=== PATIENT | male | born 1965 | race Caucasian/White ===

== ENCOUNTER → 2016-04-16 | Outpatient (CLI) | payer MEDICARE, MEDICAID ==
[~2016-04-16] MED LIST: AMIT10TA6; AMT25T PO; ASP81CT PO; ASPI-9 PO; ATOR40TA PO; CARV12.53 PO; CATHETER FLUSH 10 ML SYR IV PRN; DIPH50CA PO; DIVA-20 PO; DIVA250T2 PO; DOCU100T7 PO; FLT05NA16 NSEACH; FLUT16SP22 NS; FURO80TA PO; HYOS0.3710; IBUP-15 PO; IOHEXOL 350 MG/ML 100 ML (OMNIPAQUE 350) VIAL IV ONE; KCL20TCR; LORA10TA2 PO; LOSA25TA15; METO25TA2 PO; MMT17NA NS; MNTL10T; NF-ESOM40C PO; NS 100 ML (IVPB) BAG IV ONE; OMG1KC PO; POTA20TA7 PO; PRAV80TA2 PO; PROP1TAB77; SUMA100T2 PO; [UNRECOGNIZED DRUG - OTHER]
[2016-04-16 11:21] LABS: BLOOD UREA NITROGEN 7 MG/DL (7-18); BUN/CREATININE RATIO 8; CREATININE SERUM 0.84 MG/DL (0.60-1.30); GFR ESTIMATED > 60
--- NOTE | 2016-04-16 12:05 | Diagnostic Imaging Report ---
CLINICAL INDICATION: Patient with headaches times several months. Pain right posterior aspect and base of the head. Patient has a nonactive shunt in brain. EXAM: Axial CT scan of brain performed without and with 80 cc of Omnipaque 350 IV contrast. COMPARISON: Head CT without and with IV contrast dated 06/13/2010. FINDINGS: There is no evidence of acute cerebral infarct, intracranial hemorrhage, or gross mass effect. There are several focal areas of low-attenuation white matter changes in both cerebral hemispheres, which may be related to chronic small vessel ischemic disease. There is normal [place]-white matter distinction. The brain parenchymal volume appears appropriate for patient's age. There is no significant midline shift or herniation. The visualized [place] vascular structures shows no gross abnormality. Stable ventricular shunt in the right posterior aspect of the head. There is no evidence of hydrocephalus. The basal cisterns are unremarkable. The skull, extracranial soft tissue, and orbits are unremarkable. There is mild mucosal thickening involving right maxillary sinus. IMPRESSION: Stable CT scan of brain with no evidence of acute intracranial process. There is no evidence of hydrocephalus. Dictated by: Dictated on workstation # [id number]
== END ==
LOC: RAD 10:44
PROVIDERS: ATTEND Physician Assistant
DX: I50.22 Chronic systolic (congestive) heart failure (principal); R51 Headache; I65.23 Occlusion and stenosis of bilateral carotid arteries; I10 Essential (primary) hypertension; E78.2 Mixed hyperlipidemia
CPT/HCPCS: 36415; 70470; 82565; 84520

== ENCOUNTER → 2016-05-01 | Outpatient (CLI) | payer MEDICARE, MEDICAID ==
[~2016-05-01] MED LIST changes: -CATHETER FLUSH 10 ML SYR IV PRN; -IOHEXOL 350 MG/ML 100 ML (OMNIPAQUE 350) VIAL IV ONE; -NS 100 ML (IVPB) BAG IV ONE
[2016-05-01 08:45] LABS: BASOPHILS % (AUTO) 0 % (0-10); EOSINOPHILS # (AUTO) 0.1 10^3/uL (0.0-0.3); EOSINOPHILS % (AUTO) 2 % (0-10); LYMPHOCYTES # (AUTO) 2.3 X 10^3 (1.0-4.0); LYMPHOCYTES % (AUTO) 27 % (12-44); MEAN CORPUSCULAR HEMOGLOBIN 30 PG (25-34); MEAN CORPUSCULAR HGB CONC 36 G/DL (32-36); MEAN CORPUSCULAR VOLUME 83 FL (80-99); MEAN PLATELET VOLUME 9.6 FL (7.4-10.4); MONOCYTES # (AUTO) 0.7 X 10^3 (0.0-1.0); MONOCYTES % (AUTO) 9 % (0-12); NEUTROPHILS # (AUTO) 5.2 X 10^3 (1.8-7.8); NEUTROPHILS % (AUTO) 62 % (42-75); PLATELET COUNT 195 10^3/uL (130-400); RED BLOOD COUNT 5.86 10^6/uL (4.35-5.85); RED CELL DISTRIBUTION WIDTH 13.6 % (10.0-14.5); WHITE BLOOD COUNT 8.4 10^3/uL (4.3-11.0)
[2016-05-01 09:13] LABS: ALANINE AMINOTRANSFERASE 29 U/L (0-55); ALBUMIN 4.1 G/DL (3.2-4.5); ANION GAP 9 MMOL/L (5-14); ASPARTATE AMINO TRANSFERASE 22 U/L (5-34); BILIRUBIN,TOTAL 0.7 MG/DL (0.1-1.0); BLOOD UREA NITROGEN 9 MG/DL (7-18); BUN/CREATININE RATIO 11; CALCIUM 9.1 MG/DL (8.5-10.1); CARBON DIOXIDE 26 MMOL/L (21-32); CHLORIDE 97 MMOL/L (98-107); CHOLESTEROL 127 MG/DL (< 200); CREATININE SERUM 0.84 MG/DL (0.60-1.30); DIRECT LDL 73 MG/DL (1-129); GFR ESTIMATED > 60; GLUCOSE 88 MG/DL (70-105); POTASSIUM 4.2 MMOL/L (3.6-5.0); SODIUM 132 MMOL/L (135-145); TRIGLYCERIDES 145 MG/DL (<150); VLDL CHOLESTEROL 29 MG/DL (5-40)
[2016-05-01 09:34] LABS: THYROID STIMULATING HORMONE 0.94 UIU/ML (0.35-4.94); VALPROIC ACID 50.1 UG/ML (50.0-100.0)
[2016-05-02 07:57] LABS: ERYTHROCYTE SEDIMENTATION RATE 2 MM/HR
== END ==
LOC: LAB 08:11
PROVIDERS: ATTEND Family Medicine
DX: I10 Essential (primary) hypertension (principal); E78.2 Mixed hyperlipidemia; G80.9 Cerebral palsy, unspecified; R53.83 Other fatigue; R73.9 Hyperglycemia, unspecified
CPT/HCPCS: 36415; 80053; 80061; 80164; 83036; 84439; 84443; 84550; 85025; 85652

== ENCOUNTER 2016-06-11 10:53 | Outpatient (RCR) | payer MEDICARE, MEDICAID | END 2016-06-11 13:58 | disposition home or self-care (01) | PROVIDERS: ATTEND Family Medicine | DX: M54.2 Cervicalgia (principal); R51 Headache ==

== ENCOUNTER → 2016-08-06 | Outpatient (CLI) | payer MEDICARE, MEDICAID ==
--- NOTE | 2016-08-09 20:43 | ECHOCARDIOGRAPHY REPORT ---
DATE OF SERVICE: 08/06/2016 PROCEDURE: Two-dimensional echocardiogram. REFERRING PHYSICIAN: Demi Agustin DO MEASUREMENTS: LVID end diastolic 4.7, IVS thickness 1.4, LVPW thickness 1.2, left atrial diameter 3.1, ejection fraction 60%. FINDINGS: 1. Technical quality is good. 2. The left ventricle is normal in size with normal contractility, mild left ventricular hypertrophy noted diffusely. Systolic function appeared to be normal. Estimated ejection fraction 60%. No diastolic dysfunction was noted on this study. 3. The left atrium is normal in size. No clots or thrombus were seen within the left atrium. 4. The right atrium and right ventricle are normal in size. No clots or thrombus were seen within the right side. 5. Mitral valve is normal in morphology with mild mitral regurgitation noted by color Doppler flow. No mitral valve prolapse. No mitral valve stenosis. 6. Aortic valve is trileaflet with normal opening and closing pattern. No significant aortic stenosis or regurgitation was seen. 7. Tricuspid valve is normal in morphology with mild tricuspid regurgitation noted by color Doppler flow. Doppler across the tricuspid valve estimated pulmonary artery pressure of 14+, right atrial pressure 14+ right atrial pressure. 8. Pulmonic valve is functioning normally. 9. No pericardial effusion. IN CONCLUSION: 1. Mild left ventricular hypertrophy noted diffusely. Systolic function is normal. Estimated ejection fraction is 60%. 2. Mild mitral and tricuspid regurgitation. 3. Estimated pulmonary artery pressure of 20 mmHg. Job ID: [id number] DocumentID: [id number] Dictated Date: 08/08/2016 07:42:54 Pediatric Assistant Date: 08/08/2016 12:59:46 Dictated By: TON SALDANA MD
== END ==
LOC: RAD 07:23
PROVIDERS: ATTEND Physician Assistant
DX: I50.22 Chronic systolic (congestive) heart failure (principal); I65.23 Occlusion and stenosis of bilateral carotid arteries; I11.0 Hypertensive heart disease with heart failure; E78.2 Mixed hyperlipidemia
CPT/HCPCS: 93306

== ENCOUNTER 2016-08-22 10:06 | Emergency (ER) | payer MEDICARE, MEDICAID ==
[~2016-08-22] VITALS: Ht 182.9 cm; Wt 113.4 kg
[2016-08-22 10:21] LABS: BASOPHILS % (AUTO) 1 % (0-10); EOSINOPHILS # (AUTO) 0.2 10^3/uL (0.0-0.3); EOSINOPHILS % (AUTO) 2 % (0-10); LYMPHOCYTES # (AUTO) 2.7 X 10^3 (1.0-4.0); LYMPHOCYTES % (AUTO) 35 % (12-44); MEAN CORPUSCULAR HEMOGLOBIN 29 PG (25-34); MEAN CORPUSCULAR HGB CONC 35 G/DL (32-36); MEAN CORPUSCULAR VOLUME 85 FL (80-99); MEAN PLATELET VOLUME 9.6 FL (7.4-10.4); MONOCYTES # (AUTO) 0.7 X 10^3 (0.0-1.0); MONOCYTES % (AUTO) 8 % (0-12); NEUTROPHILS # (AUTO) 4.3 X 10^3 (1.8-7.8); NEUTROPHILS % (AUTO) 54 % (42-75); PLATELET COUNT 201 10^3/uL (130-400); RED BLOOD COUNT 5.84 10^6/uL (4.35-5.85); WHITE BLOOD COUNT 7.8 10^3/uL (4.3-11.0)
[2016-08-22 10:38] LABS: ALANINE AMINOTRANSFERASE 28 U/L (0-55); ALBUMIN 4.2 G/DL (3.2-4.5); ANION GAP 10 MMOL/L (5-14); ASPARTATE AMINO TRANSFERASE 25 U/L (5-34); BILIRUBIN,TOTAL 0.5 MG/DL (0.1-1.0); BLOOD UREA NITROGEN 6 MG/DL (7-18); BUN/CREATININE RATIO 6; CALCIUM 9.7 MG/DL (8.5-10.1); CARBON DIOXIDE 30 MMOL/L (21-32); CHLORIDE 97 MMOL/L (98-107); CREATININE SERUM 0.97 MG/DL (0.60-1.30); GFR ESTIMATED > 60; GLUCOSE 103 MG/DL (70-105); POTASSIUM 3.8 MMOL/L (3.6-5.0); SODIUM 137 MMOL/L (135-145); TOTAL PROTEIN 7.1 G/DL (6.4-8.2)
--- NOTE | 2016-08-22 10:38 | ED Cardiac General ---
History of Present Illness General Chief Complaint: Chest Pain Stated Complaint: CP, PACEMAKER Nursing Triage Note: PT C O OF CHEST PAIN, STATES STARTED THIS AM, HAS PAIN UPON LT PALPATION AT PACEMAKER AREA Source: patient, caregiver Exam Limitations: no limitations History of Present Illness Time seen by provider: 10:34 Initial Comments The patient is a 51-year-old white male who was brought to the emergency room by his caregiver. He reports that he started having pain in the area of his pacemaker yesterday and continues to do so. This does not radiate to the back or down the arms. He denies shortness of breath. He has an atrial sensing ventricular pacemaker on the basis of complete heart block. The initial was placed and 1994 and a replacement in June 2009. He is seen by Dr. Lau of cardiology. He recently was reported to have an echocardiogram with normal function. His last pacemaker interrogation was also said to be normal Timing/Duration: 24 hours Allergies and Home Medications Allergies Coded Allergies: vancomycin (Verified Allergy, Unknown, 11/11/05) Home Medications Aspirin/Calcium Carbonate/Mag 325 Mg Tablet, 325 MG PO DAILY, (Reported) Divalproex Sodium 500 Mg Tablet.dr, 500 MG PO DAILY @1200, (Reported) DAILY AT 1200 Divalproex Sodium 500 Mg Tablet.dr, 750 MG PO BID, (Reported) Docusate Sodium 100 Mg Tablet, 100 MG PO DAILY, (Reported) Esomeprazole Mag Trihydrate 40 Mg Capsule.dr, 40 MG PO DAILY, (Reported) Fluticasone Propionate 16 Gm Naspr, 50 MCG NS HS, (Reported) Furosemide 80 Mg Tablet, 80 MG PO BID, (Reported) Metoprolol Tartrate 25 Mg Tablet, 25 MG PO DAILY, (Reported) Siler 3 Polyunsat Fatty Acids 1,000 Mg Cap, 1,000 MG PO DAILY, (Reported) Potassium Chloride 20 Meq Tab.prt.sr, 40 MEQ PO BID, (Reported) Pravastatin Sodium 80 Mg Tablet, 80 MG PO DAILY, (Reported) Review of Systems Constitutional: see HPI EENTM: No Symptoms Reported Respiratory: No Symptoms Reported Cardiovascular: See HPI Gastrointestinal: No Symptoms Reported Genitourinary: No Symptoms Reported Musculoskeletal: no symptoms reported Skin: no symptoms reported Psychiatric/Neurological: No Symptoms Reported Endocrine: No Symptoms Reported Hematologic/Lymphatic: No Symptoms Reported Past Rruhxcz-Obsiqe-Rpttub Hx Patient Social History Alcohol Use: Denies Use Recreational Drug Use: No Smoking Status: Never a Smoker Recent Foreign Travel: No Contact w/Someone Who Travel: No Recent Infectious Disease Expo: No Recent Hopitalizations: No Immunizations Up To Date Date of Pneumonia Vaccine: Nov 28, 2011 Respiratory Hx Respiratory Disorders: No Cardiovascular Hx Cardiac Disorders: Yes Neurological Hx Neurological Disorders: Yes (hx meningitis 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) Reproductive System Hx Reproductive Disorders: No Genitourinary Hx Genitourinary Disorders: No Gastrointestinal Hx Gastrointestinal Disorders: Yes Musculoskeletal Hx Musculoskeletal Disorders: 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) Endocrine Hx Endocrine Disorders: No HEENT HX ENT Disorders: No Cancer Hx Cancer: No Psychosocial Hx Psychiatric Problems: No Blood Transfusions Hx Blood Disorders: No Physical Exam Vital Signs Vital Sign - Last 12Hours 08/22/16 10:15 Temp 98.1 Pulse 99 Resp 18 B/P (MAP) 108/88 Pulse Ox 97 O2 Delivery Room Air Capillary Refill : Less Than 3 Seconds General Appearance: No Apparent Distress, WD/WN HEENT: Normal ENT Inspection Neck: Normal Inspection Respiratory: Chest Non Tender, Lungs Clear, Normal Breath Sounds, No Accessory Muscle Use, No Respiratory Distress Cardiovascular: Regular Rate, Rhythm, No Edema, No Gallop, No JVD, No Murmur, Normal Peripheral Pulses, Other (tender to palpation at the pacemaker pack.) Gastrointestinal: Normal Bowel Sounds, No Organomegaly, No Pulsatile Mass, Non Tender Extremity: Normal Capillary Refill, Normal Inspection, Normal Range of Motion, Non Tender, No Calf Tenderness, No Pedal Edema Neurologic/Psychiatric: Alert, Oriented x3, No Motor/Sensory Deficits, Normal Mood/Affect Skin: Normal Color, Warm/Dry Lymphatic: No Adenopathy Progress/Results/Core Measures Results/Orders Lab Results Laboratory Tests Test 08/22/16 10:16 Range/Units White Blood Count 7.8 4.3-11.0 10^3/uL Red Blood Count 5.84 4.35-5.85 10^6/uL Hemoglobin 17.1 13.3-17.7 G/DL Hematocrit 49 40-54 % Mean Corpuscular Volume 85 80-99 FL Mean Corpuscular Hemoglobin 29 25-34 PG Mean Corpuscular Hemoglobin Concent 35 32-36 G/DL Red Cell Distribution Width 14.0 10.0-14.5 % Platelet Count 201 130-400 10^3/uL Mean Platelet Volume 9.6 7.4-10.4 FL Neutrophils (%) (Auto) 54 42-75 % Lymphocytes (%) (Auto) 35 12-44 % Monocytes (%) (Auto) 8 0-12 % Eosinophils (%) (Auto) 2 0-10 % Basophils (%) (Auto) 1 0-10 % Neutrophils # (Auto) 4.3 1.8-7.8 X 10^3 Lymphocytes # (Auto) 2.7 1.0-4.0 X 10^3 Monocytes # (Auto) 0.7 0.0-1.0 X 10^3 Eosinophils # (Auto) 0.2 0.0-0.3 10^3/uL Basophils # (Auto) 0.0 0.0-0.1 10^3/uL Sodium Level 137 135-145 MMOL/L Potassium Level 3.8 3.6-5.0 MMOL/L Chloride Level 97 L 98-107 MMOL/L Carbon Dioxide Level 30 21-32 MMOL/L Anion Gap 10 5-14 MMOL/L Blood Urea Nitrogen 6 L 7-18 MG/DL Creatinine 0.97 0.60-1.30 MG/DL Estimat Glomerular Filtration Rate > 60 BUN/Creatinine Ratio 6 Glucose Level 103 70-105 MG/DL Calcium Level 9.7 8.5-10.1 MG/DL Total Bilirubin 0.5 0.1-1.0 MG/DL Aspartate Amino Transf (AST/SGOT) 25 5-34 U/L Alanine Aminotransferase (ALT/SGPT) 28 0-55 U/L Alkaline Phosphatase 69 40-136 U/L Troponin I < 0.30 <0.30 NG/ML Total Protein 7.1 6.4-8.2 G/DL Albumin 4.2 3.2-4.5 G/DL My Orders Orders - ARI ENRIQUE MD Ekg Tracing (08/22/16 10:16) Cbc With Automated Diff (08/22/16 10:16) Comprehensive Metabolic Panel (08/22/16 10:16) Troponin I (08/22/16 10:16) Chest 1 View, Ap/Pa Only (08/22/16 10:16) Vital Signs/I&O Vital Sign - Last 12Hours 08/22/16 08/22/16 10:15 10:15 Temp 98.1 Pulse 99 Resp 18 B/P (MAP) 108/88 Pulse Ox 97 O2 Delivery Room Air Blood Pressure Mean: 95 Departure Impression Impression: Primary Impression: chest wall pain Disposition: 01 HOME, SELF-CARE Condition: Stable/Unchanged Departure-Patient Inst. Referrals: BEAU SHARPE DO (PCP/Family) Primary Care Physician Add. Discharge Instructions: All discharge instructions reviewed with patient and/or family. Voiced understanding. Try an ice pack to the area of the pacemaker 3 or 4 times today. Use ibuprofen 400-600 mg 3 times daily or naproxen 440 mg twice daily for pain relief ARI ENRIQUE MD August 22, 2016 10:38
[2016-08-22 10:44] LABS: TROPONIN I < 0.30 NG/ML (<0.30)
--- NOTE | 2016-08-22 10:55 | Diagnostic Imaging Report ---
INDICATION: Chest pain. TECHNIQUE: Single-view chest at 10:22 a.m. CORRELATION STUDY: 08/10/2012. FINDINGS: Left-sided pacemaker is stable. Heart size is enlarged. Vasculature within normal limits. Slight asymmetric elevation of the right hemidiaphragm. No infiltrate. IMPRESSION: 1. Stable cardiac enlargement without failure or otherwise acute findings. Dictated by: Dictated on workstation # [id number]
[2016-08-22 11:35] VITALS: BP 112/67
== END 2016-08-22 11:35 | disposition home or self-care (01) ==
LOC: EDUNIT# 10:06 → ER 10:07
DX: R07.89 Other chest pain (principal); G09 Sequelae of inflammatory diseases of central nervous system; I51.7 Cardiomegaly; Z79.82 Long term (current) use of aspirin; Z79.899 Other long term (current) drug therapy; Z95.0 Presence of cardiac pacemaker
CPT/HCPCS: 36415; 71010; 80053; 84484; 85025; 93005

== ENCOUNTER → 2016-12-21 | Outpatient (CLI) | payer MEDICARE, MEDICAID ==
[2016-12-21 08:56] LABS: BASOPHILS % (AUTO) 0 % (0-10); EOSINOPHILS # (AUTO) 0.1 10^3/uL (0.0-0.3); EOSINOPHILS % (AUTO) 1 % (0-10); LYMPHOCYTES # (AUTO) 2.1 X 10^3 (1.0-4.0); LYMPHOCYTES % (AUTO) 28 % (12-44); MEAN CORPUSCULAR HEMOGLOBIN 29 PG (25-34); MEAN CORPUSCULAR HGB CONC 35 G/DL (32-36); MEAN CORPUSCULAR VOLUME 83 FL (80-99); MEAN PLATELET VOLUME 9.1 FL (7.4-10.4); MONOCYTES # (AUTO) 0.6 X 10^3 (0.0-1.0); MONOCYTES % (AUTO) 8 % (0-12); NEUTROPHILS # (AUTO) 4.6 X 10^3 (1.8-7.8); NEUTROPHILS % (AUTO) 62 % (42-75); PLATELET COUNT 196 10^3/uL (130-400); RED BLOOD COUNT 6.05 10^6/uL (4.35-5.85); RED CELL DISTRIBUTION WIDTH 13.5 % (10.0-14.5); WHITE BLOOD COUNT 7.5 10^3/uL (4.3-11.0)
[2016-12-21 09:19] LABS: ALANINE AMINOTRANSFERASE 24 U/L (0-55); ALBUMIN 4.2 GM/DL (3.2-4.5); ANION GAP 9 MMOL/L (5-14); ASPARTATE AMINO TRANSFERASE 22 U/L (5-34); BILIRUBIN,TOTAL 0.6 MG/DL (0.1-1.0); BLOOD UREA NITROGEN 9 MG/DL (7-18); BUN/CREATININE RATIO 10; CALCIUM 9.5 MG/DL (8.5-10.1); CARBON DIOXIDE 29 MMOL/L (21-32); CHLORIDE 95 MMOL/L (98-107); CHOLESTEROL 135 MG/DL (< 200); CREATININE SERUM 0.87 MG/DL (0.60-1.30); DIRECT LDL 80 MG/DL (1-129); GFR ESTIMATED > 60; GLUCOSE 90 MG/DL (70-105); POTASSIUM 3.9 MMOL/L (3.6-5.0); SODIUM 133 MMOL/L (135-145); TOTAL PROTEIN 7.3 GM/DL (6.4-8.2); TRIGLYCERIDES 132 MG/DL (<150); VLDL CHOLESTEROL 26 MG/DL (5-40)
[2016-12-21 09:38] LABS: THYROID STIMULATING HORMONE 1.06 UIU/ML (0.35-4.94)
== END ==
LOC: LAB 08:33
PROVIDERS: ATTEND Family Medicine
DX: E78.2 Mixed hyperlipidemia (principal); R73.9 Hyperglycemia, unspecified; I10 Essential (primary) hypertension; G80.9 Cerebral palsy, unspecified; R53.83 Other fatigue
CPT/HCPCS: 36415; 80053; 80061; 83036; 84443; 85025

== ENCOUNTER → 2017-03-17 | Outpatient (CLI) | payer MEDICARE, MEDICAID ==
--- NOTE | 2017-03-17 15:49 | Diagnostic Imaging Report ---
INDICATION: Foot pain. COMPARISON: None. FINDINGS: Three views of the left foot demonstrate no acute fracture or dislocation. There are no focal osseous lesions. There is no soft tissue swelling. Joint spaces are well maintained. No radiopaque foreign bodies are seen. IMPRESSION: No acute fractures or dislocations of the left foot. Dictated by: Dictated on workstation # [id number]
== END ==
LOC: RAD 14:16
PROVIDERS: ATTEND Family Medicine
DX: M25.572 Pain in left ankle and joints of left foot (principal)
CPT/HCPCS: 73630

== ENCOUNTER 2018-01-14 12:27 | Emergency (ER) | payer MEDICARE, MEDICAID ==
[~2018-01-14] VITALS: Ht 182.9 cm; Wt 111.1 kg
[2018-01-14] MEDS ORDERED: ASPIRIN 81 MG CHEW (CHILDREN'S ASA) PO ONE (12:30)
[2018-01-14 13:14] LABS: BASOPHILS % (AUTO) 0 % (0-10); EOSINOPHILS # (AUTO) 0.1 10^3/uL (0.0-0.3); EOSINOPHILS % (AUTO) 1 % (0-10); HEMATOCRIT 48 % (40-54); HEMOGLOBIN 17.3 G/DL (13.3-17.7); LYMPHOCYTES # (AUTO) 2.9 X 10^3 (1.0-4.0); LYMPHOCYTES % (AUTO) 37 % (12-44); MEAN CORPUSCULAR HEMOGLOBIN 30 PG (25-34); MEAN CORPUSCULAR HGB CONC 36 G/DL (32-36); MEAN CORPUSCULAR VOLUME 83 FL (80-99); MEAN PLATELET VOLUME 9.4 FL (7.4-10.4); MONOCYTES # (AUTO) 0.9 X 10^3 (0.0-1.0); MONOCYTES % (AUTO) 11 % (0-12); NEUTROPHILS % (AUTO) 51 % (42-75); PLATELET COUNT 211 10^3/uL (130-400); RED BLOOD COUNT 5.82 10^6/uL (4.35-5.85); RED CELL DISTRIBUTION WIDTH 13.6 % (10.0-14.5); WHITE BLOOD COUNT 7.9 10^3/uL (4.3-11.0)
[2018-01-14 13:25] LABS: INR 1.1 (0.8-1.4)
[2018-01-14 13:31] LABS: ALANINE AMINOTRANSFERASE 15 U/L (0-55); ALBUMIN 4.4 GM/DL (3.2-4.5); ALKALINE PHOSPHATASE 51 U/L (40-136); BILIRUBIN,TOTAL 0.4 MG/DL (0.1-1.0); BUN/CREATININE RATIO 4; CALCIUM 9.6 MG/DL (8.5-10.1); CARBON DIOXIDE 26 MMOL/L (21-32); CHLORIDE 95 MMOL/L (98-107); CREATININE SERUM 0.93 MG/DL (0.60-1.30); GFR ESTIMATED > 60; GLUCOSE 105 MG/DL (70-105); MAGNESIUM 1.8 MG/DL (1.8-2.4); POTASSIUM 3.4 MMOL/L (3.6-5.0); SODIUM 134 MMOL/L (135-145)
--- NOTE | 2018-01-14 13:32 | Diagnostic Imaging Report ---
INDICATION: Chest pain, pressure x 1 week. TECHNIQUE: Single view chest at 1:09 PM. CORRELATION STUDY: 08/22/2016. FINDINGS: A left-sided dual-chamber pacemaker is present. The heart size is enlarged but generally stable. The vasculature overall is within normal limits. The lungs are clear with no consolidating infiltrate. There is no significant effusion or pneumothorax. There is unchanged slight asymmetric elevation of the right diaphragm. IMPRESSION: Stable severity cardiac enlargement without failure. Negative for acute abnormality of the chest. Dictated by: Dictated on workstation # [id number]
[2018-01-14 13:37] LABS: MYOGLOBIN SERUM 50.2 NG/ML (10.0-92.0)
--- NOTE | 2018-01-14 13:57 | ED Chest Pain ---
General Chief Complaint: Chest Pain Stated Complaint: CHEST PAIN Nursing Triage Note: PATIENT HERE FOR CHEST PAIN X1 WEEK. IT IS CONSTANT PRESSURE BUT WORSE WITH LAYING DOWN. PATIENT HAS DEFIBRILLATOR AND IS SEEN BY DR. LAU FOR HEART FAILURE. Nursing Sepsis Screen: No Definite Risk Source: patient Exam Limitations: no limitations History of Present Illness Date Seen by Provider: Jan 14, 2018 Time Seen by Provider: 13:55 Initial Comments To ER with reports of chest pain for one week that has been constant. This is somewhat alleviated by belching. He describes it as a constant pain to the left side of the sternal border gets worse when he lays down. He follows with Dr. Lau for CHF and has a pacemaker placed. He's also had some. No abdominal pain , states that as soon as he eats he has to go to the bathroom to have a bowel movement. He denies any associated syncope or near syncope, no shortness of breath, no diaphoresis no nausea or vomiting. Timing/Duration: 2-3 days Severity/Quality: moderate Location: central Activities at Onset: none ASA po TECHNICAL SALES MANAGER: No NTG SL TECHNICAL SALES MANAGER: No Associated Symptoms: abdominal pain; No nausea/vomiting Allergies and Home Medications Allergies Coded Allergies: vancomycin (Verified Allergy, Unknown, 11/11/05) Home Medications Aspirin/Calcium Carbonate/Mag 325 Mg Tablet, 325 MG PO DAILY, (Reported) Divalproex Sodium 500 Mg Tablet.dr, 500 MG PO DAILY @1200, (Reported) DAILY AT 1200 Divalproex Sodium 500 Mg Tablet.dr, 750 MG PO BID, (Reported) Docusate Sodium 100 Mg Tablet, 100 MG PO DAILY, (Reported) Esomeprazole Mag Trihydrate 40 Mg Capsule.dr, 40 MG PO DAILY, (Reported) Fluticasone Propionate 16 Gm Naspr, 50 MCG NS HS, (Reported) Furosemide 80 Mg Tablet, 80 MG PO BID, (Reported) Metoprolol Tartrate 25 Mg Tablet, 25 MG PO DAILY, (Reported) [place] 3 Polyunsat Fatty Acids 1,000 Mg Cap, 1,000 MG PO DAILY, (Reported) Potassium Chloride 20 Meq Tab.prt.sr, 40 MEQ PO BID, (Reported) Pravastatin Sodium 80 Mg Tablet, 80 MG PO DAILY, (Reported) Patient Home Medication List Home Medication List Reviewed: Yes Review of Systems Review of Systems Constitutional: see HPI; No diaphoresis EENTM: No Symptoms Reported Respiratory: No Symptoms Reported Cardiovascular: See HPI, Chest Pain; Denies Edema, Denies Irregular Heart Rate , Denies Lightheadedness, Denies Palpitations, Denies Syncope Gastrointestinal: No Symptoms Reported Genitourinary: No Symptoms Reported Musculoskeletal: no symptoms reported Skin: no symptoms reported Psychiatric/Neurological: No Symptoms Reported Endocrine: No Symptoms Reported Hematologic/Lymphatic: No Symptoms Reported Past Rtyitru-Fvdqgt-Semiqt Hx Patient Social History Alcohol Use: Denies Use Recreational Drug Use: No Smoking Status: Never a Smoker 2nd Hand Smoke Exposure: No Recent Foreign Travel: No Contact w/Someone Who Travel: No Recent Infectious Disease Expo: No Recent Hopitalizations: No Immunizations Up To Date Date of Pneumonia Vaccine: Nov 28, 2011 Past Medical History Surgeries: Yes (pacer/AICD placement, left hand tendon repair) Respiratory: No Cardiac: Yes (HEART FAILURE) Cardiomyopathy Neurological: Yes (hx meningitis 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) Reproductive Disorders: No Gastrointestinal: Yes Musculoskeletal: 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 0oz. [id number]; BMI Method:Stated General Appearance: No Apparent Distress, WD/WN HEENT: PERRL/EOMI, TMs Normal Neck: Full Range of Motion, Normal Inspection Respiratory: Normal Breath Sounds, No Accessory Muscle Use, No Respiratory Distress Cardiovascular: Regular Rate, Rhythm, Normal Peripheral Pulses Gastrointestinal: Normal Bowel Sounds, Non Tender, Soft Extremity: Normal Capillary Refill, Normal Inspection Neurologic/Psychiatric: Alert, Oriented x3 Skin: Normal Color, Warm/Dry Progress/Results/Core Measures Results/Orders Lab Results Laboratory Tests Test 01/14/18 13:03 Range/Units White Blood Count 7.9 4.3-11.0 10^3/uL Red Blood Count 5.82 4.35-5.85 10^6/uL Hemoglobin 17.3 13.3-17.7 G/DL Hematocrit 48 40-54 % Mean Corpuscular Volume 83 80-99 FL Mean Corpuscular Hemoglobin 30 25-34 PG Mean Corpuscular Hemoglobin Concent 36 32-36 G/DL Red Cell Distribution Width 13.6 10.0-14.5 % Platelet Count 211 130-400 10^3/uL Mean Platelet Volume 9.4 7.4-10.4 FL Neutrophils (%) (Auto) 51 42-75 % Lymphocytes (%) (Auto) 37 12-44 % Monocytes (%) (Auto) 11 0-12 % Eosinophils (%) (Auto) 1 0-10 % Basophils (%) (Auto) 0 0-10 % Neutrophils # (Auto) 4.0 1.8-7.8 X 10^3 Lymphocytes # (Auto) 2.9 1.0-4.0 X 10^3 Monocytes # (Auto) 0.9 0.0-1.0 X 10^3 Eosinophils # (Auto) 0.1 0.0-0.3 10^3/uL Basophils # (Auto) 0.0 0.0-0.1 10^3/uL Prothrombin Time 14.0 12.2-14.7 SEC INR Comment 1.1 0.8-1.4 Activated Partial Thromboplast Time 31 24-35 SEC D-Dimer < 0.27 0.00-0.49 UG/ML Sodium Level 134 L 135-145 MMOL/L Potassium Level 3.4 L 3.6-5.0 MMOL/L Chloride Level 95 L 98-107 MMOL/L Carbon Dioxide Level 26 21-32 MMOL/L Anion Gap 13 5-14 MMOL/L Blood Urea Nitrogen 4 L 7-18 MG/DL Creatinine 0.93 0.60-1.30 MG/DL Estimat Glomerular Filtration Rate > 60 BUN/Creatinine Ratio 4 Glucose Level 105 70-105 MG/DL Calcium Level 9.6 8.5-10.1 MG/DL Corrected Calcium 9.3 8.5-10.1 MG/DL Magnesium Level 1.8 1.8-2.4 MG/DL Total Bilirubin 0.4 0.1-1.0 MG/DL Aspartate Amino Transf (AST/SGOT) 18 5-34 U/L Alanine Aminotransferase (ALT/SGPT) 15 0-55 U/L Alkaline Phosphatase 51 40-136 U/L Myoglobin 50.2 10.0-92.0 NG/ML Troponin I < 0.30 <0.30 NG/ML B-Type Natriuretic Peptide < 10.0 <100.0 PG/ML Total Protein 8.0 6.4-8.2 GM/DL Albumin 4.4 3.2-4.5 GM/DL Lipase 31 8-78 U/L My Orders Orders - LORENA GRIGSBY APRN Cbc With Automated Diff (01/14/18 12:) Magnesium (01/14/18 12) Chest 1 View, Ap/Pa Only (01/14/18) Ekg Tracing (01/14/18) Cardiac Profile 1 (01/14/18) Comprehensive Metabolic Panel (01/14/18) Myoglobin Serum (01/14/18) Protime With Inr (01/14/18) Partial Thromboplastin Time (01/14/18) O2 (01/14/18:) Monitor-Rhythm Ecg Trace Only (01/14/18) Lipid Panel (01/15/18 06:00) Aspirin Chewable Tablet (Baby Aspirin Ch (01/14/18 12:30) Saline Lock/Iv-Start (01/14/18 12:) BNP (01/14/18:) Fibrin Degradation Products (01/14/18:) Lipase (01/14/18 13:52) Nitroglycerin 0.4 Mg Btl 25's (Nitrostat (01/14/18 14:00) Ct Abdomen/Pelvis W (01/14/18 13:54) Iohexol Injection (Omnipaque 350 Mg/Ml 1 (01/14/18 14:00) Ns (Ivpb) (Sodium Chloride 0.9%) (01/14/18 14:00) Antacid Suspension (Mylanta Suspension (01/14/18 15:30) Lidocaine 2% Viscous 15 Ml (Xylocaine Vi (01/14/18 15:30) Antacid Suspension (Mylanta Suspension (01/14/18 15:27) Lidocaine 2% Viscous 15 Ml (Xylocaine Vi (01/14/18 15:27) Medications Given in ED Current Medications Medications Dose Ordered Sig/Kinsey Route Start Time Stop Time Status Last Admin Dose Admin Aspirin 324 mg ONCE ONCE PO 01/14/18 12:30 01/14/18 12:31 DC 01/14/18 13:28 324 MG Iohexol 100 ml ONCE ONCE IV 01/14/18 14:00 01/14/18 14:01 DC 01/14/18 14:38 100 ML Sodium Chloride 250 ml ONCE ONCE IV 01/14/18 14:00 01/14/18 14:01 DC 01/14/18 14:38 80 ML Vital Signs/I&O 01/14/18 01/14/18 12:50 12:50 Temp 98.1 Pulse 92 Resp 22 B/P (MAP) 108/68 (81) Pulse Ox 96 99 O2 Delivery Room Air Blood Pressure Mean: 81 Departure Communication (Admissions) [phone]- discussed the case with Dr. Chappell director of acquisition marketing for family practice. Given that his pain has been constant for one week and he still has a negative troponin this is unlikely to be cardiac in nature. He had a clean cardiac catheterization back in 2012. We will discharge home with PPI and follow-up on Wednesday. Impression Primary Impression: Chest pain Qualified Codes: R07.9 - Chest pain, unspecified Disposition: HOME, SELF-CARE Condition: Stable Departure-Patient Inst. Decision time for Depature: 15:27 Referrals: BEAU SHARPE DO (PCP/Family) Primary Care Physician Patient Instructions: Chest Pain (DC) Add. Discharge Instructions: 1. Return to ER for any concerns 2. Follow up with your doctor next week. Call Dr. Lau on Wednesday morning for follow-up appointment. All discharge instructions reviewed with patient and/or family. Voiced understanding. Copy Copies To 1: TON LAU MD, PETER J APRN Jan 14, 2018 13:57
[2018-01-14] MEDS ORDERED: NITROGLYCERIN 0.4 MG SL TABS BTL 25'S SL PRN (14:00)
[2018-01-14] MEDS ORDERED: IOHEXOL 350 MG/ML 100 ML (OMNIPAQUE 350) VIAL IV ONE (14:00)
[2018-01-14] MEDS ORDERED: NS 250 ML (IVPB) BAG IV ONE (14:00)
--- NOTE | 2018-01-14 15:05 | Diagnostic Imaging Report ---
PROCEDURE: CT abdomen and pelvis with contrast. TECHNIQUE: Multiple contiguous axial images were obtained through the abdomen and pelvis after administration of intravenous contrast. INDICATION: Epigastric pain and diarrhea. Comparison is made to study of 11/26/2011. Internal defibrillator device is noted in the lower chest. There is low-density throughout the liver indicating steatosis. There is no evidence of focal hepatic or splenic abnormality. Gallbladder is surgically absent. No pancreatic, adrenal gland or renal lesion is identified. There is no evidence of free fluid. Mildly prominent mesenteric lymph nodes are stable. The appendix has a normal appearance. Partially opacified urinary bladder is unremarkable. Curvilinear density anterior and to the right of the urinary bladder may represent scarring. Note is made of grade 1 anterolisthesis of L5 on S1 with bilateral L5 spondylolyses. IMPRESSION: Hepatic steatosis similar to previous study. There is no evidence of acute intra-abdominal or pelvic abnormality. The appendix has a normal appearance. Note is made of bilateral L5 spondylolyses and spondylolisthesis. Dictated by: Dictated on workstation # [id number]
[2018-01-14] MEDS ORDERED: LIDOCAINE 2% VISCOUS 15 ML UDC ONE (15:27)
[2018-01-14] MEDS ORDERED: ANTACID SUSP 30 ML UDC (MYLANTA) ONE (15:27)
[2018-01-14] MEDS ORDERED: LIDOCAINE 2% VISCOUS 15 ML UDC PO ONE (15:30)
[2018-01-14] MEDS ORDERED: ANTACID SUSP 30 ML UDC (MYLANTA) PO ONE (15:30)
[2018-01-14 16:00] VITALS: BP 106/74
--- OUTSIDE RECORDS SUMMARY | 2018-01-15 05:43 | XMS REPORT | Continuity of Care Document ---
Author Author [facility] Organization [facility] Address Unknown Phone Unavailable Allergies Active Description Code Type Severity Reaction Onset Reported/Identified Relationship to Patient Clinical Status Yes vancomycin [id number] Drug Allergy Unknown N/A 11/11/2005 Medications There is no data. 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 PACEMAKER IN SITU 12/03/2011 Ot 575.11 CHRONIC CHOLECYSTITIS 08/11/2012 TON SALDANA MD Ot 272.4 HYPERLIPIDEMIA NEC/NOS 08/11/2012 TON SALDANA MD Ot 401.9 HYPERTENSION NOS 08/11/2012 TON SALDANA MD Ot 427.81 SINOATRIAL NODE DYSFUNCT 08/11/2012 TON SALDANA MD Ot 428.0 CONGESTIVE HEART FAILURE NOS 08/11/2012 TON SALDANA MD Ot 428.22 CHRONIC SYSTOLIC HRT FAILURE 08/11/2012 TON SALDANA MD Ot 433.10 CAROTID ARTERY OCCLUSION W O CEREBRAL IN 08/11/2012 TON SALDANA MD Ot 433.30 MULT BILTRAL ARTERY OCCLUSION WO CEREBRA 08/11/2012 TON SALDANA MD Ot 716.90 ARTHROPATHY NOS-UNSPEC 08/11/2012 TON SALDANA MD Ot 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 08/11/2012 TON SALDANA MD Ot 786.50 CHEST PAIN NOS 08/11/2012 TON SALDANA MD Ot V45.01 CARDIAC PACEMAKER IN SITU 08/11/2012 TON SALDANA MD Ot V58.66 LONG-TERM (CURRENT) USE OF ASPIRIN 08/11/2012 TON SALDANA MD Ot V58.69 OTH MED,LT,CURRENT USE 02/16/2014 BEAU SHARPE DO Ot 719.43 07/27/2014 Ot 272.4 07/27/2014 Ot 401.9 07/27/2014 Ot 427.81 07/27/2014 Ot 428.0 07/27/2014 Ot 433.10 07/27/2014 Ot 780.4 07/27/2014 Ot 791.9 07/27/2014 Ot V53.31 07/27/2014 Ot V72.63 07/27/2014 Ot V72.81 07/27/2014 Ot V74.8 07/27/2014 Ot 784.0 07/27/2014 Ot 428.0 07/27/2014 Ot 784.0 07/27/2014 Ot V45.2 07/27/2014 Ot 575.8 07/27/2014 Ot V72.81 07/27/2014 Ot V74.8 07/27/2014 TON SALDANA MD Ot 397.0 07/27/2014 TON SALDANA MD Ot 424.0 07/27/2014 TON SALDANA MD Ot 428.0 07/27/2014 TON SALDANA MD Ot 786.50 07/27/2014 TON SALDANA MD Ot 428.0 07/27/2014 TON SALDANA MD Ot 786.50 07/27/2014 CONNER PRYOR Ot 397.0 07/27/2014 CONNER PRYOR Ot 424.0 07/27/2014 CONNER PRYOR Ot 427.31 07/27/2014 CONNER PRYOR Ot 427.81 07/27/2014 CONNER PRYOR Ot 428.0 07/27/2014 CONNER PRYOR Ot 786.50 07/27/2014 BEAU SHARPE DO Ot 719.43 09/01/2014 TON SALDANA MD Ot 272.4 09/01/2014 LES WILDER, TON Palacio Ot 401.9 09/01/2014 TON SALDANA MD Ot 427.31 09/01/2014 LES WILDER, TON Palacio Ot 428.0 09/01/2014 TON SALDANA MD Ot 433.10 09/24/2014 TON SALDANA MD Ot 272.4 09/24/2014 LES WILDER, TON Palacio Ot 401.9 09/24/2014 LES WILDER, TON Palacio Ot 427.31 09/24/2014 TON SALDANA MD Ot 428.0 09/24/2014 TON SALDANA MD Ot 433.10 10/10/2014 TON SALDANA MD Ot 272.4 10/10/2014 LES WILDER, TON Palacio Ot 401.9 10/10/2014 LES WILDER, TON Palacio Ot 427.31 10/10/2014 TON SALDANA MD Ot 428.0 10/10/2014 TON SALDANA MD Ot 433.10 10/15/2014 TON SALDANA MD Ot 272.4 10/15/2014 LES WILDER, TON Palacio Ot 401.9 10/15/2014 TON SALDANA MD Ot 427.31 10/15/2014 TON SALDANA MD Ot 428.0 10/15/2014 TON SALDANA MD Ot 433.10 12/24/2015 ROYER SINGLETON MD Ot Z01.818 ENCOUNTER FOR OTHER PREPROCEDURAL EXAMIN 12/24/2015 ROYER SINGLETON MD Ot Z12.11 ENCOUNTER FOR SCREENING FOR MALIGNANT NE 04/16/2016 Ot 575.8 DIS OF GALLBLADDER NEC 04/16/2016 Ot V72.81 EXAM-PRE- OPERATIVE CARDIOVASCULAR 04/16/2016 Ot V74.8 SCREEN- BACTERIAL DIS NEC 04/16/2016 TON SALDANA MD Ot 397.0 TRICUSPID VALVE DISEASE 04/16/2016 TON SALDANA MD Ot 424.0 MITRAL VALVE DISORDER 04/16/2016 TON SALDANA MD Ot 428.0 CONGESTIVE HEART FAILURE NOS 04/16/2016 TON SALDANA MD Ot 786.50 CHEST PAIN NOS 04/16/2016 TON SALDANA MD Ot 428.0 CONGESTIVE HEART FAILURE NOS 04/16/2016 TON SALDANA MD Ot 786.50 CHEST PAIN NOS 04/16/2016 CONNER PRYOR Ot 397.0 TRICUSPID VALVE DISEASE 04/16/2016 CONNER PRYOR Ot 424.0 MITRAL VALVE DISORDER 04/16/2016 CONNER PRYOR Ot 427.31 ATRIAL FIBRILLATION 04/16/2016 CONNER PRYOR Ot 427.81 SINOATRIAL NODE DYSFUNCT 04/16/2016 CONNER PRYOR Ot 428.0 CONGESTIVE HEART FAILURE NOS 04/16/2016 CONNER PRYOR Ot 786.50 CHEST PAIN NOS 04/16/2016 BEAU SHARPE DO Ot 719.43 JOINT PAIN-FOREARM 04/16/2016 TON SALDANA MD Ot 272.4 HYPERLIPIDEMIA NEC/NOS 04/16/2016 TON SALDANA MD Ot 401.9 HYPERTENSION NOS 04/16/2016 TON SALDANA MD Ot 427.31 ATRIAL FIBRILLATION 04/16/2016 TON SALDANA MD Ot 428.0 CONGESTIVE HEART FAILURE NOS 04/16/2016 TON SALDANA MD Ot 433.10 CAROTID ARTERY OCCLUSION W O CEREBRAL IN 04/16/2016 TON SALDANA MD Ot 272.4 HYPERLIPIDEMIA NEC/NOS 04/16/2016 TON SALDANA MD Ot 401.9 HYPERTENSION NOS 04/16/2016 TON SALDANA MD Ot 427.31 ATRIAL FIBRILLATION 04/16/2016 TON SALDANA MD Ot 428.0 CONGESTIVE HEART FAILURE NOS 04/16/2016 TON SALDANA MD Ot 433.10 CAROTID ARTERY OCCLUSION W O CEREBRAL IN 04/16/2016 ROYER SINGLETON MD Ot Z01.818 ENCOUNTER FOR OTHER PREPROCEDURAL EXAMIN 04/16/2016 ROYER SINGLETON MD Ot Z12.11 ENCOUNTER FOR SCREENING FOR MALIGNANT NE 04/17/2016 CONNER PRYOR Ot E78.2 MIXED HYPERLIPIDEMIA 04/17/2016 CONNER PRYOR Ot I10 ESSENTIAL (PRIMARY) HYPERTENSION 04/17/2016 CONNER PRYOR Ot I50.22 CHRONIC SYSTOLIC (CONGESTIVE) HEART FAIL 04/17/2016 JULIO SULLIVAN CONNER K Ot 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 04/17/2016 CONNER PRYOR Ot R51 HEADACHE 04/20/2016 JULIO SULLIVAN CONNER K Ot E78.2 MIXED HYPERLIPIDEMIA 04/20/2016 CONNER PRYOR Ot I10 ESSENTIAL (PRIMARY) HYPERTENSION 04/20/2016 JULIO SULLIVAN CONNER K Ot I50.22 CHRONIC SYSTOLIC (CONGESTIVE) HEART FAIL 04/20/2016 JULIO SULLIVAN CONNER K Ot 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 04/20/2016 JULIO SULLIVAN CONNER K Ot R51 HEADACHE 05/01/2016 Ot 575.8 DIS OF GALLBLADDER NEC 05/01/2016 Ot V72.81 EXAM-PRE- OPERATIVE CARDIOVASCULAR 05/01/2016 Ot V74.8 SCREEN- BACTERIAL DIS NEC 05/01/2016 TON SALDANA MD Ot 397.0 TRICUSPID VALVE DISEASE 05/01/2016 TON SALDANA MD Ot 424.0 MITRAL VALVE DISORDER 05/01/2016 TON SALDANA MD Ot 428.0 CONGESTIVE HEART FAILURE NOS 05/01/2016 TON SALDANA MD Ot 786.50 CHEST PAIN NOS 05/01/2016 TON SALDANA MD Ot 428.0 CONGESTIVE HEART FAILURE NOS 05/01/2016 TON SALDANA MD Ot 786.50 CHEST PAIN NOS 05/01/2016 CONNER PRYOR Ot 397.0 TRICUSPID VALVE DISEASE 05/01/2016 CONNER PRYOR Ot 424.0 MITRAL VALVE DISORDER 05/01/2016 CONNER PRYOR Ot 427.31 ATRIAL FIBRILLATION 05/01/2016 CONNER PRYOR Ot 427.81 SINOATRIAL NODE DYSFUNCT 05/01/2016 CONNER PRYOR Ot 428.0 CONGESTIVE HEART FAILURE NOS 05/01/2016 CONNER PRYOR Ot 786.50 CHEST PAIN NOS 05/01/2016 BEAU SHARPE DO Ot 719.43 JOINT PAIN-FOREARM 05/01/2016 TON SALDANA MD Ot 272.4 HYPERLIPIDEMIA NEC/NOS 05/01/2016 TON SALDANA MD Ot 401.9 HYPERTENSION NOS 05/01/2016 TON SALDANA MD Ot 427.31 ATRIAL FIBRILLATION 05/01/2016 TON SALDANA MD Ot 428.0 CONGESTIVE HEART FAILURE NOS 05/01/2016 TON SALDANA MD Ot 433.10 CAROTID ARTERY OCCLUSION W O CEREBRAL IN 05/01/2016 TON SALDANA MD Ot 272.4 HYPERLIPIDEMIA NEC/NOS 05/01/2016 TON SALDANA MD Ot 401.9 HYPERTENSION NOS 05/01/2016 TON SALDANA MD Ot 427.31 ATRIAL FIBRILLATION 05/01/2016 TON SALDANA MD Ot 428.0 CONGESTIVE HEART FAILURE NOS 05/01/2016 TON SALDANA MD Ot 433.10 CAROTID ARTERY OCCLUSION W O CEREBRAL IN 05/01/2016 ROYER SINGLETON MD Ot Z01.818 ENCOUNTER FOR OTHER PREPROCEDURAL EXAMIN 05/01/2016 ROYER SINGLETON MD Ot Z12.11 ENCOUNTER FOR SCREENING FOR MALIGNANT NE 05/01/2016 CONNER PRYOR Ot E78.2 MIXED HYPERLIPIDEMIA 05/01/2016 CONNER PRYOR Ot I10 ESSENTIAL (PRIMARY) HYPERTENSION 05/01/2016 CONNER PRYOR Ot I50.22 CHRONIC SYSTOLIC (CONGESTIVE) HEART FAIL 05/01/2016 CONNER PRYOR Ot 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 05/01/2016 CONNER PRYOR Ot R51 HEADACHE 05/04/2016 RICKI SHARPE DOLINE S Ot E78.2 MIXED HYPERLIPIDEMIA 05/04/2016 JAIMEE SHARPE DOQUELINE S Ot G80.9 CEREBRAL PALSY, UNSPECIFIED 05/04/2016 BEAU SHARPE DO S Ot I10 ESSENTIAL (PRIMARY) HYPERTENSION 05/04/2016 JAIMEE SHARPE DOQUELINE S Ot R53.83 OTHER FATIGUE 05/04/2016 IVANNANDJAIMEE SIMON DOQUELINE S Ot E78.2 MIXED HYPERLIPIDEMIA 05/04/2016 JAIMEE SHARPE DOQUELINE S Ot G80.9 CEREBRAL PALSY, UNSPECIFIED 05/04/2016 ORENDER DO, BEAU S Ot I10 ESSENTIAL (PRIMARY) HYPERTENSION 05/04/2016 ORENDER DO, BEAU S Ot R53.83 OTHER FATIGUE 05/04/2016 ORENDER DO, BEAU S Ot R73.9 HYPERGLYCEMIA, UNSPECIFIED 05/14/2016 CONNER PRYOR Ot E78.2 MIXED HYPERLIPIDEMIA 05/14/2016 CONNER PRYOR Ot I10 ESSENTIAL (PRIMARY) HYPERTENSION 05/14/2016 CONNER PRYOR Ot I50.22 CHRONIC SYSTOLIC (CONGESTIVE) HEART FAIL 05/14/2016 CONNER PRYOR Ot 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 05/14/2016 CONNER PRYOR Ot R51 HEADACHE 05/15/2016 IVANNANDER DO, BEAU S Ot M54.2 CERVICALGIA 05/15/2016 IVANNANDER DO, BEAU S Ot R51 HEADACHE 05/21/2016 CONNER PRYOR Ot E78.2 MIXED HYPERLIPIDEMIA 05/21/2016 CONNER PRYOR Ot I10 ESSENTIAL (PRIMARY) HYPERTENSION 05/21/2016 CONNER PRYOR Ot I50.22 CHRONIC SYSTOLIC (CONGESTIVE) HEART FAIL 05/21/2016 CONNER PRYOR Ot 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 05/21/2016 CONNER PRYOR Ot R51 HEADACHE 05/26/2016 ORENDER DO, BEAU S Ot E78.2 MIXED HYPERLIPIDEMIA 05/26/2016 ORENDER DO, BEAU S Ot G80.9 CEREBRAL PALSY, UNSPECIFIED 05/26/2016 ORENDER DO, BEAU S Ot I10 ESSENTIAL (PRIMARY) HYPERTENSION 05/26/2016 ORENDER DO, BEAU S Ot R53.83 OTHER FATIGUE 05/26/2016 ORENDER DO, BEAU S Ot R73.9 HYPERGLYCEMIA, UNSPECIFIED 05/26/2016 ORENDER DO, BEAU S Ot M54.2 CERVICALGIA 05/26/2016 ORENDER DO, BEAU S Ot R51 HEADACHE 05/28/2016 ORENDER DO, BEAU S Ot E78.2 MIXED HYPERLIPIDEMIA 05/28/2016 IVANNANDER RICKI ONEILLINE Gianna Ot G80.9 CEREBRAL PALSY, UNSPECIFIED 05/28/2016 IVANNANDER RICKI ONEILLINE S Ot I10 ESSENTIAL (PRIMARY) HYPERTENSION 05/28/2016 IVANNANDER , BEAU S Ot R53.83 OTHER FATIGUE 05/28/2016 IVANNANDER RICKI ONEILLINE S Ot R73.9 HYPERGLYCEMIA, UNSPECIFIED 06/11/2016 IVANNANDER RICKI ONEILLINE S Ot M54.2 CERVICALGIA 06/11/2016 IVANNANDRICKI SIMON DOLINE S Ot R51 HEADACHE 08/22/2016 ARI ENRIQUE MD Ot 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[place] 08/22/2016 ARI ENRIQUE MD Ot I51.7 CARDIOMEGALY 08/22/2016 ARI ENRIQUE MD Ot R07.89 OTHER CHEST PAIN 08/22/2016 ARI ENRIQUE MD Ot Z79.82 DIRECTOR [facility]ITY [facility] NURSING (CURRENT) USE OF ASPIRIN 08/22/2016 ARI ENRIQUE MD Ot Z79.899 OTHER DIRECTOR COMMUNITY [facility] NURSING (CURRENT) DRUG THERAPY 08/22/2016 ARI ENRIQUE MD Ot Z95.0 PRESENCE OF CARDIAC PACEMAKER 08/25/2016 ARI ENRIQUE MD Ot 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[place] 08/25/2016 ARI ENRIQUE MD Ot I51.7 CARDIOMEGALY 08/25/2016 ARI ENRIQUE MD Ot R07.89 OTHER CHEST PAIN 08/25/2016 ARI ENRIQUE MD Ot Z79.82 SENIOR CARE (CURRENT) USE OF ASPIRIN 08/25/2016 ARI ENRIQUE MD Ot Z79.899 OTHER SENIOR CARE (CURRENT) DRUG THERAPY 08/25/2016 ARI ENRIQUE MD Ot Z95.0 PRESENCE OF CARDIAC PACEMAKER 08/28/2016 CONNER PRYOR Ot E78.2 MIXED HYPERLIPIDEMIA 08/28/2016 CONNER PRYOR Ot I11.0 HYPERTENSIVE HEART DISEASE WITH HEART FA 08/28/2016 CONNER PRYOR Ot I50.22 CHRONIC SYSTOLIC (CONGESTIVE) HEART FAIL 08/28/2016 CONNER PRYOR Ot 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 09/03/2016 CONNER PRYOR Ot E78.2 MIXED HYPERLIPIDEMIA 09/03/2016 CONNER PRYOR Ot I11.0 HYPERTENSIVE HEART DISEASE WITH HEART FA 09/03/2016 CONNER PRYOR Ot I50.22 CHRONIC SYSTOLIC (CONGESTIVE) HEART FAIL 09/03/2016 CONNER PRYOR Ot 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 12/21/2016 ORENDER DO, BEAU S Ot E78.2 MIXED HYPERLIPIDEMIA 12/21/2016 ORENDER DO, BEAU S Ot R73.9 HYPERGLYCEMIA, UNSPECIFIED 12/22/2016 ORENDER DO, BEAU S Ot E78.2 MIXED HYPERLIPIDEMIA 12/22/2016 ORENDER DO, BEAU S Ot G80.9 CEREBRAL PALSY, UNSPECIFIED 12/22/2016 ORENDER DO, BEAU S Ot I10 ESSENTIAL (PRIMARY) HYPERTENSION 12/22/2016 ORENDER DO, BEAU S Ot R53.83 OTHER FATIGUE 12/22/2016 ORENDER DO, BEAU S Ot R73.9 HYPERGLYCEMIA, UNSPECIFIED 12/27/2016 ORENDER DO, BEAU S Ot E78.2 MIXED HYPERLIPIDEMIA 12/27/2016 ORENDER DO, BEAU S Ot G80.9 CEREBRAL PALSY, UNSPECIFIED 12/27/2016 ORENDER DO, BEAU S Ot I10 ESSENTIAL (PRIMARY) HYPERTENSION 12/27/2016 ORENDER DO, BEAU S Ot R53.83 OTHER FATIGUE 12/27/2016 ORENDER DO, BEAU S Ot R73.9 HYPERGLYCEMIA, UNSPECIFIED 01/15/2017 ORENDER DO, BEAU S Ot E78.2 MIXED HYPERLIPIDEMIA 01/15/2017 ORENDER DO, BEAU S Ot G80.9 CEREBRAL PALSY, UNSPECIFIED 01/15/2017 ORENDER DO, BEAU S Ot I10 ESSENTIAL (PRIMARY) HYPERTENSION 01/15/2017 ORENDER DO, BEAU S Ot R53.83 OTHER FATIGUE 01/15/2017 ORENDER DO, BEAU S Ot R73.9 HYPERGLYCEMIA, UNSPECIFIED 01/20/2017 ORENDER DO, BEAU S Ot E78.2 MIXED HYPERLIPIDEMIA 01/20/2017 BEAU SHARPE DO Ot G80.9 CEREBRAL PALSY, UNSPECIFIED 01/20/2017 BEAU SHARPE DO Ot I10 ESSENTIAL (PRIMARY) HYPERTENSION 01/20/2017 BEAU SHARPE DO Ot R53.83 OTHER FATIGUE 01/20/2017 BEAU SHARPE DO Ot R73.9 HYPERGLYCEMIA, UNSPECIFIED 04/07/2017 BEAU SHARPE DO Ot M25.572 PAIN IN LEFT ANKLE AND JOINTS OF LEFT FO 04/16/2017 BEAU SHARPE DO Ot M25.572 PAIN IN LEFT ANKLE AND JOINTS OF LEFT FO Procedures There is no data. Results Test Result Range Complete blood count (CBC) with automated white blood cell (WBC) differential - 05/01/16 08:39 Blood leukocytes automated count (number/volume) 8.4 10*3/uL 4.3-11.0 Blood erythrocytes automated count (number/volume) 5.86 10*6/uL 4.35-5.85 Venous blood hemoglobin measurement (mass/volume) 17.3 g/dL 13.3-17.7 Blood hematocrit (volume fraction) 49 % 40-54 Automated erythrocyte mean corpuscular volume 83 [foz_us] 80-99 Automated erythrocyte mean corpuscular hemoglobin (mass per erythrocyte) 30 pg 25-34 Automated erythrocyte mean corpuscular hemoglobin concentration measurement ( mass/volume) 36 g/dL 32-36 Automated erythrocyte distribution width ratio 13.6 % 10.0-14.5 Automated blood platelet count (count/volume) 195 10*3/uL 130-400 Automated blood platelet mean volume measurement 9.6 [foz_us] 7.4-10.4 Automated blood neutrophils/100 leukocytes 62 % 42-75 Automated blood lymphocytes/100 leukocytes 27 % 12-44 Blood monocytes/100 leukocytes 9 % 0-12 Automated blood eosinophils/100 leukocytes 2 % 0-10 Automated blood basophils/100 leukocytes 0 % 0-10 Blood neutrophils automated count (number/volume) 5.2 10*3 1.8-7.8 Blood lymphocytes automated count (number/volume) 2.3 10*3 1.0-4.0 Blood monocytes automated count (number/volume) 0.7 10*3 0.0-1.0 Automated eosinophil count 0.1 10*3/uL 0.0-0.3 Automated blood basophil count (count/volume) 0.0 10*3/uL 0.0-0.1 Comprehensive metabolic panel - 05/01/16 08:39 Serum or plasma sodium measurement (moles/volume) 132 mmol/L 135-145 Serum or plasma potassium measurement (moles/volume) 4.2 mmol/L 3.6-5.0 Serum or plasma chloride measurement (moles/volume) 97 mmol/L 98-107 Carbon dioxide 26 mmol/L 21-32 Serum or plasma anion gap determination (moles/volume) 9 mmol/L 5-14 Serum or plasma urea nitrogen measurement (mass/volume) 9 mg/dL 7-18 Serum or plasma creatinine measurement (mass/volume) 0.84 mg/dL 0.60-1.30 Serum or plasma urea nitrogen/creatinine mass ratio 11 NRG Serum or plasma creatinine measurement with calculation of estimated glomerular filtration rate > NRG Serum or plasma glucose measurement (mass/volume) 88 mg/dL 70-105 Serum or plasma calcium measurement (mass/volume) 9.1 mg/dL 8.5-10.1 Serum or plasma total bilirubin measurement (mass/volume) 0.7 mg/dL 0.1-1.0 Serum or plasma alkaline phosphatase measurement (enzymatic activity/volume) 60 U/L 40-136 Serum or plasma aspartate aminotransferase measurement (enzymatic activity/ volume) 22 U/L 5-34 Serum or plasma alanine aminotransferase measurement (enzymatic activity/volume ) 29 U/L 0-55 Serum or plasma protein measurement (mass/volume) 7.0 g/dL 6.4-8.2 Serum or plasma albumin measurement (mass/volume) 4.1 g/dL 3.2-4.5 Serum or plasma uric acid measurement (mass/volume) - 05/01/16 08:39 Serum or plasma uric acid measurement (mass/volume) 7.0 mg/dL 2.6-7.2 Lipid 1996 panel - 05/01/16 08:39 Serum or plasma triglyceride measurement (mass/volume) 145 mg/dL <150 Serum or plasma cholesterol measurement (mass/volume) 127 mg/dL < 200 Serum or plasma cholesterol in HDL measurement (mass/volume) 34 mg/ dL 40-60 Cholesterol in LDL [mass/volume] in serum or plasma by direct assay 73 mg/dL 1-129 Serum or plasma cholesterol in VLDL measurement (mass/volume) 29 mg/ dL 5-40 Hemoglobin A1c - 05/01/16 08:39 Hemoglobin A1c 6.4 % 4.5-6.2 THYROID STIMULATING HORMONE - 05/01/16 08:39 THYROID STIMULATING HORMONE 0.94 u[iU]/mL 0.35-4.94 Serum or plasma thyroxine (T4) free measurement (mass/volume) - 05/01/16 08:39 Serum or plasma thyroxine (T4) free measurement (mass/volume) 0.77 ng/dL 0.70-1.48 Valproic acid - 05/01/16 08:39 Valproic acid 50.1 ug/mL 50.0-100.0 Erythrocyte sedimentation rate by westergren method - 05/01/16 08:39 Erythrocyte sedimentation rate by westergren method 2 mm NRG Complete blood count (CBC) with automated white blood cell (WBC) differential - 08/22/16 10:16 Blood leukocytes automated count (number/volume) 7.8 10*3/uL 4.3-11.0 Blood erythrocytes automated count (number/volume) 5.84 10*6/uL 4.35-5.85 Venous blood hemoglobin measurement (mass/volume) 17.1 g/dL 13.3-17.7 Blood hematocrit (volume fraction) 49 % 40-54 Automated erythrocyte mean corpuscular volume 85 [foz_us] 80-99 Automated erythrocyte mean corpuscular hemoglobin (mass per erythrocyte) 29 pg 25-34 Automated erythrocyte mean corpuscular hemoglobin concentration measurement ( mass/volume) 35 g/dL 32-36 Automated erythrocyte distribution width ratio 14.0 % 10.0-14.5 Automated blood platelet count (count/volume) 201 10*3/uL 130-400 Automated blood platelet mean volume measurement 9.6 [foz_us] 7.4-10.4 Automated blood neutrophils/100 leukocytes 54 % 42-75 Automated blood lymphocytes/100 leukocytes 35 % 12-44 Blood monocytes/100 leukocytes 8 % 0-12 Automated blood eosinophils/100 leukocytes 2 % 0-10 Automated blood basophils/100 leukocytes 1 % 0-10 Blood neutrophils automated count (number/volume) 4.3 10*3 1.8-7.8 Blood lymphocytes automated count (number/volume) 2.7 10*3 1.0-4.0 Blood monocytes automated count (number/volume) 0.7 10*3 0.0-1.0 Automated eosinophil count 0.2 10*3/uL 0.0-0.3 Automated blood basophil count (count/volume) 0.0 10*3/uL 0.0-0.1 Comprehensive metabolic panel - 08/22/16 10:16 Serum or plasma sodium measurement (moles/volume) 137 mmol/L 135-145 Serum or plasma potassium measurement (moles/volume) 3.8 mmol/L 3.6-5.0 Serum or plasma chloride measurement (moles/volume) 97 mmol/L 98-107 Carbon dioxide 30 mmol/L 21-32 Serum or plasma anion gap determination (moles/volume) 10 mmol/L 5-14 Serum or plasma urea nitrogen measurement (mass/volume) 6 mg/dL 7-18 Serum or plasma creatinine measurement (mass/volume) 0.97 mg/dL 0.60-1.30 Serum or plasma urea nitrogen/creatinine mass ratio 6 NRG Serum or plasma creatinine measurement with calculation of estimated glomerular filtration rate > NRG Serum or plasma glucose measurement (mass/volume) 103 mg/dL 70-105 Serum or plasma calcium measurement (mass/volume) 9.7 mg/dL 8.5-10.1 Serum or plasma total bilirubin measurement (mass/volume) 0.5 mg/dL 0.1-1.0 Serum or plasma alkaline phosphatase measurement (enzymatic activity/volume) 69 U/L 40-136 Serum or plasma aspartate aminotransferase measurement (enzymatic activity/ volume) 25 U/L 5-34 Serum or plasma alanine aminotransferase measurement (enzymatic activity/volume ) 28 U/L 0-55 Serum or plasma protein measurement (mass/volume) 7.1 g/dL 6.4-8.2 Serum or plasma albumin measurement (mass/volume) 4.2 g/dL 3.2-4.5 Serum or plasma troponin i.cardiac measurement (mass/volume) - 08/22/16 10:16 Serum or plasma troponin i.cardiac measurement (mass/volume) < ng/ mL <0.30 Complete blood count (CBC) with automated white blood cell (WBC) differential - 12/21/16 08:50 Blood leukocytes automated count (number/volume) 7.5 10*3/uL 4.3-11.0 Blood erythrocytes automated count (number/volume) 6.05 10*6/uL 4.35-5.85 Venous blood hemoglobin measurement (mass/volume) 17.6 g/dL 13.3-17.7 Blood hematocrit (volume fraction) 50 % 40-54 Automated erythrocyte mean corpuscular volume 83 [foz_us] 80-99 Automated erythrocyte mean corpuscular hemoglobin (mass per erythrocyte) 29 pg 25-34 Automated erythrocyte mean corpuscular hemoglobin concentration measurement ( mass/volume) 35 g/dL 32-36 Automated erythrocyte distribution width ratio 13.5 % 10.0-14.5 Automated blood platelet count (count/volume) 196 10*3/uL 130-400 Automated blood platelet mean volume measurement 9.1 [foz_us] 7.4-10.4 Automated blood neutrophils/100 leukocytes 62 % 42-75 Automated blood lymphocytes/100 leukocytes 28 % 12-44 Blood monocytes/100 leukocytes 8 % 0-12 Automated blood eosinophils/100 leukocytes 1 % 0-10 Automated blood basophils/100 leukocytes 0 % 0-10 Blood neutrophils automated count (number/volume) 4.6 10*3 1.8-7.8 Blood lymphocytes automated count (number/volume) 2.1 10*3 1.0-4.0 Blood monocytes automated count (number/volume) 0.6 10*3 0.0-1.0 Automated eosinophil count 0.1 10*3/uL 0.0-0.3 Automated blood basophil count (count/volume) 0.0 10*3/uL 0.0-0.1 Comprehensive metabolic panel - 12/21/16 08:50 Serum or plasma sodium measurement (moles/volume) 133 mmol/L 135-145 Serum or plasma potassium measurement (moles/volume) 3.9 mmol/L 3.6-5.0 Serum or plasma chloride measurement (moles/volume) 95 mmol/L 98-107 Carbon dioxide 29 mmol/L 21-32 Serum or plasma anion gap determination (moles/volume) 9 mmol/L 5-14 Serum or plasma urea nitrogen measurement (mass/volume) 9 mg/dL 7-18 Serum or plasma creatinine measurement (mass/volume) 0.87 mg/dL 0.60-1.30 Serum or plasma urea nitrogen/creatinine mass ratio 10 NRG Serum or plasma creatinine measurement with calculation of estimated glomerular filtration rate > NRG Serum or plasma glucose measurement (mass/volume) 90 mg/dL 70-105 Serum or plasma calcium measurement (mass/volume) 9.5 mg/dL 8.5-10.1 Serum or plasma total bilirubin measurement (mass/volume) 0.6 mg/dL 0.1-1.0 Serum or plasma alkaline phosphatase measurement (enzymatic activity/volume) 63 U/L 40-136 Serum or plasma aspartate aminotransferase measurement (enzymatic activity/ volume) 22 U/L 5-34 Serum or plasma alanine aminotransferase measurement (enzymatic activity/volume ) 24 U/L 0-55 Serum or plasma protein measurement (mass/volume) 7.3 g/dL 6.4-8.2 Serum or plasma albumin measurement (mass/volume) 4.2 g/dL 3.2-4.5 Lipid 1996 panel - 12/21/16 08:50 Serum or plasma triglyceride measurement (mass/volume) 132 mg/dL <150 Serum or plasma cholesterol measurement (mass/volume) 135 mg/dL < 200 Serum or plasma cholesterol in HDL measurement (mass/volume) 37 mg/ dL 40-60 Cholesterol in LDL [mass/volume] in serum or plasma by direct assay 80 mg/dL 1-129 Serum or plasma cholesterol in VLDL measurement (mass/volume) 26 mg/ dL 5-40 Hemoglobin A1c - 12/21/16 08:50 Hemoglobin A1c 6.2 % 4.5-6.2 THYROID STIMULATING HORMONE - 12/21/16 08:50 THYROID STIMULATING HORMONE 1.06 u[iU]/mL 0.35-4.94 Complete blood count (CBC) with automated white blood cell (WBC) differential - 01/14/18 13:03 Blood leukocytes automated count (number/volume) 7.9 10*3/uL 4.3-11.0 Blood erythrocytes automated count (number/volume) 5.82 10*6/uL 4.35-5.85 Venous blood hemoglobin measurement (mass/volume) 17.3 g/dL 13.3-17.7 Blood hematocrit (volume fraction) 48 % 40-54 Automated erythrocyte mean corpuscular volume 83 [foz_us] 80-99 Automated erythrocyte mean corpuscular hemoglobin (mass per erythrocyte) 30 pg 25-34 Automated erythrocyte mean corpuscular hemoglobin concentration measurement ( mass/volume) 36 g/dL 32-36 Automated erythrocyte distribution width ratio 13.6 % 10.0-14.5 Automated blood platelet count (count/volume) 211 10*3/uL 130-400 Automated blood platelet mean volume measurement 9.4 [foz_us] 7.4-10.4 Automated blood neutrophils/100 leukocytes 51 % 42-75 Automated blood lymphocytes/100 leukocytes 37 % 12-44 Blood monocytes/100 leukocytes 11 % 0-12 Automated blood eosinophils/100 leukocytes 1 % 0-10 Automated blood basophils/100 leukocytes 0 % 0-10 Blood neutrophils automated count (number/volume) 4.0 10*3 1.8-7.8 Blood lymphocytes automated count (number/volume) 2.9 10*3 1.0-4.0 Blood monocytes automated count (number/volume) 0.9 10*3 0.0-1.0 Automated eosinophil count 0.1 10*3/uL 0.0-0.3 Automated blood basophil count (count/volume) 0.0 10*3/uL 0.0-0.1 PT panel in platelet poor plasma by coagulation assay - 01/14/18 13:03 Prothrombin time (PT) in platelet poor plasma by coagulation assay 14.0 s 12.2-14.7 INR in platelet poor plasma or blood by coagulation assay 1.1 0.8-1.4 Activated partial thromboplastin time (aPTT) in platelet poor plasma bycoagulation assay - 01/14/18 13:03 Activated partial thromboplastin time (aPTT) in platelet poor plasma bycoagulation assay 31 s 24-35 Fibrin D-dimer FEU measurement in platelet poor plasma (mass/volume) - 13:03 Fibrin D-dimer FEU measurement in platelet poor plasma (mass/volume) < ug/mL 0.00-0.49 Comprehensive metabolic panel - 01/14/18 13:03 Serum or plasma sodium measurement (moles/volume) 134 mmol/L 135-145 Serum or plasma potassium measurement (moles/volume) 3.4 mmol/L 3.6-5.0 Serum or plasma chloride measurement (moles/volume) 95 mmol/L 98-107 Carbon dioxide 26 mmol/L 21-32 Serum or plasma anion gap determination (moles/volume) 13 mmol/L 5-14 Serum or plasma urea nitrogen measurement (mass/volume) 4 mg/dL 7-18 Serum or plasma creatinine measurement (mass/volume) 0.93 mg/dL 0.60-1.30 Serum or plasma urea nitrogen/creatinine mass ratio 4 NRG Serum or plasma creatinine measurement with calculation of estimated glomerular filtration rate > NRG Serum or plasma glucose measurement (mass/volume) 105 mg/dL 70-105 Serum or plasma calcium measurement (mass/volume) 9.6 mg/dL 8.5-10.1 Serum or plasma total bilirubin measurement (mass/volume) 0.4 mg/dL 0.1-1.0 Serum or plasma alkaline phosphatase measurement (enzymatic activity/volume) 51 U/L 40-136 Serum or plasma aspartate aminotransferase measurement (enzymatic activity/ volume) 18 U/L 5-34 Serum or plasma alanine aminotransferase measurement (enzymatic activity/volume ) 15 U/L 0-55 Serum or plasma protein measurement (mass/volume) 8.0 g/dL 6.4-8.2 Serum or plasma albumin measurement (mass/volume) 4.4 g/dL 3.2-4.5 CALCIUM CORRECTED 9.3 mg/dL 8.5-10.1 Magnesium - 01/14/18 13:03 Magnesium 1.8 mg/dL 1.8-2.4 Serum or plasma troponin i.cardiac measurement (mass/volume) - 01/14/18 13:03 Serum or plasma troponin i.cardiac measurement (mass/volume) < ng/ mL <0.30 Serum or plasma lithium measurement (moles/volume) - 01/14/18 13:03 BNP level < pg/mL <100.0 Myoglobin, serum - 01/14/18 13:03 Myoglobin, serum 50.2 ng/mL 10.0-92.0 Lipase - 01/14/18 13:03 Lipase 31 U/L 8-78 Encounters ACCT No. Visit Date/Time Discharge Status Pt. Type Provider Facility Loc./Unit Complaint [id number] 03/17/2017 14:16:00 03/17/2017 23:59:59 CLS Outpatient BEAU SHARPE DO [facility] RAD L LATERAL FOOT PAIN [id number] 12/21/2016 08:33:00 12/21/2016 23:59:59 CLS Outpatient BEAU SHARPE DO [facility] LAB E78.2 I10 R79.9 [id number] 08/22/2016 10:07:00 08/22/2016 11:35:00 DIS Emergency KLAUS WILDER, ARI Farris [facility] ER CP, PACEMAKER [id number] 08/06/2016 07:23:00 08/06/2016 23:59:59 CLS Outpatient CONNER PRYOR [facility] RAD I10,I50.22, I65.23 [id number] 06/11/2016 10:53:00 06/11/2016 13:58:00 DIS Outpatient BEAU SHARPE DO [facility] REHAB CERVICALGIA W HEADACHES [id number] 05/01/2016 08:11:00 05/01/2016 23:59:59 CLS Outpatient BEAU SHARPE DO [facility] LAB E78.2,I10 [id number] 04/16/2016 10:44:00 04/16/2016 23:59:59 CLS Outpatient CONNER PRYOR [facility] RAD OSEGUERA, CHF, CAROTID ARTERY STENOSIS, HTN, HLP [id number] 12/23/2015 06:10:00 12/23/2015 23:59:59 CLS Outpatient ROYER SINGLETON MD [facility] PREOP SCREENING [id number] 09/12/2014 07:23:00 09/12/2014 23:59:59 CLS Outpatient TON SALDANA MD [facility] CARD AFIB,CHF,HTN,HLP [id number] 07/27/2014 12:33:00 07/27/2014 23:59:59 CLS Outpatient TON SALDANA MD [facility] CARD CAF,HTN,HLP [id number] 01/19/2014 09:01:00 01/19/2014 23:59:59 CLS Outpatient BEAU SHARPE DO [facility] RAD L WRIST PAIN [id number] 07/31/2013 09:19:00 07/31/2013 23:59:59 CLS Outpatient CONNER PRYOR [facility] CARD AF CHF CARTOID STENOSIS HYPERTENSION [id number] 08/10/2012 12:57:00 08/11/2012 10:30:00 DIS Outpatient TON SALDANA MD [facility] CATH CP, SOB, ABN STRESS, CHF , SSS/PPM, HTN, HLP [id number] 08/02/2012 11:26:00 08/02/2012 23:59:59 CLS Outpatient TON SALDANA MD [facility] RAD CP,CHF [id number] 08/01/2012 08:44:00 08/01/2012 23:59:59 CLS Outpatient TON SALDANA MD [facility] CARD CP,CHF [id number] 01/14/2018 13:14:00 Document Registration [id number] 07/27/2014 12:33:00 Document Registration [id number] 07/27/2014 12:33:00 Document Registration [id number] 07/27/2014 12:33:00 Document Registration [id number] 07/27/2014 12:33:00 Document Registration [id number] 12/03/2011 05:38:00 Document Registration [id number] 12/01/2011 08:45:00 Document Registration [id number] 11/26/2011 12:20:00 Document Registration [id number] 03/06/2010 08:27:00 Document Registration
== END 2018-01-14 16:06 | disposition home or self-care (01) ==
LOC: EDUNIT# 12:27 → ER 12:28
DX: R07.89 Other chest pain (principal); I50.9 Heart failure, unspecified; I42.9 Cardiomyopathy, unspecified; Z95.810 Presence of automatic (implantable) cardiac defibrillator; Z88.0 Allergy status to penicillin; Z79.82 Long term (current) use of aspirin
CPT/HCPCS: 36415; 71045; 74177; 80053; 83690; 83735; 83874; 83880; 84484; 85025; 85379; 85610; 85730; 93005; 93041

== ENCOUNTER → 2018-01-19 | Outpatient (CLI) | payer MEDICARE, MEDICAID ==
[~2018-01-19] MED LIST changes: +REGADENOSON 0.4 MG/5 ML SYR (LEXISCAN) IV ONE
[2018-01-19] MEDS: CATHETER FLUSH 10 ML SYR IV PRN ×2 (07:59→09:39)
[2018-01-19 09:37] VITALS: BP 152/105
--- NOTE | 2018-01-19 17:53 | STRESS TEST ---
DATE OF SERVICE: 01/19/2018 LEXISCAN MYOVIEW STRESS TEST REPORT Baseline heart rate is 70. Baseline blood pressure 120/88. Baseline EKG is ventricular paced rhythm. In summary, the patient was injected with 10.03 mCi of technetium-99 Myoview and the resting images were obtained. Then, the patient received 0.4 mg of Lexiscan followed by 33.0 mCi of technetium-99 Myoview. Throughout the test, there were no EKG changes. The resting and stress images were reviewed and compared in the short axis, horizontal long axis, and vertical long axis views. Review of the images showed decreased uptake at the anteroapical segment apex and inferoapical segment with no reversibility. SSS is 5, SDS 0, TID value 1.07. On the gated images, the left ventricle appeared to be normal size with normal contractility. Greene is joselyn normally. Calculated ejection fraction 60%. CONCLUSION: 1. The patient tolerated Lexiscan well. 2. Baseline left bundle branch block with paced rhythm persisted throughout test. 3. Fixed defect involving the true apex, anteroapical and inferoapical segment. 4. No significant ischemia or infarction on SPECT images. 5. Normal left ventricular size with normal contractility. No segmental wall motion abnormality. Calculated ejection fraction 60%. Job ID: [id number] DocumentID: [id number] Dictated Date: 01/19/2018 14:41:26 Crop Roller Date: 01/19/2018 17:52:14 Dictated By: TON SALDANA MD
== END ==
LOC: CARD 07:42
PROVIDERS: ATTEND Internal Medicine Cardiovascular Disease
DX: I48.0 Paroxysmal atrial fibrillation (principal); I10 Essential (primary) hypertension; E78.5 Hyperlipidemia, unspecified; R00.2 Palpitations; I49.5 Sick sinus syndrome
CPT/HCPCS: 78452; 93017

== ENCOUNTER → 2018-01-20 | Outpatient (CLI) | payer MEDICARE, MEDICAID ==
[~2018-01-20] MED LIST changes: -REGADENOSON 0.4 MG/5 ML SYR (LEXISCAN) IV ONE
== END ==
LOC: CARD 10:45
PROVIDERS: ATTEND Internal Medicine Cardiovascular Disease
DX: I48.91 Unspecified atrial fibrillation (principal); I10 Essential (primary) hypertension; I49.5 Sick sinus syndrome; E78.5 Hyperlipidemia, unspecified; R00.2 Palpitations; I08.2 Rheumatic disorders of both aortic and tricuspid valves
CPT/HCPCS: 93306

== ENCOUNTER → 2018-03-23 | Outpatient (CLI) | payer MEDICARE, MEDICAID ==
--- NOTE | 2018-03-23 15:13 | Diagnostic Imaging Report ---
PROCEDURE: US left lower extremity venous. TECHNIQUE: Multiple real-time grayscale images were obtained over the left lower extremity in various projections. Additional duplex Doppler and color Doppler images were also obtained. INDICATION: Left foot pain. There is no evidence of a left lower extremity DVT. Left lower extremity deep venous system shows normal compressibility with normal response to augmentation and Valsalva. No fluid collection or mass is seen. Impression: No evidence of left lower extremity DVT. Dictated by: Dictated on workstation # [id number]
--- NOTE | 2018-03-23 15:15 | Diagnostic Imaging Report ---
INDICATION: Left lower extremity pain and swelling. FINDINGS: Segmental pressures in bilateral lower extremities were performed. Ankle-brachial index on the right is 1.28 and on the left is 1.12. IMPRESSION: Normal bilateral ankle-brachial indices. Dictated by: Dictated on workstation # [id number]
== END ==
LOC: RAD 14:10
PROVIDERS: ATTEND Nurse Practitioner Family
DX: M79.89 Other specified soft tissue disorders (principal)
CPT/HCPCS: 93922

== ENCOUNTER → 2018-03-24 | Outpatient (CLI) | payer MEDICARE, MEDICAID ==
[2018-03-24 11:56] LABS: BASOPHILS % (AUTO) 0 % (0-10); EOSINOPHILS % (AUTO) 0 % (0-10); HEMATOCRIT 48 % (40-54); LYMPHOCYTES # (AUTO) 1.8 X 10^3 (1.0-4.0); LYMPHOCYTES % (AUTO) 18 % (12-44); MEAN CORPUSCULAR HEMOGLOBIN 29 PG (25-34); MEAN CORPUSCULAR HGB CONC 36 G/DL (32-36); MEAN CORPUSCULAR VOLUME 82 FL (80-99); MEAN PLATELET VOLUME 9.9 FL (7.4-10.4); MONOCYTES # (AUTO) 1.2 X 10^3 (0.0-1.0); MONOCYTES % (AUTO) 13 % (0-12); NEUTROPHILS # (AUTO) 6.7 X 10^3 (1.8-7.8); NEUTROPHILS % (AUTO) 69 % (42-75); PLATELET COUNT 186 10^3/uL (130-400); RED CELL DISTRIBUTION WIDTH 13.6 % (10.0-14.5); WHITE BLOOD COUNT 9.8 10^3/uL (4.3-11.0)
[2018-03-24 12:17] LABS: ALANINE AMINOTRANSFERASE 12 U/L (0-55); ALBUMIN 4.3 GM/DL (3.2-4.5); ALKALINE PHOSPHATASE 58 U/L (40-136); BILIRUBIN,TOTAL 0.7 MG/DL (0.1-1.0); BUN/CREATININE RATIO 7; CALCIUM 9.8 MG/DL (8.5-10.1); CARBON DIOXIDE 25 MMOL/L (21-32); CHLORIDE 97 MMOL/L (98-107); CREATININE SERUM 0.85 MG/DL (0.60-1.30); GFR ESTIMATED > 60; GLUCOSE 97 MG/DL (70-105); POTASSIUM 3.7 MMOL/L (3.6-5.0); SODIUM 134 MMOL/L (135-145); TOTAL PROTEIN 7.7 GM/DL (6.4-8.2); URIC ACID 10.3 MG/DL (2.6-7.2)
[2018-03-24 12:39] LABS: ERYTHROCYTE SEDIMENTATION RATE 1 MM/HR (0-30)
== END ==
LOC: LAB 11:39
PROVIDERS: ATTEND Family Medicine
DX: M79.89 Other specified soft tissue disorders (principal)
CPT/HCPCS: 36415; 80053; 84550; 85025; 85652; 86060

== ENCOUNTER → 2018-06-03 | Outpatient (CLI) | payer MEDICARE, MEDICAID ==
[2018-06-03 11:52] LABS: BUN/CREATININE RATIO 5; CALCIUM 9.5 MG/DL (8.5-10.1); CARBON DIOXIDE 28 MMOL/L (21-32); CHLORIDE 97 MMOL/L (98-107); CREATININE SERUM 0.86 MG/DL (0.60-1.30); GFR ESTIMATED > 60; GLUCOSE 92 MG/DL (70-105); POTASSIUM 3.5 MMOL/L (3.6-5.0); SODIUM 137 MMOL/L (135-145); URIC ACID 8.4 MG/DL (2.6-7.2)
== END ==
LOC: LAB 11:14
PROVIDERS: ATTEND Family Medicine
DX: M10.9 Gout, unspecified (principal)
CPT/HCPCS: 36415; 80048; 84550

== ENCOUNTER → 2018-08-01 | Outpatient (CLI) | payer MEDICARE, MEDICAID ==
[2018-08-01 08:51] LABS: ALANINE AMINOTRANSFERASE 14 U/L (0-55); ALBUMIN 4.2 GM/DL (3.2-4.5); ALKALINE PHOSPHATASE 55 U/L (40-136); BILIRUBIN,TOTAL 0.8 MG/DL (0.1-1.0); BUN/CREATININE RATIO 5; CALCIUM 9.7 MG/DL (8.5-10.1); CARBON DIOXIDE 25 MMOL/L (21-32); CHLORIDE 93 MMOL/L (98-107); CHOLESTEROL 103 MG/DL (< 200); CREATININE SERUM 0.86 MG/DL (0.60-1.30); GFR ESTIMATED > 60; GLUCOSE 89 MG/DL (70-105); HDL CHOLESTEROL 39 MG/DL (40-60); POTASSIUM 3.5 MMOL/L (3.6-5.0); SODIUM 130 MMOL/L (135-145); TOTAL PROTEIN 6.9 GM/DL (6.4-8.2); TRIGLYCERIDES 106 MG/DL (<150); VLDL CHOLESTEROL 21 MG/DL (5-40)
== END ==
LOC: LAB 08:18
PROVIDERS: ATTEND Internal Medicine Cardiovascular Disease
DX: I48.91 Unspecified atrial fibrillation (principal); I10 Essential (primary) hypertension; E78.5 Hyperlipidemia, unspecified; R00.2 Palpitations
CPT/HCPCS: 36415; 80053; 80061

== ENCOUNTER 2018-09-12 13:47 | Inpatient (IN) | payer MEDICARE, MEDICAID ==
[~2018-09-12] VITALS: Ht 182.9 cm; Wt 99.0 kg
[2018-09-12 14:49] VITALS: BP 104/74
[2018-09-12] MEDS ORDERED: LOSA25TA41 PO (15:03)
[2018-09-12] MEDS ORDERED: CETI10TA17 PO (15:03)
[2018-09-12] MEDS ORDERED: OMG1KC PO (15:03)
[2018-09-12] MEDS ORDERED: POTA20TA15 PO (15:03)
[2018-09-12] MEDS ORDERED: DIVA-74 PO ×2 (15:03)
[2018-09-12] MEDS ORDERED: ASPI325T32 PO (15:03)
[2018-09-12] MEDS ORDERED: ROSU10TA27 PO (15:03)
[2018-09-12] MEDS ORDERED: DOCU100C37 PO (15:03)
[2018-09-12] MEDS ORDERED: FURO80TA3 PO (15:03)
[2018-09-12] MEDS ORDERED: ALLO100T PO (15:03)
[2018-09-12] MEDS ORDERED: OMEP20CA12 PO (15:03)
[2018-09-12] MEDS ORDERED: METO-395 PO (15:03)
--- NOTE | 2018-09-12 15:03 | Diagnostic Imaging Report ---
PROCEDURE: CT abdomen and pelvis without contrast. TECHNIQUE: Multiple contiguous axial images were obtained through the abdomen and pelvis without the use of intravenous contrast. Auto Exposure Controls were utilized during the CT exam to meet ALARA standards for radiation dose reduction. INDICATION: Abdominal pain, diarrhea. COMPARISON: January 14, 2018. FINDINGS: Pacer leads are partially visualized. Stable elevation of the right hemidiaphragm. The visualized lung bases are clear. Cholecystectomy. The unenhanced liver is unremarkable. No fatty infiltration of the liver is identified at this time. The unenhanced spleen is unremarkable. The adrenal glands are unremarkable. The pancreas is unremarkable. The kidneys and bilateral ureters are unremarkable. No aneurysmal dilatation of the abdominal aorta. Mild scattered vascular calcifications. The urinary bladder is predominantly decompressed, therefore not well evaluated. Minimal colonic diverticulosis without CT evidence of diverticulitis. The appendix is unremarkable. No bowel obstruction or pneumatosis. No significant adenopathy, free air, or free fluid within the abdomen or pelvis. Grade 1 anterolisthesis of L5 on S1 secondary to bilateral pars interarticularis defects of L5, appearing similar to the prior examination. Scattered osseous degenerative changes. No acute osseous abnormality. IMPRESSION: Resolved fatty infiltration of the liver. Grade 1 anterolisthesis of L5 on S1 secondary to bilateral pars interarticularis defects of L5, stable from the prior examination. Cholecystectomy. Additional stable findings as above. Dictated by: Dictated on workstation # [id number]
--- NOTE | 2018-09-12 15:06 | NUR ---
SAYRA SANABRIA admitted to room 409-1, with an admitting diagnosis of hypokalemia, on 09/12/[address] Agustin office direct admit , accompanied by health care / medical job titles .SAYRA SANABRIA introduced to surroundings, call light, bed controls, phone, TV, temperature control, lights, meal times, smoking policy, visitor policy, side rail policy, bathrooms and showers. Patient Rights given to patient in the handbook. SAYRA SANABRIA verbalizes understanding that [facility] is not responsible for the loss or damage to any personal effects or valuables that are kept in the patients posession during their hospitalization. The following Patient Care Plans and discharge were discussed with the patient and the health care / medical job titles. SAYRA SANABRIA verbalizes understanding of Interdisciplinary Patient Education.
[2018-09-12] MEDS ORDERED: PATIENT MAY USE OWN MEDS, ALL PO SCH (15:30)
[2018-09-12 15:49] VITALS: BP 93/59
[2018-09-12] MEDS ORDERED: ASPI-789 PO (16:11)
[2018-09-12] MEDS ORDERED: BISM262O PO (16:11)
[2018-09-12] MEDS: 1/2 NS W/KCL 20 MEQ/L 1,000 ML IV SCH (16:12)
[2018-09-12] MEDS ORDERED: DOCU-143 PO (16:22)
--- NOTE | 2018-09-12 16:29 | NUR ---
SPOKE WITH THE PATIENTS CAREGIVER TONY, SHE READ TO ME THE BOTTLES SHE FOUND AT HIS HOUSE HOWEVER SHE STATES HE DOES HIS OWN MEDICATIONS AT HOME. I WENT AND SPOKE WITH HIM, HE HAD A LIST BUT ADMITS IT IS NOT COMPLETELY UP TO DATE. I COMPARED IT WITH THE EXT MED HX. HE STATES HE NORMALLY TAKES A STOOL SOFTENER DAILY HOWEVER AT THIS MOMENT IS HAVING TROUBLE WITH DIARRHEA SO IS NOT TAKING IT. 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 IN ADDITION TO HIS LIST HE TAKES FISH OIL DAILY AND ALLOPURINOL BID. HE ALSO IS TAKING KAOPECTATE NEEDED RIGHT NOW.
[2018-09-12 16:41] LABS: MAGNESIUM 1.3 MG/DL (1.8-2.4)
[2018-09-12] MEDS ORDERED: CATHETER FLUSH 10 ML SYR IV PRN (16:45)
[2018-09-12] MEDS ORDERED: ACETAMINOPHEN 325 MG TABLET PO PRN (16:45)
[2018-09-12] MEDS ORDERED: ONDANSETRON 4 MG/2 ML (SDV) Z0FRAN IVP PRN (16:45)
[2018-09-12 19:26] VITALS: BP 128/79
[2018-09-12] MEDS ORDERED: PANTOPRAZOLE 40 MG (PROTONIX) VIAL IV ONE (20:30)
[2018-09-12] MEDS: DIVALPROEX 250 MG DELAYED RELEASE (DEPAKOTE) TAB PO SCH (22:18)
[2018-09-12] MEDS: MAGNESIUM 1 GM/100 ML IVPB 100 ML IV SCH (22:18)
[2018-09-13 00:09] VITALS: BP 99/73
[2018-09-13] MEDS: MAGNESIUM 1 GM/100 ML IVPB 100 ML IV SCH (00:52)
[2018-09-13] MEDS: 1/2 NS W/KCL 20 MEQ/L 1,000 ML IV SCH ×3 (03:38→23:28)
[2018-09-13 04:00] VITALS: BP 93/65
[2018-09-13 06:42] LABS: BASOPHILS % (AUTO) 1 % (0-10); EOSINOPHILS # (AUTO) 0.1 10^3/uL (0.0-0.3); EOSINOPHILS % (AUTO) 2 % (0-10); HEMATOCRIT 48 % (40-54); HEMOGLOBIN 17.6 G/DL (13.3-17.7); LYMPHOCYTES # (AUTO) 2.5 X 10^3 (1.0-4.0); LYMPHOCYTES % (AUTO) 53 % (12-44); MEAN CORPUSCULAR HEMOGLOBIN 31 PG (25-34); MEAN CORPUSCULAR HGB CONC 37 G/DL (32-36); MEAN CORPUSCULAR VOLUME 84 FL (80-99); MEAN PLATELET VOLUME 10.8 FL (7.4-10.4); MONOCYTES # (AUTO) 0.6 X 10^3 (0.0-1.0); MONOCYTES % (AUTO) 12 % (0-12); NEUTROPHILS # (AUTO) 1.5 X 10^3 (1.8-7.8); NEUTROPHILS % (AUTO) 33 % (42-75); PLATELET COUNT 75 10^3/uL (130-400); RED CELL DISTRIBUTION WIDTH 13.7 % (10.0-14.5); WHITE BLOOD COUNT 4.7 10^3/uL (4.3-11.0)
[2018-09-13 07:00] LABS: ALANINE AMINOTRANSFERASE 12 U/L (0-55); ALBUMIN 4.3 GM/DL (3.2-4.5); ALKALINE PHOSPHATASE 55 U/L (40-136); BILIRUBIN,TOTAL 0.7 MG/DL (0.1-1.0); BUN/CREATININE RATIO 7; CALCIUM 10.3 MG/DL (8.5-10.1); CARBON DIOXIDE 30 MMOL/L (21-32); CHLORIDE 89 MMOL/L (98-107); CREATININE SERUM 1.11 MG/DL (0.60-1.30); GFR ESTIMATED > 60; GLUCOSE 74 MG/DL (70-105); MAGNESIUM 2.1 MG/DL (1.8-2.4); SODIUM 135 MMOL/L (135-145); TOTAL PROTEIN 7.4 GM/DL (6.4-8.2)
[2018-09-13 07:03] LABS: POTASSIUM 2.3 MMOL/L (3.6-5.0)
--- NOTE | 2018-09-13 07:09 | NUR ---
notified Dr Agustin critical lab K+ 2.3. TORBV give 40 meq k+ iv, give 20 meq K-Dur one time po.
[2018-09-13] MEDS ORDERED: KCL 20 MEQ TAB (K-DUR) PO NR (07:15)
[2018-09-13 08:00] VITALS: BP 119/62
[2018-09-13] MEDS: DIVALPROEX 250 MG DELAYED RELEASE (DEPAKOTE) TAB PO SCH ×3 (09:14→20:10)
[2018-09-13] MEDS: POTASSIUM CL 10MEQ/50ML IVPB 50 ML IV SCH ×4 (09:14→12:36)
[2018-09-13] MEDS: PANTOPRAZOLE 40 MG (PROTONIX) VIAL IV SCH (09:15)
[2018-09-13 12:00] VITALS: BP 108/67
--- NOTE | 2018-09-13 12:53 | History & Physicial ---
History of Present Illness History of Present Illness Reason for visit/HPI This is a 53 year old male who was brought to my office by his caregivers with a 2 week history of worsening diarrhea. He had not ate or drank hardly anything the weekend prior to coming to my office and was hypotensive and appeared dehydrated. He was sent for STAT lab and a CT scan of the abdomen and pelvis for possible diverticulitis. His lab showed acute renal insufficiency and hypokalemia so he was directly admitted for IVFs, potassium replacement and further evaluation. Date of Admission Sep 12, 2018 at 14:14 Date Seen by a Provider: Sep 13, 2018 Time Seen by a Provider: 12:48 I consulted on this patient on 09/13/18 12:48 Attending Physician Demi Agustin DO Admitting Physician Demi Agustin DO Consult Allergies and Home Medications Allergies Coded Allergies: vancomycin (Verified Allergy, Unknown, 11/11/05) Home Medications Allopurinol 100 Mg Tablet, 100 MG PO BID, (Reported) Aspirin/Acetaminophen/Caffeine 1 Each Tablet, 2 TAB PO BID, (Reported) Bismuth Subsalicylate 262 Mg/15 Ml Oral.susp, PO UD PRN for DIARRHEA, (Reported) PER PACKAGE DIRECTIONS Cetirizine HCl 10 Mg Tablet, 10 MG PO DAILY, (Reported) Divalproex Sodium 250 Mg Tablet.dr, 750 MG PO 0800,2100, (Reported) TAKES 3 (250MG) TABLETS Divalproex Sodium 250 Mg Tablet.dr, 500 MG PO 1200, (Reported) TAKES 2 (250MG) TABLETS Docusate Sodium 100 Mg Capsule, 100 MG PO DAILY PRN for CONSTIPATION-1ST LINE, (Reported) Furosemide 80 Mg Tablet, 80 MG PO BID, (Reported) LAST FILLED #180 04-26-18 Losartan Potassium 25 Mg Tablet, 25 MG PO DAILY, (Reported) Metoprolol Succinate 100 Mg Tab.er.24h, 100 MG PO DAILY, (Reported) [place] 3 Polyunsat Fatty Acids 1,000 Mg Cap, 1,000 MG PO DAILY, (Reported) Omeprazole 20 Mg Capsule.dr, 20 MG PO DAILY, (Reported) Potassium Chloride 20 Meq Tab.er.prt, 20 MEQ PO DAILY, (Reported) Rosuvastatin Calcium 10 Mg Tablet, 10 MG PO DAILY, (Reported) Patient Home Medication List Home Medication List Reviewed: Yes Past Qenogun-Hcmfnh-Afctkn Hx Patient Social History Alcohol Use: Denies Use Recreational Drug Use: No 2nd Hand Smoke Exposure: No Physical Abuse Screen: No Sexual Abuse: No Recent Foreign Travel: No Contact w/other who traveled: No Recent Hopitalizations: No Immunizations Up To Date Date of Pneumonia Vaccine: Nov 28, 2011 Seasonal Allergies Seasonal Allergies: No Surgeries Yes (pacer/AICD placement, left hand tendon repair) Respiratory No Cardiovascular Yes (HEART FAILURE) Cardiomyopathy Neurological Yes (hx meningitis 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) Reproductive System Hx Reproductive Disorders: No Genitourinary No Gastrointestinal Yes Musculoskeletal 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) Endocrine History of Endocrine Disorders: No Cancer No Psychosocial History of Psychiatric Problem: No Integumentary History of Skin or Integumenta: No Blood Transfusions History of Blood Disorders: No Adverse Reaction to a Blood Tr: No Family Medical History Family Hx: Alzheimer's disease Arthritis Colon cancer Diabetes mellitus Myocardial infarction Visual disorder Review of Systems Constitutional: weakness EENTM: No see HPI, No no symptoms reported, No ear discharge, No hearing loss, No ear pain, No blurred vision, No double vision, No eye pain, No tearing, No vision loss, No dental problems, No hoarseness, No mouth pain, No mouth swelling, No epistaxis, No nose congestion, No nose pain, No throat pain, No throat swelling, No other Respiratory: No no symptoms reported, No see HPI, No cough, No dyspnea on exertion, No hemoptysis, No orthopnea, No phlegm, No short of breath, No stridor, No wheezing, No other Cardiovascular: No no symptoms reported, No see HPI, No chest pain, No edema, No Hx of Intervention, No palpitations, No syncope, No vascular heart diseas, No other Gastrointestinal: abdominal pain, diarrhea Genitourinary: decreased output Musculoskeletal: muscle pain, muscle cramps, muscle weakness Skin: no symptoms reported Psychiatric/Neurological: Pre-Existing Deficit Physical Exam Vital Signs Vital Signs - First Documented 09/12/18 09/12/18 14:49 15:49 Temp 97.8 Pulse 98 Resp 20 B/P (MAP) 104/74 Pulse Ox 96 O2 Delivery Room Air Capillary Refill : Height, Weight, BMI Height: 6'0.00" Weight: 211lbs. 3.2oz. 95.754293dk; 33.2 BMI Method:Stated General Appearance: No Apparent Distress HEENT: Normal ENT Inspection Neck: Supple Respiratory: Lungs Clear Cardiovascular: Regular Rate, Rhythm, Systolic Murmur Gastrointestinal: Normal Bowel Sounds, Non Tender, Soft Rectal: Deferred Back: No CVA Tenderness Extremity: Non Tender, No Calf Tenderness, No Pedal Edema Neurologic/Psychiatric: Alert, Oriented x3 Skin: Warm/Dry Comments Laboratory Tests 09/12/18 15:55: Magnesium Level 1.3L, Amylase Level 29, Lipase 47 09/13/18 06:05: Magnesium Level 2.1, White Blood Count 4.7, Red Blood Count 5.75, Hemoglobin 17.6, Hematocrit 48, Mean Corpuscular Volume 84, Mean Corpuscular Hemoglobin 31, Mean Corpuscular Hemoglobin Concent 37H, Red Cell Distribution Width 13.7, Platelet Count 75L, Mean Platelet Volume 10.8H, Neutrophils (%) (Auto) 33L, Lymphocytes (%) (Auto) 53H, Monocytes (%) (Auto) 12, Eosinophils (%) (Auto) 2, Basophils (%) (Auto) 1, Neutrophils # (Auto) 1.5L, Lymphocytes # (Auto) 2.5, Monocytes # (Auto) 0.6, Eosinophils # (Auto) 0.1, Basophils # (Auto) 0.0, Sodium Level 135, Potassium Level 2.3*L, Chloride Level 89L, Carbon Dioxide Level 30, Anion Gap 16H, Blood Urea Nitrogen 8, Creatinine 1.11, Estimat Glomerular Filtration Rate > 60, BUN/Creatinine Ratio 7, Glucose Level 74, Calcium Level 10.3H, Corrected Calcium 10.1, Total Bilirubin 0.7, Aspartate Amino Transf (AST/SGOT) 24, Alanine Aminotransferase (ALT/SGPT) 12, Alkaline Phosphatase 55, Total Protein 7.4, Albumin 4.3 Assessment/Plan Assessment and Plan 1. Acute Dehydration with Acute Renal Failure--admit for IVFs and monitor Cr 2. Acute Hypokalemia and Hypomagnesemia--replace potassium and magnesium and monitor levels 3. Diarrhea--check C. Diff and stool culture 4. Seizure Disorder--resume Depakote per home dose 5. Cerebral Palsy--worsening weakness/muscle spasm and pain with dehydration and hypokalemia/hypomagnesemia 6. Hypotension--hold BP meds and monitor Admission Diagnosis Admission Status: Inpatient Order (span 2 midnights) Reason for Inpatient Admission: Will need IVFs for at least 48hrs for renal failure Clinical Quality Measures DVT/VTE Risk/Contraindication: Risk Factor Score Per Nursin RFS Level Per Nursing on Admit: 1=Low/No VTE PPX DEMI AGUSTIN DO Sep 13, 2018 12:53
[2018-09-13 16:00] VITALS: BP 96/62
[2018-09-13] MEDS ORDERED: KCL 10 MEQ TAB (MICRO K) PO NR (18:15)
[2018-09-13 20:00] VITALS: BP 110/73
[2018-09-14 00:18] VITALS: BP 114/77
[2018-09-14 04:49] VITALS: BP 116/67
[2018-09-14 06:44] LABS: BUN/CREATININE RATIO 5; CALCIUM 9.7 MG/DL (8.5-10.1); CARBON DIOXIDE 27 MMOL/L (21-32); CHLORIDE 94 MMOL/L (98-107); CREATININE SERUM 0.79 MG/DL (0.60-1.30); GFR ESTIMATED > 60; GLUCOSE 89 MG/DL (70-105); POTASSIUM 3.2 MMOL/L (3.6-5.0); SODIUM 133 MMOL/L (135-145)
[2018-09-14] MEDS: DIVALPROEX 250 MG DELAYED RELEASE (DEPAKOTE) TAB PO SCH ×2 (08:18→11:51)
[2018-09-14] MEDS: PANTOPRAZOLE 40 MG (PROTONIX) VIAL IV SCH (08:18)
[2018-09-14 08:37] VITALS: BP 115/65
[2018-09-14] MEDS: 1/2 NS W/KCL 20 MEQ/L 1,000 ML IV SCH (10:22)
[2018-09-14 12:32] VITALS: BP 132/65
[2018-09-14] MEDS ORDERED: BETH25TA11 PO (12:58)
[2018-09-14] MEDS ORDERED: METO-395 PO (12:58)
[2018-09-14] MEDS ORDERED: FURO80TA3 PO (12:58)
[2018-09-14] MEDS ORDERED: POTA20TA15 PO (12:58)
--- NOTE | 2018-09-14 12:59 | Discharge Inst-Simple/Standard ---
Discharge Inst-Standard Discharge Medications New, Converted or Re-Newed RX: Transmitted to Pharmacy Patient Instructions/Follow Up Plan of Care/Instructions/FU: Fwup in 1 week Activity as Tolerated: Yes Discharge Diet: Cardiac Diet BEAU SHARPE DO Sep 14, 2018 12:59
[2018-09-14 14:15] VITALS: BP 132/65
--- NOTE | 2018-09-14 14:15 | NUR ---
SAYRA SANABRIA demonstrates understanding of discharge instructions and accurately returns instructions upon questioning. Copy of Post-Discharge Instructions and Medication Discharge Instructions given to ATTENDANCE CLERK. SAYRA SANABRIA is able to manage continuing needs after discharge WITH HELP OF ATTENDANCE CLERK. Patients belongings returned to SAYRA. Skin dry and intact; no breakdown noted. Patient discharged from 409-1 on at 1415. SAYRA SANABRIA left floor via WHEELCHAIR, accompanied by STAFF AND ATTENDANCE CLERK.
--- NOTE | 2018-09-16 14:55 | Physician Query-Final Dx ---
Final Diagnosis Give Final Diagnosis Please give Final Diagnosis GEORGINA TODD Sep 16, 2018 14:55
== END 2018-09-14 14:15 | disposition home or self-care (01) | DRG 683 ==
LOC: RAD 13:47 → 4TH 14:14
PROVIDERS: ADMIT Family Medicine; ATTEND Family Medicine
DX: N17.9 Acute kidney failure, unspecified (principal); G81.94 Hemiplegia, unspecified affecting left nondominant side; I42.9 Cardiomyopathy, unspecified; E86.0 Dehydration; E87.6 Hypokalemia; E83.42 Hypomagnesemia; I11.0 Hypertensive heart disease with heart failure; I50.9 Heart failure, unspecified; R19.7 Diarrhea, unspecified; G40.909 Epilepsy, unspecified, not intractable, without status epilepticus; I95.9 Hypotension, unspecified; G80.9 Cerebral palsy, unspecified; Z95.810 Presence of automatic (implantable) cardiac defibrillator; Z86.61 Personal history of infections of the central nervous system
CPT/HCPCS: 36415; 74176; 80048; 80053; 82150; 83690; 83735; 84132; 85025

== ENCOUNTER → 2018-09-27 | Outpatient (CLI) | payer MEDICARE, MEDICAID ==
[~2018-09-27] MED LIST changes: +ALLO100T PO; +ASPI-789 PO; +ASPI325T32 PO; +BETH25TA11 PO; +BISM262O PO; +CETI10TA17 PO; +DIVA-74 PO; +DOCU-143 PO; +DOCU100C37 PO; +FURO80TA3 PO; +LOSA25TA41 PO; +METO-395 PO; +OMEP20CA12 PO; +POTA20TA15 PO; +ROSU10TA27 PO
[2018-09-27 11:37] LABS: BASOPHILS % (AUTO) 0 % (0-10); EOSINOPHILS % (AUTO) 1 % (0-10); HEMATOCRIT 44 % (40-54); LYMPHOCYTES # (AUTO) 2.1 X 10^3 (1.0-4.0); LYMPHOCYTES % (AUTO) 45 % (12-44); MEAN CORPUSCULAR HEMOGLOBIN 31 PG (25-34); MEAN CORPUSCULAR HGB CONC 37 G/DL (32-36); MEAN CORPUSCULAR VOLUME 84 FL (80-99); MEAN PLATELET VOLUME 10.2 FL (7.4-10.4); MONOCYTES # (AUTO) 0.6 X 10^3 (0.0-1.0); MONOCYTES % (AUTO) 12 % (0-12); NEUTROPHILS # (AUTO) 1.9 X 10^3 (1.8-7.8); NEUTROPHILS % (AUTO) 41 % (42-75); PLATELET COUNT 106 10^3/uL (130-400); RED CELL DISTRIBUTION WIDTH 14.1 % (10.0-14.5); WHITE BLOOD COUNT 4.7 10^3/uL (4.3-11.0)
[2018-09-27 11:39] LABS: BILIRUBIN,URINE NEGATIVE (NEGATIVE); CLARITY,URINE CLEAR; COLOR,URINE YELLOW; GLUCOSE, URINE (UA) NEGATIVE (NEGATIVE); KETONES,URINE NEGATIVE (NEGATIVE); LEUKOCYTE ESTERASE ,URINE NEGATIVE (NEGATIVE); NITRITE,URINE NEGATIVE (NEGATIVE); PH,URINE 7 (5-9); PROTEIN,URINE NEGATIVE (NEGATIVE); UROBILINOGEN,URINE NORMAL (NORMAL)
[2018-09-27 11:57] LABS: BACTERIA,URINE NEGATIVE /HPF
[2018-09-27 11:58] LABS: ALANINE AMINOTRANSFERASE 10 U/L (0-55); ALKALINE PHOSPHATASE 47 U/L (40-136); BILIRUBIN,TOTAL 0.6 MG/DL (0.1-1.0); BUN/CREATININE RATIO 3; CALCIUM 9.2 MG/DL (8.5-10.1); CARBON DIOXIDE 25 MMOL/L (21-32); CHLORIDE 93 MMOL/L (98-107); CREATININE SERUM 0.88 MG/DL (0.60-1.30); GFR ESTIMATED > 60; GLUCOSE 84 MG/DL (70-105); POTASSIUM 3.8 MMOL/L (3.6-5.0); SODIUM 129 MMOL/L (135-145); TOTAL PROTEIN 6.8 GM/DL (6.4-8.2)
== END ==
LOC: LAB 11:11
PROVIDERS: ATTEND Nurse Practitioner Family
DX: R19.7 Diarrhea, unspecified (principal); E87.6 Hypokalemia; R10.9 Unspecified abdominal pain
CPT/HCPCS: 36415; 80053; 81000; 85025

== ENCOUNTER 2018-10-03 14:25 | Outpatient (RCR) | payer MEDICARE, MEDICAID ==
[~2018-10-03 14:25] MED LIST changes: -OMEP20CA12 PO; +OMEP20CA13 PO; -ROSU10TA27 PO; +ROSU10TA28 PO
[2018-10-04] MEDS ORDERED: BETH25TA11 PO (12:10)
[2018-10-04] MEDS ORDERED: METO-370 PO (12:10)
[2018-10-04] MEDS ORDERED: FURO40TA4 PO (12:10)
[2018-10-04] MEDS ORDERED: POTA-51 PO (12:10)
== END 2019-01-01 | disposition home or self-care (01) ==
LOC: LAB 14:25
PROVIDERS: ATTEND Family Medicine
DX: R19.7 Diarrhea, unspecified (principal); R63.4 Abnormal weight loss
CPT/HCPCS: 87015; 87045; 87046; 87324; 87328; 87329; 87449; 87493; 87899

== ENCOUNTER 2018-10-04 12:00 | Outpatient (CLI) | payer MEDICARE, MEDICAID ==
[~2018-10-04] VITALS: Ht 182.9 cm; Wt 98.9 kg
[~2018-10-04 12:00] MED LIST changes: +OMEP20CA12 PO; -OMEP20CA13 PO; +ROSU10TA27 PO; -ROSU10TA28 PO
[2018-10-04] MEDS ORDERED: BETH25TA11 PO (12:10)
[2018-10-04] MEDS ORDERED: FURO40TA4 PO (12:10)
[2018-10-04] MEDS ORDERED: METO-370 PO (12:10)
[2018-10-04] MEDS ORDERED: POTA-51 PO (12:10)
== END 2018-10-04 13:29 | disposition home or self-care (01) ==
LOC: PREOP 12:00
PROVIDERS: ATTEND Surgery
DX: Z01.818 Encounter for other preprocedural examination (principal)

== ENCOUNTER 2018-10-10 09:20 | Day surgery (SDC) | payer MEDICARE, MEDICAID ==
[~2018-10-10] VITALS: Ht 182.9 cm; Wt 98.9 kg
[~2018-10-10 09:20] MED LIST changes: +FURO40TA4 PO; +METO-370 PO; +POTA-51 PO
[2018-10-10] MEDS ORDERED: LACTATED RINGERS 1,000 ML IV ONE (09:24)
[2018-10-10] MEDS ORDERED: LACTATED RINGERS 1,000 ML IV STA (09:34)
--- NOTE | 2018-10-10 09:40 | Progress Note-Pre Operative ---
Pre-Operative Progress Note H&P Reviewed The H&P was reviewed, patient examined and no changes noted. Time Seen by Provider: 09:37 Date H&P Reviewed: Oct 10, 2018 Time H&P Reviewed: 09:36 Pre-Operative Diagnosis: Reflux, Gastritis, Weight loss, Diarrhea TEZ COPELAND DO Oct 10, 2018 09:40
[2018-10-10] MEDS ORDERED: HURRICAINE EXT TUBE (BENZOCAINE) XX PRN (09:45)
[2018-10-10 09:49] VITALS: BP 102/81
[2018-10-10] MEDS ORDERED: proPOfol 200 MG/20 ML (DIPRIVAN) VIAL IV ONE (09:57)
[2018-10-10] MEDS ORDERED: MIDAZOLAM 2 MG/2 ML (VERSED) VIAL ONE (09:58)
[2018-10-10] MEDS ORDERED: fentaNYL INJECTION 100 MCG/2 ML AMP ONE (09:58)
--- NOTE | 2018-10-10 10:52 | Progress Note-Post Operative ---
Post-Operative Progess Note Surgeon (s)/Deboner (s) Surgeon TEZ COPELAND DO Deboner: none Pre-Operative Diagnosis Reflux, Gastritis, Weight loss, Diarrhea Post-Operative Diagnosis Gastritis Gastric Polyp Colon Polyp Inflammatory area Int. Hemorrhoids Procedure & Operative Findings Date of Procedure 10/10/18 Procedure Performed/Findings EGD with bx EGD with snare polypectomy Colon with snare Colon with hot bx Anesthesia Type IV sedation by STAFF AUDITOR Estimated Blood Loss Estimated blood loss (mL): scant Specimens/Packing Specimens Removed Antral bx, body of stomach bx Gastric Polyp Transverse colon polyp Bx of sigmoid colon TEZ COPELAND DO Oct 10, 2018 10:52
--- NOTE | 2018-10-10 10:54 | Endoscopy Discharge Instruct ---
Endo Procedure/Findings Findings 1.: Gastritis, Other Findings (Gastric Polyp) 2.: Hiatal Hernia 3.: Polyp 4.: Internal Hemorrhoids Discharge Instructions - Activity: You might feel a little sleepy until tomorrow. This is due to the medicine you received to relax you. Until tomorrow, you should: NOT drive a car, operate machinery or power tools. NOT drink any alcoholic beverages. NOT make any important decisions or sign importortant papers. Do not return to work until tomorrow, unless otherwise instructed. Resume previous activities tomorrow. Diet: Start by taking liquids. If you tolerate liquids, advance to solid food. Make an appointment for one week Instructions: 1.: Colonscopy in 5 years 2.: EGD in 6-8 weeks Notify Physician - If you experience excessive bleeding, unusual abdominal pain, fever, or chest pain, contact your doctor immediately. Follow-Up: - I have received and understand the above instructions and will call my doctor if I have any further questions. Patient Signature Date Nurse Signature Other (Relationship) TEZ COPELAND DO Oct 10, 2018 10:54
--- NOTE | 2018-10-10 10:54 | Anesthesia-General Post-Op ---
MAC Patient Condition Mental Status/LOC: Same as Preop Cardiovascular: Satisfactory Nausea/Vomiting: Absent Respiratory: Satisfactory Pain: Controlled Complications: Absent Post Op Complications Complications None Follow Up Care/Instructions Patient Instructions None needed. Anesthesiology Discharge Order Discharge Order Patient is doing well, no complaints, stable vital signs, no apparent adverse anesthesia problems. No complications reported per nursing. SANDY TOWNSEND CRNA Oct 10, 2018 10:54
[2018-10-10 11:05] VITALS: BP 105/61
[2018-10-10 11:35] VITALS: BP 104/80
[2018-10-10 11:45] VITALS: BP 104/80
--- NOTE | 2018-10-10 16:16 | OPERATIVE REPORT ---
DATE OF SERVICE: 10/10/2018 PREOPERATIVE DIAGNOSES: Epigastric pain, diarrhea, weight loss, screening colonoscopy. POSTOPERATIVE DIAGNOSES: 1. Gastritis. 2. Gastric polyp. 3. Hiatal hernia. 4. Colon polyp. 5. Inflammation. 6. Internal hemorrhoids. PROCEDURES: 1. EGD with biopsy. 2. EGD with polypectomy by snare. 3. Colonoscopy with snare polypectomy. 4. Colonoscopy with hot biopsy. SURGEON: Jose Juan Connor DO HOSE SPRAYER: None. ANESTHESIA: IV sedation by SUPERVISOR LOGGING. SPECIMEN: 1. Biopsy from the GE junction as well as biopsy of the antrum and a biopsy of the body of stomach and then snare polypectomy of a gastric polyp. 2. Transverse colon polyp. 3. Hot biopsy of inflammatory area in the sigmoid colon. BLOOD LOSS: Scant. FLUIDS: Per anesthesia. POSTOPERATIVE CONDITION: Stable. INDICATION FOR PROCEDURE: The patient is a 53-year-old male, who has been having some epigastric pain. He has also had weight loss and diarrhea and has not had a colonoscopy and needs one for screening. FINDINGS: The patient had gastritis as well as a very inflamed gastric polyp, did not look like abnormal fundic gland polyp, so elected to remove this. He also had a flat polyp in the transverse colon and then he had an area of inflammation, questionable changes in the mucosa of the sigmoid colon, so very hard to tell whether this was just a large flat polyp or just inflammation, so elected to do a hot biopsy here. He also had some internal hemorrhoids. PROCEDURE NOTE: After informed consent was obtained, the patient was brought to the endoscopy suite and placed in the left lateral decubitus position. He was administered IV sedation by the SUPERVISOR LOGGING, who then monitored his vitals the entire time, heart rate, blood pressure, pulse ox and the scope was inserted down the mouth through the esophagus and into the stomach. Immediately upon entering the stomach, I noted a very inflamed red area and there looked like there was actually some blood clot, pushed through this towards the small intestine, pushed into the small intestine, took a picture of actually the ampulla. Pulled back to the antrum, did a biopsy of the antrum and then did a biopsy of the body of the stomach. While looking in the body of stomach, I saw a very inflamed polyp, did not really look like a normal fundic gland polyp. Elected to do a polypectomy with a snare to remove this completely. Did a hot snare to remove it, got it completely out and then pulled the scope back to the GE junction. GE junction looked okay and then pulled the scope up the esophagus and out the mouth. I then switched gloves, switched scopes, went below and started the colonoscopy. Pushed the scope in all the way to about 140 cm, able to get to the cecum, took a picture of the appendiceal orifice, noted the ileocecal valve and then slowly withdrew the scope insufflating to look circumferentially at the waters looking at the cecum, up the ascending colon to the hepatic flexure, then down the transverse colon and in the transverse colon, saw a large flat polyp, I elected to do a snare polypectomy of this, removed the polyp completely and then continued down to the splenic flexure and then into the descending colon, into the sigmoid and in the sigmoid colon, saw an area of possibly inflammation or maybe large flat polyp, just looked different from the rest of the colon. I elected to do two biopsies here to get a specimen and then continued down into the rectum, retroflexed in the rectal vault, saw some minimal internal hemorrhoids, took a picture of this and then removed the scope. The patient tolerated the procedure and recovered in the endoscopy suite. Job ID: [id number] DocumentID: [id number] Dictated Date: 10/10/2018 11:06:34 Facilities Administrator Date: 10/10/2018 16:16:27 Dictated By: DO CHET ELISE
== END 2018-10-10 11:50 | disposition home or self-care (01) ==
LOC: ENDO 09:20
PROVIDERS: ATTEND Surgery
DX: K52.9 Noninfective gastroenteritis and colitis, unspecified (principal); D12.4 Benign neoplasm of descending colon; K31.7 Polyp of stomach and duodenum; K29.70 Gastritis, unspecified, without bleeding; K21.9 Gastro-esophageal reflux disease without esophagitis; K44.9 Diaphragmatic hernia without obstruction or gangrene; K64.8 Other hemorrhoids; R63.4 Abnormal weight loss; I11.0 Hypertensive heart disease with heart failure; I50.9 Heart failure, unspecified; E78.5 Hyperlipidemia, unspecified; Z79.899 Other long term (current) drug therapy; Z95.810 Presence of automatic (implantable) cardiac defibrillator

== ENCOUNTER → 2018-10-14 | Outpatient (CLI) | payer MEDICARE, MEDICAID ==
--- NOTE | 2018-10-14 14:29 | Diagnostic Imaging Report ---
PROCEDURE: CT abdomen and pelvis without contrast. TECHNIQUE: Multiple contiguous axial images were obtained through the abdomen and pelvis without the use of intravenous contrast. Auto Exposure Controls were utilized during the CT exam to meet ALARA standards for radiation dose reduction. INDICATION: Right-sided flank pain. COMPARISON: Correlation is made with prior CT from 09/12/2018. FINDINGS: The lung bases are clear. No discrete liver mass is identified. The gallbladder is surgically absent. No biliary duct dilatation is seen. Pancreas and spleen are unremarkable. No adrenal mass is detected. No renal calculi or hydronephrosis is identified. Aorta is non-aneurysmal. The bowel loops appear to be normal in caliber. There is no obstruction. The appendix is visualized and unremarkable. There is no ascites. Bladder is unremarkable. There appears to be a right inguinal hernia containing fat. This is similar to prior exam. Bony structures are nonacute. Pars defects at L5-S1 are again noted with spondylolisthesis of L5 on S1. IMPRESSION: Stable noncontrast CT of the abdomen and pelvis when compared with prior study from one month earlier. No urinary tract calculi or hydronephrosis is seen. Dictated by: Dictated on workstation # [id number]
== END ==
LOC: RAD 13:29
PROVIDERS: ATTEND Urology
DX: R10.9 Unspecified abdominal pain (principal); Z90.49 Acquired absence of other specified parts of digestive tract
CPT/HCPCS: 74176

== ENCOUNTER 2019-02-08 10:41 | Day surgery (SDC) | payer MEDICARE, MEDICAID ==
[~2019-02-08] VITALS: Ht 185 cm; Wt 101.7 kg
[2019-02-08] VITALS (10 sets, daily range): BP systolic 100–143; BP diastolic 76–103
[~2019-02-08 10:41] MED LIST changes: -OMEP20CA12 PO; +OMEP20CA13 PO; -ROSU10TA27 PO; +ROSU10TA28 PO
[2019-02-08] MEDS ORDERED: ceFAZolin INJECTION 1,000 MG ONE (10:46)
[2019-02-08] MEDS ORDERED: NS (IVPB) 250 ML ONE (10:47)
[2019-02-08] MEDS ORDERED: NS IV 1000 ML 1,000 ML ONE (10:47)
[2019-02-08] MEDS ORDERED: HEParin (CATH LAB) 1,000 ML IV ONE (10:47)
[2019-02-08] MEDS ORDERED: LIDOCAINE 1% INJ 20 ML 20 ML VIAL ONE (10:47)
[2019-02-08] MEDS ORDERED: NS IV 1000 ML 1,000 ML IV ONE (10:49)
[2019-02-08] MEDS ORDERED: NS IV 1000 ML 1,000 ML IV SCH ×2 (10:49→16:19)
[2019-02-08] MEDS ORDERED: ceFAZolin INJECTION 1,000 MG VIAL IV ONE (11:00)
[2019-02-08] MEDS ORDERED: BACITRACIN INJECTION 50,000 UNIT, SODIUM CHLORIDE 0.9% IRRIGATIO 500 ML IR ONE ×2 (11:00)
[2019-02-08 11:23] LABS: HEMOGLOBIN 18.4 G/DL (13.3-17.7); MEAN PLATELET VOLUME 10.1 FL (7.4-10.4); RED CELL DISTRIBUTION WIDTH 14.6 % (10.0-14.5); WHITE BLOOD COUNT 5.8 10^3/uL (4.3-11.0)
--- NOTE | 2019-02-08 11:27 | Diagnostic Imaging Report ---
INDICATION: Congestive heart failure. COMPARISON: January 14, 2018. TECHNIQUE: Single radiograph of the chest dated February 08, 2019. FINDINGS: Pacer device is present with the battery pack overlying the left chest. The cardiac silhouette is mildly enlarged, though stable. Mild central pulmonary vascular congestion. The lungs, however, are clear of focal pulmonary opacity. No pleural effusion. No pneumothorax. No acute osseous abnormality. IMPRESSION: Mild cardiomegaly with mild pulmonary vascular congestion without significant interstitial edema or pleural effusion. Dictated by: Dictated on workstation # [id number]
[2019-02-08] MEDS ORDERED: CHOL100045 PO (11:31)
[2019-02-08] MEDS ORDERED: ASPI-992 PO (11:31)
[2019-02-08 11:38] LABS: INR 1.1 (0.8-1.4); PROTHROMBIN TIME PATIENT 14.6 SEC (12.2-14.7)
[2019-02-08 11:44] LABS: ALANINE AMINOTRANSFERASE 10 U/L (0-55); ALBUMIN 4.2 GM/DL (3.2-4.5); ALKALINE PHOSPHATASE 60 U/L (40-136); BILIRUBIN,TOTAL 0.7 MG/DL (0.1-1.0); BUN/CREATININE RATIO 5; CALCIUM 9.6 MG/DL (8.5-10.1); CARBON DIOXIDE 27 MMOL/L (21-32); CHLORIDE 95 MMOL/L (98-107); CREATININE SERUM 0.84 MG/DL (0.60-1.30); GFR ESTIMATED > 60; GLUCOSE 79 MG/DL (70-105); POTASSIUM 4.1 MMOL/L (3.6-5.0); SODIUM 132 MMOL/L (135-145); TOTAL PROTEIN 7.1 GM/DL (6.4-8.2); TRIGLYCERIDES 130 MG/DL (<150)
[2019-02-08 11:45] LABS: CHOLESTEROL 120 MG/DL (< 200); HDL CHOLESTEROL 49 MG/DL (40-60); VLDL CHOLESTEROL 26 MG/DL (5-40)
[2019-02-08] MEDS ORDERED: NF-COLE1GM PO (11:47)
--- NOTE | 2019-02-08 11:47 | NUR ---
SPOKE WITH PT ( HE HAD A LIST) AND HIS CARGEIVER, [facility] THE PT'S LIST WAS NOT ACCURATE- I EXPRESSED MY CONCERNS WITH THE CAREGIVER ABOUT GETTING IT UPDATED. THE FOLLOWING ARE FILL DATES FROM [facility]: 10-31-2018 METOPROLOL #90/90DS 12-30-2018 DEPAKOTE #240/30DS 01-03-2019 ROSUVASTATIN #30/30 01-06-2019 POTASSIUM #60/30DS 01-06-2019 OMEPRAZOLE #30/30DS 01-09-2019 ALLOPURINOL #60/30DS 01-09-2019 BETHANECHOL # 120/30DS 01-09-2019 FUROSEMIDE #45/90DS 02-04-2019 COLESTIPOL #45 (THE DIRECTIONS SAY 1 TAB EVERY OTHER DAY, HOWEVER THE CARGIVER THOUGHT IT WAS ONCE DAILY, SHE IS GOING TO CHECK WITH THE PCP OFFICE AND THE PHARMACY WHEN PT IS DISCHARGED TO MAKE SURE THIS IS CORRECT) OTC MEDS: VIT D CETIRIZINE EXCEDRINE
[2019-02-08] MEDS ORDERED: METO-395 PO (11:56)
[2019-02-08] MEDS ORDERED: FLU QUADRIvalent (5+ YOA) 2019-2020 (AFLURIA) 0.5 ML IM ONE (12:15)
--- NOTE | 2019-02-08 14:54 | Cardiac Procedure Note-CS/ASA ---
Pre-Procedure Note Pre-Op Procedure Note H&P Reviewed The H&P was reviewed, patient examined and no changes noted. Date H&P Reviewed: Feb 08, 2019 Time H&P Reviewed: 14:53 Conscious Sedation Pre-Proced Time 14:53 ASA Score 3 For ASA 3 and 4: Consider anesthesia and medical clearance. Also, for patients with a history of failed moderate sedation consider anesthesia. Airway Lungs Heart ASA score ASA 1: a normal healthy patient ASA 2: a patient with a mild systemic disease (mid diabetes, controlled hypertension, obesity x ASA 3: a patient with a severe systemic disease that limits activity (angina, COPD, prior Myocardial infarction) ASA 4: a patient with an incapacitating disease that is a constant threat to life (CHF, renal failure) ASA 5: a moribund patient not expected to survive 24 hrs. (ruptured aneurysm) ASA 6: a declared brain- patient whose organs are being harvested. For emergent operations, add the letter E after the classification Mallampati Classification Grade 3 Sedation Plan Analgesia, Amnesia, Plan communicated to team members, Discussed options with patient/fam, Discussed risks with patient/fam The patient is an appropriate candidate to undergo the planned procedure, sedation, and anesthesia. The patient immediately re-assessed prior to indication. TON SALDANA MD Feb 08, 2019 14:53 POS
[2019-02-08] MEDS ORDERED: MIDAZOLAM 5 MG/5 ML (VERSED) VIAL ONE (15:11)
[2019-02-08] MEDS ORDERED: fentaNYL INJECTION 100 MCG/2 ML AMP ONE (15:11)
[2019-02-08] MEDS ORDERED: NEO/POLY/BAC (NEOSPORIN) OINT 15 GM TUBE ONE (16:14)
--- NOTE | 2019-02-08 16:18 | Packmaker Change ---
Pacemaker Change Physician (s)/Member Of The Legislative Assembly (s) Physician TON SALDANA MD Pre-Procedure Diagnosis Pre-Procedure Diagnosis: Complete heart block Post-Procedure Note Procedure Start Date: Feb 08, 2019 Name of Procedure: Dual-chamber pacemaker generator replacement Findings/Procedure Note 54 years old gentleman with history of complete heart block, pacemaker dependent, reached ALVAREZ and scheduled for generator replacement. After x-ray the procedure to the patient on frozen cons were explained patient was placed on the cardiac catheterization laboratory, chest was prepped in the usual sterile fashion, local anesthesia applied, conscious sedation achieved. Skin incision was made then an old pacemaker generator was removed. The leads were inspected, the ventricular lead and atrial lead were attached to the new device, I used [employer] GIDEON Serial [id number], device tested with good sensing and capture activity, placed in the pocket after irrigating the pocket with antibiotic solution. No complication noted and skin pocket was closed Conclusion Successful dual-chamber pacemaker generator replacement with no complications Immediate post implantation measured data Atrial lead, P waves 6.8, pacing impedance 513, pacing 0.75 V at 0.4 MS Ventricular lead, no spontaneous V sensed, impedance 665, pacing threshold is 0.75 V at 0.4 ms Estimated blood loss (mL): 10 ML Contrast Amount: 0 Post-Procedure Diagnosis Post-operative diagnosis: Complete heart block Cardiac pacemaker Hypertension TON SALDANA MD Feb 08, 2019 16:18 POS
[2019-02-08] MEDS ORDERED: PATIENT MAY USE OWN MEDS, ALL PO SCH (16:30)
[2019-02-08] MEDS: BETHANECHOL 25 MG (URECHOLINE) TAB PO SCH ×2 (17:20→20:31)
[2019-02-08] MEDS: KCL 20 MEQ TAB (K-DUR) PO SCH (17:20)
[2019-02-08] MEDS: DIVALPROEX 250 MG DELAYED RELEASE (DEPAKOTE) TAB PO SCH (20:31)
[2019-02-08] MEDS: ceFAZolin INJECTION 1,000 MG in WATER (STERILE) FOR INJECTION 10 ML IV SCH (20:32)
[2019-02-08] MEDS: ALLOPURINOL 100 MG (ZYLOPRIM) TAB PO SCH (20:32)
[2019-02-08] MEDS ORDERED: NON-FORMULARY MEDICATION 1 EA EA (Allopurinol 100 MG) PO SCH (21:00)
[2019-02-08] MEDS ORDERED: meTOprolol SUCCINATE 100 MG (TOPROL XL) TAB PO SCH (21:00)
[2019-02-08] MEDS ORDERED: NON-FORMULARY MEDICATION 1 EA EA (Potassium Chloride 20 MEQ) PO SCH (21:00)
[2019-02-09 00:07] VITALS: BP 116/76
[2019-02-09 04:15] VITALS: BP 112/72
[2019-02-09] MEDS: ceFAZolin INJECTION 1,000 MG in WATER (STERILE) FOR INJECTION 10 ML IV SCH (06:12)
[2019-02-09] MEDS: KCL 20 MEQ TAB (K-DUR) PO SCH (06:12)
[2019-02-09] MEDS ORDERED: PANTOPRAZOLE 20 MG TABLET (PROTONIX) PO SCH (07:00)
[2019-02-09] MEDS ORDERED: CEFU500T63 PO (07:35)
--- NOTE | 2019-02-09 07:37 | Cardiology Progress Note ---
Subjective Date Seen by Provider: Feb 09, 2019 Time Seen by Provider: 07:36 Subjective/Events-last exam Patient is laying down in bed, no new complaint, site is healing well Review of Systems General: No Chills, No Night Sweats, No Fatigue, No Malaise, No Appetite, No Other HEENT: No Head Aches, No Visual Changes, No Eye Pain, No Ear Pain, No Dysphasia, No Sinus Congestion, No Post Nasal Drip, No Sore Throat, No Other Pulmonary: No Dyspnea, No Cough, No Pleuritic Chest Pain, No Other Cardiovascular: No: Chest Pain, Palpitations, Orthopnea, Paroxysmal Noc. Dyspnea, Edema, Lt Headedness, Other Objective-Cardiology Exam Last Set of Vital Signs Vital Signs 02/09/19 02/09/19 04:15 07:07 Temp 36.4 Pulse 63 Resp 16 B/P (MAP) 112/72 (85) Pulse Ox 99 O2 Delivery Room Air Capillary Refill : I&O Intake and Output 02/09/19 00:00 Intake Total 1600 ml Output Total 450 ml Balance 1150 ml Intake Oral 1600 ml Output Urine Total 450 ml General: Alert, Oriented X3, Cooperative HEENT: Atraumatic, PERRLA Neck: Supple, No JVD, No Thyromegaly Lungs: Clear to Auscultation, Normal Air Movement Heart: Regular Rate, Normal S1, Normal S2, No Murmurs Abdomen: Normal Bowel Sounds, Soft, No Tenderness, No Hepatosplenomegaly, No Masses Extremities: No Clubbing, No Cyanosis, No Edema, Normal Pulses, No Tendernes s/Swelling Skin: No Rashes, No Breakdown, No Significant Lesion Neuro: Normal Gait, Normal Speech, Strength at 5/5 X4 Ext, Normal Tone, Sensation Intact Psych/Mental Status: Mental Status NL, Mood NL Results Lab Laboratory Tests 02/08/19 11:12 A/P-Cardiology Admission Diagnosis Complete heart block Cardiac pacemaker Hypertension Hyperlipidemia Assessment/Plan Complete heart block, pacemaker dependent, status post generator replacement, site is healing well Hypertension, controlled, continue current medication Hyperlipidemia, continue current medications TNO SALDANA MD Feb 09, 2019 07:37 POS
[2019-02-09 08:00] VITALS: BP 125/78
[2019-02-09] MEDS ORDERED: FUROSEMIDE 40 MG (LASIX) TAB PO SCH (09:00)
[2019-02-09] MEDS ORDERED: COLESTIPOL 1 GM (COLESTID) TAB PO SCH (09:00)
[2019-02-09] MEDS ORDERED: VITAMIN D3 1,000 UNITS (CHOLECALCIFEROL) TABLET PO SCH (09:00)
[2019-02-09] MEDS ORDERED: NON-FORMULARY MEDICATION 1 EA EA (Cetirizine HCl 10 MG) PO SCH (09:00)
[2019-02-09] MEDS ORDERED: ROSUVASTATIN 10 MG (CRESTOR) TABLET PO SCH (09:00)
[2019-02-09] MEDS ORDERED: LORATADINE (CLARITIN) 10 MG TAB PO SCH (09:00)
[2019-02-09] MEDS ORDERED: NON-FORMULARY MEDICATION 1 EA EA (Cholecalciferol (Vitamin D3) (Vitamin D) 1,000 UNIT) PO SCH (09:00)
[2019-02-09] MEDS ORDERED: OMEPRAZOLE 20 MG (PriLOSEC) CAP NON-FORMULARY PO SCH (09:00)
[2019-02-09] MEDS: BETHANECHOL 25 MG (URECHOLINE) TAB PO SCH (09:37)
[2019-02-09] MEDS: ALLOPURINOL 100 MG (ZYLOPRIM) TAB PO SCH (09:37)
[2019-02-09] MEDS: DIVALPROEX 250 MG DELAYED RELEASE (DEPAKOTE) TAB PO SCH (09:37)
[2019-02-09] MEDS ORDERED: DIVALPROEX 250 MG DELAYED RELEASE (DEPAKOTE) TAB PO SCH (12:00)
== END 2019-02-09 12:07 | disposition home or self-care (01) ==
LOC: CATH 10:41 → CSD 16:38 → CATH 02-09 12:07
PROVIDERS: ATTEND Internal Medicine Cardiovascular Disease
DX: I44.2 Atrioventricular block, complete (principal); I50.9 Heart failure, unspecified; I11.0 Hypertensive heart disease with heart failure; I65.23 Occlusion and stenosis of bilateral carotid arteries; I25.10 Atherosclerotic heart disease of native coronary artery without angina pectoris; Q24.6 Congenital heart block; M19.90 Unspecified osteoarthritis, unspecified site; E78.5 Hyperlipidemia, unspecified; I49.5 Sick sinus syndrome; Z90.49 Acquired absence of other specified parts of digestive tract; Z88.1 Allergy status to other antibiotic agents; Z95.0 Presence of cardiac pacemaker; Z79.899 Other long term (current) drug therapy
CPT/HCPCS: 33228; 36415; 71045; 80053; 80061; 85027; 85610; 85730; 87081; 93005

== ENCOUNTER 2019-02-15 13:30 | Emergency (ER) | payer MEDICARE, MEDICAID ==
[~2019-02-15] VITALS: Ht 182 cm; Wt 100.0 kg
[~2019-02-15 13:30] MED LIST changes: +ASPI-992 PO; +CEFU500T63 PO; +CHOL100045 PO; +NF-COLE1GM PO
[2019-02-15 13:54] LABS: BASOPHILS % (AUTO) 1 % (0-10); EOSINOPHILS # (AUTO) 0.3 10^3/uL (0.0-0.3); EOSINOPHILS % (AUTO) 6 % (0-10); HEMATOCRIT 50 % (40-54); HEMOGLOBIN 17.1 G/DL (13.3-17.7); LYMPHOCYTES # (AUTO) 2.2 X 10^3 (1.0-4.0); LYMPHOCYTES % (AUTO) 37 % (12-44); MEAN CORPUSCULAR HEMOGLOBIN 28 PG (25-34); MEAN CORPUSCULAR HGB CONC 34 G/DL (32-36); MEAN CORPUSCULAR VOLUME 82 FL (80-99); MEAN PLATELET VOLUME 9.3 FL (7.4-10.4); MONOCYTES # (AUTO) 0.9 X 10^3 (0.0-1.0); MONOCYTES % (AUTO) 15 % (0-12); NEUTROPHILS # (AUTO) 2.4 X 10^3 (1.8-7.8); NEUTROPHILS % (AUTO) 41 % (42-75); PLATELET COUNT 153 10^3/uL (130-400); RED CELL DISTRIBUTION WIDTH 14.3 % (10.0-14.5); WHITE BLOOD COUNT 5.8 10^3/uL (4.3-11.0)
--- NOTE | 2019-02-15 13:58 | NUR ---
NO CHANGE IN PT MEDS
[2019-02-15] MEDS: NITROGLYCERIN 0.4 MG SL TABS BTL 25'S SL PRN ×2 (14:02→14:13)
--- NOTE | 2019-02-15 14:13 | NUR ---
chest pain decreased to 6/10
--- NOTE | 2019-02-15 14:18 | ED Chest Pain ---
General Chief Complaint: Chest Pain Stated Complaint: CHEST PAIN Nursing Triage Note: PT AMBULATED TO ROOM 6 PT CO OF CHEST PAIN SINCE YESTERDAY, HAS HAD RECENT PACEMAKER REPLACEMENT Nursing Sepsis Screen: No Definite Risk Source: patient, family, old records Exam Limitations: no limitations History of Present Illness Date Seen by Provider: Feb 15, 2019 Time Seen by Provider: 13:40 Initial Comments This 54-year-old gentleman presents to the emergency room with complaints of central chest pain that started last night with a sudden sharp pain in the right lower chest radiating around to the lower sternal region. Pain is now described as a heavy pressure in his central chest. It is sometimes worse with deep breathing and with palpation of the anterior chest wall. He had his pacemaker replaced by Dr. Lau on February 08. He has a history of heart block. Review of his chart notes a stress test in January 2018 which was negative for ischemia. He also had an echocardiogram January 2018 showing a normal ejection fraction. He had a heart catheter in 2012 showing no obstructive disease. He rates his pain about a 7/10 at this time. He took Excedrin 2 this morning which totals 500 mg aspirin. Allergies and Home Medications Allergies Coded Allergies: vancomycin (Verified Allergy, Unknown, 11/11/05) Home Medications Allopurinol 100 Mg Tablet, 100 MG PO BID, (Reported) Aspirin/Acetaminophen/Caffeine 1 Each Tablet, 2 EACH PO BID, (Reported) Bethanechol Chloride 25 Mg Tablet, 25 MG PO QID, (Reported) Cefuroxime Axetil 500 Mg Tablet, 500 MG PO BID Prescribed by: TON LAU on 02/09/19 0735 Cetirizine HCl 10 Mg Tablet, 10 MG PO DAILY, (Reported) Cholecalciferol (Vitamin D3) 1,000 Unit Tablet, 1,000 UNIT PO DAILY, (Reported) Colestipol HCl 1 Gm Tab, 1 GM PO DAILY, (Reported) Divalproex Sodium 250 Mg Tablet.dr, 750 MG PO 0800,2100, (Reported) TAKES 3 (250MG) TABLETS Divalproex Sodium 250 Mg Tablet.dr, 500 MG PO 1200, (Reported) TAKES 2 (250MG) TABLETS Furosemide 40 Mg Tablet, 20 MG PO DAILY, (Reported) TAKES 1/2 OF A 40MG TAB Metoprolol Succinate 100 Mg Tab.er.24h, 100 MG PO HS, (Reported) Omeprazole 20 Mg Capsule.dr, 20 MG PO DAILY, (Reported) Potassium Chloride 20 Meq Tablet.er, 20 MEQ PO BID, (Reported) Rosuvastatin Calcium 10 Mg Tablet, 10 MG PO DAILY, (Reported) Patient Home Medication List Home Medication List Reviewed: Yes Review of Systems Review of Systems Constitutional: no symptoms reported EENTM: No Symptoms Reported Respiratory: See HPI Cardiovascular: See HPI Gastrointestinal: No Symptoms Reported Genitourinary: No Symptoms Reported Musculoskeletal: no symptoms reported Skin: no symptoms reported Psychiatric/Neurological: No Symptoms Reported Endocrine: No Symptoms Reported Hematologic/Lymphatic: No Symptoms Reported Past Qygcnaq-Jdsgyk-Nslitl Hx Past Med/Social Hx: Reviewed and Corrections made Patient Social History Alcohol Use: Denies Use Recreational Drug Use: No Smoking Status: Never a Smoker 2nd Hand Smoke Exposure: No Recent Foreign Travel: No Contact w/Someone Who Travel: No Recent Infectious Disease Expo: No Recent Hopitalizations: Yes (PACEMAKER PLACEMENT ) Physical Abuse: No Sexual Abuse: No Immunizations Up To Date Date of Pneumonia Vaccine: Nov 28, 2011 Seasonal Allergies Seasonal Allergies: No Past Medical History Surgeries: Yes (pacer/AICD placement, left hand tendon repair) Pacemaker Respiratory: No Cardiac: Yes (HEART FAILURE, heart block status post pacemaker) Cardiomyopathy, Hypertension Neurological: Yes (hx meningitis 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, has left-sided neurologic deficits) Reproductive Disorders: No Genitourinary: No Gastrointestinal: Yes Gastroesophageal Reflux, Chronic Diarrhea Musculoskeletal: 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 0.0oz. 98.391927ge; 30.00 BMI Method:Stated General Appearance: No Apparent Distress, WD/WN HEENT: PERRL/EOMI, Normal ENT Inspection, Other (strabismus) Neck: Normal Inspection Respiratory: Lungs Clear, Normal Breath Sounds, No Accessory Muscle Use, No Respiratory Distress, Other (right chest and sternal chest tenderness to palpation. Pacemaker dressing intact with dry blood. No surrounding inflammatory changes.) Cardiovascular: Regular Rate, Rhythm, No Edema, No Murmur Gastrointestinal: Normal Bowel Sounds, Non Tender, Soft Extremity: Normal Inspection, Non Tender, No Calf Tenderness, No Pedal Edema, Other (no warmth or erythema) Neurologic/Psychiatric: Alert, Oriented x3, Normal Mood/Affect, micromatic hone operator II-XII Norm as Tested, Other (contractures and motor deficits of the left extremities) Skin: Normal Color, Warm/Dry Progress/Results/Core Measures Results/Orders Lab Results Laboratory Tests Test 02/15/19 13:40 Range/Units White Blood Count 5.8 4.3-11.0 10^3/uL Red Blood Count 6.11 H 4.35-5.85 10^6/uL Hemoglobin 17.1 13.3-17.7 G/DL Hematocrit 50 40-54 % Mean Corpuscular Volume 82 80-99 FL Mean Corpuscular Hemoglobin 28 25-34 PG Mean Corpuscular Hemoglobin Concent 34 32-36 G/DL Red Cell Distribution Width 14.3 10.0-14.5 % Platelet Count 153 130-400 10^3/uL Mean Platelet Volume 9.3 7.4-10.4 FL Neutrophils (%) (Auto) 41 L 42-75 % Lymphocytes (%) (Auto) 37 12-44 % Monocytes (%) (Auto) 15 H 0-12 % Eosinophils (%) (Auto) 6 0-10 % Basophils (%) (Auto) 1 0-10 % Neutrophils # (Auto) 2.4 1.8-7.8 X 10^3 Lymphocytes # (Auto) 2.2 1.0-4.0 X 10^3 Monocytes # (Auto) 0.9 0.0-1.0 X 10^3 Eosinophils # (Auto) 0.3 0.0-0.3 10^3/uL Basophils # (Auto) 0.0 0.0-0.1 10^3/uL Prothrombin Time 13.4 12.2-14.7 SEC INR Comment 1.0 0.8-1.4 Activated Partial Thromboplast Time 32 24-35 SEC D-Dimer 0.32 0.00-0.49 UG/ML Sodium Level 132 L 135-145 MMOL/L Potassium Level 3.6 3.6-5.0 MMOL/L Chloride Level 94 L 98-107 MMOL/L Carbon Dioxide Level 28 21-32 MMOL/L Anion Gap 10 5-14 MMOL/L Blood Urea Nitrogen 2 L 7-18 MG/DL Creatinine 0.80 0.60-1.30 MG/DL Estimat Glomerular Filtration Rate > 60 BUN/Creatinine Ratio 3 Glucose Level 81 70-105 MG/DL Calcium Level 9.2 8.5-10.1 MG/DL Corrected Calcium 9.1 8.5-10.1 MG/DL Magnesium Level 1.5 L 1.6-2.4 MG/DL Total Bilirubin 0.4 0.1-1.0 MG/DL Aspartate Amino Transf (AST/SGOT) 13 5-34 U/L Alanine Aminotransferase (ALT/SGPT) 6 0-55 U/L Alkaline Phosphatase 58 40-136 U/L Myoglobin 37.9 10.0-92.0 NG/ML Troponin I 0.029 H <0.028 NG/ML Total Protein 6.8 6.4-8.2 GM/DL Albumin 4.1 3.2-4.5 GM/DL My Orders Orders - ABRAHAM DEY MD Cbc With Automated Diff (02/15/19 13:47) Magnesium (02/15/19 13:47) Chest 1 View, Ap/Pa Only (02/15/19 13:47) Ekg Tracing (02/15/19 13:47) Cardiac Profile 1 (02/15/19 13:47) Comprehensive Metabolic Panel (02/15/19 13:47) Myoglobin Serum (02/15/19 13:47) Protime With Inr (02/15/19 13:47) Partial Thromboplastin Time (02/15/19 13:47) O2 (02/15/19 13:47) Monitor-Rhythm Ecg Trace Only (02/15/19 13:47) Lipid Panel (02/16/19 06:00) Ed Iv/Invasive Line Start (02/15/19 13:47) Nitroglycerin 0.4 Mg Btl 25's (Nitrostat (02/15/19 14:00) Fibrin Degradation Products (02/15/19 14:48) Ketorolac Injection (Toradol Injection) (02/15/19 15:15) Hydrocodone/Apap 5/325 Tablet (Lortab 5 (02/15/19 16:30) Medications Given in ED Current Medications Medications Dose Ordered Sig/Kinsey Route Start Time Stop Time Status Last Admin Dose Admin Ketorolac Tromethamine 15 mg ONCE ONCE IVP 02/15/19 15:15 02/15/19 15:16 DC 02/15/19 15:18 15 MG Nitroglycerin 0.4 mg UD PRN SL 02/15/19 14:00 02/15/19 14:13 0.4 MG Vital Signs/I&O 02/15/19 13:30 Temp 36.9 Pulse 82 Resp 13 B/P (MAP) 126/80 (95) Blood Pressure Mean: 95 POS Progress Progress Note #1: Time: 15:29 Progress Note Patient reports pain is 5/10 after nitroglycerin. He had no significant reduction in pain. Troponin returned as 0.029. In the context of pain that started last night, nonobstructive coronary arteries in 2012, a negative stress test last year and atypical features, this troponin should be considered negative as per my discussion with Dr. Lau. D-dimer was added and it was negative. Dr. Lau did not request any further cardiac testing. A trial of Toradol is being administered. Progress Note #2: Time: 16:33 Progress Note Pain did not improve significantly with Toradol. Patient was reexamined and found to still have a tender chest wall. No rashes were evident. Abdomen was soft and nontender. Patient is receiving a hydrocodone before dismissal. Initial ECG Impression Date: Feb 15, 2019 Initial ECG Impression Time: 13:36 Initial ECG Rate: 82 Initial ECG Rhythm: Normal Sinus Initial ECG Intervals Paced rhythm with LVH. No acute changes from prior. Diagnostic Imaging Diagonstic Imaging: Xray Plain Films/CT/US/NM/MRI: chest Comments Chest x-ray viewed by me and report reviewed. See report below: NAME: SAYRA SANABRIA [facility] REC#: [id number] PT STATUS: REG ER : 1965 PHYSICIAN: ABRAHAM DEY MD ADMIT DATE: 02/15/19/ER Signed Date of Exam:02/15/19 CHEST 1 VIEW, AP/PA ONLY INDICATION: Chest pain Portable chest 2:17 PM There is a dual chamber pacemaker. Heart size and pulmonary vascularity are normal. Lungs are clear. There are no effusions or pneumothoraces. IMPRESSION: No acute abnormalities in the chest. Dictated by: Dictated on workstation # [id number] Dict: 02/15/19 1425 Trans: 02/15/19 1441 [facility] [id number] Interpreted by: JACQUELYN CRENSHAW MD Electronically signed by: JACQUELYN CRENSHAW MD 02/15/19 1441 Departure Impression Primary Impression: Chest wall pain Disposition: 01 HOME, SELF-CARE Condition: Stable Departure-Patient Inst. Decision time for Depature: 15:10 Referrals: BEAU SHARPE DO (PCP/Family) Primary Care Physician Patient Instructions: Chest Pain That Is Not Caused by the Heart (DC) Add. Discharge Instructions: You may use hydrocodone as prescribed for short-term relief of pain. Please follow-up with Dr. Lau as soon as possible. Call his office for an appointment time. Return to the emergency room if you have worsening symptoms. All discharge instructions reviewed with patient and/or family. Voiced understanding. Scripts Hydrocodone Bit/Acetaminophen (Hydrocodone/Acetaminophen 5/325mg Tablet) 1 Tab Tab 1 EACH PO Q4-6HR PRN for PAIN-MODERATE MDD 10, #5 TAB Prov: ABRAHAM DEY MD 02/15/19 Copy Copies To 1: TON LAU MD Copies To 2: BEAU SHARPE JOSHUA T MD Feb 15, 2019 14:18 POS
[2019-02-15 14:20] LABS: PROTHROMBIN TIME PATIENT 13.4 SEC (12.2-14.7)
[2019-02-15 14:23] LABS: ALANINE AMINOTRANSFERASE 6 U/L (0-55); ALBUMIN 4.1 GM/DL (3.2-4.5); ALKALINE PHOSPHATASE 58 U/L (40-136); BILIRUBIN,TOTAL 0.4 MG/DL (0.1-1.0); BUN/CREATININE RATIO 3; CALCIUM 9.2 MG/DL (8.5-10.1); CARBON DIOXIDE 28 MMOL/L (21-32); CHLORIDE 94 MMOL/L (98-107); GFR ESTIMATED > 60; GLUCOSE 81 MG/DL (70-105); MAGNESIUM 1.5 MG/DL (1.6-2.4); POTASSIUM 3.6 MMOL/L (3.6-5.0); SODIUM 132 MMOL/L (135-145); TOTAL PROTEIN 6.8 GM/DL (6.4-8.2)
--- NOTE | 2019-02-15 14:26 | Diagnostic Imaging Report ---
INDICATION: Chest pain Portable chest 2:17 PM There is a dual chamber pacemaker. Heart size and pulmonary vascularity are normal. Lungs are clear. There are no effusions or pneumothoraces. IMPRESSION: No acute abnormalities in the chest. Dictated by: Dictated on workstation # [id number]
[2019-02-15] MEDS ORDERED: KETOROLAC 30 MG/ML VIAL IVP ONE (15:15)
[2019-02-15] MEDS ORDERED: ACHD5005 PO (16:27)
[2019-02-15] MEDS ORDERED: HYDROcodone/APAP 5 MG/325 MG (LORTAB) TAB PO ONE (16:30)
--- NOTE | 2019-02-15 16:34 | NUR ---
[facility] CALLED
[2019-02-15 16:42] VITALS: BP 118/80
== END 2019-02-15 16:50 | disposition home or self-care (01) ==
LOC: EDUNIT# 13:31 → ER 13:32
DX: R07.89 Other chest pain (principal); I11.0 Hypertensive heart disease with heart failure; I50.9 Heart failure, unspecified; K21.9 Gastro-esophageal reflux disease without esophagitis; Z88.1 Allergy status to other antibiotic agents; Z79.82 Long term (current) use of aspirin; Z95.810 Presence of automatic (implantable) cardiac defibrillator; Z82.49 Family history of ischemic heart disease and other diseases of the circulatory system; Z80.0 Family history of malignant neoplasm of digestive organs
CPT/HCPCS: 36415; 71045; 80053; 83735; 83874; 84484; 85025; 85379; 85610; 85730; 93005; 93041

== ENCOUNTER → 2019-05-24 | Outpatient (CLI) | payer MEDICARE, MEDICAID ==
[~2019-05-24] MED LIST changes: +ACHD5005 PO; -METO-370 PO; -METO-395 PO; +METO50TA7 PO; +MTP100TCR PO; +OMEP-280 PO; -OMEP20CA13 PO
[2019-05-24 10:02] LABS: CHOLESTEROL 131 MG/DL (< 200); HDL CHOLESTEROL 42 MG/DL (40-60); TRIGLYCERIDES 95 MG/DL (<150); VLDL CHOLESTEROL 19 MG/DL (5-40)
== END ==
LOC: LAB 09:21
PROVIDERS: ATTEND Family Medicine
DX: E78.2 Mixed hyperlipidemia (principal)
CPT/HCPCS: 36415; 80061

== ENCOUNTER → 2019-06-16 | Outpatient (CLI) | payer MEDICARE, MEDICAID ==
[~2019-06-16] MED LIST changes: -OMEP-280 PO; +OMEP20CA18 PO
[2019-06-16 10:08] LABS: BASOPHILS % (AUTO) 1 % (0-10); EOSINOPHILS # (AUTO) 0.1 10^3/uL (0.0-0.3); EOSINOPHILS % (AUTO) 1 % (0-10); HEMATOCRIT 53 % (40-54); HEMOGLOBIN 18.4 G/DL (13.3-17.7); LYMPHOCYTES # (AUTO) 2.4 X 10^3 (1.0-4.0); LYMPHOCYTES % (AUTO) 43 % (12-44); MEAN CORPUSCULAR HGB CONC 35 G/DL (32-36); MEAN CORPUSCULAR VOLUME 84 FL (80-99); MEAN PLATELET VOLUME 9.6 FL (7.4-10.4); MONOCYTES # (AUTO) 0.8 X 10^3 (0.0-1.0); MONOCYTES % (AUTO) 14 % (0-12); NEUTROPHILS # (AUTO) 2.3 X 10^3 (1.8-7.8); NEUTROPHILS % (AUTO) 41 % (42-75); PLATELET COUNT 145 10^3/uL (130-400); RED CELL DISTRIBUTION WIDTH 14.3 % (10.0-14.5); WHITE BLOOD COUNT 5.7 10^3/uL (4.3-11.0)
[2019-06-16 10:09] LABS: MEAN CORPUSCULAR HEMOGLOBIN 29 PG (25-34)
[2019-06-16 10:31] LABS: ALANINE AMINOTRANSFERASE 14 U/L (0-55); ALBUMIN 4.2 GM/DL (3.2-4.5); ALKALINE PHOSPHATASE 55 U/L (40-136); BILIRUBIN,TOTAL 0.6 MG/DL (0.1-1.0); BUN/CREATININE RATIO 7; CALCIUM 9.6 MG/DL (8.5-10.1); CARBON DIOXIDE 28 MMOL/L (21-32); CHLORIDE 95 MMOL/L (98-107); CHOLESTEROL 118 MG/DL (< 200); CREATININE SERUM 0.87 MG/DL (0.60-1.30); GFR ESTIMATED > 60; GLUCOSE 94 MG/DL (70-105); HDL CHOLESTEROL 42 MG/DL (40-60); POTASSIUM 3.9 MMOL/L (3.6-5.0); SODIUM 134 MMOL/L (135-145); TRIGLYCERIDES 115 MG/DL (<150); URIC ACID 7.3 MG/DL (2.6-7.2); VLDL CHOLESTEROL 23 MG/DL (5-40)
[2019-06-16 11:04] LABS: FREE T4 (FREE THYROXINE) 0.83 NG/DL (0.70-1.48)
== END ==
LOC: LAB 09:45
PROVIDERS: ATTEND Family Medicine
DX: E78.5 Hyperlipidemia, unspecified (principal); M10.9 Gout, unspecified; R53.83 Other fatigue
CPT/HCPCS: 36415; 80053; 80061; 84439; 84443; 84550; 85025

== ENCOUNTER 2019-08-28 14:30 | Observation (INO) | payer MEDICARE, MEDICAID ==
[~2019-08-28] VITALS: Ht 182 cm; Wt 104.2 kg
[2019-08-28] VITALS (8 sets, daily range): BP systolic 93–120; BP diastolic 41–81
[2019-08-28 14:48] LABS: BASOPHILS % (AUTO) 0 % (0-10); EOSINOPHILS % (AUTO) 1 % (0-10); HEMATOCRIT 38 % (40-54); HEMOGLOBIN 15.6 G/DL (13.3-17.7); LYMPHOCYTES # (AUTO) 2.9 X 10^3 (1.0-4.0); LYMPHOCYTES % (AUTO) 58 % (12-44); MEAN CORPUSCULAR HEMOGLOBIN 35 PG (25-34); MEAN CORPUSCULAR HGB CONC 41 G/DL (32-36); MEAN CORPUSCULAR VOLUME 85 FL (80-99); MEAN PLATELET VOLUME 10.7 FL (7.4-10.4); MONOCYTES # (AUTO) 0.8 X 10^3 (0.0-1.0); MONOCYTES % (AUTO) 15 % (0-12); NEUTROPHILS # (AUTO) 1.3 X 10^3 (1.8-7.8); NEUTROPHILS % (AUTO) 26 % (42-75); RED CELL DISTRIBUTION WIDTH 14.3 % (10.0-14.5)
[2019-08-28 14:52] LABS: PLATELET COUNT 94 10^3/uL (130-400)
[2019-08-28 14:56] LABS: ALBUMIN 3.9 GM/DL (3.2-4.5)
[2019-08-28 14:57] LABS: CHLORIDE 91 MMOL/L (98-107); POTASSIUM 3.2 MMOL/L (3.6-5.0); SODIUM 130 MMOL/L (135-145)
[2019-08-28 14:58] LABS: AMYLASE 18 U/L (25-125)
[2019-08-28 14:59] LABS: GLUCOSE 84 MG/DL (70-105); TOTAL PROTEIN 6.8 GM/DL (6.4-8.2)
[2019-08-28 15:00] LABS: CARBON DIOXIDE 27 MMOL/L (21-32)
[2019-08-28] MEDS ORDERED: KETOROLAC 30 MG/ML VIAL IVP ONE (15:00)
[2019-08-28 15:01] LABS: BILIRUBIN,TOTAL 1.1 MG/DL (0.1-1.0)
[2019-08-28 15:02] LABS: ALKALINE PHOSPHATASE 53 U/L (40-136)
[2019-08-28 15:03] LABS: CREATININE SERUM 0.82 MG/DL (0.60-1.30); GFR ESTIMATED > 60
[2019-08-28 15:04] LABS: BUN/CREATININE RATIO 2
[2019-08-28 15:05] LABS: ALANINE AMINOTRANSFERASE 10 U/L (0-55); INR 1.3 (0.8-1.4); MAGNESIUM 1.4 MG/DL (1.6-2.4); PROTHROMBIN TIME PATIENT 16.5 SEC (12.2-14.7)
[2019-08-28 15:06] LABS: LIPASE 32 U/L (8-78)
[2019-08-28 15:07] LABS: CREATINE KINASE 91 U/L (30-200)
[2019-08-28 15:13] LABS: CREATINE KINASE MB 1.6 NG/ML (<6.6)
[2019-08-28] MEDS ORDERED: KCL 10 MEQ TAB (MICRO K) PO ONE (15:15)
[2019-08-28] MEDS ORDERED: MAGNESIUM OXIDE (MAG-OX)400 MG TAB PO ONE (15:15)
--- NOTE | 2019-08-28 15:16 | Diagnostic Imaging Report ---
EXAM: Portable erect AP chest at 2:58 PM INDICATION: Chest pain FINDINGS: This study is less than optimal as the patient is rotated. The heart size is at the upper limits of normal but stable when compared to 02/15/2019. The left-sided pacemaker seen previously is again evident and no different. The lungs are clear. There is no evidence for failure, pneumonia or for a pleural effusion. The mediastinum is not widened. The osseous structures are intact. IMPRESSION: There is no evidence for active disease. Dictated by: Dictated on workstation # [id number]
[2019-08-28 15:18] LABS: VALPROIC ACID 120.8 UG/ML (50.0-100.0)
--- NOTE | 2019-08-28 15:38 | NUR ---
NEUROSCIENTIST CONTACTED FOR A CARDIAC STEPDOWN BED.
--- NOTE | 2019-08-28 15:53 | NUR ---
ATTEMPT TO CALL PT'S MOM CONCERNING ADMIT. NO ANSWER. DR ALSO TRIED CALLING HIS MODELING ANALYST WHO DID NOT ANSWER.
--- NOTE | 2019-08-28 15:56 | NUR ---
ATTEMPT TO CALL REPORT TO NURSE ET NURSE DID NOT ANSWER. ASSISTANT HEAD CASHIER STATES SHE WILL HAVE THE NURSE CALL ME.
--- NOTE | 2019-08-28 16:10 | NUR ---
ATTEMPT TO CALL REPORT ON PT. NURSE IN A PUI ROOM ET WILL CALL WHEN SHE COMES OUT.
--- NOTE | 2019-08-28 16:25 | NUR ---
Pt arrived to ICU room 5 at this time via wheelchair. Pt declines wanting to get in bed. Pt assisted to chair at bedside at this time. Personal belongings with pt include clothing, glasses, wallet and cane. VSS on arrival. Pt currently has no complaints at this time. Will continue to monitor.
[2019-08-28] MEDS ORDERED: morphine INJ 4 MG/ML 1 ML (VIAL/SYRINGE) IV PRN (16:45)
[2019-08-28] MEDS ORDERED: NITROGLYCERIN 0.4 MG SL TABS BTL 25'S SL PRN (16:45)
[2019-08-28] MEDS ORDERED: ONDANSETRON 4 MG/2 ML (SDV) Z0FRAN IVP PRN (16:45)
[2019-08-28] MEDS: NS W/KCL 20 MEQ/L 1,000 ML IV SCH (17:09)
--- NOTE | 2019-08-28 18:22 | ED Chest Pain ---
General Chief Complaint: Chest Pain Stated Complaint: CHEST PAIN, ELEVATED TROPONIN Nursing Triage Note: ARRIVED VIA EMS FROM HOME WITH COMPLAINTS OF CHEST PAIN THAT IS REPRODUCABLE FOR X2 HOURS. Nursing Sepsis Screen: No Definite Risk Source: patient (LIMITED HISTORIAN), EMS History of Present Illness Date Seen by Provider: August 28, 2019 Time Seen by Provider: 14:29 Initial Comments PT ARRIVES VIA EMS FROM HOME--LIVES WITH MOM AND HAS A PASTA MAKER PT C/O CHEST PAIN PAIN POSSIBLY BEGAN A COUPLE OF HOURS AGO PT IS UNABLE TO RATE PAIN PAIN IS WORSE WITH PALPATION AND DEEP BREATHS NO ACTUAL SHORTNESS OF BREATH NO SWEATS NO NAUSEA/VOMITING NO SWELLING IN LEGS NO COUGH, FEVER OR RECENT ILLNESS NO SICK CONTACTS EMS GAVE 4 BABY ASPIRIN HAS HAD THIS BEFORE, AND WAS SEEN HERE 02/2019 FOR THIS SAME COMPLAINT. PT HAS HISTORY OF PERMANENT PACEMAKER--HX OF CONGENITAL HEART BLOCK HAS HISTORY OF NON-OBSTRUCTIVE CORONARY ARTERY DISEASE, HTN, HYPERLIPIDEMIA, CHF, SICK SINUS SYNDROME, LEFT VENTRICULAR DYSFUNCTION, CAROTID DISEASE--NO INTERVENTION. 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 PCP: DR. SHARPE CREW LEADER/CONTROL ROOM OPERATOR: DR. SALDANA Allergies and Home Medications Allergies Coded Allergies: vancomycin (Verified Allergy, Unknown, 11/11/05) Home Medications Allopurinol 100 Mg Tablet, 100 MG PO BID, (Reported) Aspirin/Acetaminophen/Caffeine 1 Each Tablet, 2 EACH PO BID, (Reported) Bethanechol Chloride 25 Mg Tablet, 25 MG PO QID, (Reported) Cefuroxime Axetil 500 Mg Tablet, 500 MG PO BID Prescribed by: TON SALDANA on 02/09/19 0735 Cetirizine HCl 10 Mg Tablet, 10 MG PO DAILY, (Reported) Cholecalciferol (Vitamin D3) 1,000 Unit Tablet, 1,000 UNIT PO DAILY, (Reported) Colestipol HCl 1 Gm Tab, 1 GM PO DAILY, (Reported) Divalproex Sodium 250 Mg Tablet.dr, 750 MG PO 0800,2100, (Reported) TAKES 3 (250MG) TABLETS Divalproex Sodium 250 Mg Tablet.dr, 500 MG PO 1200, (Reported) TAKES 2 (250MG) TABLETS Furosemide 40 Mg Tablet, 20 MG PO DAILY, (Reported) TAKES 1/2 OF A 40MG TAB Hydrocodone Bit/Acetaminophen 1 Tab Tab, 1 EACH PO Q4-6HR PRN for PAIN-MODERATE Prescribed by: ABRAHAM MELO on 02/15/19 8937 Metoprolol Succinate 100 Mg Tab.er.24h, 100 MG PO HS, (Reported) Omeprazole 20 Mg Capsule.dr, 20 MG PO DAILY, (Reported) Potassium Chloride 20 Meq Tablet.er, 20 MEQ PO BID, (Reported) Rosuvastatin Calcium 10 Mg Tablet, 10 MG PO DAILY, (Reported) Patient Home Medication List Home Medication List Reviewed: Yes Review of Systems Review of Systems Constitutional: no symptoms reported; No chills, No dizziness, No fever EENTM: No Symptoms Reported Respiratory: No Symptoms Reported; Denies Cough, Denies Shortness of Air Cardiovascular: See HPI, Chest Pain; Denies Edema, Denies Lightheadedness, Denies Syncope Gastrointestinal: No Symptoms Reported Genitourinary: No Symptoms Reported Musculoskeletal: no symptoms reported Skin: no symptoms reported Psychiatric/Neurological: Pre-Existing Deficit Endocrine: No Symptoms Reported Hematologic/Lymphatic: No Symptoms Reported Past Klxoxab-Upoepr-Wbrbmn Hx Past Med/Social Hx: Reviewed and Corrections made Patient Social History Alcohol Use: Denies Use Recreational Drug Use: No Smoking Status: Never a Smoker 2nd Hand Smoke Exposure: No Recent Foreign Travel: No Contact w/Someone Who Travel: No Recent Infectious Disease Expo: No Recent Hopitalizations: Yes (PACEMAKER PLACEMENT ) Immunizations Up To Date Date of Pneumonia Vaccine: Nov 28, 2011 Seasonal Allergies Seasonal Allergies: No Past Medical History Surgeries: Yes (pacer/AICD placement, left hand tendon repair) Orthopedic, Pacemaker Respiratory: No Cardiac: Yes (HEART FAILURE, CONGENITAL heart block status post pacemaker;NON- OBSTR CAD) Cardiomyopathy, Coronary Artery Disease, High Cholesterol, Hypertension Neurological: Yes (hx meningitis 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, has left-sided neurologic deficits) Developmental Disorder, Paralysis Reproductive Disorders: No Genitourinary: No Gastrointestinal: Yes (GASTRITIS) Gastroesophageal Reflux, Hemorrhoids, Chronic Diarrhea Musculoskeletal: 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) Arthritis, Contracture, Gout Endocrine: No HEENT: No Cancer: No Psychosocial: No Integumentary: No Blood Disorders: No Adverse Reaction/Blood Tranf: No Family Medical History Alzheimer's disease Arthritis Colon cancer Diabetes mellitus Myocardial infarction Visual disorder Physical Exam Vital Signs Vital Signs - First Documented 08/28/19 14:30 Temp 37.2 Pulse 84 Resp 16 B/P (MAP) 124/93 (103) O2 Delivery Room Air Capillary Refill : Less Than 3 Seconds Height, Weight, BMI Height: 6'0.00" Weight: 218lbs. 0.0oz. 98.816636vw; 27.00 BMI Method:Stated General Appearance: No Apparent Distress, WD/WN HEENT: Other (ambylopia) Neck: Normal Inspection Respiratory: Normal Breath Sounds, No Accessory Muscle Use, No Respiratory Distress, Other (chest is tender to mid sternal area and left mid and upper chest--palpation does reproduce pain) Cardiovascular: Regular Rate, Rhythm, No Edema, No JVD, No Murmur, Normal Peripheral Pulses Gastrointestinal: Non Tender, Soft Extremity: Normal Capillary Refill, Pedal Edema (trace on left) Neurologic/Psychiatric: Alert, Oriented x3, Normal Mood/Affect (smiling, talkative, pleasant), Other (partial paralysis left side, with contractures of left hand and elbow, with tremors to left hand. + left foot drop. ) Skin: Normal Color, Warm/Dry Progress/Results/Core Measures Results/Orders Lab Results Laboratory Tests Test 08/28/19 14:38 08/28/19 15:21 Range/Units White Blood Count 5.0 4.3-11.0 10^3/uL Red Blood Count 4.47 4.35-5.85 10^6/uL Hemoglobin 15.6 13.3-17.7 G/DL Hematocrit 38 L 40-54 % Mean Corpuscular Volume 85 80-99 FL Mean Corpuscular Hemoglobin 35 H 25-34 PG Mean Corpuscular Hemoglobin Concent 41 H 32-36 G/DL Red Cell Distribution Width 14.3 10.0-14.5 % Platelet Count 94 L 130-400 10^3/uL Mean Platelet Volume 10.7 H 7.4-10.4 FL Neutrophils (%) (Auto) 26 L 42-75 % Lymphocytes (%) (Auto) 58 H 12-44 % Monocytes (%) (Auto) 15 H 0-12 % Eosinophils (%) (Auto) 1 0-10 % Basophils (%) (Auto) 0 0-10 % Neutrophils # (Auto) 1.3 L 1.8-7.8 X 10^3 Lymphocytes # (Auto) 2.9 1.0-4.0 X 10^3 Monocytes # (Auto) 0.8 0.0-1.0 X 10^3 Eosinophils # (Auto) 0.0 0.0-0.3 10^3/uL Basophils # (Auto) 0.0 0.0-0.1 10^3/uL Prothrombin Time 16.5 H 12.2-14.7 SEC INR Comment 1.3 0.8-1.4 Activated Partial Thromboplast Time 35 24-35 SEC Sodium Level 130 L 135-145 MMOL/L Potassium Level 3.2 L 3.6-5.0 MMOL/L Chloride Level 91 L 98-107 MMOL/L Carbon Dioxide Level 27 21-32 MMOL/L Anion Gap 12 5-14 MMOL/L Blood Urea Nitrogen 2 L 7-18 MG/DL Creatinine 0.82 0.60-1.30 MG/DL Estimat Glomerular Filtration Rate > 60 BUN/Creatinine Ratio 2 Glucose Level 84 70-105 MG/DL Calcium Level 9.0 8.5-10.1 MG/DL Corrected Calcium 9.1 8.5-10.1 MG/DL Magnesium Level 1.4 L 1.6-2.4 MG/DL Total Bilirubin 1.1 H 0.1-1.0 MG/DL Aspartate Amino Transf (AST/SGOT) 22 5-34 U/L Alanine Aminotransferase (ALT/SGPT) 10 0-55 U/L Alkaline Phosphatase 53 40-136 U/L Total Creatine Kinase 91 30-200 U/L Creatine Kinase MB 1.6 <6.6 NG/ML Myoglobin 58.1 10.0-92.0 NG/ML Troponin I 0.031 H <0.028 NG/ML Total Protein 6.8 6.4-8.2 GM/DL Albumin 3.9 3.2-4.5 GM/DL Amylase Level 18 L 25-125 U/L Lipase 32 8-78 U/L Valproic Acid (Depakene) Level 120.8 *H 50.0-100.0 UG/ML B-Type Natriuretic Peptide 12.2 <100.0 PG/ML My Orders Orders - JUNIOR SORIA DO Ed Iv/Invasive Line Start (08/28/19 14:36) Ekg Tracing (08/28/19 14:36) Monitor-Rhythm Ecg Trace Only (08/28/19 14:36) Cbc With Automated Diff (08/28/19 14:36) Magnesium (08/28/19 14:36) Chest 1 View, Ap/Pa Only (08/28/19 14:36) Comprehensive Metabolic Panel (08/28/19 14:36) Myoglobin Serum (08/28/19 14:36) Protime With Inr (08/28/19 14:36) Partial Thromboplastin Time (08/28/19 14:36) O2 (08/28/19 14:36) Ed Iv/Invasive Line Start (08/28/19 14:36) Creatine Kinase (08/28/19 14:36) Creatine Kinase Mb (08/28/19 14:36) Lipase (08/28/19 14:36) Amylase (08/28/19 14:36) BNP (08/28/19 14:36) Troponin I (08/28/19 14:36) Valproic Acid (08/28/19 14:36) Ketorolac Injection (Toradol Injection) (08/28/19 15:00) Magnesium Oxide Tablet (Mag Ox Tablet) (08/28/19 15:15) Potassium Chloride (Tablet) (Klor Con Ta (08/28/19 15:15) Medications Given in ED Current Medications Medications Dose Ordered Sig/Kinsey Route Start Time Stop Time Status Last Admin Dose Admin Ketorolac Tromethamine 30 mg ONCE ONCE IVP 08/28/19 15:00 08/28/19 15:01 DC 08/28/19 15:05 30 MG Magnesium Oxide 1,200 mg ONCE ONCE PO 08/28/19 15:15 08/28/19 15:16 DC 08/28/19 15:24 1,200 MG Potassium Chloride 20 meq ONCE ONCE PO 08/28/19 15:15 08/28/19 15:16 DC 08/28/19 15:24 20 MEQ Vital Signs/I&O 08/28/19 14:30 Temp 37.2 Pulse 84 Resp 16 B/P (MAP) 124/93 (103) O2 Delivery Room Air Blood Pressure Mean: 81 Progress Progress Note : Progress Note UNEVENTFUL ER STAY Initial ECG Impression Date: August 28, 2019 Initial ECG Impression Time: 14:38 Initial ECG Rate: 75 Comment 100% A-V PACED. Diagnostic Imaging Comments CXR--NO ACUTE PROCESS, PENDING RADIOLOGIST REVIEW Departure Communication (Admissions) 2314--SPOKE WITH DR. LEE, COST REDUCTION ENGINEER FOR DR. SHARPE. ACCEPTS PT FOR ADMIT 1526--SPOKE WITH DR CORTES, CARDIOLOGY CONSULT. 1533--ATTEMPTING TO CONTACT TONY DIAZ, PTS' PASTA MAKER. NO ANSWER AND UNABLE TO LEAVE MESSAGE 1623--SPOKE WITH TONY DIAZ, AND UPDATED HER ON PT'S CONDITION. SHE WILL INFORM PT'S MOTHER. Impression Primary Impression: Chest pain Additional Impressions: Elevated troponin Electrolyte imbalance Hypomagnesemia Presence of permanent cardiac pacemaker Disposition: ADMITTED INPATIENT Condition: Stable Admissions Decision to Admit Reason: Admit from ER (General) Decision to Admit/Date: August 28, 2019 Time/Decision to Admit Time: 15:25 Departure-Patient Inst. Referrals: BEAU SHARPE DO (PCP) Primary Care Physician JUNIOR SORIA DO August 28, 2019 18:22
[2019-08-29 00:13] VITALS: BP 119/73
--- NOTE | 2019-08-29 00:25 | NUR ---
PT REPORTING CHEST PAIN 8/10 AT THIS TIME. EKG ORDERED AND OBTAINED. MORPHINE GIVEN WITH RELIEF.
[2019-08-29] MEDS: NS W/KCL 20 MEQ/L 1,000 ML IV SCH ×3 (00:44→17:39)
[2019-08-29 03:34] LABS: BASOPHILS % (AUTO) 1 % (0-10); EOSINOPHILS % (AUTO) 1 % (0-10); HEMATOCRIT 46 % (40-54); HEMOGLOBIN 16.6 G/DL (13.3-17.7); LYMPHOCYTES # (AUTO) 2.8 X 10^3 (1.0-4.0); LYMPHOCYTES % (AUTO) 52 % (12-44); MEAN CORPUSCULAR HEMOGLOBIN 31 PG (25-34); MEAN CORPUSCULAR HGB CONC 36 G/DL (32-36); MEAN CORPUSCULAR VOLUME 85 FL (80-99); MEAN PLATELET VOLUME 11.2 FL (7.4-10.4); MONOCYTES # (AUTO) 0.7 X 10^3 (0.0-1.0); MONOCYTES % (AUTO) 14 % (0-12); NEUTROPHILS # (AUTO) 1.8 X 10^3 (1.8-7.8); NEUTROPHILS % (AUTO) 33 % (42-75); PLATELET COUNT 116 10^3/uL (130-400); RED CELL DISTRIBUTION WIDTH 14.3 % (10.0-14.5); WHITE BLOOD COUNT 5.3 10^3/uL (4.3-11.0)
[2019-08-29 03:57] LABS: CHLORIDE 95 MMOL/L (98-107); POTASSIUM 4.4 MMOL/L (3.6-5.0); SODIUM 131 MMOL/L (135-145)
[2019-08-29 03:58] LABS: ALBUMIN 3.5 GM/DL (3.2-4.5)
[2019-08-29 03:59] LABS: CALCIUM 8.9 MG/DL (8.5-10.1); TRIGLYCERIDES 80 MG/DL (<150); VLDL CHOLESTEROL 16 MG/DL (5-40)
[2019-08-29 04:00] VITALS: BP 109/77
[2019-08-29 04:00] LABS: GLUCOSE 91 MG/DL (70-105); TOTAL PROTEIN 6.2 GM/DL (6.4-8.2)
[2019-08-29 04:01] LABS: CARBON DIOXIDE 26 MMOL/L (21-32)
[2019-08-29 04:02] LABS: BILIRUBIN,TOTAL 1.1 MG/DL (0.1-1.0)
[2019-08-29 04:04] LABS: ALKALINE PHOSPHATASE 57 U/L (40-136); CHOLESTEROL 91 MG/DL (< 200); CREATININE SERUM 0.79 MG/DL (0.60-1.30); GFR ESTIMATED > 60
[2019-08-29 04:05] LABS: BUN/CREATININE RATIO 6
[2019-08-29 04:06] LABS: HDL CHOLESTEROL 45 MG/DL (40-60)
[2019-08-29 04:07] LABS: ALANINE AMINOTRANSFERASE 18 U/L (0-55); MAGNESIUM 1.6 MG/DL (1.6-2.4)
[2019-08-29 04:13] LABS: VALPROIC ACID 83.1 UG/ML (50.0-100.0)
[2019-08-29 08:00] VITALS: BP 102/74
--- NOTE | 2019-08-29 08:43 | Consultation-Cardiology ---
HPI-Cardiology Cardiology Consultation Date of Consultation 08/29/19 Date of Admission Time Seen by Provider: 08:41 Indication: chest pain HPI 54 years old gentleman with history of recurrent chest wall pain. Last stress test was done in January 2018. Reporting occasional episode of left-sided chest pain radiating to the left shoulder. Had an episode of severe retrosternal lo wer chest pain and epigastric pain. Given aspirin and brought to the emergency room. There was subtle abnormality in the troponin did not meet the criteria for myocardial infarction. Currently he denied any active chest pain but still having reproducible epigastric pain. No shortness of breath. No palpitation. No syncope or near syncopal episodes Home Medications & Allergies Allergies: Coded Allergies: vancomycin (Verified Allergy, Unknown, 11/11/05) Home Medication List Reviewed: Yes RAC-Sswxwu-Ajvkhm Hx Patient Social History Marital Status: single Employed/Student: unemployed Alcohol Use: Denies Use Recreational Drug Use: No Smoking Status: Never a Smoker 2nd Hand Smoke Exposure: No Recent Foreign Travel: No Recent Infectious Disease Expo: No Recent Hopitalizations: Yes (PACEMAKER PLACEMENT ) Immunizations Up To Date Date of Pneumonia Vaccine: Nov 28, 2011 Past Medical History Discussed below Family Medical History Family History: Alzheimer's disease Arthritis Colon cancer Diabetes mellitus Myocardial infarction Visual disorder Review of Systems-General Review of Systems Constitutional: no symptoms reported, see HPI; No chills, No dizziness, No fever EENTM: see HPI, no symptoms reported Respiratory: see HPI; No cough, No dyspnea on exertion, No hemoptysis, No orthopnea, No phlegm, No short of breath, No stridor, No wheezing, No other Cardiovascular: no symptoms reported, see HPI, chest pain; No edema, No Hx of Intervention, No palpitations, No syncope, No vascular heart diseas, No other Gastrointestinal: no symptoms reported, see HPI Genitourinary: no symptoms reported, see HPI Musculoskeletal: no symptoms reported, see HPI Skin: no symptoms reported, see HPI Psychiatric/Neurological: See HPI, Pre-Existing Deficit Reviewed Test Results Reviewed Test Results Lab Laboratory Tests Test 08/28/19 14:38 08/28/19 15:21 08/28/19 17:00 08/29/19 02:40 Range/Units White Blood Count 5.0 5.3 4.3-11.0 10^3/uL Red Blood Count 4.47 5.40 4.35-5.85 10^6/uL Hemoglobin 15.6 16.6 13.3-17.7 G/DL Hematocrit 38 L 46 40-54 % Mean Corpuscular Volume 85 85 80-99 FL Mean Corpuscular Hemoglobin 35 H 31 25-34 PG Mean Corpuscular Hemoglobin Concent 41 H 36 32-36 G/DL Red Cell Distribution Width 14.3 14.3 10.0-14.5 % Platelet Count 94 L 116 L 130-400 10^3/uL Mean Platelet Volume 10.7 H 11.2 H 7.4-10.4 FL Neutrophils (%) (Auto) 26 L 33 L 42-75 % Lymphocytes (%) (Auto) 58 H 52 H 12-44 % Monocytes (%) (Auto) 15 H 14 H 0-12 % Eosinophils (%) (Auto) 1 1 0-10 % Basophils (%) (Auto) 0 1 0-10 % Neutrophils # (Auto) 1.3 L 1.8 1.8-7.8 X 10^3 Lymphocytes # (Auto) 2.9 2.8 1.0-4.0 X 10^3 Monocytes # (Auto) 0.8 0.7 0.0-1.0 X 10^3 Eosinophils # (Auto) 0.0 0.0 0.0-0.3 10^3/uL Basophils # (Auto) 0.0 0.0 0.0-0.1 10^3/uL Prothrombin Time 16.5 H 12.2-14.7 SEC INR Comment 1.3 0.8-1.4 Activated Partial Thromboplast Time 35 24-35 SEC Sodium Level 130 L 131 L 135-145 MMOL/L Potassium Level 3.2 L 4.4 3.6-5.0 MMOL/L Chloride Level 91 L 95 L 98-107 MMOL/L Carbon Dioxide Level 27 26 21-32 MMOL/L Anion Gap 12 10 5-14 MMOL/L Blood Urea Nitrogen 2 L 5 L 7-18 MG/DL Creatinine 0.82 0.79 0.60-1.30 MG/DL Estimat Glomerular Filtration Rate > 60 > 60 BUN/Creatinine Ratio 2 6 Glucose Level 84 91 70-105 MG/DL Calcium Level 9.0 8.9 8.5-10.1 MG/DL Corrected Calcium 9.1 9.3 8.5-10.1 MG/DL Magnesium Level 1.4 L 1.6 1.6-2.4 MG/DL Total Bilirubin 1.1 H 1.1 H 0.1-1.0 MG/DL Aspartate Amino Transf (AST/SGOT) 22 56 H 5-34 U/L Alanine Aminotransferase (ALT/SGPT) 10 18 0-55 U/L Alkaline Phosphatase 53 57 40-136 U/L Total Creatine Kinase 91 30-200 U/L Creatine Kinase MB 1.6 <6.6 NG/ML Myoglobin 58.1 10.0-92.0 NG/ML Troponin I 0.031 H 0.032 H <0.028 NG/ML Total Protein 6.8 6.2 L 6.4-8.2 GM/DL Albumin 3.9 3.5 3.2-4.5 GM/DL Amylase Level 18 L 25-125 U/L Lipase 32 8-78 U/L Valproic Acid (Depakene) Level 120.8 *H 83.1 50.0-100.0 UG/ML B-Type Natriuretic Peptide 12.2 <100.0 PG/ML Triglycerides Level 80 <150 MG/DL Cholesterol Level 91 < 200 MG/DL LDL Cholesterol Direct 30 1-129 MG/DL VLDL Cholesterol 16 5-40 MG/DL HDL Cholesterol 45 40-60 MG/DL Physical Exam Physical Exam Vital Signs Vital Signs - First Documented 08/28/19 08/28/19 14:30 16:25 Temp 37.2 Pulse 84 Resp 16 B/P (MAP) 124/93 (103) Pulse Ox 97 O2 Delivery Room Air Capillary Refill : Less Than 3 Seconds Height, Weight, BMI Height: 6'0.00" Weight: 218lbs. 0.0oz. 98.181505py; 27.00 BMI Method:Stated General Appearance: No Apparent Distress, WD/WN HEENT: Other (ambylopia) Neck: Normal Inspection Respiratory: Normal Breath Sounds, No Accessory Muscle Use, No Respiratory Distress, Other (chest is tender to mid sternal area and left mid and upper chest--palpation does reproduce pain) Cardiovascular: Regular Rate, Rhythm, No Edema, No JVD, No Murmur, Normal Peripheral Pulses Gastrointestinal: Non Tender, Soft, Other (mild reproducible epigastric pain) Extremity: Normal Capillary Refill, Pedal Edema (trace on left) Neurologic/Psychiatric: Alert, Oriented x3, Normal Mood/Affect (smiling, talkative, pleasant), Other (partial paralysis left side, with contractures of left hand and elbow, with tremors to left hand. + left foot drop. ) Skin: Normal Color, Warm/Dry A/P-Cardiology Admission Diagnosis Chest pain Epigastric pain Coronary artery disease Hypertension Assessment/Plan Chest pain nonspecific etiology, currently having upper epigastric reproducible pain, has history of chest wall pain, had a stress test done in January 2018 showing Baseline left bundle branch block with fixed defect involving the true apex and anteroapical and inferoapical segment with no significant ischemia. Had subtle elevation in troponin level. EKG has baseline paced rhythm. I will repeat troponin level today and planning to evaluate stress test. Epigastric pain, reproducible, could be gastrointestinal in etiology, managed by primary care physician Dyspnea on exertion, no change from baseline. Continue to monitor Coronary artery disease, nonobstructive coronary artery disease per cardiac catheterization August 2012, planning to repeat stress test Congestive heart failure, improved, last echocardiogram done in January 2018 showing ejection fraction 55-65 percent. Continue to monitor Sick sinus syndrome status post permanent pacemaker placement, doing well, paced rhythm. History of brief episode of A. fib, resolved, currently sinus rhythm, no further episodes were reported. Continue to monitor. Congenital complete heart block with escape junctional rhythm, history of permanent pacemaker, using [employer] device. Continue to monitor Hypertension, controlled. Continue monitor blood pressure/heart rate. Hyperlipidemia, continue to monitor lipids History of spinal meningitis at the age of 4 Mild bilateral nonobstructive carotid artery stenosis, most recent carotid duplex July 2018, continue to monitor. Arthritis Clinical Quality Measures AMI/AHF: ASA po Prior to arrival: Yes (324MG GIVEN BY EMS. ) DVT/VTE Risk/Contraindication: Risk Factor Score Per Nursin RFS Level Per Nursing on Admit: 4+=Very High TON SALDANA MD August 29, 2019 08:43
[2019-08-29] MEDS ORDERED: REGADENOSON 0.4 MG/5 ML SYR (LEXISCAN) IV ONE ×2 (08:45→11:45)
[2019-08-29] MEDS ORDERED: ASPIRIN E.C. 81 MG (ECOTRIN) TAB PO SCH (09:00)
--- NOTE | 2019-08-29 09:27 | History & Physical ---
History of Present Illness History of Present Illness Reason for visit/HPI This is a 54 year old male with a history of CAD who presented to the emergency room with substernal chest pain as well as abdominal pain. He will be admitted to the ICU for further evaluation and treatment with cardiology consult. Date of Admission August 28, 2019 at 15:24 Date Seen by a Provider: August 29, 2019 Time Seen by a Provider: 09:24 I consulted on this patient on 08/29/19 09:23 Attending Physician Beau Agustin DO Admitting Physician Beau Agustin DO Consult Allergies and Home Medications Allergies Coded Allergies: vancomycin (Verified Allergy, Unknown, 11/11/05) Home Medications Allopurinol 100 Mg Tablet, 100 MG PO BID, (Reported) Aspirin/Acetaminophen/Caffeine 1 Each Tablet, 2 EACH PO BID, (Reported) Bethanechol Chloride 25 Mg Tablet, 25 MG PO QID, (Reported) Cefuroxime Axetil 500 Mg Tablet, 500 MG PO BID Prescribed by: TON SALDANA on 02/09/19 0735 Cetirizine HCl 10 Mg Tablet, 10 MG PO DAILY, (Reported) Cholecalciferol (Vitamin D3) 1,000 Unit Tablet, 1,000 UNIT PO DAILY, (Reported) Colestipol HCl 1 Gm Tab, 1 GM PO DAILY, (Reported) Divalproex Sodium 250 Mg Tablet.dr, 750 MG PO 0800,2100, (Reported) TAKES 3 (250MG) TABLETS Divalproex Sodium 250 Mg Tablet.dr, 500 MG PO 1200, (Reported) TAKES 2 (250MG) TABLETS Furosemide 40 Mg Tablet, 20 MG PO DAILY, (Reported) TAKES 1/2 OF A 40MG TAB Hydrocodone Bit/Acetaminophen 1 Tab Tab, 1 EACH PO Q4-6HR PRN for PAIN-MODERATE Prescribed by: ABRAHAM MELO on 02/15/19 1627 Metoprolol Succinate 100 Mg Tab.er.24h, 100 MG PO HS, (Reported) Omeprazole 20 Mg Capsule.dr, 20 MG PO DAILY, (Reported) Potassium Chloride 20 Meq Tablet.er, 20 MEQ PO BID, (Reported) Rosuvastatin Calcium 10 Mg Tablet, 10 MG PO DAILY, (Reported) Patient Home Medication List Home Medication List Reviewed: Yes Past Samczfi-Carvtt-Qusbci Hx Past Med/Social Hx: Reviewed Nursing Past Med/Soc Hx, Reviewed and Corrections made Patient Social History Marrital Status: single Employed/Student: unemployed Alcohol Use: Denies Use Recreational Drug Use: No Smoking Status: Never a Smoker 2nd Hand Smoke Exposure: No Recent Foreign Travel: No Contact w/other who traveled: No Recent Hopitalizations: Yes ([employer] ) Recent Infectious Disease Expo: No Immunizations Up To Date Date of Pneumonia Vaccine: Nov 28, 2011 Seasonal Allergies Seasonal Allergies: No Past Medical History Surgeries: Orthopedic, Pacemaker Cardiac: Cardiomyopathy, Coronary Artery Disease, High Cholesterol, Hypertension Neurological: Developmental Disorder, Paralysis Reproductive: No Gastrointestinal: Gastroesophageal Reflux, Hemorrhoids, Chronic Diarrhea Musculoskeletal: Arthritis, Contracture, Gout History of Blood Disorders: No Adverse Reaction to Blood Cabrales: No Family History Alzheimer's disease Arthritis Colon cancer Diabetes mellitus Myocardial infarction Visual disorder Review of Systems Constitutional: No no symptoms reported, No see HPI, No chills, No diaphoresis, No dizziness, No fever, No malaise, No weakness, No weight gain, No weight loss, No other Respiratory: No no symptoms reported, No see HPI, No cough, No dyspnea on exertion, No hemoptysis, No orthopnea, No phlegm, No short of breath, No stridor, No wheezing, No other Cardiovascular: chest pain Gastrointestinal: LLQ Genitourinary: hematuria Musculoskeletal: joint pain Skin: No no symptoms reported, No see HPI, No change in color, No change in hair/nails, No dryness, No hx of skin cancer, No lesions, No lumps, No pruritus, No rash, No other Psychiatric/Neurological: Pre-Existing Deficit Physical Exam Vital Signs Vital Signs - First Documented 08/28/19 08/28/19 14:30 16:25 Temp 37.2 Pulse 84 Resp 16 B/P (MAP) 124/93 (103) Pulse Ox 97 O2 Delivery Room Air Capillary Refill : Less Than 3 Seconds Height, Weight, BMI Height: 6'0.00" Weight: 218lbs. 0.0oz. [id number]; 27.00 BMI Method:Stated General Appearance: No Apparent Distress HEENT: Normal ENT Inspection Neck: Supple Respiratory: Lungs Clear Cardiovascular: Regular Rate, Rhythm Gastrointestinal: Normal Bowel Sounds, Soft, Tenderness (LLQ) Rectal: Deferred Back: No CVA Tenderness Extremity: Non Tender, No Calf Tenderness, No Pedal Edema Skin: Warm/Dry Comments Laboratory Tests 5/25/20 14:38: White Blood Count 5.0, Red Blood Count 4.47, Hemoglobin 15.6, Hematocrit 38L, Mean Corpuscular Volume 85, Mean Corpuscular Hemoglobin 35H, Mean Corpuscular Hemoglobin Concent 41H, Red Cell Distribution Width 14.3, Platelet Count 94L, Mean Platelet Volume 10.7H, Neutrophils (%) (Auto) 26L, Lymphocytes (%) (Auto) 58H, Monocytes (%) (Auto) 15H, Eosinophils (%) (Auto) 1, Basophils (%) (Auto) 0, Neutrophils # (Auto) 1.3L, Lymphocytes # (Auto) 2.9, Monocytes # (Auto) 0.8, Eosinophils # (Auto) 0.0, Basophils # (Auto) 0.0, Prothrombin Time 16.5H, INR Comment 1.3, Activated Partial Thromboplast Time 35, Sodium Level 130L, Potassium Level 3.2L, Chloride Level 91L, Carbon Dioxide Level 27, Anion Gap 12, Blood Urea Nitrogen 2L, Creatinine 0.82, Estimat Glomerular Filtration Rate > 60, BUN/Creatinine Ratio 2, Glucose Level 84, Calcium Level 9.0, Corrected Calcium 9.1, Magnesium Level 1.4L, Total Bilirubin 1.1H, Aspartate Amino Transf (AST/SGOT) 22, Alanine Aminotransferase (ALT/SGPT) 10, Alkaline Phosphatase 53, Total Creatine Kinase 91, Creatine Kinase MB 1.6, Myoglobin 58.1, Troponin I 0.031H, Total Protein 6.8, Albumin 3.9, Amylase Level 18L, Lipase 32, Valproic Acid (Depakene) Level 120.8*H 08/28/19 15:21: B-Type Natriuretic Peptide 12.2 08/28/19 17:00: Troponin I 0.032H 08/29/19 02:40: White Blood Count 5.3, Red Blood Count 5.40, Hemoglobin 16.6, Hematocrit 46, Bridget n Corpuscular Volume 85, Mean Corpuscular Hemoglobin 31, Mean Corpuscular Hemoglobin Concent 36, Red Cell Distribution Width 14.3, Platelet Count 116L, Mean Platelet Volume 11.2H, Neutrophils (%) (Auto) 33L, Lymphocytes (%) (Auto) 52H, Monocytes (%) (Auto) 14H, Eosinophils (%) (Auto) 1, Basophils (%) (Auto) 1, Neutrophils # (Auto) 1.8, Lymphocytes # (Auto) 2.8, Monocytes # (Auto) 0.7, Eosinophils # (Auto) 0.0, Basophils # (Auto) 0.0, Sodium Level 131L, Potassium Level 4.4, Chloride Level 95L, Carbon Dioxide Level 26, Anion Gap 10, Blood Urea Nitrogen 5L, Creatinine 0.79, Estimat Glomerular Filtration Rate > 60, BUN/Creatinine Ratio 6, Glucose Level 91, Calcium Level 8.9, Corrected Calcium 9.3, Magnesium Level 1.6, Total Bilirubin 1.1H, Aspartate Amino Transf (AST/SGOT) 56H, Alanine Aminotransferase (ALT/SGPT) 18, Alkaline Phosphatase 57, Total Protein 6.2L, Albumin 3.5, Valproic Acid (Depakene) Level 83.1, T riglycerides Level 80, Cholesterol Level 91, LDL Cholesterol Direct 30, VLDL Cholesterol 16, HDL Cholesterol 45 08/29/19 08:55: Troponin I [Pending] Assessment/Plan Assessment and Plan 1. Chest Pain--cardiology to proceed with stress test 2. LLQ Pain with apparent gross hematuria--UA with culture 3. Hypertension--resume home meds 4. GERD--cover with IV protonix for GI etiology of CP Admission Diagnosis Admission Status: Observation Clinical Quality Measures AMI/AHF: ASA po Prior to arrival: Yes (324MG GIVEN BY EMS. ) DVT/VTE Risk/Contraindication: Risk Factor Score Per Nursin RFS Level Per Nursing on Admit: 4+=Very High BEAU AGUSTIN DO August 29, 2019 09:27
[2019-08-29] MEDS ORDERED: PANTOPRAZOLE 40 MG (PROTONIX) VIAL IV NR (09:30)
[2019-08-29] MEDS ORDERED: CATHETER FLUSH 10 ML SYR IV PRN (09:30)
[2019-08-29] MEDS ORDERED: BETH50TA9 PO (10:22)
[2019-08-29] MEDS ORDERED: CETI-240 PO (10:22)
[2019-08-29] MEDS ORDERED: FURO80TA3 PO (10:22)
[2019-08-29] MEDS ORDERED: BISM262T16 PO (10:22)
[2019-08-29] MEDS ORDERED: ALLO300T2 PO (10:22)
--- NOTE | 2019-08-29 10:23 | NUR ---
SPOKE WITH THE PT (HE HAD A MED LIST) AND WENT THRU THE EXT MED HISTORY TO COMPLETE THE MED REC PT DOES NOT TAKE CARE OF HIS MEDICATIONS BUT HAD A CAREGIVER (TONY DIAZ) THAT DOES. THE MED LIST THE PT HAS IS STRAIGHT FORWARD AND ALL MEDS LISTED MATCH THE EXT MED HISTORY ( WELL DIRECTIONS AND STRENGTHS). SINCE ALL THE INFORMATION MATCHED UP I DID NOT REACH OUT TO HIS CAREGIVER, HOWEVER IF I HAVE ANY QUESTIONS I WILL CALL HER. OTC MEDS: EXCEDRIN PEPTO
--- NOTE | 2019-08-29 11:51 | NUR ---
CM/SS: Visited with pt as to plan for discharge Plan: Pt to return home. With no identified services. Summary: Pt is in bed, and reports he is feeling better. He seems to have some deficits with speech issues and issues with his right arm and leg. He reports a spinal condition when he was age 4 and that he has had issues all of his life, and that his mother is his guardian. Pt shares he has a caregiver at home and that he lives with his mother and that he has a caregiver. He reports they get along fine and that he does not need any other services at time of discharge. He reports caregiver is Dedra, and shares that she is there everyday to help them.
[2019-08-29] MEDS ORDERED: PANTOPRAZOLE 40 MG (PROTONIX) VIAL ONE (13:59)
[2019-08-29 15:41] LABS: BILIRUBIN,URINE NEGATIVE (NEGATIVE); CLARITY,URINE CLEAR; COLOR,URINE ORANGE; GLUCOSE, URINE (UA) NEGATIVE (NEGATIVE); KETONES,URINE NEGATIVE (NEGATIVE); LEUKOCYTE ESTERASE ,URINE NEGATIVE (NEGATIVE); NITRITE,URINE NEGATIVE (NEGATIVE); PROTEIN,URINE NEGATIVE (NEGATIVE)
[2019-08-29 15:47] LABS: BACTERIA,URINE NEGATIVE /HPF; RBC,URINE RARE /HPF; SQUAMOUS EPITHELIAL CELL,UR RARE /HPF; WBC,URINE RARE /HPF
[2019-08-29 16:00] VITALS: BP 127/85
[2019-08-29] MEDS ORDERED: PANT40TA3 PO (16:43)
[2019-08-29 18:15] VITALS: BP 127/85
--- NOTE | 2019-08-30 19:12 | STRESS TEST ---
DATE OF SERVICE: 08/29/2019 LEXISCAN MYOVIEW STRESS TEST REPORT Baseline heart rate is 95, baseline blood pressure 178/56. Baseline EKG is sinus rhythm with left bundle branch block/paced rhythm. In summary, the patient was injected with 11.0 mCi of technetium-99 Myoview followed by 0.4 mg of Lexiscan, then 33.0 mCi of technetium-99 Myoview. Throughout the test, no changes in EKG. Resting and stress images were reviewed and compared. There is no significant ischemia or infarction. SSS is 4, SDS 2, TID value 1.14. On the gated images, the left ventricle is normal in size. Calculated ejection fraction 50%. CONCLUSION: 1. The patient tolerated Lexiscan well. 2. Baseline left bundle branch block secondary to paced rhythm persisted throughout test. 3. No ischemia or infarction on SPECT images. 4. Normal left ventricular size with normal contractility. Calculated ejection fraction 50%. Job ID: [id number] DocumentID: [id number] Dictated Date: 08/30/2019 14:59:51 Transportation Planner Date: 08/30/2019 19:11:49 Dictated By: TON SALDANA MD
== END 2019-08-29 18:00 | disposition home or self-care (01) ==
LOC: EDUNIT# 14:30 → ER 14:31 → ICU 15:24
PROVIDERS: ADMIT Family Medicine; ATTEND Family Medicine
DX: I25.10 Atherosclerotic heart disease of native coronary artery without angina pectoris (principal); I42.9 Cardiomyopathy, unspecified; I49.5 Sick sinus syndrome; I50.9 Heart failure, unspecified; I11.0 Hypertensive heart disease with heart failure; I65.23 Occlusion and stenosis of bilateral carotid arteries; E78.5 Hyperlipidemia, unspecified; E78.00 Pure hypercholesterolemia, unspecified; E83.42 Hypomagnesemia; F89 Unspecified disorder of psychological development; G83.9 Paralytic syndrome, unspecified; K21.9 Gastro-esophageal reflux disease without esophagitis; K59.09 Other constipation; M19.90 Unspecified osteoarthritis, unspecified site; M10.9 Gout, unspecified; E87.8 Other disorders of electrolyte and fluid balance, not elsewhere classified; Z88.1 Allergy status to other antibiotic agents; Z79.82 Long term (current) use of aspirin; Z79.891 Long term (current) use of opiate analgesic; Z79.899 Other long term (current) drug therapy; Z95.0 Presence of cardiac pacemaker; Z82.61 Family history of arthritis; Z80.0 Family history of malignant neoplasm of digestive organs; Z83.3 Family history of diabetes mellitus; Z82.49 Family history of ischemic heart disease and other diseases of the circulatory system
CPT/HCPCS: 36415; 71045; 78452; 80053; 80061; 80164; 81000; 82150; 82550; 82553; 83690; 83735; 83874; 83880; 84484; 85025; 85610; 85730; 93005; 93017; 93041

== ENCOUNTER → 2019-09-18 | Outpatient (CLI) | payer MEDICARE, MEDICAID ==
[~2019-09-18] MED LIST changes: +ALLO300T2 PO; +BETH50TA9 PO; +BISM262T16 PO; +CETI-240 PO; +PANT40TA3 PO
== END ==
LOC: LABNPT 07:11
PROVIDERS: ATTEND Internal Medicine Cardiovascular Disease
DX: Z01.818 Encounter for other preprocedural examination (principal); Z20.828 Contact with and (suspected) exposure to other viral communicable diseases
CPT/HCPCS: 87635

== ENCOUNTER 2019-09-20 08:57 | Day surgery (SDC) | payer MEDICARE, MEDICAID ==
[2019-09-20] VITALS (11 sets, daily range): BP systolic 91–115; BP diastolic 66–81
[~2019-09-20] VITALS: Ht 182 cm; Wt 100.0 kg
[2019-09-20] MEDS ORDERED: NS IV 1000 ML 1,000 ML ONE (09:01)
[2019-09-20] MEDS ORDERED: HEParin (CATH LAB) 2,000 ML IV ONE (09:01)
[2019-09-20] MEDS ORDERED: LIDOCAINE 1% INJ 20 ML 20 ML VIAL ONE (09:01)
[2019-09-20] MEDS ORDERED: NS IV 1000 ML 1,000 ML IV SCH ×2 (09:30→12:25)
[2019-09-20 09:51] LABS: HEMOGLOBIN 16.8 G/DL (13.3-17.7); MEAN PLATELET VOLUME 9.8 FL (7.4-10.4); WHITE BLOOD COUNT 4.9 10^3/uL (4.3-11.0)
[2019-09-20 09:52] LABS: BILIRUBIN,URINE NEGATIVE (NEGATIVE); CLARITY,URINE CLEAR; COLOR,URINE YELLOW; GLUCOSE, URINE (UA) NEGATIVE (NEGATIVE); KETONES,URINE NEGATIVE (NEGATIVE); LEUKOCYTE ESTERASE ,URINE NEGATIVE (NEGATIVE); NITRITE,URINE NEGATIVE (NEGATIVE); PH,URINE 8.5 (5-9); PROTEIN,URINE NEGATIVE (NEGATIVE)
--- NOTE | 2019-09-20 09:57 | Diagnostic Imaging Report ---
EXAMINATION: Chest, 1 view. HISTORY: Chest pain. History of coronary artery disease and heart failure. COMPARISON: Chest radiograph on 08/28/2019. FINDINGS: The lung volumes are normal. No focal consolidation is seen. No large pleural effusion or pneumothorax is seen. The cardiomediastinal silhouette is prominent with stable configuration of the left pectoral dual-chamber pacemaker. No acute osseous abnormality is seen. IMPRESSION: Stable cardiomegaly. No overt pulmonary edema. Dictated by: Dictated on workstation # [id number]
[2019-09-20 10:04] LABS: INR 1.2 (0.8-1.4); PROTHROMBIN TIME PATIENT 15.6 SEC (12.2-14.7)
[2019-09-20 10:12] LABS: BACTERIA,URINE NEGATIVE /HPF; SQUAMOUS EPITHELIAL CELL,UR RARE /HPF
[2019-09-20 10:14] LABS: ALANINE AMINOTRANSFERASE 19 U/L (0-55); ALBUMIN 3.8 GM/DL (3.2-4.5); ALKALINE PHOSPHATASE 65 U/L (40-136); BILIRUBIN,TOTAL 0.8 MG/DL (0.1-1.0); BUN/CREATININE RATIO 3; CALCIUM 8.8 MG/DL (8.5-10.1); CARBON DIOXIDE 31 MMOL/L (21-32); CHLORIDE 90 MMOL/L (98-107); CHOLESTEROL 130 MG/DL (< 200); CREATININE SERUM 0.74 MG/DL (0.60-1.30); GFR ESTIMATED > 60; GLUCOSE 78 MG/DL (70-105); HDL CHOLESTEROL 42 MG/DL (40-60); POTASSIUM 4.1 MMOL/L (3.6-5.0); SODIUM 128 MMOL/L (135-145); TOTAL PROTEIN 6.5 GM/DL (6.4-8.2); TRIGLYCERIDES 206 MG/DL (<150); VLDL CHOLESTEROL 41 MG/DL (5-40)
[2019-09-20] MEDS ORDERED: fentaNYL INJECTION 100 MCG/2 ML AMP ONE (11:37)
[2019-09-20] MEDS ORDERED: MIDAZOLAM 5 MG/5 ML (VERSED) VIAL ONE (11:37)
--- NOTE | 2019-09-20 12:28 | Discharge Inst-Post CATH ---
Discharge Inst-CATH/EP Problems Reviewed?: Yes Post Cardiac Cath/EP D/C Inst Follow Up/Plan Appointment with Dr. Lau's office in 4 weeks <b>CARDIAC CATH/EP PROCEDURE DISCHARGE INSTRUCTIONS</b> ACTIVITY * Go Home directly and rest. * Limit activity of the leg (or wrist if it was used) for 7 days including aerobics, swimming, jogging, bicycling, etc. * Restrict stair-climbing for 7 days if possible, if not, climb up with your non-cath leg, then bring together on the same step. * Avoid lifting, pushing, pulling or excessive movement of the affected extremity for 7 days. * Customary sexual activity may be resumed after 2 days-use caution not to use a position that strains or causes pain to the affected extremity. * No driving for 24 hours. * NO SMOKING. * Avoid straining for bowel movements for 7 days. * Gentle walking on level ground is allowed. * Returning to work will depend on the type of procedure and the results. Your doctor will discuss this with you. CALL YOUR DOCTOR FOR ANY OF THE FOLLOWING: *If bleeding from the puncture site occurs- Apply gentle pressure to site with clean cloth and call your doctor or EMS. * If a knot or lump forms under the skin, increases in size, or causes pain. * If bruising appears to be worsening or moving further down your leg instead of disappearing. * Temperature above 101 F. CARE OF YOUR GROIN INCISION; * Bruising or purple discoloration of the skin near the puncture site is common. * You may shower only, no bathtub bathing for 5 days. Be careful to avoid slipping as your leg may feel stiff. * If a closure device was used on your femoral artery, please see the attached guide regarding care of the device and your leg. * Leave dressing on FOR 24 hours. CARE OF YOUR WRIST INCISION; * Bruising or purple discoloration of the skin near the puncture site is common. * You may shower. * DO NOT submerge wrist. * Leave dressing on FOR 24 hours. TON LAU MD Sep 20, 2019 12:28
--- NOTE | 2019-09-20 12:29 | Cardiac Procedure Note-CS/ASA ---
Pre-Procedure Note Pre-Op Procedure Note H&P Reviewed The H&P was reviewed, patient examined and no changes noted. Date H&P Reviewed: Sep 20, 2019 Time H&P Reviewed: 10:00 Conscious Sedation Pre-Proced Time 10:00 ASA Score 3 For ASA 3 and 4: Consider anesthesia and medical clearance. Also, for patients with a history of failed moderate sedation consider anesthesia. Airway Lungs Heart ASA score ASA 1: a normal healthy patient ASA 2: a patient with a mild systemic disease (mid diabetes, controlled hypertension, obesity x ASA 3: a patient with a severe systemic disease that limits activity (angina, COPD, prior Myocardial infarction) ASA 4: a patient with an incapacitating disease that is a constant threat to life (CHF, renal failure) ASA 5: a moribund patient not expected to survive 24 hrs. (ruptured aneurysm) ASA 6: a declared brain- patient whose organs are being harvested. For emergent operations, add the letter E after the classification Mallampati Classification Grade 3 Sedation Plan Analgesia, Amnesia, Plan communicated to team members, Discussed options with patient/fam, Discussed risks with patient/fam The patient is an appropriate candidate to undergo the planned procedure, sedation, and anesthesia. The patient immediately re-assessed prior to indication. TON SALDANA MD Sep 20, 2019 12:29
[2019-09-20] MEDS ORDERED: PATIENT MAY USE OWN MEDS, ALL PO SCH (12:30)
--- NOTE | 2019-09-20 12:31 | Cardiac Cath Report ---
Cardiac Cath Report Physician (s)/Guitar Teacher (s) Physician TON SALDANA MD Pre-Procedure Diagnosis Pre-Procedure Diagnosis: Coronary artery disease Post-Procedure Note Procedure Start Date: Sep 20, 2019 Name of Procedure: Coronary angiogram Findings/Procedure Note PROCEDURE NOTE: 84 years old gentleman with history of complete heart block, permanent pacemaker, left bundle branch block, had an abnormal stress test scheduled for cardiac catheterization possible PTCA. After explaining the procedure to the patient, all pros and cons were explained, all questions were answered. The patient signed the consent and then he was placed on the cardiac catheterization laboratory. Groin was prepped SL fashion local anesthesia was used. Sheath placed in the right femoral artery. Shirin right and left catheter were used to access the coronary system. At the end of the procedure the sheath was removed. Closure device was used FINDINGS: Hemodynamics Aorta 95/61 mean of 65 ANATOMY: Left Main is free of obstructive disease Left Anterior Descending is free of obstructive disease Left Circumflex is free of obstructive disease Right Coronory Artery is free of obstructive disease CONCLUSION: 1. Small coronary system with no significant obstructive disease DISCUSSION AND RECOMMENDATION: Continue her current medication, abnormal stress test is probably due to extracardiac attenuation Anesthesia Type: Conscious Sedation Estimated blood loss (mL): 15 ml Contrast Amount: 35 ml Total Radiation Dose: 377 mGy Post-Procedure Diagnosis Post-operative diagnosis: Chest pain Coronary artery disease Complete heart block Permanent pacemaker TON SALDANA MD Sep 20, 2019 12:31
== END 2019-09-20 17:10 | disposition home or self-care (01) ==
LOC: CATH 08:57
PROVIDERS: ATTEND Internal Medicine Cardiovascular Disease
DX: I25.10 Atherosclerotic heart disease of native coronary artery without angina pectoris (principal); I44.2 Atrioventricular block, complete; I11.0 Hypertensive heart disease with heart failure; I48.91 Unspecified atrial fibrillation; I50.22 Chronic systolic (congestive) heart failure; I10 Essential (primary) hypertension; I49.5 Sick sinus syndrome; I65.23 Occlusion and stenosis of bilateral carotid arteries; E78.5 Hyperlipidemia, unspecified; M19.90 Unspecified osteoarthritis, unspecified site; K29.50 Unspecified chronic gastritis without bleeding; Z95.0 Presence of cardiac pacemaker; Z88.1 Allergy status to other antibiotic agents; Z79.899 Other long term (current) drug therapy; Z90.49 Acquired absence of other specified parts of digestive tract; Z80.9 Family history of malignant neoplasm, unspecified
CPT/HCPCS: 71045; 80053; 80061; 81000; 85027; 85610; 85730; 87081; 93454; C1760; C1894; 36415

== ENCOUNTER 2019-11-27 09:54 | Observation (INO) | payer MEDICARE, MEDICAID ==
[2019-11-27] VITALS (12 sets, daily range): BP systolic 107–143; BP diastolic 70–84
[~2019-11-27] VITALS: Ht 182.8 cm; Wt 112.4 kg
[2019-11-27] MEDS ORDERED: NITROGLYCERIN 0.4 MG SL TABS BTL 25'S SL ONE (10:05)
[2019-11-27] MEDS ORDERED: ASPIRIN 81 MG CHEW (CHILDREN'S ASA) ONE (10:05)
[2019-11-27] MEDS ORDERED: NS IV 1000 ML 1,000 ML IV SCH (10:08)
[2019-11-27] MEDS ORDERED: ASPIRIN 81 MG CHEW (CHILDREN'S ASA) PO ONE (10:15)
[2019-11-27] MEDS ORDERED: NITROGLYCERIN 0.4 MG SL TABS BTL 25'S SL PRN ×2 (10:15→13:15)
--- NOTE | 2019-11-27 10:16 | ED Chest Pain ---
General Stated Complaint: CHEST PAIN Source: patient Exam Limitations: no limitations History of Present Illness Date Seen by Provider: Nov 27, 2019 Time Seen by Provider: 09:55 Initial Comments Patient presents ER by private conveyance with chief complaint of one week of constant shortness of breath and chest pain in his left chest radiating up around his left shoulder and under his left shoulder blade. He has a history of heart disease followed by Dr. Lau. He is a poor historian. He denies smoking or using any drugs. He follows with Dr. Agustin for primary care. He does not take aspirin routinely. He has not taken anything for his pain today. It is only progressively gotten worse and he decided to come to the ER to have it checked out. He's not having any nausea sweats dysuria cough fever chills. No trauma. He does of a history of left shoulder tendon surgery in the distant history. No abdominal surgeries. No abdominal pain or reflux. Cardiac catheterization September [address] Lau, 2 months ago area Small coronary system with no significant obstructive disease. History of GERD/epigastric pain, hypertension, CAD, cerebral palsy. Echocardiogram [address] Lau: EF 55-65%. Mild aortic regurgitation. Allergies and Home Medications Allergies Coded Allergies: vancomycin (Verified Allergy, Unknown, 11/11/05) Home Medications Allopurinol 300 Mg Tablet, 300 MG PO DAILY, (Reported) Bethanechol Chloride 50 Mg Tablet, 50 MG PO QID, (Reported) Bismuth Subsalicylate 262 Mg Tab.chew, 262 MG PO PRN PRN for INDIGESTION, (Reported) Cetirizine HCl 10 Mg Tab.chew, 10 MG PO DAILY, (Reported) Colestipol HCl 1 Gm Tab, 1 GM PO Q48H, (Reported) LAST FILLED 04-26-2019 #45/90 DAY SUPPLY Divalproex Sodium 250 Mg Tablet.dr, 750 MG PO 0800,2100, (Reported) TAKES 3 (250MG) TABLETS Divalproex Sodium 250 Mg Tablet.dr, 500 MG PO 1200, (Reported) TAKES 2 (250MG) TABLETS Furosemide 80 Mg Tablet, 40 MG PO DAILY, (Reported) TAKES OF A 80MG TAB Metoprolol Succinate 100 Mg Tab.er.24h, 100 MG PO HS, (Reported) Pantoprazole Sodium 40 Mg Tablet., 40 MG PO DAILY Prescribed by: BEAU AGUSTIN on 08/29/19 1643 Potassium Chloride 20 Meq Tablet.er, 20 MEQ PO BID, (Reported) Rosuvastatin Calcium 10 Mg Tablet, 10 MG PO DAILY, (Reported) Patient Home Medication List Home Medication List Reviewed: Yes Review of Systems Review of Systems Constitutional: No chills, No diaphoresis EENTM: No Blurred Vision, No Double Vision Respiratory: Denies Cough; Shortness of Air Cardiovascular: See HPI, Chest Pain; Denies Edema, Denies Irregular Heart Rate, Denies Lightheadedness Gastrointestinal: Denies Abdomen Distended, Denies Abdominal Pain Genitourinary: Denies Burning, Denies Discharge Musculoskeletal: No back pain, No joint pain All Other Systems Reviewed Negative Unless Noted: Yes Past Jtrfsep-Otbpdy-Llrfxg Hx Patient Social History Alcohol Use: Denies Use Recreational Drug Use: No Smoking Status: Never a Smoker 2nd Hand Smoke Exposure: No Recent Foreign Travel: No (N) Contact w/Someone Who Travel: No Recent Hopitalizations: Yes (PACEMAKER PLACEMENT ) Immunizations Up To Date Tetanus Booster (TDap): Unknown Date of Pneumonia Vaccine: Nov 28, 2011 Seasonal Allergies Seasonal Allergies: No Past Medical History Surgeries: Yes (pacer/AICD placement, left hand tendon repair) Orthopedic, Pacemaker Respiratory: No Cardiac: Yes (HEART FAILURE, CONGENITAL heart block status post pacemaker;NON- OBSTR CAD) Cardiomyopathy, Coronary Artery Disease, High Cholesterol, Hypertension Neurological: Yes (hx meningitis 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, has left-sided neurologic deficits) Developmental Disorder, Paralysis Reproductive Disorders: No Genitourinary: No Gastrointestinal: Yes (GASTRITIS) Gastroesophageal Reflux, Hemorrhoids, Chronic Diarrhea Musculoskeletal: 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) Arthritis, Contracture, Gout Endocrine: No HEENT: No Cancer: No Psychosocial: No Integumentary: No Blood Disorders: No Adverse Reaction/Blood Tranf: No Family Medical History Alzheimer's disease Arthritis Colon cancer Diabetes mellitus Myocardial infarction Visual disorder Physical Exam Vital Signs Vital Signs - First Documented 11/27/19 09:58 Temp 37.4 Pulse 100 Resp 15 B/P (MAP) 129/94 (106) Pulse Ox 95 O2 Delivery Room Air Capillary Refill : Height, Weight, BMI Height: 6'0.00" Weight: 218lbs. 0.0oz. [id number]; 30.18 BMI Method:Stated General Appearance: WD/WN, Anxious, Mild Distress HEENT: PERRL/EOMI, Pharynx Normal, Moist Mucous Membranes Neck: Full Range of Motion, Normal Inspection, Non Tender Respiratory: No Chest Non Tender (chest pain reproducible by direct palpation to his left upper chest.); Lungs Clear, Normal Breath Sounds, No Accessory Muscle Use, No Respiratory Distress Cardiovascular: Regular Rate, Rhythm, Normal Peripheral Pulses Gastrointestinal: Normal Bowel Sounds, No Organomegaly Extremity: Normal Capillary Refill, Normal Inspection, No Pedal Edema Neurologic/Psychiatric: Alert, Oriented x3, No Motor/Sensory Deficits Skin: Normal Color, Warm/Dry Progress/Results/Core Measures Results/Orders Lab Results Laboratory Tests Test 11/27/19 10:15 11/27/19 11:20 Range/Units White Blood Count 6.5 4.3-11.0 10^3/uL Red Blood Count 5.25 4.35-5.85 10^6/uL Hemoglobin 16.1 13.3-17.7 G/DL Hematocrit 46 40-54 % Mean Corpuscular Volume 87 80-99 FL Mean Corpuscular Hemoglobin 31 25-34 PG Mean Corpuscular Hemoglobin Concent 35 32-36 G/DL Red Cell Distribution Width 12.8 10.0-14.5 % Platelet Count 180 130-400 10^3/uL Mean Platelet Volume 9.3 7.4-10.4 FL Neutrophils (%) (Auto) 57 42-75 % Lymphocytes (%) (Auto) 28 12-44 % Monocytes (%) (Auto) 13 H 0-12 % Eosinophils (%) (Auto) 1 0-10 % Basophils (%) (Auto) 1 0-10 % Neutrophils # (Auto) 3.7 1.8-7.8 X 10^3 Lymphocytes # (Auto) 1.9 1.0-4.0 X 10^3 Monocytes # (Auto) 0.9 0.0-1.0 X 10^3 Eosinophils # (Auto) 0.1 0.0-0.3 10^3/uL Basophils # (Auto) 0.0 0.0-0.1 10^3/uL Prothrombin Time 13.9 12.2-14.7 SEC INR Comment 1.0 0.8-1.4 Activated Partial Thromboplast Time 31 24-35 SEC D-Dimer 0.29 0.00-0.49 UG/ML Sodium Level 129 L 135-145 MMOL/L Potassium Level 3.8 3.6-5.0 MMOL/L Chloride Level 93 L 98-107 MMOL/L Carbon Dioxide Level 28 21-32 MMOL/L Anion Gap 8 5-14 MMOL/L Blood Urea Nitrogen 3 L 7-18 MG/DL Creatinine 0.82 0.60-1.30 MG/DL Estimat Glomerular Filtration Rate > 60 BUN/Creatinine Ratio 4 Glucose Level 88 70-105 MG/DL Calcium Level 8.7 8.5-10.1 MG/DL Corrected Calcium 8.7 8.5-10.1 MG/DL Magnesium Level 1.4 L 1.6-2.4 MG/DL Total Bilirubin 0.5 0.1-1.0 MG/DL Aspartate Amino Transf (AST/SGOT) 23 5-34 U/L Alanine Aminotransferase (ALT/SGPT) 17 0-55 U/L Alkaline Phosphatase 50 40-136 U/L Myoglobin 100.3 H 10.0-92.0 NG/ML Troponin I 0.051 H <0.028 NG/ML B-Type Natriuretic Peptide 42.8 <100.0 PG/ML Total Protein 6.8 6.4-8.2 GM/DL Albumin 4.0 3.2-4.5 GM/DL Lipase 37 8-78 U/L Urine Color YELLOW Urine Clarity CLEAR Urine pH 7.5 5-9 Urine Specific [place] 1.015 L 1.016-1.022 Urine Protein NEGATIVE NEGATIVE Urine Glucose (UA) NEGATIVE NEGATIVE Urine Ketones NEGATIVE NEGATIVE Urine Nitrite NEGATIVE NEGATIVE Urine Bilirubin NEGATIVE NEGATIVE Urine Urobilinogen 0.2 < = 1.0 MG/DL Urine Leukocyte Esterase NEGATIVE NEGATIVE Urine RBC (Auto) NEGATIVE NEGATIVE Urine RBC NONE /HPF Urine WBC NONE /HPF Urine Crystals NONE /LPF Urine Bacteria NEGATIVE /HPF Urine Casts NONE /LPF Urine Mucus NEGATIVE /LPF Urine Culture Indicated NO Urine Opiates Screen NEGATIVE NEGATIVE Urine Oxycodone Screen NEGATIVE NEGATIVE Urine Methadone Screen NEGATIVE NEGATIVE Urine Propoxyphene Screen NEGATIVE NEGATIVE Urine Barbiturates Screen NEGATIVE NEGATIVE Ur Tricyclic Antidepressants Screen NEGATIVE NEGATIVE Urine Phencyclidine Screen NEGATIVE NEGATIVE Urine Amphetamines Screen NEGATIVE NEGATIVE Urine Methamphetamines Screen NEGATIVE NEGATIVE Urine Benzodiazepines Screen NEGATIVE NEGATIVE Urine Cocaine Screen NEGATIVE NEGATIVE Urine Cannabinoids Screen NEGATIVE NEGATIVE My Orders Orders - NICOLA PEREZ Cbc With Automated Diff (11/27/19 10:08) Magnesium (11/27/19 10:08) Chest 1 View, Ap/Pa Only (11/27/19 10:08) Ekg Tracing (11/27/19 10:08) Comprehensive Metabolic Panel (11/27/19 10:08) Myoglobin Serum (11/27/19 10:08) Protime With Inr (11/27/19 10:08) Partial Thromboplastin Time (11/27/19 10:08) O2 (11/27/19 10:08) Monitor-Rhythm Ecg Trace Only (11/27/19 10:08) Lipid Panel (11/28/19 06:00) Ed Iv/Invasive Line Start (11/27/19 10:08) Lipase (11/27/19 10:08) BNP (11/27/19 10:08) Fibrin Degradation Products (11/27/19 10:08) Troponin I (11/27/19 10:08) Nitroglycerin 0.4 Mg Btl 25's (Nitrostat (11/27/19 10:15) Aspirin Chewable Tablet (Baby Aspirin Ch (11/27/19 10:15) Ed Iv/Invasive Line Start (11/27/19 10:08) Ns Iv 1000 Ml (Sodium Chloride 0.9%) (11/27/19 10:08) Nitroglycerin 0.4 Mg Btl 25's (Nitrostat (11/27/19 10:05) Aspirin Chewable Tablet (Baby Aspirin Ch (11/27/19 10:05) Ua Culture If Indicated (11/27/19 11:21) Drug Screen Stat (Urine) (11/27/19 11:21) Medications Given in ED Current Medications Medications Dose Ordered Sig/Kinsey Route Start Time Stop Time Status Last Admin Dose Admin Aspirin 324 mg ONCE ONCE PO 11/27/19 10:15 11/27/19 10:16 DC 11/27/19 10:21 324 MG Nitroglycerin 0.4 mg UD PRN SL 11/27/19 10:15 11/27/19 10:21 0.4 MG Vital Signs/I&O 11/27/19 11/27/19 09:58 09:58 Temp 37.4 Pulse 100 Resp 15 B/P (MAP) 129/94 (106) Pulse Ox 95 O2 Delivery Room Air Room Air Progress Progress Note #1: Time: 10:13 Progress Note No fever cough chills or adventitious lung sounds are pneumonia or bronchospasm is less likely. Patient is not on blood thinners or pulmonary wasn't a possibility. Most a skeletal to possibility. He has a history of coronary disease so we will give him some aspirin and attempt nitroglycerin for his 9 out of 10 chest pain. Initial EKG shows paced rhythm with no clinically significant ST changes. Progress Note #2: Time: 11:12 Progress Note marginal bump and the troponin with chest pain that is reducible direct palpation. Patient states he got little improvement in his pain from an 8 down to a 7 out of 10. He is comfortably talking the way on his phone. He is no longer working hard to breathe. This could be related to anxiety however his troponin is marginally elevated so we will discuss with cardiology in light of his recent negative catheterization. D-dimer being 0.2 makes a pulmonary was him fairly unlikely. Vasospasms possible. AAA? 2018 echocardiogram mentions that the aortic root is not dilated. He does not have a history of chest CT. Because the pain radiates around to his back shoulder he can take about a referred pain from his gallbladder however that does not explain his troponin. Kidney function appears to be normal with normal creatinine. Progress Note #3: Time: 11:46 Progress Note unable to acquire pacemaker interrogation secondary to technical difficulties. We will order them to do it when he arrives on cardiac stepdown. Initial ECG Impression Date: Nov 27, 2019 Initial ECG Impression Time: 10:02 Initial ECG Rate: 96 Initial ECG Rhythm: Normal Sinus Initial ECG Intervals: Normal Initial ECG Impression: Nonspecific Changes Comment Atrial sensed ventricularly paced complexes. No clinically relevant ST changes. Diagnostic Imaging Diagonstic Imaging: Xray Plain Films/CT/US/NM/MRI: chest (1v) Comments [facility], [place] NAME: SANABRIASAYRA REC#: [id number] PT STATUS: REG ER : 1965 PHYSICIAN: NICOLA PEREZ MD ADMIT DATE: 11/27/19/ER Draft Date of Exam:11/27/19 CHEST 1 VIEW, AP/PA ONLY INDICATION: Chest pain. TIME OF EXAM: 10:32 AM Correlation is made with prior chest from 09/20/2019. Heart size is stable. Cardiac pacemaker remains in place. Lungs are clear. The pulmonary vascularity is normal. No infiltrates are seen. No effusion or pneumothorax is detected. IMPRESSION: No acute cardiopulmonary process is detected. Dictated on workstation # [id number] Dict: 11/27/19 1042 Trans: 11/27/19 1043 CVB [id number] Interpreted by: IRINA TODD MD Electronically signed by: Reviewed: Reviewed by Me Departure Communication (Admissions) Time/Spoke to Admitting Phy: 11:35 Dr. Agustin: left message at 1140; discussed the case with Dr. AGUSTIN and she agrees with the plan for consultation to cardiology. She feels she may be the beneficiary of the long- acting nitroglycerin. Time/Spoke to Consulting Phy: 11:20 discussed the case with Dr. Asencio as well as the fact the patient has some active chest pain has a heart catheter from couple months ago and nitroglycerin helped marginally. He wants the patient on cardiac stepdown with continued home medicines and he will see him. Impression Primary Impression: Unstable angina Disposition: ADMITTED INPATIENT Condition: Stable (ERASED) Admissions Decision to Admit Reason: Admit from ER (General) Decision to Admit/Date: Nov 27, 2019 Time/Decision to Admit Time: 11:17 Departure-Patient Inst. Referrals: BEAU AGUSTIN DO (PCP/Family) Primary Care Physician NICOLA PEREZ Nov 27, 2019 10:16
[2019-11-27 10:29] LABS: BASOPHILS % (AUTO) 1 % (0-10); EOSINOPHILS # (AUTO) 0.1 10^3/uL (0.0-0.3); EOSINOPHILS % (AUTO) 1 % (0-10); HEMATOCRIT 46 % (40-54); HEMOGLOBIN 16.1 G/DL (13.3-17.7); LYMPHOCYTES # (AUTO) 1.9 X 10^3 (1.0-4.0); LYMPHOCYTES % (AUTO) 28 % (12-44); MEAN CORPUSCULAR HEMOGLOBIN 31 PG (25-34); MEAN CORPUSCULAR HGB CONC 35 G/DL (32-36); MEAN CORPUSCULAR VOLUME 87 FL (80-99); MEAN PLATELET VOLUME 9.3 FL (7.4-10.4); MONOCYTES # (AUTO) 0.9 X 10^3 (0.0-1.0); MONOCYTES % (AUTO) 13 % (0-12); NEUTROPHILS # (AUTO) 3.7 X 10^3 (1.8-7.8); NEUTROPHILS % (AUTO) 57 % (42-75); PLATELET COUNT 180 10^3/uL (130-400); RED CELL DISTRIBUTION WIDTH 12.8 % (10.0-14.5); WHITE BLOOD COUNT 6.5 10^3/uL (4.3-11.0)
--- NOTE | 2019-11-27 10:35 | NUR ---
Pt declined additional nitro and reports the only hurting now is R foot.
--- NOTE | 2019-11-27 10:43 | Diagnostic Imaging Report ---
INDICATION: Chest pain. TIME OF EXAM: 10:32 AM Correlation is made with prior chest from 09/20/2019. Heart size is stable. Cardiac pacemaker remains in place. Lungs are clear. The pulmonary vascularity is normal. No infiltrates are seen. No effusion or pneumothorax is detected. IMPRESSION: No acute cardiopulmonary process is detected. Dictated by: Dictated on workstation # [id number]
[2019-11-27 10:45] LABS: PROTHROMBIN TIME PATIENT 13.9 SEC (12.2-14.7)
[2019-11-27 11:00] LABS: ALANINE AMINOTRANSFERASE 17 U/L (0-55); ALKALINE PHOSPHATASE 50 U/L (40-136); BILIRUBIN,TOTAL 0.5 MG/DL (0.1-1.0); BUN/CREATININE RATIO 4; CALCIUM 8.7 MG/DL (8.5-10.1); CARBON DIOXIDE 28 MMOL/L (21-32); CHLORIDE 93 MMOL/L (98-107); CREATININE SERUM 0.82 MG/DL (0.60-1.30); GFR ESTIMATED > 60; GLUCOSE 88 MG/DL (70-105); LIPASE 37 U/L (8-78); MAGNESIUM 1.4 MG/DL (1.6-2.4); POTASSIUM 3.8 MMOL/L (3.6-5.0); SODIUM 129 MMOL/L (135-145); TOTAL PROTEIN 6.8 GM/DL (6.4-8.2)
[2019-11-27 11:25] LABS: BILIRUBIN,URINE NEGATIVE (NEGATIVE); CLARITY,URINE CLEAR; COLOR,URINE YELLOW; GLUCOSE, URINE (UA) NEGATIVE (NEGATIVE); KETONES,URINE NEGATIVE (NEGATIVE); LEUKOCYTE ESTERASE ,URINE NEGATIVE (NEGATIVE); NITRITE,URINE NEGATIVE (NEGATIVE); PH,URINE 7.5 (5-9); PROTEIN,URINE NEGATIVE (NEGATIVE)
[2019-11-27 11:32] LABS: BACTERIA,URINE NEGATIVE /HPF
[2019-11-27 11:37] LABS: AMPHETAMINE SCREEN, URINE NEGATIVE (NEGATIVE); BARBITURATE SCREEN URINE NEGATIVE (NEGATIVE); BENZODIAZEPINES SCREEN URINE NEGATIVE (NEGATIVE); CANNABINOID SCREEN, URINE NEGATIVE (NEGATIVE); COCAINE SCREEN URINE NEGATIVE (NEGATIVE); METHADONE STAT NEGATIVE (NEGATIVE); METHAMPHETAMINE SCREEN URINE S NEGATIVE (NEGATIVE); OPIATE SCREEN URINE NEGATIVE (NEGATIVE); OXYCODONE STAT NEGATIVE (NEGATIVE); PROPOXYPHENE STAT NEGATIVE (NEGATIVE); TRICYCLIC ANTIDEPRESSANTS SCRE NEGATIVE (NEGATIVE)
--- NOTE | 2019-11-27 11:55 | NUR ---
Pt reports speaking with family via phone for updates on plan of care.
--- NOTE | 2019-11-27 12:30 | Consultation-Cardiology ---
HPI-Cardiology Cardiology Consultation: Date of Consultation 11/27/19 Time Seen by a Provider: 12:40 Date of Admission 11-27-2019 Attending Physician Demi Agustin DO Admitting Physician Demi Agustin DO Consulting Physician Nitin Asencio MD Primary retail service representative: Dr. Lau HPI: Chief Complaint: Chest pain Mr. Sanabria is a 54 year old male admitted to 512 from the ED. He has a watch caser who assists in his care at home. He reports he has chronic chest pain which has been present for several years, but he feels starting approx a week ago it became worse. He describes it as a feeling of someone pressing down on him. He states it has been constant since yesterday. He reports no change in discomfort with activity. He reports he continues to have chest discomfort, but reports it as better than it was this morning. He denies any c/o dyspnea or palpitations. He reports the chest discomfort is worse with palpation of the chest wall. He denies any syncope or near syncope. he has chronic mild bilat LE swelling which is least in the morning and worse at the end of the day. He denies any n/v/d. He denies any fever or chills. Review of Systems-Cardiology Review of Systems Constitutional: No chills, No fever, No malaise Eyes: No vision change Ears/Nose/Throat: No recent hearing loss Respiratory: As described under HPI Cardiovascular: As described under HPI Gastrointestinal: No constipation, No diarrhea, No nausea, No vomiting Genitourinary: No dysuria, No hematuria Musculoskeletal: no symptoms reported Skin: No rash on exposed areas, No ulcerations on exposed areas Psychiatric/Neurological: No anxiety, No depression, No seizure, No focal weakness, No syncope Hematologic: No bleeding abnormalities All Other Systems Reviewed Negative Unless Noted: Yes OGW-Zdgfef-Vunwkm Hx Patient Social History Alcohol Use: Denies Use Recreational Drug Use: No Smoking Status: Never a Smoker 2nd Hand Smoke Exposure: No Recent Foreign Travel: No Recent Infectious Disease Expo: No Hospitalization with Isolation: Denies Immunizations Up To Date Tetanus Booster (TDap): Unknown Date of Pneumonia Vaccine: Nov 28, 2011 Past Medical History PMH As described under Assessment. Family Medical History Family Medical History: He reports a family h/o NM. Family History: Relation not specified for: Alzheimer's disease Arthritis Colon cancer Diabetes mellitus Myocardial infarction Visual disorder Allergies and Home Medications Allergies Coded Allergies: vancomycin (Verified Allergy, Unknown, 11/11/05) Home Medications Allopurinol 300 Mg Tablet, 300 MG PO DAILY, (Reported) Bethanechol Chloride 50 Mg Tablet, 50 MG PO QID, (Reported) Bismuth Subsalicylate 262 Mg Tab.chew, 262 MG PO PRN PRN for INDIGESTION, (Reported) Cetirizine HCl 10 Mg Tab.chew, 10 MG PO DAILY, (Reported) Colestipol HCl 1 Gm Tab, 1 GM PO Q48H, (Reported) Divalproex Sodium 250 Mg Tablet.dr, 750 MG PO 0800,2100, (Reported) TAKES 3 (250MG) TABLETS Divalproex Sodium 250 Mg Tablet.dr, 500 MG PO 1200, (Reported) TAKES 2 (250MG) TABLETS Furosemide 80 Mg Tablet, 40 MG PO DAILY, (Reported) TAKES OF A 80MG TAB Metoprolol Succinate 100 Mg Tab.er.24h, 100 MG PO HS, (Reported) Pantoprazole Sodium 40 Mg Tablet.dr, 40 MG PO DAILY, (Reported) Potassium Chloride 20 Meq Tablet.er, 20 MEQ PO BID, (Reported) Rosuvastatin Calcium 10 Mg Tablet, 10 MG PO DAILY, (Reported) Physical Exam-Cardiology Physical Exam Vital Signs/I&O 11/27/19 11/27/19 11/28/19 11/28/19 23:00 23:45 01:00 03:30 Temp 36.2 Pulse 66 70 Resp 18 B/P (MAP) 138/84 (102) Pulse Ox 95 99 100 O2 Delivery Room Air Room Air Room Air 11/28/19 11/28/19 11/28/19 11/28/19 03:30 07:03 07:33 08:00 Temp 36.6 36.7 Pulse 71 70 65 Resp 17 19 B/P (MAP) 120/74 (89) 112/76 (88) Pulse Ox 100 97 100 O2 Delivery Room Air Room Air Room Air 11/28/19 11/28/19 08:05 09:00 Temp 36.7 Pulse 68 Resp 19 B/P (MAP) 148/78 (101) Pulse Ox 99 100 O2 Delivery Room Air Room Air 11/28/19 00:00 Intake Total 875 ml Output Total 1450 ml Balance -575 ml Capillary Refill : Less Than 3 Seconds Constitutional: AAO x 3, well-developed, well-nourished HEENT: PERRL, oral hygience is good Neck: No carotid bruit; carotid pulses are 2 + bilaterally Respiratory: No accessory muscle use, No respiratory distress; chest expansion is symmetric, chest is bilaterally symmetric, lungs clear to auscultation Cardiovascular: regular rate-rhythm; No JVD; S1 and S2 Gastrointestinal: No tender; soft, round, audible bowel sounds Extremities: no lower extremity edema bilateral Neurologic/Psychiatric: grossly intact Skin: No rash on exposed areas, No ulcerations on exposed areas Data Review Labs Laboratory Tests 11/27/19 10:15: White Blood Count 6.5, Red Blood Count 5.25, Hemoglobin 16.1, Hematocrit 46, Mean Corpuscular Volume 87, Mean Corpuscular Hemoglobin 31, Mean Corpuscular Hemoglobin Concent 35, Red Cell Distribution Width 12.8, Platelet Count 180, Mean Platelet Volume 9.3, Neutrophils (%) (Auto) 57, Lymphocytes (%) (Auto) 28, Monocytes (%) (Auto) 13H, Eosinophils (%) (Auto) 1, Basophils (%) (Auto) 1, Neutrophils # (Auto) 3.7, Lymphocytes # (Auto) 1.9, Monocytes # (Auto) 0.9, Eosinophils # (Auto) 0.1, Basophils # (Auto) 0.0, Prothrombin Time 13.9, INR Comment 1.0, Activated Partial Thromboplast Time 31, D-Dimer 0.29, Sodium Level 129L, Potassium Level 3.8, Chloride Level 93L, Carbon Dioxide Level 28, Anion Gap 8, Blood Urea Nitrogen 3L, Creatinine 0.82, Estimat Glomerular Filtration Rate > 60, BUN/Creatinine Ratio 4, Glucose Level 88, Calcium Level 8.7, Corrected Calcium 8.7, Magnesium Level 1.4L, Total Bilirubin 0.5, Aspartate Amino Transf (AST/SGOT) 23, Alanine Aminotransferase (ALT/SGPT) 17, Alkaline Phosphatase 50, Myoglobin 100.3H, Troponin I 0.051H, B-Type Natriuretic Peptide 42.8, Total Protein 6.8, Albumin 4.0, Lipase 37 11/27/19 11:20: Urine Color YELLOW, Urine Clarity CLEAR, Urine pH 7.5, Urine Specific [place] 1.015L, Urine Protein NEGATIVE, Urine Glucose (UA) NEGATIVE, Urine Ketones NEGATIVE, Urine Nitrite NEGATIVE, Urine Bilirubin NEGATIVE, Urine Urobilinogen 0.2, Urine Leukocyte Esterase NEGATIVE, Urine RBC (Auto) NEGATIVE, Urine RBC NONE, Urine WBC NONE, Urine Crystals NONE, Urine Bacteria NEGATIVE, Urine Casts NONE, Urine Mucus NEGATIVE, Urine Culture Indicated NO, Urine Opiates Screen NEGATIVE, Urine Oxycodone Screen NEGATIVE, Urine Methadone Screen NEGATIVE, Ur ine Propoxyphene Screen NEGATIVE, Urine Barbiturates Screen NEGATIVE, Ur Tricyclic Antidepressants Screen NEGATIVE, Urine Phencyclidine Screen NEGATIVE, Urine Amphetamines Screen NEGATIVE, Urine Methamphetamines Screen NEGATIVE, Urine Benzodiazepines Screen NEGATIVE, Urine Cocaine Screen NEGATIVE, Urine Cannabinoids Screen NEGATIVE 11/27/19 15:48: Troponin I 0.039H 11/27/19 21:53: Troponin I 0.039H 11/28/19 03:56: White Blood Count 7.5, Red Blood Count 5.00, Hemoglobin 15.2, Hematocrit 44, Mean Corpuscular Volume 88, Mean Corpuscular Hemoglobin 30, Mean Corpuscular Hemoglobin Concent 35, Red Cell Distribution Width 13.1, Platelet Count 171, Mean Platelet Volume 9.6, Neutrophils (%) (Auto) 52, Lymphocytes (%) (Auto) 33, Monocytes (%) (Auto) 14H, Eosinophils (%) (Auto) 1, Basophils (%) (Auto) 0, Neutrophils # (Auto) 3.9, Lymphocytes # (Auto) 2.5, Monocytes # (Auto) 1.1H, Eosinophils # (Auto) 0.1, Basophils # (Auto) 0.0, Sodium Level 132L, Potassium Level 3.7, Chloride Level 98, Carbon Dioxide Level 25, Anion Gap 9, Blood Urea Nitrogen 5L, Creatinine 0.76, Estimat Glomerular Filtration Rate > 60, BUN/Creatinine Ratio 7, Glucose Level 88, Calcium Level 8.4L, Corrected Calcium 8.7, Magnesium Level 1.9, Total Bilirubin 0.5, Aspartate Amino Transf (AST/SGOT) 20, Alanine Aminotransferase (ALT/SGPT) 13, Alkaline Phosphatase 45, Total Protein 6.0L, Albumin 3.6, Triglycerides Level 72, Cholesterol Level 101, LDL Cholesterol Direct 53, VLDL Cholesterol 14, HDL Cholesterol 39L Radiology NAME: SAYRA SANABRIA REC#: [id number] PT STATUS: REG ER : 1965 PHYSICIAN: NICOLA PEREZ MD ADMIT DATE: 11/27/19/ER Draft Date of Exam:11/27/19 CHEST 1 VIEW, AP/PA ONLY INDICATION: Chest pain. TIME OF EXAM: 10:32 AM Correlation is made with prior chest from 09/20/2019. Heart size is stable. Cardiac pacemaker remains in place. Lungs are clear. The pulmonary vascularity is normal. No infiltrates are seen. No effusion or pneumothorax is detected. IMPRESSION: No acute cardiopulmonary process is detected. Dictated on workstation # [id number] Dict: 11/27/19 1042 Trans: 11/27/19 1043 CVB [id number] Interpreted by: IRINA TODD MD Electronically signed by: ECG Impression ECG Initial ECG Rhythm: Normal Sinus A/P-Cardiology Assessment/Admission Diagnosis Chest pain of undetermined etiology - worse with chest wall palpation - possible musculoskeletal Mildly elevated troponin of undetermined etiology (chronically elevated since Feb 2019) Cardiac catheterization was carried out on September 20, 2019 by showing small coronary system with mild disease non-obstructive disease Coronary artery disease, non-obstructive coronary artery disease per cardiac catheterization August 2012, and September 2019. No significant obstructive disease was noted Congestive heart failure, improved, last echocardiogram done in January 2018 sh owing ejection fraction 55-65% Sick sinus syndrome status post permanent pacemaker placement, device interrogation of October 05, 2019 shows it to be functioning normally History of brief episode of A. fib, resolved, currently sinus rhythm, no further episodes have been reported per Dr. 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, history of permanent pacemaker, using [employer] device Hypertension Hyperlipidemia History of spinal meningitis at the age of 4 Mild bilateral nonobstructive carotid artery stenosis, most recent carotid duplex July 2018 Arthritis Discussion and Recomendations Chest pain of undetermined etiology, no evidence of ACS Chronic mildly elevated troponin since Feb 2019 Electrolyte abnormalities likely secondary to chronic diuretic use Replace magnesium Advise cessation of diuretics, no evidence of heart failure and normal LVEF on most recent evaluation Echocardiogram today Monitor lab Further recs will be based on his hospital course We would like to thank medical services for this consult SASHA LEDEZMA Nov 27, 2019 12:29
--- NOTE | 2019-11-27 12:40 | NUR ---
SAYRA SANABRIA admitted to room 512-1, with an admitting diagnosis of UNSTABLE ANGINA, on 11/27/19 from ER via , accompanied by STAFF.SAYRA SANABRIA introduced to surroundings, call light, bed controls, phone, TV, temperature control, lights, meal times, smoking policy, visitor policy, side rail policy, bathrooms and showers. Patient Rights given to patient in the handbook. SAYRA SANABRIA verbalizes understanding that [facility] is not responsible for the loss or damage to any personal effects or valuables that are kept in the patients posession during their hospitalization. The following Patient Care Plans were discussed with the PT: Discharge Planning, PAIN,ACTIVITY INTOLERANCE, and ANXIETY. SAYRA SANABRIA verbalizes understanding of Interdisciplinary Patient Education. Patient and family were informed about the Rapid Response Team and its purpose.
[2019-11-27] MEDS ORDERED: morphine INJ 4 MG/ML 1 ML (VIAL/SYRINGE) IV PRN (13:15)
[2019-11-27] MEDS ORDERED: CATHETER FLUSH 10 ML SYR IV PRN (13:15)
[2019-11-27] MEDS ORDERED: ONDANSETRON 4 MG/2 ML (SDV) Z0FRAN IVP PRN (13:15)
[2019-11-27] MEDS ORDERED: ACETAMINOPHEN 500 MG TAB (TYLENOL) PO PRN (13:15)
[2019-11-27] MEDS ORDERED: ONDANSETRON 4 MG/2 ML (SDV) Z0FRAN IV PRN (13:15)
[2019-11-27] MEDS: CATHETER FLUSH 10 ML SYR IV SCH ×2 (13:36→21:09)
[2019-11-27] MEDS: MAGNESIUM 1 GM/100 ML IVPB 100 ML IV SCH ×3 (13:36→15:35)
[2019-11-27] MEDS ORDERED: PANT40TA3 PO (14:05)
--- NOTE | 2019-11-27 14:09 | NUR ---
I SPOKE WITH THE PATIENT AND WENT THROUGH THE MED LIST THAT HE BROUGHT FROM HOME TO COMPLETE THIS MED REC. I PUT A COPY OF THE LIST IN HIS CHART. OTC: PEPTO BISMOL
--- NOTE | 2019-11-27 16:05 | Consultation-Cardiology ---
HPI-Cardiology Cardiology Consultation: Date of Consultation 11/27/19 Time Seen by a Provider: 13:10 Date of Admission Attending Physician Demi Agustin DO Admitting Physician Demi Agustin DO Consulting Physician ALLEN SWANSON MD, MA, FACP, FACC, FSCAI, CCDS Primary enrollment processor: Dr Lau HPI: Chief Complaint: CC:Chest pain HPI Mr. Alcala is a 54 year old male admitted to [facility] from the ED. He has a counter caser who assists in his care at home. He reports he has chronic chest pain which has been present for several years, but he feels starting approx a week a go it became worse. He describes it as a feeling of someone pressing down on him. He states it has been constant since yesterday. He reports no change in discomfort with activity. He reports he continues to have chest discomfort, but reports it as better than it was this morning. He denies any c/o dyspnea or palpitations. He reports the chest discomfort is worse with palpation of the chest wall. He denies any syncope or near syncope. he has chronic mild bilat LE swelling which is least in the morning and worse at the end of the day. He denies any n/v/d. He denies any fever or chills. Review of Systems-Cardiology Review of Systems Constitutional: No chills, No fever, No malaise Eyes: No vision change Ears/Nose/Throat: No recent hearing loss Respiratory: As described under HPI Cardiovascular: As described under HPI Gastrointestinal: No constipation, No diarrhea, No nausea, No vomiting Genitourinary: No dysuria, No hematuria Musculoskeletal: no symptoms reported Skin: No rash on exposed areas, No ulcerations on exposed areas Psychiatric/Neurological: No anxiety, No depression, No seizure, No focal weakness, No syncope Hematologic: No bleeding abnormalities All Other Systems Reviewed Negative Unless Noted: Yes IGY-Pvtsww-Wbggxm Hx Patient Social History Alcohol Use: Denies Use Recreational Drug Use: No Smoking Status: Never a Smoker 2nd Hand Smoke Exposure: No Recent Foreign Travel: No Recent Infectious Disease Expo: No Hospitalization with Isolation: Denies Immunizations Up To Date Tetanus Booster (TDap): Unknown Date of Pneumonia Vaccine: Nov 28, 2011 Past Medical History PMH As described under Assessment. Family Medical History Family Medical History: He reports a family h/o [place]. Family History: Alzheimer's disease Arthritis Colon cancer Diabetes mellitus Myocardial infarction Visual disorder Allergies and Home Medications Allergies Coded Allergies: vancomycin (Verified Allergy, Unknown, 11/11/05) Home Medications Allopurinol 300 Mg Tablet, 300 MG PO DAILY, (Reported) Bethanechol Chloride 50 Mg Tablet, 50 MG PO QID, (Reported) Bismuth Subsalicylate 262 Mg Tab.chew, 262 MG PO PRN PRN for INDIGESTION, (Reported) Cetirizine HCl 10 Mg Tab.chew, 10 MG PO DAILY, (Reported) Colestipol HCl 1 Gm Tab, 1 GM PO Q48H, (Reported) Divalproex Sodium 250 Mg Tablet.dr, 750 MG PO 0800,2100, (Reported) TAKES 3 (250MG) TABLETS Divalproex Sodium 250 Mg Tablet.dr, 500 MG PO 1200, (Reported) TAKES 2 (250MG) TABLETS Furosemide 80 Mg Tablet, 40 MG PO DAILY, (Reported) TAKES OF A 80MG TAB Metoprolol Succinate 100 Mg Tab.er.24h, 100 MG PO HS, (Reported) Pantoprazole Sodium 40 Mg Tablet.dr, 40 MG PO DAILY, (Reported) Potassium Chloride 20 Meq Tablet.er, 20 MEQ PO BID, (Reported) Rosuvastatin Calcium 10 Mg Tablet, 10 MG PO DAILY, (Reported) Patient Home Medication List Home Medication List Reviewed: Yes Physical Exam-Cardiology Physical Exam Vital Signs/I&O 11/27/19 11/27/19 11/27/19 11/27/19 09:58 09:58 12:33 12:40 Temp 37.4 37.4 Pulse 100 80 Resp 15 15 B/P (MAP) 129/94 (106) 107/84 (106) Pulse Ox 95 95 98 O2 Delivery Room Air Room Air Room Air Room Air 11/27/19 11/27/19 11/27/19 11/27/19 12:40 12:50 12:56 13:09 Temp 36.9 36.9 Pulse 97 97 82 84 Resp 16 16 B/P (MAP) 110/75 110/75 (87) 122/81 (95) Pulse Ox 98 98 99 O2 Delivery Room Air Room Air Room Air 11/27/19 11/27/19 11/27/19 11/27/19 13:25 13:40 14:11 14:24 Pulse 81 80 76 76 B/P (MAP) 133/74 (93) 108/75 (86) 110/72 (85) 107/71 (83) Pulse Ox 99 98 99 O2 Delivery Room Air Room Air Room Air Room Air 11/27/19 15:35 Temp 36.7 Capillary Refill : Less Than 3 Seconds Constitutional: AAO x 3, well-developed, well-nourished HEENT: PERRL, oral hygience is good Neck: No carotid bruit; carotid pulses are 2 + bilaterally Respiratory: No accessory muscle use, No respiratory distress; chest expansion is symmetric, chest is bilaterally symmetric, lungs clear to auscultation Cardiovascular: regular rate-rhythm; No JVD; S1 and S2 Gastrointestinal: No tender; soft, round, audible bowel sounds Extremities: no lower extremity edema bilateral Neurologic/Psychiatric: grossly intact Skin: No rash on exposed areas, No ulcerations on exposed areas Data Review Labs Laboratory Tests 11/27/19 10:15: White Blood Count 6.5, Red Blood Count 5.25, Hemoglobin 16.1, Hematocrit 46, Mean Corpuscular Volume 87, Mean Corpuscular Hemoglobin 31, Mean Corpuscular Hemoglobin Concent 35, Red Cell Distribution Width 12.8, Platelet Count 180, Mean Platelet Volume 9.3, Neutrophils (%) (Auto) 57, Lymphocytes (%) (Auto) 28, Monocytes (%) (Auto) 13H, Eosinophils (%) (Auto) 1, Basophils (%) (Auto) 1, Neutrophils # (Auto) 3.7, Lymphocytes # (Auto) 1.9, Monocytes # (Auto) 0.9, Eosinophils # (Auto) 0.1, Basophils # (Auto) 0.0, Prothrombin Time 13.9, INR Comment 1.0, Activated Partial Thromboplast Time 31, D-Dimer 0.29, Sodium Level 129L, Potassium Level 3.8, Chloride Level 93L, Carbon Dioxide Level 28, Anion Gap 8, Blood Urea Nitrogen 3L, Creatinine 0.82, Estimat Glomerular Filtration Rate > 60, BUN/Creatinine Ratio 4, Glucose Level 88, Calcium Level 8.7, Corrected Calcium 8.7, Magnesium Level 1.4L, Total Bilirubin 0.5, Aspartate Amino Transf (AST/SGOT) 23, Alanine Aminotransferase (ALT/SGPT) 17, Alkaline Phosphatase 50, Myoglobin 100.3H, Troponin I 0.051H, B-Type Natriuretic Peptide 42.8, Total Protein 6.8, Albumin 4.0, Lipase 37 11/27/19 11:20: Urine Color YELLOW, Urine Clarity CLEAR, Urine pH 7.5, Urine Specific [place] 1.015L, Urine Protein NEGATIVE, Urine Glucose (UA) NEGATIVE, Urine Ketones NEGATIVE, Urine Nitrite NEGATIVE, Urine Bilirubin NEGATIVE, Urine Urobilinogen 0.2, Urine Leukocyte Esterase NEGATIVE, Urine RBC (Auto) NEGATIVE, Urine RBC NONE, Urine WBC NONE, Urine Crystals NONE, Urine Bacteria NEGATIVE, Urine Casts NONE, Urine Mucus NEGATIVE, Urine Culture Indicated NO, Urine Opiates Screen NEGATIVE, Urine Oxycodone Screen NEGATIVE, Urine Methadone Screen NEGATIVE, Urine Propoxyphene Screen NEGATIVE, Urine Barbiturates Screen NEGATIVE, Ur Tricyclic Antidepressants Screen NEGATIVE, Urine Phencyclidine Screen NEGATIVE, Urine Amphetamines Screen NEGATIVE, Urine Methamphetamines Screen NEGATIVE, Urine Benzodiazepines Screen NEGATIVE, Urine Cocaine Screen NEGATIVE, Urine Cannabinoids Screen NEGATIVE 11/27/19 15:48: A/P-Cardiology Assessment/Admission Diagnosis Chest pain of undetermined etiology - worse with chest wall palpation - possiblY musculoskeletal Minimally elevated troponin of undetermined etiology (chronically elevated since Feb 2019) Cardiac catheterization was carried out on September 20, 2019 by showing small coronary system with mild disease non-obstructive disease Coronary artery disease, non-obstructive coronary artery disease per cardiac catheterization August 2012, and September 2019. No significant obstructive disease was noted Congestive heart failure, improved, last echocardiogram done in January 2018 showing ejection fraction 55-65% Sick sinus syndrome status post permanent pacemaker placement, device interrogation of October 05, 2019 shows it to be functioning normally History of brief episode of A. fib, resolved, currently sinus rhythm, no further episodes have been reported per Dr. 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 We discussed his case in detail with Dr Agustin Clinical Quality Measures DVT/VTE Risk/Contraindication: Risk Factor Score Per Nursin RFS Level Per Nursing on Admit: 4+=Very High ALLEN SWANSON MD FACP FAC CCDS Nov 27, 2019 16:05
[2019-11-27] MEDS ORDERED: ENOXAPARIN 40 MG/0.4 ML (LOVENOX) SYR SC SCH (18:45)
[2019-11-27] MEDS ORDERED: PANTOPRAZOLE 40 MG (PROTONIX) TAB PO NR (18:45)
--- NOTE | 2019-11-27 18:57 | History & Physical ---
History of Present Illness History of Present Illness Reason for visit/HPI This is a 54 year old male with cerebral palsy and known coronary artery disease who presented to the emergency room with a several day history of substernal chest pain. He also had associated shortness of air. He had a cardiac catheterization in September of 2019 that showed no major stenosis. However, his troponin-I was minimally elevated at 0.51 so it was decided he should be admitted for observation and cardiology consult. Date of Admission Nov 27, 2019 at 11:56 Date Seen by a Provider: Nov 27, 2019 Time Seen by a Provider: 12:55 I consulted on this patient on 11/27/19 18:49 Attending Physician Demi Sharpe DO Admitting Physician Demi Sharpe DO Consult Allergies and Home Medications Allergies Coded Allergies: vancomycin (Verified Allergy, Unknown, 11/11/05) Home Medications Allopurinol 300 Mg Tablet, 300 MG PO DAILY, (Reported) Bethanechol Chloride 50 Mg Tablet, 50 MG PO QID, (Reported) Bismuth Subsalicylate 262 Mg Tab.chew, 262 MG PO PRN PRN for INDIGESTION, (Reported) Cetirizine HCl 10 Mg Tab.chew, 10 MG PO DAILY, (Reported) Colestipol HCl 1 Gm Tab, 1 GM PO Q48H, (Reported) Divalproex Sodium 250 Mg Tablet.dr, 750 MG PO 0800,2100, (Reported) TAKES 3 (250MG) TABLETS Divalproex Sodium 250 Mg Tablet.dr, 500 MG PO 1200, (Reported) TAKES 2 (250MG) TABLETS Furosemide 80 Mg Tablet, 40 MG PO DAILY, (Reported) TAKES OF A 80MG TAB Metoprolol Succinate 100 Mg Tab.er.24h, 100 MG PO HS, (Reported) Pantoprazole Sodium 40 Mg Tablet.dr, 40 MG PO DAILY, (Reported) Potassium Chloride 20 Meq Tablet.er, 20 MEQ PO BID, (Reported) Rosuvastatin Calcium 10 Mg Tablet, 10 MG PO DAILY, (Reported) Patient Home Medication List Home Medication List Reviewed: Yes Past Plekjyz-Nyhxum-Lhoqvw Hx Past Med/Social Hx: Reviewed Nursing Past Med/Soc Hx Patient Social History Alcohol Use: Denies Use Recreational Drug Use: No Smoking Status: Never a Smoker 2nd Hand Smoke Exposure: No Recent Foreign Travel: No Contact w/other who traveled: No Recent Hopitalizations: No Recent Infectious Disease Expo: No Immunizations Up To Date Tetanus Booster (TDap): Unknown Date of Pneumonia Vaccine: Nov 28, 2011 Seasonal Allergies Seasonal Allergies: No Past Medical History Surgeries: Orthopedic, Pacemaker Cardiac: Cardiomyopathy, Coronary Artery Disease, High Cholesterol, Hypertension Neurological: Developmental Disorder, Paralysis Reproductive: No Gastrointestinal: Gastroesophageal Reflux, Hemorrhoids, Chronic Diarrhea Musculoskeletal: Arthritis, Contracture, Gout History of Blood Disorders: No Adverse Reaction to Blood Cabrales: No Family History Alzheimer's disease Arthritis Colon cancer Diabetes mellitus Myocardial infarction Visual disorder Review of Systems Constitutional: weakness EENTM: No see HPI, No no symptoms reported, No ear discharge, No hearing loss, No ear pain, No blurred vision, No double vision, No eye pain, No tearing, No vision loss, No dental problems, No hoarseness, No mouth pain, No mouth swelling, No epistaxis, No nose congestion, No nose pain, No throat pain, No throat swelling, No other Respiratory: dyspnea on exertion Cardiovascular: chest pain Gastrointestinal: constipation, heartburn Genitourinary: No no symptoms reported, No see HPI, No decreased output, No discharge, No dysuria, No frequency, No hematuria, No hesitancy, No incontinence, No nocturia, No pain, No other Musculoskeletal: joint pain Psychiatric/Neurological: Pre-Existing Deficit Physical Exam Vital Signs Vital Signs - First Documented 11/27/19 09:58 Temp 37.4 Pulse 100 Resp 15 B/P (MAP) 129/94 (106) Pulse Ox 95 O2 Delivery Room Air Capillary Refill : Less Than 3 Seconds Height, Weight, BMI Height: 6'0.00" Weight: 218lbs. 0.0oz. 98.532978bq; 35.28 BMI Method:Stated General Appearance: No Apparent Distress HEENT: Normal ENT Inspection Neck: Supple Respiratory: Lungs Clear Cardiovascular: Regular Rate, Rhythm, Gallop/S4 Gastrointestinal: Normal Bowel Sounds, Non Tender, Soft Rectal: Deferred Back: No CVA Tenderness Extremity: Non Tender, No Calf Tenderness, No Pedal Edema Neurologic/Psychiatric: Alert, Oriented x3, Abnormal Gait, Motor Weakness Skin: Warm/Dry Lymphatic: No Adenopathy Comments Laboratory Tests 11/27/19 10:15: White Blood Count 6.5, Red Blood Count 5.25, Hemoglobin 16.1, Hematocrit 46, Mean Corpuscular Volume 87, Mean Corpuscular Hemoglobin 31, Mean Corpuscular Hemoglobin Concent 35, Red Cell Distribution Width 12.8, Platelet Count 180, Mean Platelet Volume 9.3, Neutrophils (%) (Auto) 57, Lymphocytes (%) (Auto) 28, Monocytes (%) (Auto) 13H, Eosinophils (%) (Auto) 1, Basophils (%) (Auto) 1, Neutrophils # (Auto) 3.7, Lymphocytes # (Auto) 1.9, Monocytes # (Auto) 0.9, Eosinophils # (Auto) 0.1, Basophils # (Auto) 0.0, Prothrombin Time 13.9, INR Comment 1.0, Activated Partial Thromboplast Time 31, D-Dimer 0.29, Sodium Level 129L, Potassium Level 3.8, Chloride Level 93L, Carbon Dioxide Level 28, Anion Gap 8, Blood Urea Nitrogen 3L, Creatinine 0.82, Estimat Glomerular Filtration Rate > 60, BUN/Creatinine Ratio 4, Glucose Level 88, Calcium Level 8.7, Corrected Calcium 8.7, Magnesium Level 1.4L, Total Bilirubin 0.5, Aspartate Amino Transf (AST/SGOT) 23, Alanine Aminotransferase (ALT/SGPT) 17, Alkaline Phosphatase 50, Myoglobin 100.3H, Troponin I 0.051H, B-Type Natriuretic Peptide 42.8, Total Protein 6.8, Albumin 4.0, Lipase 37 11/27/19 11:20: Urine Color YELLOW, Urine Clarity CLEAR, Urine pH 7.5, Urine Specific [place] 1.015L, Urine Protein NEGATIVE, Urine Glucose (UA) NEGATIVE, Urine Ketones NEGATIVE, Urine Nitrite NEGATIVE, Urine Bilirubin NEGATIVE, Urine Urobilinogen 0.2, Urine Leukocyte Esterase NEGATIVE, Urine RBC (Auto) NEGATIVE, Urine RBC NONE, Urine WBC NONE, Urine Crystals NONE, Urine Bacteria NEGATIVE, Urine Casts NONE, Urine Mucus NEGATIVE, Urine Culture Indicated NO, Urine Opiates Screen NEGATIVE, Urine Oxycodone Screen NEGATIVE, Urine Methadone Screen NEGATIVE, Urine Propoxyphene Screen NEGATIVE, Urine Barbiturates Screen NEGATIVE, Ur Tricyclic Antidepressants Screen NEGATIVE, Urine Phencyclidine Screen NEGATIVE, Urine Amphetamines Screen NEGATIVE, Urine Methamphetamines Screen NEGATIVE, Urine Benzodiazepines Screen NEGATIVE, Urine Cocaine Screen NEGATIVE, Urine Cannabinoids Screen NEGATIVE 11/27/19 15:48: Troponin I 0.039H Assessment/Plan Assessment and Plan 1. Chest Pain with minimally elevated Troponin-I--uncertain etiology, resume home meds and monitor on telemetry and with repeat cardiac enzymes 2. Hypertension---resume home meds 3. Hypomagnesemia--replace magnesium 4. Hyponatremia--monitor 5. GERD--start protonix Admission Diagnosis Admission Status: Observation Clinical Quality Measures DVT/VTE Risk/Contraindication: Risk Factor Score Per Nursin RFS Level Per Nursing on Admit: 4+=Very High DEMI SHARPE DO Nov 27, 2019 18:57
[2019-11-27] MEDS ORDERED: PATIENT MAY USE OWN MEDS, ALL MC SCH (19:00)
[2019-11-27] MEDS ORDERED: BETHANECHOL CHLORIDE 50 MG PO SCH (21:00)
[2019-11-27] MEDS ORDERED: meTOprolol SUCCINATE 100 MG (TOPROL XL) TAB PO SCH (21:00)
[2019-11-27] MEDS: DIVALPROEX 250 MG DELAYED RELEASE (DEPAKOTE) TAB PO SCH (21:08)
[2019-11-27] MEDS: BETHANECHOL 25 MG (URECHOLINE) TAB PO SCH (21:08)
[2019-11-28 03:30] VITALS: BP 120/74
[2019-11-28 04:13] LABS: BASOPHILS % (AUTO) 0 % (0-10); EOSINOPHILS # (AUTO) 0.1 10^3/uL (0.0-0.3); EOSINOPHILS % (AUTO) 1 % (0-10); HEMATOCRIT 44 % (40-54); HEMOGLOBIN 15.2 G/DL (13.3-17.7); LYMPHOCYTES # (AUTO) 2.5 X 10^3 (1.0-4.0); LYMPHOCYTES % (AUTO) 33 % (12-44); MEAN CORPUSCULAR HEMOGLOBIN 30 PG (25-34); MEAN CORPUSCULAR HGB CONC 35 G/DL (32-36); MEAN CORPUSCULAR VOLUME 88 FL (80-99); MEAN PLATELET VOLUME 9.6 FL (7.4-10.4); MONOCYTES # (AUTO) 1.1 X 10^3 (0.0-1.0); MONOCYTES % (AUTO) 14 % (0-12); NEUTROPHILS # (AUTO) 3.9 X 10^3 (1.8-7.8); NEUTROPHILS % (AUTO) 52 % (42-75); PLATELET COUNT 171 10^3/uL (130-400); RED CELL DISTRIBUTION WIDTH 13.1 % (10.0-14.5); WHITE BLOOD COUNT 7.5 10^3/uL (4.3-11.0)
[2019-11-28 04:30] LABS: ALANINE AMINOTRANSFERASE 13 U/L (0-55); ALBUMIN 3.6 GM/DL (3.2-4.5); ALKALINE PHOSPHATASE 45 U/L (40-136); BILIRUBIN,TOTAL 0.5 MG/DL (0.1-1.0); BUN/CREATININE RATIO 7; CALCIUM 8.4 MG/DL (8.5-10.1); CARBON DIOXIDE 25 MMOL/L (21-32); CHLORIDE 98 MMOL/L (98-107); CHOLESTEROL 101 MG/DL (< 200); CREATININE SERUM 0.76 MG/DL (0.60-1.30); GFR ESTIMATED > 60; GLUCOSE 88 MG/DL (70-105); HDL CHOLESTEROL 39 MG/DL (40-60); MAGNESIUM 1.9 MG/DL (1.6-2.4); POTASSIUM 3.7 MMOL/L (3.6-5.0); SODIUM 132 MMOL/L (135-145); TRIGLYCERIDES 72 MG/DL (<150); VLDL CHOLESTEROL 14 MG/DL (5-40)
[2019-11-28] MEDS: BETHANECHOL 25 MG (URECHOLINE) TAB PO SCH ×2 (05:11→11:16)
[2019-11-28] MEDS: CATHETER FLUSH 10 ML SYR IV SCH (05:12)
[2019-11-28 07:33] VITALS: BP 112/76
[2019-11-28] MEDS: DIVALPROEX 250 MG DELAYED RELEASE (DEPAKOTE) TAB PO SCH (07:55)
[2019-11-28 08:05] VITALS: BP 148/78
[2019-11-28] MEDS ORDERED: ROSUVASTATIN 10 MG (CRESTOR) TABLET PO SCH (09:00)
[2019-11-28] MEDS ORDERED: PANTOPRAZOLE 40 MG (PROTONIX) TAB PO SCH (09:00)
[2019-11-28] MEDS ORDERED: ASPIRIN E.C. 81 MG (ECOTRIN) TAB PO SCH (09:00)
--- NOTE | 2019-11-28 10:17 | Progress Note - Cardiology ---
Cardiology SOAP Progress Note Subjective: Sitting up in bed. C/O suprapubic discomfort this morning and feeling hungry. Reports chest wall discomfort unchanged, continues to report discomfort with palpation. No c/o dyspnea, LE swelling, syncope or near syncope. Objective: I&O/Vital Signs 11/28/19 11/28/19 11/28/19 11/28/19 03:30 03:30 07:03 07:33 Temp 36.6 36.7 Pulse 71 70 65 Resp 17 19 B/P (MAP) 120/74 (89) 112/76 (88) Pulse Ox 100 100 97 O2 Delivery Room Air Room Air Room Air 11/28/19 11/28/19 11/28/19 11/28/19 08:00 08:05 09:00 11:40 Temp 36.7 36.8 Pulse 68 74 Resp 19 18 B/P (MAP) 148/78 (101) 109/72 (84) Pulse Ox 100 99 100 98 O2 Delivery Room Air Room Air Room Air Room Air 11/28/19 00:00 Intake Total 875 ml Output Total 1450 ml Balance -575 ml Weight (Pounds): 218 Weight (Ounces): 0.0 Weight (Calculated Kilograms): [id number] Constitutional: AAO x 3, well-developed, well-nourished Respiratory: No accessory muscle use, No respiratory distress; chest expansion is symmetric, chest is bilaterally symmetric, lungs clear to auscultation Cardiovascular: regular rate-rhythm; No JVD; S1 and S2 Gastrointestional: No tender; soft, round, audible bowel sounds Extremities: no lower extremity edema bilateral Neurologic/Psychiatric: grossly intact Skin: No rash on exposed areas, No ulcerations on exposed areas Results/Procedures: Labs Laboratory Tests 11/27/19 15:48: Troponin I 0.039H 11/27/19 21:53: Troponin I 0.039H 11/28/19 03:56: White Blood Count 7.5, Red Blood Count 5.00, Hemoglobin 15.2, Hematocrit 44, Mean Corpuscular Volume 88, Mean Corpuscular Hemoglobin 30, Mean Corpuscular Hemoglobin Concent 35, Red Cell Distribution Width 13.1, Platelet Count 171, Mean Platelet Volume 9.6, Neutrophils (%) (Auto) 52, Lymphocytes (%) (Auto) 33, Monocytes (%) (Auto) 14H, Eosinophils (%) (Auto) 1, Basophils (%) (Auto) 0, Neutrophils # (Auto) 3.9, Lymphocytes # (Auto) 2.5, Monocytes # (Auto) 1.1H, Eosinophils # (Auto) 0.1, Basophils # (Auto) 0.0, Sodium Level 132L, Potassium Level 3.7, Chloride Level 98, Carbon Dioxide Level 25, Anion Gap 9, Blood Urea Nitrogen 5L, Creatinine 0.76, Estimat Glomerular Filtration Rate > 60, BUN/Creatinine Ratio 7, Glucose Level 88, Calcium Level 8.4L, Corrected Calcium 8.7, Magnesium Level 1.9, Total Bilirubin 0.5, Aspartate Amino Transf (AST/SGOT) 20, Alanine Aminotransferase (ALT/SGPT) 13, Alkaline Phosphatase 45, Total Protein 6.0L, Albumin 3.6, Triglycerides Level 72, Cholesterol Level 101, LDL Cholesterol Direct 53, VLDL Cholesterol 14, HDL Cholesterol 39L A/P: Assessment: Chest pain of undetermined etiology - worse with chest wall palpation - possiblY musculoskeletal Minimally elevated troponin of undetermined etiology (chronically elevated since Feb 2019) Cardiac catheterization was carried out on September 20, 2019 by showing small coronary system with mild disease non-obstructive disease Coronary artery disease, non-obstructive coronary artery disease per cardiac catheterization August 2012, and September 2019. No significant obstructive disease was noted Congestive heart failure, improved, last echocardiogram done in January 2018 showing ejection fraction 55-65% Sick sinus syndrome status post permanent pacemaker placement, device interrog ation of October 05, 2019 shows it to be functioning normally History of brief episode of A. fib, resolved, currently sinus rhythm, no further episodes have been reported per Dr. 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
[2019-11-28 11:40] VITALS: BP 109/72
[2019-11-28] MEDS ORDERED: DIVALPROEX 250 MG DELAYED RELEASE (DEPAKOTE) TAB PO SCH (12:00)
--- NOTE | 2019-11-28 13:31 | Progress Note - Cardiology ---
Cardiology SOAP Progress Note Subjective: L upper chest soreness as before, chronic, worse in certain positions and worse with certain motions at the L shoulder No shortness of breath or palp or syncope No n/v/d Overall, feels well Wishes to go home Objective: I&O/Vital Signs 11/28/19 11/28/19 11/28/19 11/28/19 03:30 03:30 07:03 07:33 Temp 36.6 36.7 Pulse 71 70 65 Resp 17 19 B/P (MAP) 120/74 (89) 112/76 (88) Pulse Ox 100 100 97 O2 Delivery Room Air Room Air Room Air 11/28/19 11/28/19 11/28/19 11/28/19 08:00 08:05 09:00 11:40 Temp 36.7 36.8 Pulse 68 74 Resp 19 18 B/P (MAP) 148/78 (101) 109/72 (84) Pulse Ox 100 99 100 98 O2 Delivery Room Air Room Air Room Air Room Air 11/28/19 00:00 Intake Total 875 ml Output Total 1450 ml Balance -575 ml Weight (Pounds): 218 Weight (Ounces): 0.0 Weight (Calculated Kilograms): 98.475649 Constitutional: AAO x 3, well-developed, well-nourished Respiratory: No accessory muscle use, No respiratory distress; chest expansion is symmetric, chest is bilaterally symmetric, lungs clear to auscultation Cardiovascular: regular rate-rhythm; No JVD; S1 and S2 Gastrointestional: No tender; soft, round, audible bowel sounds Extremities: no lower extremity edema bilateral Neurologic/Psychiatric: grossly intact Skin: No rash on exposed areas, No ulcerations on exposed areas Results/Procedures: Labs Laboratory Tests 11/27/19 15:48: Troponin I 0.039H 11/27/19 21:53: Troponin I 0.039H 11/28/19 03:56: White Blood Count 7.5, Red Blood Count 5.00, Hemoglobin 15.2, Hematocrit 44, Mean Corpuscular Volume 88, Mean Corpuscular Hemoglobin 30, Mean Corpuscular Hemoglobin Concent 35, Red Cell Distribution Width 13.1, Platelet Count 171, Mean Platelet Volume 9.6, Neutrophils (%) (Auto) 52, Lymphocytes (%) (Auto) 33, Monocytes (%) (Auto) 14H, Eosinophils (%) (Auto) 1, Basophils (%) (Auto) 0, Neutrophils # (Auto) 3.9, Lymphocytes # (Auto) 2.5, Monocytes # (Auto) 1.1H, Eosinophils # (Auto) 0.1, Basophils # (Auto) 0.0, Sodium Level 132L, Potassium Level 3.7, Chloride Level 98, Carbon Dioxide Level 25, Anion Gap 9, Blood Urea Nitrogen 5L, Creatinine 0.76, Estimat Glomerular Filtration Rate > 60, BUN/Cre atinine Ratio 7, Glucose Level 88, Calcium Level 8.4L, Corrected Calcium 8.7, M agnesium Level 1.9, Total Bilirubin 0.5, Aspartate Amino Transf (AST/SGOT) 20, Alanine Aminotransferase (ALT/SGPT) 13, Alkaline Phosphatase 45, Total Protein 6.0L, Albumin 3.6, Triglycerides Level 72, Cholesterol Level 101, LDL Cholesterol Direct 53, VLDL Cholesterol 14, HDL Cholesterol 39L Laboratory Tests 11/27/19 10:15 11/28/19 03:56 A/P: Assessment: Chest pain of undetermined etiology - worse with chest wall palpation - likely musculoskeletal Minimally elevated troponin of undetermined etiology (chronically elevated since Feb 2019) Cardiac catheterization was carried out on September 20, 2019 by showed no significant obstructive coronary disease H/o congestive heart failure, none currently, last echocardiogram done in January 2018 showing ejection fraction 55-65% Sick sinus syndrome status post permanent pacemaker placement, device i nterrogation of October 05, 2019 shows it to be functioning normally History of brief episode of A. fib, resolved, currently sinus rhythm, no further episodes have been reported per Dr. 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 No evidence of ACS. Chronic, minimal troponin elevation is essentially unchanged. We reviewed card cath images of J une 2019. There is no significant CAD seen. Ok to d/c from cardiac standpoint. Advised f/u with his energy conservation specialist Dr Lau Discussed with Dr Agustin Advise cessation of diuretics: no evidence of heart failure and normal LVEF on most recent evaluation ALLEN SWANSON MD FACP FAC CCDS Nov 28, 2019 13:31
[2019-11-28 14:00] VITALS: BP 109/72
== END 2019-11-28 14:00 | disposition home or self-care (01) ==
LOC: EDUNIT# 09:54 → ER 09:55 → CSD 11:56
PROVIDERS: ADMIT Family Medicine; ATTEND Family Medicine
DX: I25.110 Atherosclerotic heart disease of native coronary artery with unstable angina pectoris (principal); I10 Essential (primary) hypertension; K21.9 Gastro-esophageal reflux disease without esophagitis; G80.9 Cerebral palsy, unspecified; E78.00 Pure hypercholesterolemia, unspecified; K64.9 Unspecified hemorrhoids; K52.9 Noninfective gastroenteritis and colitis, unspecified; M19.90 Unspecified osteoarthritis, unspecified site; E83.42 Hypomagnesemia; E87.1 Hypo-osmolality and hyponatremia; Z79.899 Other long term (current) drug therapy; Z79.82 Long term (current) use of aspirin; Z88.1 Allergy status to other antibiotic agents; Z95.0 Presence of cardiac pacemaker; Z80.0 Family history of malignant neoplasm of digestive organs; Z83.3 Family history of diabetes mellitus
CPT/HCPCS: 36415; 71045; 80053; 80061; 80306; 81000; 83690; 83735; 83874; 83880; 84484; 85025; 85379; 85610; 85730; 93005; 93041

== ENCOUNTER 2019-12-23 12:33 | Emergency (ER) | payer MEDICARE, MEDICAID ==
[~2019-12-23] VITALS: Ht 183 cm; Wt 130.0 kg
[~2019-12-23 12:33] MED LIST changes: -PANT40TA3 PO; +PANT40TA52 PO
[2019-12-23 12:51] LABS: BASOPHILS % (AUTO) 1 % (0-10); EOSINOPHILS # (AUTO) 0.1 10^3/uL (0.0-0.3); EOSINOPHILS % (AUTO) 1 % (0-10); HEMATOCRIT 43 % (40-54); HEMOGLOBIN 15.2 G/DL (13.3-17.7); LYMPHOCYTES # (AUTO) 2.1 X 10^3 (1.0-4.0); LYMPHOCYTES % (AUTO) 34 % (12-44); MEAN CORPUSCULAR HEMOGLOBIN 30 PG (25-34); MEAN CORPUSCULAR HGB CONC 35 G/DL (32-36); MEAN CORPUSCULAR VOLUME 84 FL (80-99); MEAN PLATELET VOLUME 9.4 FL (7.4-10.4); MONOCYTES # (AUTO) 0.9 X 10^3 (0.0-1.0); MONOCYTES % (AUTO) 15 % (0-12); NEUTROPHILS # (AUTO) 3.1 X 10^3 (1.8-7.8); NEUTROPHILS % (AUTO) 50 % (42-75); PLATELET COUNT 140 10^3/uL (130-400); WHITE BLOOD COUNT 6.2 10^3/uL (4.3-11.0)
--- NOTE | 2019-12-23 13:03 | ED General ---
General Chief Complaint: General Problems/Pain Stated Complaint: SWELLING Nursing Triage Note: patient reports his legs have been sswelling since he was taken off of his lasix Nursing Sepsis Screen: No Definite Risk Source of Information: Patient, EMS, Old Records Exam Limitations: No Limitations History of Present Illness Date Seen by Provider: Dec 23, 2019 Time Seen by Provider: 12:34 Initial Comments This 54-year-old gentleman presents to the emergency room with complaints of worsening lower extremity edema. He reports being taken off Lasix about 2 weeks ago but he is uncertain why. His medication filling record notes a 40 mg daily dose. He denies any significant shortness of breath or other acute symptoms. He does have intellectual disabilities and he arrives by EMS. Vital signs are unremarkable. Allergies and Home Medications Allergies Coded Allergies: vancomycin (Verified Allergy, Unknown, 11/11/05) Home Medications Allopurinol 300 Mg Tablet, 300 MG PO DAILY, (Reported) Bethanechol Chloride 50 Mg Tablet, 50 MG PO QID, (Reported) Bismuth Subsalicylate 262 Mg Tab.chew, 262 MG PO PRN PRN for INDIGESTION, (Reported) Cetirizine HCl 10 Mg Tab.chew, 10 MG PO DAILY, (Reported) Colestipol HCl 1 Gm Tab, 1 GM PO Q48H, (Reported) Divalproex Sodium 250 Mg Tablet.dr, 750 MG PO 0800,2100, (Reported) TAKES 3 (250MG) TABLETS Divalproex Sodium 250 Mg Tablet.dr, 500 MG PO 1200, (Reported) TAKES 2 (250MG) TABLETS Metoprolol Succinate 100 Mg Tab.er.24h, 100 MG PO HS, (Reported) Pantoprazole Sodium 40 Mg Tablet.dr, 40 MG PO DAILY, (Reported) Rosuvastatin Calcium 10 Mg Tablet, 10 MG PO DAILY, (Reported) Patient Home Medication List Home Medication List Reviewed: Yes Review of Systems Review of Systems Constitutional: no symptoms reported EENTM: no symptoms reported Respiratory: no symptoms reported Cardiovascular: see HPI Gastrointestinal: no symptoms reported Genitourinary: no symptoms reported Musculoskeletal: no symptoms reported Skin: no symptoms reported Psychiatric/Neurological: See HPI Hematologic/Lymphatic: No Symptoms Reported Past Jpcyrhc-Kvzkfz-Djugmi Hx Past Med/Social Hx: Reviewed Nursing Past Med/Soc Hx Patient Social History Alcohol Use: Denies Use Recreational Drug Use: No 2nd Hand Smoke Exposure: No Recent Foreign Travel: No Contact w/Someone Who Travel: No Recent Infectious Disease Expo: No Recent Hopitalizations: No Immunizations Up To Date Tetanus Booster (TDap): Unknown Date of Pneumonia Vaccine: Nov 28, 2011 Seasonal Allergies Seasonal Allergies: No Past Medical History Surgeries: Yes (pacer/AICD placement, left hand tendon repair) Orthopedic, Pacemaker Respiratory: No Cardiac: Yes (HEART FAILURE, CONGENITAL heart block status post pacemaker;NON- OBSTR CAD) Cardiomyopathy, Coronary Artery Disease, High Cholesterol, Hypertension Neurological: Yes (hx meningitis 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, has left-sided neurologic deficits) Developmental Disorder, Paralysis Reproductive Disorders: No Genitourinary: No Gastrointestinal: Yes (GASTRITIS) Gastroesophageal Reflux, Hemorrhoids, Chronic Diarrhea Musculoskeletal: 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) Arthritis, Contracture, Gout Endocrine: No HEENT: No Cancer: No Psychosocial: No Integumentary: Yes (bed bugs) Blood Disorders: No Adverse Reaction/Blood Tranf: No Family Medical History Alzheimer's disease Arthritis Colon cancer Diabetes mellitus Myocardial infarction Visual disorder Physical Exam Vital Signs Vital Signs - First Documented 12/23/19 12:40 Temp 37.0 Pulse 78 Resp 18 B/P (MAP) 137/89 (105) Pulse Ox 96 Capillary Refill : Less Than 3 Seconds Height, Weight, BMI Height: 6'0.00" Weight: 218lbs. 0.0oz. 98.475665gl; 38.00 BMI Method:Stated General Appearance: No Apparent Distress, WD/WN HEENT: PERRL/EOMI, Normal ENT Inspection Neck: Normal Inspection Respiratory: Lungs Clear, Normal Breath Sounds, No Accessory Muscle Use Cardiovascular: Regular Rate, Rhythm, No Murmur, Other (moderate pitting edema of the lower extremities) Gastrointestinal: Normal Bowel Sounds, Non Tender, Soft Extremity: Non Tender, Pedal Edema, Swelling Neurologic/Psychiatric: Alert, Oriented x3, Normal Mood/Affect, Other (left- sided weakness, divergent gaze) Skin: Normal Color, Warm/Dry Progress/Results/Core Measures Suspected Sepsis Recent Fever Within 48 Hours: No Infection Criteria Present: None New/Unexplained Altered Menta: No Sepsis Screen: No Definite Risk SIRS Temperature: Pulse: 78 Respiratory Rate: 18 Laboratory Tests 12/23/19 12:40: White Blood Count 6.2 Blood Pressure 137 /89 Mean: 105 Laboratory Tests 12/23/19 12:40: Creatinine 0.78, Platelet Count 140 Results/Orders Lab Results Laboratory Tests Test 12/23/19 12:40 Range/Units White Blood Count 6.2 4.3-11.0 10^3/uL Red Blood Count 5.15 4.35-5.85 10^6/uL Hemoglobin 15.2 13.3-17.7 G/DL Hematocrit 43 40-54 % Mean Corpuscular Volume 84 80-99 FL Mean Corpuscular Hemoglobin 30 25-34 PG Mean Corpuscular Hemoglobin Concent 35 32-36 G/DL Red Cell Distribution Width 13.0 10.0-14.5 % Platelet Count 140 130-400 10^3/uL Mean Platelet Volume 9.4 7.4-10.4 FL Neutrophils (%) (Auto) 50 42-75 % Lymphocytes (%) (Auto) 34 12-44 % Monocytes (%) (Auto) 15 H 0-12 % Eosinophils (%) (Auto) 1 0-10 % Basophils (%) (Auto) 1 0-10 % Neutrophils # (Auto) 3.1 1.8-7.8 X 10^3 Lymphocytes # (Auto) 2.1 1.0-4.0 X 10^3 Monocytes # (Auto) 0.9 0.0-1.0 X 10^3 Eosinophils # (Auto) 0.1 0.0-0.3 10^3/uL Basophils # (Auto) 0.0 0.0-0.1 10^3/uL Sodium Level 128 L 135-145 MMOL/L Potassium Level 3.3 L 3.6-5.0 MMOL/L Chloride Level 93 L 98-107 MMOL/L Carbon Dioxide Level 27 21-32 MMOL/L Anion Gap 8 5-14 MMOL/L Blood Urea Nitrogen 4 L 7-18 MG/DL Creatinine 0.78 0.60-1.30 MG/DL Estimat Glomerular Filtration Rate > 60 BUN/Creatinine Ratio 5 Glucose Level 92 70-105 MG/DL Calcium Level 8.6 8.5-10.1 MG/DL B-Type Natriuretic Peptide 63.7 <100.0 PG/ML My Orders Orders - ABRAHAM DEY MD Basic Metabolic Panel (12/23/19 12:46) BNP (12/23/19 12:46) Cbc With Automated Diff (12/23/19 12:46) Potassium Chloride (Tablet) (Klor Con Ta (12/23/19 13:30) Vital Signs/I&O 12/23/19 12:40 Temp 37.0 Pulse 78 Resp 18 B/P (MAP) 137/89 (105) Pulse Ox 96 Capillary Refill : Less Than 3 Seconds Blood Pressure Mean: 105 Progress Note : Progress Note Patient had some mild hypokalemia. Potassium 20 mEq was given in the ER. I discussed the situation with patient's binder caser. For the next couple of days we are going to restart Lasix and potassium at half doses. They will then contact his doctor on Wednesday for further instructions. Departure Impression Primary Impression: Lower leg edema Additional Impression: Hypokalemia Disposition: HOME, SELF-CARE Condition: Improved Departure-Patient Inst. Decision time for Depature: 13:26 Referrals: BEAU SHARPE DO (PCP/Family) Primary Care Physician Patient Instructions: Swelling Add. Discharge Instructions: Starting today and through the weekend you may take Lasix (frusemide) 20 mg daily and potassium 20 mEq daily. Please contact your doctor first thing on Wednesday morning for further instructions since we are unclear why the medications were stopped. Elevate feet toward the level of the heart when at rest. Call or return to care if you have any further questions or concerns. All discharge instructions reviewed with patient and/or family. Voiced understanding. Copy Copies To 1: BEAU SHARPE JOSHUA T MD Dec 23, 2019 13:03
[2019-12-23 13:04] LABS: CHLORIDE 93 MMOL/L (98-107); POTASSIUM 3.3 MMOL/L (3.6-5.0); SODIUM 128 MMOL/L (135-145)
[2019-12-23 13:05] LABS: CALCIUM 8.6 MG/DL (8.5-10.1)
[2019-12-23 13:06] LABS: GLUCOSE 92 MG/DL (70-105)
[2019-12-23 13:08] LABS: CARBON DIOXIDE 27 MMOL/L (21-32)
[2019-12-23 13:10] LABS: CREATININE SERUM 0.78 MG/DL (0.60-1.30); GFR ESTIMATED > 60
[2019-12-23 13:11] LABS: BUN/CREATININE RATIO 5
[2019-12-23] MEDS ORDERED: KCL 10 MEQ TAB (MICRO K) PO ONE (13:30)
[2019-12-23 13:33] VITALS: BP 137/89
== END 2019-12-23 13:33 | disposition home or self-care (01) ==
LOC: EDUNIT# 12:33 → ER 12:34
DX: R60.0 Localized edema (principal); E87.6 Hypokalemia; I10 Essential (primary) hypertension; K21.9 Gastro-esophageal reflux disease without esophagitis; E78.00 Pure hypercholesterolemia, unspecified; Z82.49 Family history of ischemic heart disease and other diseases of the circulatory system; Z80.0 Family history of malignant neoplasm of digestive organs; Z95.0 Presence of cardiac pacemaker; Z88.1 Allergy status to other antibiotic agents
CPT/HCPCS: 36415; 80048; 83880; 85025; 99283

== ENCOUNTER → 2020-01-05 | Outpatient (CLI) | payer MEDICARE, MEDICAID ==
[2020-01-05 13:09] LABS: CHLORIDE 96 MMOL/L (98-107); POTASSIUM 3.9 MMOL/L (3.6-5.0); SODIUM 131 MMOL/L (135-145)
[2020-01-05 13:10] LABS: GLUCOSE 93 MG/DL (70-105)
[2020-01-05 13:12] LABS: CARBON DIOXIDE 23 MMOL/L (21-32)
[2020-01-05 13:14] LABS: CREATININE SERUM 0.93 MG/DL (0.60-1.30); GFR ESTIMATED > 60
[2020-01-05 13:15] LABS: BUN/CREATININE RATIO 6
== END ==
LOC: LAB 12:44
PROVIDERS: ATTEND Physician Assistant
DX: R60.0 Localized edema (principal)
CPT/HCPCS: 36415; 80048

== ENCOUNTER → 2020-02-07 | Outpatient (CLI) | payer MEDICARE, MEDICAID ==
--- NOTE | 2020-02-07 12:04 | Diagnostic Imaging Report ---
INDICATION: Wheezing and hypertension. TIME OF EXAM: 10:35 a.m. COMPARISON: Correlation is made with prior chest from 11/27/2019. FINDINGS: Dual-lead left subclavian cardiac pacemaker remains in place. Right hemidiaphragm is mildly elevated, chronic. No infiltrate, effusion, or pneumothorax is detected. IMPRESSION: Stable chest. No acute feature is detected. Dictated by: Dictated on workstation # [id number]
== END ==
LOC: RAD 10:19
PROVIDERS: ATTEND Internal Medicine Cardiovascular Disease
DX: I10 Essential (primary) hypertension (principal); E78.5 Hyperlipidemia, unspecified; R06.2 Wheezing; R00.2 Palpitations; Z20.828 Contact with and (suspected) exposure to other viral communicable diseases
CPT/HCPCS: 71046

== ENCOUNTER → 2020-02-12 | Outpatient (CLI) | payer MEDICARE, MEDICAID | LOC: CARD 15:00 | PROVIDERS: ATTEND Internal Medicine Cardiovascular Disease | DX: I51.7 Cardiomegaly (principal); I10 Essential (primary) hypertension; E78.2 Mixed hyperlipidemia | CPT/HCPCS: 93306 ==

== ENCOUNTER 2020-03-09 10:48 | Observation (INO) | payer MEDICARE, MEDICAID ==
[2020-03-09] VITALS (8 sets, daily range): BP systolic 92–134; BP diastolic 61–100
[~2020-03-09] VITALS: Ht 182 cm; Wt 120.0 kg
[2020-03-09 12:03] LABS: HEMOGLOBIN 16.6 g/dL (13.3-17.7)
--- NOTE | 2020-03-09 12:03 | ED Cough/URI ---
General Chief Complaint: Cough/Cold/Flu Symptoms Stated Complaint: COUGH / SOA Nursing Triage Note: PT AMBULATORY TO ER WITH C/O SHORTNESS OF BREATH, COUGH AND CHEST PAIN THAT GETS WORSE WITH COUGHING AND TAKING A DEEP BREATH. PT DENIES ANY RECENT EXPOSURES TO COVID. Sepsis Screen: No Definite Risk Source: patient Exam Limitations: no limitations History of Present Illness Date Seen by Provider: Mar 09, 2020 Time Seen by Provider: 12:03 Initial Comments To ER with reports of inability to get a deep breath, chest pain worse when he takes a deep breath and a persistent cough. This has been ongoing for several months. No fevers or chills. Timing/Duration: constant Severity/Quality: dry cough Associated Symptoms: cough, shortness of breath Allergies and Home Medications Allergies Coded Allergies: vancomycin (Verified Allergy, Unknown, 11/11/05) Home Medications Allopurinol 300 Mg Tablet, 300 MG PO DAILY, (Reported) Bethanechol Chloride 50 Mg Tablet, 50 MG PO QID, (Reported) Bismuth Subsalicylate 262 Mg Tab.chew, 262 MG PO PRN PRN for INDIGESTION, (Reported) Cetirizine HCl 10 Mg Tab.chew, 10 MG PO DAILY, (Reported) Colestipol HCl 1 Gm Tab, 1 GM PO Q48H, (Reported) Divalproex Sodium 250 Mg Tablet.dr, 750 MG PO 0800,2100, (Reported) TAKES 3 (250MG) TABLETS Divalproex Sodium 250 Mg Tablet.dr, 500 MG PO 1200, (Reported) TAKES 2 (250MG) TABLETS Metoprolol Succinate 100 Mg Tab.er.24h, 100 MG PO HS, (Reported) Pantoprazole Sodium 40 Mg Tablet.dr, 40 MG PO DAILY, (Reported) Rosuvastatin Calcium 10 Mg Tablet, 10 MG PO DAILY, (Reported) Patient Home Medication List Home Medication List Reviewed: Yes Review of Systems Review of Systems Constitutional: see HPI Respiratory: cough, dyspnea on exertion Cardiovascular: see HPI, chest pain Genitourinary: no symptoms reported Musculoskeletal: no symptoms reported Skin: no symptoms reported Psychiatric/Neurological: No Symptoms Reported Hematologic/Lymphatic: No Symptoms Reported Immunological/Allergic: no symptoms reported Past Gnhwmam-Bpsorm-Whyifn Hx Patient Social History Alcohol Use: Denies Use Recreational Drug Use: No Smoking Status: Never a Smoker 2nd Hand Smoke Exposure: No Recent Foreign Travel: No Contact w/Someone Who Travel: No Recent Infectious Disease Expo: No Recent Hopitalizations: No Physical Abuse: No Sexual Abuse: No Mistreated: No Fear: No Immunizations Up To Date Tetanus Booster (TDap): Unknown Date of Pneumonia Vaccine: Nov 28, 2011 Seasonal Allergies Seasonal Allergies: No Past Medical History Surgeries: Yes (pacer/AICD placement, left hand tendon repair) Cardiac, Orthopedic, Pacemaker Respiratory: No Cardiac: Yes (HEART FAILURE, CONGENITAL heart block status post pacemaker;NON- OBSTR CAD) Cardiomyopathy, Coronary Artery Disease, High Cholesterol, Hypertension Neurological: Yes (hx meningitis 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, has left-sided neurologic deficits) Developmental Disorder, Paralysis Reproductive Disorders: No Genitourinary: No Gastrointestinal: Yes (GASTRITIS) Gastroesophageal Reflux, Hemorrhoids, Chronic Diarrhea Musculoskeletal: 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) Arthritis, Contracture, Gout Endocrine: No HEENT: No Cancer: No Psychosocial: No Integumentary: Yes (bed bugs) Blood Disorders: No Adverse Reaction/Blood Tranf: No Family Medical History Alzheimer's disease Arthritis Colon cancer Diabetes mellitus Myocardial infarction Visual disorder Physical Exam Vital Signs - First Documented 03/09/20 11:20 Temp 36.9 Pulse 81 Resp 20 B/P (MAP) 134/100 (111) Pulse Ox 97 O2 Delivery Room Air Capillary Refill : Less Than 3 Seconds Height: 6'0.00" Weight: 218lbs. 0.0oz. 98.795737hc; 32.00 BMI Method:Stated General Appearance: WD/WN, no apparent distress, other (Alert, pleasant, a little intellectually slow. 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.) Eyes: Bilateral Eye Normal Inspection, Bilateral Eye PERRL, Bilateral Eye EOMI Respiratory: normal breath sounds, no respiratory distress, no accessory muscle use Cardiovascular: regular rate, rhythm, no murmur Gastrointestinal: normal bowel sounds, non tender, soft Neurologic/Psychiatric: alert, normal mood/affect, oriented x 3 Skin: normal color, warm/dry (Jell-O) Progress/Results/Core Measures Suspected Sepsis Recent Fever Within 48 Hours: No Infection Criteria Present: None New/Unexplained Altered Menta: No Sepsis Screen: No Definite Risk SIRS Temperature: Pulse: 81 Respiratory Rate: 20 Laboratory Tests 03/09/20 11:43: White Blood Count 7.2 Blood Pressure 134 /100 Mean: 111 Laboratory Tests 03/09/20 11:43: Creatinine 1.03, Platelet Count 136, Total Bilirubin 0.5 Results/Orders Lab Results Laboratory Tests Test 03/09/20 11:43 03/09/20 11:49 03/09/20 14:31 Range/Units White Blood Count 7.2 4.3-11.0 10^3/uL Red Blood Count 5.75 H 4.30-5.52 10^6/uL Hemoglobin 16.6 13.3-17.7 g/dL Hematocrit 49 40-54 % Mean Corpuscular Volume 85 80-99 fL Mean Corpuscular Hemoglobin 29 25-34 pg Mean Corpuscular Hemoglobin Concent 34 32-36 g/dL Red Cell Distribution Width 14.5 10.0-14.5 % Platelet Count 136 130-400 10^3/uL Mean Platelet Volume 9.6 9.0-12.2 fL Immature Granulocyte % (Auto) 1 % Neutrophils (%) (Auto) 43 42-75 % Lymphocytes (%) (Auto) 38 12-44 % Monocytes (%) (Auto) 15 H 0-12 % Eosinophils (%) (Auto) 2 0-10 % Basophils (%) (Auto) 1 0-10 % Neutrophils # (Auto) 3.1 1.8-7.8 10^3/uL Lymphocytes # (Auto) 2.8 1.0-4.0 10^3/uL Monocytes # (Auto) 1.1 H 0.0-1.0 10^3/uL Eosinophils # (Auto) 0.1 0.0-0.3 10^3/uL Basophils # (Auto) 0.1 0.0-0.1 10^3/uL Immature Granulocyte # (Auto) 0.1 0.0-0.1 10^3/uL D-Dimer <= 0.27 0.00-0.49 UG/ML Sodium Level 135 135-145 MMOL/L Potassium Level 2.9 L 3.6-5.0 MMOL/L Chloride Level 94 L 98-107 MMOL/L Carbon Dioxide Level 31 21-32 MMOL/L Anion Gap 10 5-14 MMOL/L Blood Urea Nitrogen 3 L 7-18 MG/DL Creatinine 1.03 0.60-1.30 MG/DL Estimat Glomerular Filtration Rate > 60 BUN/Creatinine Ratio 3 Glucose Level 79 70-105 MG/DL Calcium Level 8.4 L 8.5-10.1 MG/DL Corrected Calcium 8.5 8.5-10.1 MG/DL Total Bilirubin 0.5 0.1-1.0 MG/DL Aspartate Amino Transf (AST/SGOT) 22 5-34 U/L Alanine Aminotransferase (ALT/SGPT) 14 0-55 U/L Alkaline Phosphatase 55 40-136 U/L Troponin I 0.056 H 0.072 H <0.028 NG/ML C-Reactive Protein High Sensitivity 0.03 0.00-0.50 MG/DL B-Type Natriuretic Peptide 10.0 <100.0 PG/ML Total Protein 6.6 6.4-8.2 GM/DL Albumin 3.9 3.2-4.5 GM/DL Procalcitonin 0.01 <0.10 NG/ML Micro Results Microbiology 03/09/20 Influenza Types A,B Antigen (SAVI) - Final, Complete My Orders Orders - LORENA GRIGSBY APRN Cbc With Automated Diff (03/09/20 11:57) Comprehensive Metabolic Panel (03/09/20 11:57) BNP (03/09/20 11:57) Ekg Tracing (03/09/20 11:57) Chest 1 View, Ap/Pa Only (03/09/20 11:57) Ed Iv/Invasive Line Start (03/09/20 11:57) Troponin I (03/09/20 11:57) Procalcitonin (Pct) (03/09/20 11:57) Hs C Reactive Protein (03/09/20 11:57) Fibrin Degradation Products (03/09/20 11:57) Covid 19 Inhouse Test (03/09/20 12:02) Coronavirus Sars-Cov-2 So 2018 (03/09/20 12:02) Influenza A And B Antigens (03/09/20 12:02) Albuterol Inhaler (Ventolin Hfa) (03/09/20 14:00) Potassium Cl 10meq/50ml Ivpb (Kcl 10 Meq (03/09/20 12:30) Potassium Chloride (Tablet) (Klor Con Ta (03/09/20 12:30) Ns Iv 500 Ml (Sodium Chloride 0.9%) (03/09/20 12:45) Troponin I (03/09/20 14:37) Medications Given in ED Current Medications Medications Dose Ordered Sig/Kinsey Route Start Time Stop Time Status Last Admin Dose Admin Potassium Chloride 40 meq ONCE ONCE PO 03/09/20 12:30 03/09/20 12:31 DC 03/09/20 13:07 40 MEQ Potassium Chloride 50 ml @ 50 mls/hr ONCE ONCE IV 03/09/20 12:30 03/09/20 13:29 DC 03/09/20 13:07 50 MLS/HR Vital Signs/I&O 03/09/20 03/09/20 11:20 13:11 Temp 36.9 Pulse 81 Resp 20 B/P (MAP) 134/100 (111) Pulse Ox 97 98 O2 Delivery Room Air Room Air Capillary Refill : Less Than 3 Seconds Blood Pressure Mean: 111 Diagnostic Imaging Diagonstic Imaging: Xray Plain Films/CT/US/NM/MRI: chest Comments NAME: SAYRA [facility]NA[facility]A [facility] REC#: [id number] PT STATUS: REG ER : 1965 PHYSICIAN: LORENA GRIGSBY [employer]GGING TRA[employer] 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 Allowing for this technical factor the heart is stable in size when compared to the prior exam of 02/07/2020. Left-sided pacemaker seen previously is again evident and not significantly changed. The central pulmonary vasculature is somewhat prominent but no different than on the prior exam. There is still no sign of failure, pneumonia or a pleural effusion to indicate an acute abnormality. The mediastinum is not widened. The osseous structures are intact. IMPRESSION: There is no evidence for active disease. Dictated on workstation # [id number] Dict: 03/09/20 1255 Trans: 03/09/20 1306 [facility] [id number] Interpreted by: TAD LOREDO MD Electronically signed by: Departure Communication (Admissions) Time/Spoke to Admitting Phy: 15:[address] Plaza as well as Dr. Stephen. Will admit, echocardiogram today, trend the troponin. I notified his caregiver Dedra Garcia of the plan and she is appreciative of the update. 1255-patient had a cardiac catheterization by Dr. Lau in September of this year showing mild nonobstructive disease with a small coronary system. I discussed this in light of the slightly bumped troponin with Dr. Stephen. We will do a 3- hour troponin here and plan to discharge home if it is stable. Impression Primary Impression: Reactive airway disease Additional Impressions: Hypokalemia Elevated troponin Disposition: ADMITTED INPATIENT Condition: Stable Admissions Decision to Admit Reason: Admit from ER (General) Decision to Admit/Date: Mar 09, 2020 Time/Decision to Admit Time: 15:18 Departure-Patient Inst. Referrals: BEAU SHARPE DO (PCP/Family) Primary Care Physician LORENA GRIGSBY APRN Mar 09, 2020 12:03
[2020-03-09 12:05] LABS: BASOPHILS # (AUTO) 0.1 10^3/uL (0.0-0.1); BASOPHILS % (AUTO) 1 % (0-10); EOSINOPHILS # (AUTO) 0.1 10^3/uL (0.0-0.3); EOSINOPHILS % (AUTO) 2 % (0-10); HEMATOCRIT 49 % (40-54); LYMPHOCYTES # (AUTO) 2.8 10^3/uL (1.0-4.0); LYMPHOCYTES % (AUTO) 38 % (12-44); MEAN CORPUSCULAR HEMOGLOBIN 29 pg (25-34); MEAN CORPUSCULAR HGB CONC 34 g/dL (32-36); MEAN CORPUSCULAR VOLUME 85 fL (80-99); MEAN PLATELET VOLUME 9.6 fL (9.0-12.2); MONOCYTES # (AUTO) 1.1 10^3/uL (0.0-1.0); MONOCYTES % (AUTO) 15 % (0-12); NEUTROPHILS # (AUTO) 3.1 10^3/uL (1.8-7.8); NEUTROPHILS % (AUTO) 43 % (42-75); PLATELET COUNT 136 10^3/uL (130-400); WHITE BLOOD COUNT 7.2 10^3/uL (4.3-11.0)
[2020-03-09 12:21] LABS: ALBUMIN 3.9 GM/DL (3.2-4.5); CHLORIDE 94 MMOL/L (98-107); POTASSIUM 2.9 MMOL/L (3.6-5.0); SODIUM 135 MMOL/L (135-145)
[2020-03-09 12:22] LABS: CALCIUM 8.4 MG/DL (8.5-10.1)
[2020-03-09 12:24] LABS: GLUCOSE 79 MG/DL (70-105); TOTAL PROTEIN 6.6 GM/DL (6.4-8.2)
[2020-03-09 12:25] LABS: BILIRUBIN,TOTAL 0.5 MG/DL (0.1-1.0); CARBON DIOXIDE 31 MMOL/L (21-32)
[2020-03-09 12:27] LABS: ALKALINE PHOSPHATASE 55 U/L (40-136); CREATININE SERUM 1.03 MG/DL (0.60-1.30); GFR ESTIMATED > 60
[2020-03-09 12:28] LABS: BUN/CREATININE RATIO 3
[2020-03-09 12:30] LABS: ALANINE AMINOTRANSFERASE 14 U/L (0-55)
[2020-03-09] MEDS ORDERED: POTASSIUM CL 10MEQ/50ML IVPB 50 ML IV ONE (12:30)
[2020-03-09] MEDS ORDERED: KCL 10 MEQ TAB (MICRO K) PO ONE (12:30)
[2020-03-09] MEDS ORDERED: NS IV 500 ML 500 ML IV SCH (12:45)
--- NOTE | 2020-03-09 13:06 | Diagnostic Imaging Report ---
Portable erect AP chest at 1240 INDICATION: Shortness of breath This exam is less than optimal as the patient is rotated. Allowing for this technical factor the heart is stable in size when compared to the prior exam of 02/07/2020. Left-sided pacemaker seen previously is again evident and not significantly changed. The central pulmonary vasculature is somewhat prominent but no different than on the prior exam. There is still no sign of failure, pneumonia or a pleural effusion to indicate an acute abnormality. The mediastinum is not widened. The osseous structures are intact. IMPRESSION: There is no evidence for active disease. Dictated by: Dictated on workstation # [id number]
[2020-03-09] MEDS: RT-ALBUTEROL INHALER HFA (VENTOLIN HFA) 18 GM IH SCH (13:11)
--- NOTE | 2020-03-09 14:37 | NUR ---
Patient awake and alert. He is resting in bed, talking on cell phone to his mother. Pt denies any needs. Repeat Troponin lab draw drawn from IV site in right AC and sent to lab.
--- NOTE | 2020-03-09 16:58 | NUR ---
Patient was on the phone with his mother letting her know he was being admitted.
[2020-03-09] MEDS: ASPIRIN 81 MG CHEW (CHILDREN'S ASA) PO SCH (18:29)
[2020-03-09] MEDS: ENOXAPARIN 300 MG/3 ML (LOVENOX) MULTI-DOSE VIAL SQ SCH (18:29)
[2020-03-10 04:44] VITALS: BP 122/87
[2020-03-10 06:05] LABS: HEMOGLOBIN 16.6 g/dL (13.3-17.7); MEAN CORPUSCULAR VOLUME 86 fL (80-99)
[2020-03-10 06:07] LABS: BASOPHILS # (AUTO) 0.1 10^3/uL (0.0-0.1); BASOPHILS % (AUTO) 1 % (0-10); EOSINOPHILS # (AUTO) 0.1 10^3/uL (0.0-0.3); EOSINOPHILS % (AUTO) 1 % (0-10); HEMATOCRIT 50 % (40-54); LYMPHOCYTES # (AUTO) 1.8 10^3/uL (1.0-4.0); LYMPHOCYTES % (AUTO) 30 % (12-44); MEAN CORPUSCULAR HEMOGLOBIN 29 pg (25-34); MEAN CORPUSCULAR HGB CONC 33 g/dL (32-36); MEAN PLATELET VOLUME 9.7 fL (9.0-12.2); MONOCYTES # (AUTO) 0.8 10^3/uL (0.0-1.0); MONOCYTES % (AUTO) 13 % (0-12); NEUTROPHILS # (AUTO) 3.1 10^3/uL (1.8-7.8); NEUTROPHILS % (AUTO) 54 % (42-75); PLATELET COUNT 113 10^3/uL (130-400); WHITE BLOOD COUNT 5.9 10^3/uL (4.3-11.0)
[2020-03-10 06:16] LABS: ALBUMIN 3.6 GM/DL (3.2-4.5); CHLORIDE 95 MMOL/L (98-107); POTASSIUM 3.3 MMOL/L (3.6-5.0); SODIUM 135 MMOL/L (135-145)
[2020-03-10 06:17] LABS: CALCIUM 8.3 MG/DL (8.5-10.1)
[2020-03-10 06:18] LABS: GLUCOSE 101 MG/DL (70-105); TOTAL PROTEIN 6.1 GM/DL (6.4-8.2)
[2020-03-10 06:19] LABS: CARBON DIOXIDE 28 MMOL/L (21-32)
[2020-03-10 06:20] LABS: BILIRUBIN,TOTAL 0.7 MG/DL (0.1-1.0)
[2020-03-10 06:22] LABS: ALKALINE PHOSPHATASE 56 U/L (40-136); CREATININE SERUM 0.83 MG/DL (0.60-1.30); GFR ESTIMATED > 60
[2020-03-10 06:23] LABS: BUN/CREATININE RATIO 6
[2020-03-10 06:25] LABS: ALANINE AMINOTRANSFERASE 13 U/L (0-55)
[2020-03-10] MEDS: KCL 20 MEQ TAB (K-DUR) PO SCH (06:35)
[2020-03-10] MEDS: ENOXAPARIN 300 MG/3 ML (LOVENOX) MULTI-DOSE VIAL SQ SCH ×2 (06:38→18:02)
--- NOTE | 2020-03-10 07:00 | NUR ---
TRANSFERRED TO ROOM 511 DUE TO BED AVAILABILITY. A GOOD NIGHT WITHOUT COMPLAINTS.
[2020-03-10] MEDS: ASPIRIN 81 MG CHEW (CHILDREN'S ASA) PO SCH (10:00)
[2020-03-10] MEDS ORDERED: KCL 20 MEQ TAB (K-DUR) PO ONE (11:45)
--- NOTE | 2020-03-10 11:55 | History & Physical ---
HPI History of Present Illness: Presented to [facility] ED yesterday with cough and chest pain. Troponin found to be mildly elevated and patient admitted for ECHO and serial troponins. Follows with Dr. Lau and had a cath in September 2019 that showed no occlusions. Today chest pain is gone. Still having cough. COVID negative. CXR clear. Date seen by provider: Mar 10, 2020 Time Seen by Provider: 11:52 Attending Physician Ila Boswell MD PCP Demi Agustin DO Consult Date of Admission Mar 09, 2020 at 15:02 Home Medications Home Medications Reviewed patient Home Medication Reconciliation performed by pharmacy medication reconciliations fish roe technician and/or nursing. Patients Allergies have been reviewed. Allergies Coded Allergies: vancomycin (Verified Allergy, Unknown, 11/11/05) [id number]-[id number] Hx Patient Social History Marrital Status: single Employed/Student: unemployed Alcohol Use: Denies Use Recreational Drug Use: No Smoking Status: Never a Smoker 2nd Hand Smoke Exposure: No Recent Foreign Travel: No Contact w/other who traveled: No Recent Hopitalizations: No Recent Infectious Disease Expo: No Immunizations Up To Date Tetanus Booster (TDap): Unknown Date of Pneumonia Vaccine: Nov 28, 2011 Past Medical History Gout, htn, hld, GERD Family Medical History Family History: Alzheimer's disease Arthritis Colon cancer Diabetes mellitus Myocardial infarction Visual disorder Review of Systems ([facility]) Constitutional: No chills, No diaphoresis, No dizziness, No fever EENTM: No ear pain, No nose congestion, No throat pain Respiratory: cough; No dyspnea on exertion, No wheezing Cardiovascular: chest pain; No edema Gastrointestinal: No abdominal pain, No constipation, No diarrhea Musculoskeletal: No muscle pain, No muscle stiffness Skin: No rash Physical Exam-([facility]) Physical Exam Vital Signs VS - Last 72 Hours, by Label 03/09/20 03/09/20 03/09/20 03/09/20 11:20 11:20 13:11 16:30 Temp 36.9 36.8 Pulse 81 66 Resp 20 16 B/P (MAP) 134/100 (111) 128/80 Pulse Ox 97 98 98 O2 Delivery Room Air Room Air Room Air Room Air 03/09/20 03/09/20 03/09/20 03/09/20 16:43 16:49 17:00 17:06 Temp 36.9 Pulse 81 61 62 Resp 20 37 B/P (MAP) 134/100 92/84 (87) Pulse Ox 98 98 100 O2 Delivery Room Air Room Air Room Air 03/09/20 03/09/20 03/09/20 03/09/20 18:00 18:37 19:00 20:00 Pulse 64 64 60 62 Resp 10 28 17 B/P (MAP) 117/71 (86) 108/99 (102) 115/79 (91) Pulse Ox 97 99 96 O2 Delivery Room Air Room Air Room Air 03/09/20 03/09/20 03/09/20 03/09/20 20:49 20:57 21:00 22:00 Pulse 62 62 Resp 15 26 B/P (MAP) 128/81 (97) 93/62 (72) Pulse Ox 98 98 95 O2 Delivery Room Air Room Air Room Air Room Air 03/09/20 03/10/20 03/10/20 03/10/20 23:56 00:17 00:47 03:59 Temp 35.6 Pulse 71 65 Resp 16 B/P (MAP) 102/61 (75) Pulse Ox 98 O2 Delivery Room Air Room Air Room Air 03/10/20 03/10/20 04:44 07:00 Temp 36.2 Pulse 79 65 Resp 20 B/P (MAP) 122/87 (99) Pulse Ox 98 O2 Delivery Room Air Capillary Refill : Less Than 3 Seconds General Appearance: WD/WN, no apparent distress Eyes: Bilateral Eye Normal Inspection HEENT: PERRL/EOMI Neck: non-tender Respiratory: lungs clear, normal breath sounds, no respiratory distress, no ac cessory muscle use Cardiovascular: regular rate, rhythm, no edema, no gallop Gastrointestinal: normal bowel sounds, non tender, soft, no organomegaly, no pulsatile mass Back: no CVA tenderness Extremities: normal range of motion, non-tender, normal inspection Neurologic/Psychiatric: no motor/sensory deficits, alert, oriented x 3 Skin: normal color, warm/dry Assessment/Plan Assessment/Plan Admission Dx Chest pain with elevated troponin. Admission Status: Observation (1) Chest pain Assessment & Plan: Slightly elevated troponin. Dr. Stephen to see patient and follow. (2) Hypokalemia Assessment & Plan: Improving. Replace po today. check magnesium level. Clinical Quality Measures DVT/VTE Risk/Contraindication: Risk Factor Score Per Nursin RFS Level Per Nursing on Admit: 2=Moderate ILA BOSWELL MD Mar 10, 2020 11:55
[2020-03-10 12:03] VITALS: BP 111/73
[2020-03-10] MEDS: CLOPIDOGREL 75 MG (PLAVIX) TABLET PO SCH (12:28)
--- NOTE | 2020-03-10 12:55 | Consultation-Cardiology ---
HPI-Cardiology Cardiology Consultation: Date of Consultation 03/10/20 Date of Admission Attending Physician Ila Plaza MD Admitting Physician Demi Agustin DO Consulting Physician Sheridan STEPHEN MD HPI: Time Seen by a Provider: 12:52 Chief Complaint: Chest pain This is a 55-year-old gentleman who follows with Dr. Lau. He has history of complete heart block with dual-chamber permanent pacemaker [place] [address] Lau. Previously abnormal nuclear stress test requiring coronary angiography which did not show any significant obstructive disease in September,. He pres ents with shortness of breath and chest pain. Mild to moderate intensity. Substernal. Worsening for few months. Denies active smoking. No significant pertinent family history. Review of Systems-Cardiology Review of Systems Constitutional: As described under HPI; No As described under HPI, No no symptoms reported, No chills, No fever, No lightheadedness Eyes: No As described under HPI, No no symptoms reported, No blindness, No blurred vision, No contact lenses, No drainage, No decreased acuity, No foreign body sensation, No pain, No vision change Ears/Nose/Throat: No As described under HPI, No no symptoms reported, No chronic hearing loss, No ear discharge, No ear pain, No nasal drainage, No ulcerations Respiratory: No no symptoms reported; As described under HPI; No As described under HPI, No cough, No orthopnea; shortness of breath; No SOB with excertion Cardiovascular: No no symptoms reported; As described under HPI; No As described under HPI; chest pain; No edema, No irregular heart rate, No lig htheadedness, No palpitations Gastrointestinal: No no symptoms reported, No As described under HPI, No abd omen distended, No abdominal pain, No blood streaked bowels, No constipation, No diarrhea, No nausea, No vomiting, No stool coloration changes Genitourinary: No As described under HPI, No burning, No dysuria, No discharge, No frequency, No flank pain, No hematuria, No urgency Skin: No rash, No skin related problems, No ulcerations Psychiatric/Neurological: No anxiety, No depression, No seizure, No focal weakness, No syncope Hematologic: No bleeding abnormalities [id number] Hx Patient Social History Marrital Status: single Employed/Student: unemployed Alcohol Use: Denies Use Recreational Drug Use: No Smoking Status: Never a Smoker 2nd Hand Smoke Exposure: No Recent Foreign Travel: No Recent Infectious Disease Expo: No Hospitalization with Isolation: Denies Immunizations Up To Date Tetanus Booster (TDap): Unknown Date of Pneumonia Vaccine: Nov 28, 2011 Past Medical History PMH As described under Assessment. Family Medical History Family Medical History: He reports a family h/o SC. Family History: Alzheimer's disease Arthritis Colon cancer Diabetes mellitus Myocardial infarction Visual disorder Allergies and Home Medications Allergies Coded Allergies: vancomycin (Verified Allergy, Unknown, 11/11/05) Home Medications Allopurinol 300 Mg Tablet, 300 MG PO DAILY, (Reported) Bethanechol Chloride 50 Mg Tablet, 50 MG PO QID, (Reported) Bismuth Subsalicylate 262 Mg Tab.chew, 262 MG PO PRN PRN for INDIGESTION, (Reported) Cetirizine HCl 10 Mg Tab.chew, 10 MG PO DAILY, (Reported) Colestipol HCl 1 Gm Tab, 1 GM PO Q48H, (Reported) Divalproex Sodium 250 Mg Tablet.dr, 750 MG PO 0800,2100, (Reported) TAKES 3 (250MG) TABLETS Divalproex Sodium 250 Mg Tablet.dr, 500 MG PO 1200, (Reported) TAKES 2 (250MG) TABLETS Metoprolol Succinate 100 Mg Tab.er.24h, 100 MG PO HS, (Reported) Pantoprazole Sodium 40 Mg Tablet.dr, 40 MG PO DAILY, (Reported) Rosuvastatin Calcium 10 Mg Tablet, 10 MG PO DAILY, (Reported) Patient Home Medication List Home Medication List Reviewed: Yes Physical Exam-Cardiology Physical Exam Vital Signs/I&O 03/10/20 03/10/20 03/10/20 03/10/20 03:59 04:44 07:00 12:03 Temp 36.2 36.8 Pulse 79 65 79 Resp 20 19 B/P (MAP) 122/87 (99) 111/73 (86) Pulse Ox 98 97 O2 Delivery Room Air Room Air Room Air 03/10/20 12:16 Pulse 79 03/10/20 00:00 Intake Total 110 ml Output Total 250 ml Balance -140 ml Capillary Refill : Less Than 3 Seconds Constitutional: appears stated age, AAO x 3; No apparent distress; well- developed, well-nourished HEENT: PERRL; No discharge; hearing is well preserved, oral hygience is good; No ulceration, No xanthelasmas are seen Neck: No carotid bruit; carotid pulses are 2 + bilaterally Respiratory: chest is bilaterally symmetric, lungs clear to auscultation Cardiovascular: regular rate-rhythm, S1 and S2 Gastrointestinal: soft, audible bowel sounds; No spleenomegaly Rectal: deferred Extremities: normal range of motion, non-tender, normal inspection; No clubbing, No cyanosis; no lower extremity edema bilateral; No significant edema Neurologic/Psychiatric: no motor/sensory deficits, alert, normal mood/affect, oriented x 3, power is 5/5 both on sides Skin: normal color, warm/dry; No rash, No ulcerations Data Review Labs Laboratory Tests 03/09/20 14:31: Troponin I 0.072H 03/10/20 05:45: Troponin I 0.075H, White Blood Count 5.9, Red Blood Count 5.82H, Hemoglobin 16.6, Hematocrit 50, Mean Corpuscular Volume 86, Mean Corpuscular Hemoglobin 29, Mean Corpuscular Hemoglobin Concent 33, Red Cell Distribution Width 14.6H, Platelet Count 113L, Mean Platelet Volume 9.7, Immature Granulocyte % (Auto) 1, Neutrophils (%) (Auto) 54, Lymphocytes (%) (Auto) 30, Monocytes (%) (Auto) 13H, Eosinophils (%) (Auto) 1, Basophils (%) (Auto) 1, Neutrophils # (Auto) 3.1, Lymphocytes # (Auto) 1.8, Monocytes # (Auto) 0.8, Eosinophils # (Auto) 0.1, Basophils # (Auto) 0.1, Immature Granulocyte # (Auto) 0.0, Sodium Level 135, Potassium Level 3.3L, Chloride Level 95L, Carbon Dioxide Level 28, Anion Gap 12, Blood Urea Nitrogen 5L, Creatinine 0.83, Estimat Glomerular Filtration Rate > 60, BUN/Creatinine Ratio 6, Glucose Level 101, Calcium Level 8.3L, Corrected Calcium 8.6, Magnesium Level 1.7, Total Bilirubin 0.7, Aspartate Amino Transf (AST/SGOT) 22, Alanine Aminotransferase (ALT/SGPT) 13, Alkaline Phosphatase 56, Total Protein 6.1L, Albumin 3.6 Microbiology 03/09/20 Influenza Types A,B Antigen (SAVI) - Final, Complete A/P-Cardiology Assessment/Admission Diagnosis Chest pain, Positive troponin, shortness of breath Plan Chest pain, serial troponin show an upward trend. Coronary angiography in September 2019 showed no obstructive disease. I discussed at length with the patient and due to up for trend of positive troponin, will start the patient on Plavix. Continue aspirin. Dr. Lau is the patient's outpatient harness fitter and is taking over tomorrow. Nuclear stress test possibly tomorrow. Shortness of breath: Negative for COVID-19. Echocardiogram showed normal LV function with mild diastolic dysfunction. BNP 10. Therefore congestive heart failure can't be ruled out. Thank you for your consultation. Please call me if you have any questions. Sagar Stephen MD, FACP, FACC, FSCAI, FHRS, CCDS Interventional Cardiology Cardiac Electrophysiology Vascular Medicine and Endovascular Interventions Clinical Quality Measures DVT/VTE Risk/Contraindication: Risk Factor Score Per Nursin RFS Level Per Nursing on Admit: 2=Moderate Sheridan STEPHEN MD Mar 10, 2020 12:55
[2020-03-10 16:00] VITALS: BP 132/69
[2020-03-10] MEDS: RT-ALBUTEROL INHALER HFA (VENTOLIN HFA) 18 GM IH SCH ×2 (18:05→18:33)
[2020-03-10 19:57] VITALS: BP 117/71
[2020-03-11 00:15] VITALS: BP 139/83
[2020-03-11 04:27] VITALS: BP 121/87
[2020-03-11 04:32] LABS: CHLORIDE 97 MMOL/L (98-107); POTASSIUM 3.6 MMOL/L (3.6-5.0); SODIUM 133 MMOL/L (135-145)
[2020-03-11 04:34] LABS: CALCIUM 8.4 MG/DL (8.5-10.1); GLUCOSE 117 MG/DL (70-105)
[2020-03-11 04:36] LABS: CARBON DIOXIDE 24 MMOL/L (21-32)
[2020-03-11 04:38] LABS: CREATININE SERUM 0.85 MG/DL (0.60-1.30); GFR ESTIMATED > 60
[2020-03-11 04:39] LABS: BUN/CREATININE RATIO 6
[2020-03-11] MEDS: ENOXAPARIN 300 MG/3 ML (LOVENOX) MULTI-DOSE VIAL SQ SCH (07:05)
[2020-03-11 08:00] VITALS: BP 141/84
[2020-03-11] MEDS: ASPIRIN 81 MG CHEW (CHILDREN'S ASA) PO SCH (08:21)
[2020-03-11] MEDS: KCL 20 MEQ TAB (K-DUR) PO SCH (08:21)
[2020-03-11] MEDS: CLOPIDOGREL 75 MG (PLAVIX) TABLET PO SCH (08:21)
--- NOTE | 2020-03-11 09:03 | Cardiology Progress Note ---
Subjective Date Seen by Provider: Mar 11, 2020 Time Seen by Provider: 09:01 Subjective/Events-last exam Patient is laying down in bed, feeling well, denied any chest pain or shortness of breath Review of Systems General: No Chills, No Night Sweats, No Fatigue, No Malaise, No Appetite, No Ot her HEENT: No Head Aches, No Visual Changes, No Eye Pain, No Ear Pain, No Dysp hasia, No Sinus Congestion, No Post Nasal Drip, No Sore Throat, No Other Pulmonary: No Dyspnea, No Cough, No Pleuritic Chest Pain, No Other Cardiovascular: No: Chest Pain, Palpitations, Orthopnea, Paroxysmal Noc. Dyspnea, Edema, Lt Headedness, Other Objective-Cardiology Exam Last Set of Vital Signs Vital Signs 03/11/20 03/11/20 04:27 06:36 Temp 36.5 Pulse 80 Resp 18 B/P (MAP) 121/87 (98) Pulse Ox 100 O2 Delivery Room Air Capillary Refill : Less Than 3 Seconds I&O Intake and Output 03/11/20 00:00 Intake Total 1725 ml Output Total 1800 ml Balance -75 ml Intake Oral 1725 ml Output Urine Total 1800 ml General: Alert, Oriented X3, Cooperative HEENT: Atraumatic, PERRLA Neck: Supple, No JVD, No Thyromegaly Lungs: Clear to Auscultation, Normal Air Movement Heart: Regular Rate, Normal S1, Normal S2, No Murmurs Abdomen: Normal Bowel Sounds, Soft, No Tenderness, No Hepatosplenomegaly, No Masses Extremities: No Clubbing, No Cyanosis, No Edema, Normal Pulses, No Tenderness/Swelling Skin: No Rashes, No Breakdown, No Significant Lesion Neuro: Normal Gait, Normal Speech, Strength at 5/5 X4 Ext, Normal Tone, Sensation Intact Psych/Mental Status: Mental Status NL, Mood NL Results Lab Laboratory Tests 03/11/20 03:50 A/P-Cardiology Admission Diagnosis Chest pain Shortness of breath Complete heart block Cardiac pacemaker Assessment/Plan Chest pain nonspecific etiology, slight elevation in troponin did not reach significant level to be called positive troponin. Probably due to small vessel disease. No signs of myocardial infarction. I reviewed his catheter films and showing no significant obstructive disease, probably has small vessel disease Mild shortness of breath, BNP is normal. No signs of heart failure History of complete heart block, permanent pacemaker Okay for discharge, maintain on aspirin and Plavix as an outpatient. Clinical Quality Measures DVT/VTE Risk/Contraindication: Risk Factor Score Per Nursin RFS Level Per Nursing on Admit: 2=Moderate TON SALDANA MD Mar 11, 2020 9:03 am
[2020-03-11] MEDS ORDERED: FURO40TA4 PO (10:04)
[2020-03-11] MEDS ORDERED: Bethanechol Chloride PO (10:04)
[2020-03-11] MEDS ORDERED: POTA20TA15 PO ×2 (10:16→12:38)
--- NOTE | 2020-03-11 10:17 | NUR ---
SPOKE WITH THE PT (HE HAS A MED LIST), WENT THRU THE EXT MED HISTORY AND CALLED [facility] (THEY [facility] HIS MEDS) TO COMPLETE THE MED REC PT WAS NOT ABLE TO TELL ME HOW/WHEN HE TAKES HIS MEDICATION AND THE MED LIST HE HAS ISNT UP TO DATE. WHEN I SPOKE WITH [facility] I WAS TOLD HE GETS HIS MEDS THRU THE [facility] SERVICE AND THEY TOLD ME WHEN EACH MED WAS SCHEDULED. ON THE PT MED LIST FROM HOME IT SAYS "K-DUR 20MEQ 2 TIMES A DAY" BUT [facility] SAYS THE MOST RECENT RX SAYS "1 TAB EVERY OTHER DAY". SINCE [facility] PACKS HIS MEDICATIONS I ENTERED THE EVERY OTHER DAY DIRECTIONS ON THE MED REC OTC MEDS: GONZALEZ ARMSTRONGN
[2020-03-11 12:12] VITALS: BP 137/89
[2020-03-11] MEDS ORDERED: ALBU18HF2 IH (12:38)
[2020-03-11] MEDS ORDERED: CLOP75TA28 PO (12:38)
[2020-03-11] MEDS ORDERED: ASPI-999 PO (12:38)
--- NOTE | 2020-03-11 12:46 | Discharge Summary ---
Discharge Summary Hospital Course Was the Problem List Reviewed?: Yes Hospital Course Date of Admission: Mar 09, 2020 at 15:02 Admission Diagnosis : Family Physician/Provider: Demi Agustin DO Date of Discharge: 03/11/20 Discharge Diagnosis: 1. Chest Pain likely from small vessel disease--resolved 2. Hypertension--stable 3. GERD--stable 4. History of Seizure Disorder--stable 5. Hypokalemia--resolved Hospital Course: This is a 55 year old male with a history of small vessel coronary disease who presented to the ED with chest pain and cough. He was found to have a mildly elevated troponin and was admitted to cardiac stepdown with telemetry and cardiology consult. He was restarted on plavix by cardiology and his serial troponins never elevated to a significant level. It was felt that his pain was likely small vessel disease in etiology and that he could be discharged home on plavix and aspirin. He also had complaint of cough on admit. His COVID tests were negative and he was started on albuterol which has helped. He also had hypokalemia which was replaced during his hospital stay. He had no further chest pain after admission and will be discharged home and fwup with in [address] Lau in a month. Labs and Pending Lab Test: Laboratory Tests 03/11/20 03:50: Sodium Level 133L, Potassium Level 3.6, Chloride Level 97L, Carbon Dioxide Level 24, Anion Gap 12, Blood Urea Nitrogen 5L, Creatinine 0.85, Estimat Glomerular Filtration Rate > 60, BUN/Creatinine Ratio 6, Glucose Level 117H, Calcium Level 8.4L Microbiology 03/09/20 Influenza Types A,B Antigen (SAVI) - Final, Complete Home Meds Active Ventolin Hfa (Albuterol Sulfate) 18 Gm Hfa.aer.ad 0 Gm IH RTQ4HR Clopidogrel (Clopidogrel Bisulfate) 75 Mg Tablet 75 Mg PO DAILY Aspirin 81 Mg Tab.chew 81 Mg PO DAILY@0900 Potassium Chloride 20 Meq Tab.er.prt 40 Meq PO DAILY Reported Furosemide 40 Mg Tablet 40 Mg PO DAILY [Bethanechol Chloride] 50 Mg PO QID Pantoprazole Sodium 40 Mg Tablet.dr 40 Mg PO DAILY Pepto-Bismol (Bismuth Subsalicylate) 262 Mg Tab.chew 262 Mg PO PRN PRN Allopurinol 300 Mg Tablet 300 Mg PO DAILY Children's Cetirizine HCl (Cetirizine HCl) 10 Mg Tab.chew 10 Mg PO DAILY Metoprolol Succinate 100 Mg Tab.er.24h 100 Mg PO HS Colestid (Colestipol HCl) 1 Gm Tab 1 Gm PO Q48H Divalproex Sodium 250 Mg Tablet.dr 500 Mg PO 1200 TAKES 2 (250MG) TABLETS Divalproex Sodium 250 Mg Tablet.dr 750 Mg PO BID TAKES 3 (250MG) TABLETS Rosuvastatin Calcium 10 Mg Tablet 10 Mg PO DAILY Assessment/Pt Instructions 1. Chest Pain likely from small vessel disease--resolved 2. Hypertension--stable 3. GERD--stable 4. History of Seizure Disorder--stable 5. Hypokalemia--replaced Discharge Planning: <30 minutes discharge planning Discharge Instructions Activity as Tolerated: Yes Discharge Physical Examination Vital Signs Vital Signs Date Time Temp Pulse Resp B/P (MAP) Pulse Ox O2 Delivery O2 Flow Rate FiO2 03/11/20 12:12 35.9 95 20 137/89 (105) 98 Room Air General Appearance: No Apparent Distress Respiratory: Lungs Clear Cardiovascular: Regular Rate, Rhythm Gastrointestinal: Normal Bowel Sounds, Non Tender, Soft Extremity: Non Tender, No Calf Tenderness, Pedal Edema Skin: Warm/Dry Neurologic/Psychiatric: Alert, Oriented x3 Allergies: Coded Allergies: vancomycin (Verified Allergy, Unknown, 11/11/05) Discharge Summary Date of Admission Mar 09, 2020 at 15:02 Date of Discharge Clinical Quality Measures DVT/VTE Risk/Contraindication: Risk Factor Score Per Nursin RFS Level Per Nursing on Admit: 2=Moderate DEMI AGUSTIN DO Mar 11, 2020 12:46
[2020-03-11 13:40] VITALS: BP 137/89
== END 2020-03-11 13:40 | disposition home or self-care (01) ==
LOC: EDUNIT# 10:48 → ER 10:49 → ICU 15:02 → CSD 03-10 06:49 → ICU 03-11 02:38 → CSD 03-11 05:10
PROVIDERS: ADMIT Family Medicine; ATTEND Family Medicine
DX: R07.9 Chest pain, unspecified (principal); I10 Essential (primary) hypertension; K21.9 Gastro-esophageal reflux disease without esophagitis; E87.6 Hypokalemia; I25.10 Atherosclerotic heart disease of native coronary artery without angina pectoris; E78.00 Pure hypercholesterolemia, unspecified; K64.9 Unspecified hemorrhoids; K52.9 Noninfective gastroenteritis and colitis, unspecified; M10.9 Gout, unspecified; M19.90 Unspecified osteoarthritis, unspecified site; J45.909 Unspecified asthma, uncomplicated; R77.8 Other specified abnormalities of plasma proteins; E78.5 Hyperlipidemia, unspecified; Z79.82 Long term (current) use of aspirin; Z79.899 Other long term (current) drug therapy; Z88.1 Allergy status to other antibiotic agents; Z80.0 Family history of malignant neoplasm of digestive organs; Z83.3 Family history of diabetes mellitus; Z20.828 Contact with and (suspected) exposure to other viral communicable diseases
CPT/HCPCS: 71045; 80048; 80053 ×2; 83735; 83880; 84145; 84484 ×2; 85025 ×2; 85379; 86141; 87804; 93005; 93306; 94640; 99284; G0378; U0002; 36415; 87635

== ENCOUNTER 2020-03-22 10:20 | Observation (INO) | payer MEDICARE, MEDICAID ==
[~2020-03-22] VITALS: Ht 182.9 cm; Wt 115.9 kg
[~2020-03-22 10:20] MED LIST changes: +ALBU18HF2 IH; +ASPI-999 PO; +Bethanechol Chloride PO; +CLOP75TA28 PO
--- NOTE | 2020-03-22 10:39 | ED Chest Pain ---
General Stated Complaint: CP Source: patient Exam Limitations: no limitations History of Present Illness Date Seen by Provider: Mar 22, 2020 Time Seen by Provider: 10:16 Initial Comments Patient presents to the ER by EMS from his home where he has a caregiver who lives in with him as long with several other people that he lives with. He has been having coughing for the past couple days and now some chest pain that started up late last night s around the middle of his chest radiating around to both shoulders and some general body aches malaise but no fatigue fevers chills nausea vomiting loss of sense of taste or smell, diarrhea. No known sick contacts. He does not smoke. He does have a history of coronary disease and has a pacemaker in his left chest. No trauma. He was given aspirin 324 mg by EMS and 1 dose of nitroglycerin which made no difference in his pain. He is not having any acid reflux or GERD history. He recently was in the hospital for chest pain and Dr. James put him on Plavix as well as aspirin. He is also on pantoprazole daily. His most recent visit was for small vessel coronary disease with mildly elevated troponin put on consultation with cardiology and his serial troponins never elevated to a significant level. It is felt that his angina was related to small vessel disease. He was having cough at that time and had negative Covid tests March 09. Albuterol did help and he has a history of reactive airway disease. History of dual-chamber permanent pacemaker [address] Lau. Coronary angiogram September 2019 showed no significant obstructive disease. Allergies and Home Medications Allergies Coded Allergies: vancomycin (Verified Allergy, Unknown, 11/11/05) Home Medications Albuterol Sulfate 18 Gm Hfa.aer.ad, 0 GM IH RTQ4HR Prescribed by: BEAU SHARPE on 03/11/20 1238 Allopurinol 300 Mg Tablet, 300 MG PO DAILY, (Reported) Aspirin 81 Mg Tab.chew, 81 MG PO DAILY@0900 Prescribed by: BEAU SHARPE on 03/11/20 1238 Benzonatate 100 Mg Capsule, 100 MG PO Q6H PRN for COUGH Prescribed by: NICOLA PEREZ on 03/22/20 1222 Bismuth Subsalicylate 262 Mg Tab.chew, 262 MG PO PRN PRN for INDIGESTION, (Reported) Cetirizine HCl 10 Mg Tab.chew, 10 MG PO DAILY, (Reported) Clopidogrel Bisulfate 75 Mg Tablet, 75 MG PO DAILY Prescribed by: BEAU SHARPE on 03/11/20 1238 Colestipol HCl 1 Gm Tab, 1 GM PO Q48H, (Reported) Divalproex Sodium 250 Mg Tablet.dr, 750 MG PO BID, (Reported) TAKES 3 (250MG) TABLETS Divalproex Sodium 250 Mg Tablet.dr, 500 MG PO 1200, (Reported) TAKES 2 (250MG) TABLETS Furosemide 40 Mg Tablet, 40 MG PO DAILY, (Reported) Metoprolol Succinate 100 Mg Tab.er.24h, 100 MG PO HS, (Reported) Pantoprazole Sodium 40 Mg Tablet.dr, 40 MG PO DAILY, (Reported) Potassium Chloride 20 Meq Tab.er.prt, 40 MEQ PO DAILY Prescribed by: BEAU SHARPE on 03/11/20 1238 Rosuvastatin Calcium 10 Mg Tablet, 10 MG PO DAILY, (Reported) [Bethanechol Chloride] , 50 MG PO QID, (Reported) Patient Home Medication List Home Medication List Reviewed: Yes Review of Systems Review of Systems Constitutional: No chills, No diaphoresis EENTM: No Blurred Vision, No Double Vision Respiratory: Cough; Denies Shortness of Air Cardiovascular: See HPI, Chest Pain; Denies Lightheadedness Gastrointestinal: Denies Constipated, Denies Diarrhea Genitourinary: Denies Discharge, Denies Drainage Musculoskeletal: No back pain, No joint pain All Other Systems Reviewed Negative Unless Noted: Yes Past Vzgnodz-Xblxgw-Nevzja Hx Patient Social History Alcohol Use: Denies Use Recreational Drug Use: No Smoking Status: Never a Smoker 2nd Hand Smoke Exposure: No Recent Hopitalizations: No Immunizations Up To Date Tetanus Booster (TDap): Unknown Date of Pneumonia Vaccine: Nov 28, 2011 Seasonal Allergies Seasonal Allergies: No Past Medical History Surgeries: Yes (pacer/AICD placement, left hand tendon repair) Cardiac, Orthopedic, Pacemaker Respiratory: No Cardiac: Yes (HEART FAILURE, CONGENITAL heart block status post pacemaker;NON- OBSTR CAD) Cardiomyopathy, Coronary Artery Disease, High Cholesterol, Hypertension Neurological: Yes (hx meningitis 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, has left-sided neurologic deficits) Developmental Disorder, Paralysis Reproductive Disorders: No Genitourinary: No Gastrointestinal: Yes (GASTRITIS) Gastroesophageal Reflux, Hemorrhoids, Chronic Diarrhea Musculoskeletal: 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) Arthritis, Contracture, Gout Endocrine: No HEENT: No Cancer: No Psychosocial: No Integumentary: Yes (bed bugs) Blood Disorders: No Adverse Reaction/Blood Tranf: No Family Medical History Alzheimer's disease Arthritis Colon cancer Diabetes mellitus Myocardial infarction Visual disorder Physical Exam Vital Signs Vital Signs - First Documented 03/22/20 10:39 Temp 36.4 Pulse 80 Resp 18 B/P (MAP) 108/82 (91) Pulse Ox 98 O2 Delivery Room Air Capillary Refill : Height, Weight, BMI Height: 6'0.00" Weight: 218lbs. 0.0oz. 98.193820rx; 35.23 BMI Method:Stated General Appearance: No Apparent Distress, WD/WN HEENT: PERRL/EOMI, Pharynx Normal, Moist Mucous Membranes Neck: Full Range of Motion, Normal Inspection Respiratory: No Chest Non Tender (Chest pain is easily reproduced by direct palpation over his sternum.); Lungs Clear, Normal Breath Sounds, No Accessory Muscle Use, No Respiratory Distress Cardiovascular: Regular Rate, Rhythm, No Edema, Normal Peripheral Pulses Gastrointestinal: Normal Bowel Sounds, Non Tender, Soft Extremity: Normal Capillary Refill, Normal Inspection Neurologic/Psychiatric: Alert, Oriented x3 Skin: Normal Color, Warm/Dry Progress/Results/Core Measures Results/Orders Lab Results Laboratory Tests Test 03/22/20 10:20 03/22/20 10:30 03/22/20 13:12 Range/Units White Blood Count 5.7 4.3-11.0 10^3/uL Red Blood Count 6.12 H 4.30-5.52 10^6/uL Hemoglobin 17.7 13.3-17.7 g/dL Hematocrit 52 40-54 % Mean Corpuscular Volume 86 80-99 fL Mean Corpuscular Hemoglobin 29 25-34 pg Mean Corpuscular Hemoglobin Concent 34 32-36 g/dL Red Cell Distribution Width 14.8 H 10.0-14.5 % Platelet Count 179 130-400 10^3/uL Mean Platelet Volume 10.0 9.0-12.2 fL Immature Granulocyte % (Auto) 1 % Neutrophils (%) (Auto) 56 42-75 % Lymphocytes (%) (Auto) 28 12-44 % Monocytes (%) (Auto) 12 0-12 % Eosinophils (%) (Auto) 3 0-10 % Basophils (%) (Auto) 1 0-10 % Neutrophils # (Auto) 3.2 1.8-7.8 10^3/uL Lymphocytes # (Auto) 1.6 1.0-4.0 10^3/uL Monocytes # (Auto) 0.7 0.0-1.0 10^3/uL Eosinophils # (Auto) 0.2 0.0-0.3 10^3/uL Basophils # (Auto) 0.1 0.0-0.1 10^3/uL Immature Granulocyte # (Auto) 0.0 0.0-0.1 10^3/uL Prothrombin Time 13.8 12.2-14.7 SEC INR Comment 1.0 0.8-1.4 Activated Partial Thromboplast Time 31 24-35 SEC Sodium Level 134 L 135-145 MMOL/L Potassium Level 2.8 L 3.6-5.0 MMOL/L Chloride Level 92 L 98-107 MMOL/L Carbon Dioxide Level 30 21-32 MMOL/L Anion Gap 12 5-14 MMOL/L Blood Urea Nitrogen 3 L 7-18 MG/DL Creatinine 0.92 0.60-1.30 MG/DL Estimat Glomerular Filtration Rate > 60 BUN/Creatinine Ratio 3 Glucose Level 95 70-105 MG/DL Calcium Level 8.5 8.5-10.1 MG/DL Corrected Calcium 8.6 8.5-10.1 MG/DL Magnesium Level 1.4 L 1.6-2.4 MG/DL Total Bilirubin 0.7 0.1-1.0 MG/DL Aspartate Amino Transf (AST/SGOT) 18 5-34 U/L Alanine Aminotransferase (ALT/SGPT) 14 0-55 U/L Alkaline Phosphatase 64 40-136 U/L Myoglobin 81.5 10.0-92.0 NG/ML Troponin I 0.048 H 0.062 H <0.028 NG/ML Total Protein 6.9 6.4-8.2 GM/DL Albumin 3.9 3.2-4.5 GM/DL Lipase 34 8-78 U/L Coronavirus 2019 (GERALDINE) Negative Negative Micro Results Microbiology 03/22/20 Influenza Types A,B Antigen (SAVI) - Final, Complete My Orders Orders - ANA,NICOLA J Covid 19 Inhouse Test (03/22/20 10:32) Influenza A And B Antigens (03/22/20 10:32) Cbc With Automated Diff (03/22/20 10:32) Magnesium (03/22/20 10:32) Chest 1 View, Ap/Pa Only (03/22/20 10:32) Ekg Tracing (03/22/20 10:32) Comprehensive Metabolic Panel (03/22/20 10:32) Myoglobin Serum (03/22/20 10:32) Protime With Inr (03/22/20 10:32) Partial Thromboplastin Time (03/22/20 10:32) O2 (03/22/20 10:32) Monitor-Rhythm Ecg Trace Only (03/22/20 10:32) Lipid Panel (03/23/20 06:00) Ed Iv/Invasive Line Start (03/22/20 10:32) Lipase (03/22/20 10:32) Troponin I (03/22/20 10:32) Benzonatate Capsule (Tessalon Perlita) (03/22/20 10:45) Albuterol/Ipra Inhalation Soln (Duoneb I (03/22/20 11:15) Svn Small Volume Nebulizer (03/22/20 11:11) Albuterol/Ipra Inhalation Soln (Duoneb I (03/22/20 11:10) Troponin I (03/22/20 13:15) Medications Given in ED Current Medications Medications Dose Ordered Sig/Kinsey Route Start Time Stop Time Status Last Admin Dose Admin Albuterol/ Ipratropium 3 ml ONCE ONCE INH 03/22/20 11:15 03/22/20 11:16 DC 03/22/20 11:14 3 ML Benzonatate 100 mg ONCE ONCE PO 03/22/20 10:45 03/22/20 10:46 DC 03/22/20 10:48 100 MG Vital Signs/I&O 03/22/20 10:39 Temp 36.4 Pulse 80 Resp 18 B/P (MAP) 108/82 (91) Pulse Ox 98 O2 Delivery Room Air Progress Progress Note : Time: 11:47 Progress Note He has already received aspirin and did not receive any benefit from nitroglycerin. Suspect costochondritis. Previously he came for similar complaints and had modestly elevated troponins that did not significantly increase. Today he still has a detectable although uncertain significance troponin. EKG is a paced rhythm. We will consult with cardiology. Initial ECG Impression Date: Mar 22, 2020 Initial ECG Impression Time: 10:24 Initial ECG Rate: 79 Initial ECG Rhythm: Normal Sinus Initial ECG Intervals: QT (489) Initial ECG Impression: Nonspecific Changes Initial ECG Comparisson: Unchanged Comment AV dual paced rhythm with no significant ST elevation of clinical relevance. Diagnostic Imaging Diagonstic Imaging: Xray Plain Films/CT/US/NM/MRI: chest Comments [facility] [place], [place] NAME: SAYRA SANABRIA [facility] REC#: [id number] PT STATUS: REG ER : 1965 PHYSICIAN: NICOLA PEREZ MD ADMIT DATE: 03/22/20/ER Signed Date of Exam:03/22/20 CHEST 1 VIEW, AP/PA ONLY INDICATION: Chest pain Portable chest 11:09 AM There is a dual-chamber pacemaker. Heart size and pulmonary vascularity are normal. Lungs are clear. There are no effusions or pneumothoraces. IMPRESSION: Negative chest Dictated by: Dictated on workstation # [id number] Dict: 03/22/20 1118 Trans: 03/22/20 1136 CVB [id number] Interpreted by: JACQUELYN CRENSHAW MD Electronically signed by: JACQUELYN CRENSHAW MD 03/22/20 1136 Reviewed: Reviewed by Me Consults : Consulting Physician: TON LAU MD Consults Notes Discussed the case with Dr. Lau, his personal area director of home health sales who is familiar with the patient. The patient was recently here for similar problem with a marginally elevated troponin of uncertain significance that never went up significantly. Discussed the concern that this is probably costochondritis and also the September 2019 cardiac catheterization demonstrating small vessel disease only. Dr. Lau is in agreement with a delta troponin and if it has not significantly elevated by 20% he would be okay with letting him go home with treatment for costochondritis. Departure Communication (Admissions) Time/Spoke to Admitting Phy: 14:00 Discussed the case with Dr. SHARPE who is familiar with the case. She agrees with observation and cardiac consultation. Time/Spoke to Consulting Phy: 13:50 Discussed the case with Dr. Stephen and he agrees with observation and n.p.o. at midnight. Impression Primary Impression: Chest pain Qualified Codes: R07.9 - Chest pain, unspecified Additional Impressions: Acute coronary syndrome Unstable angina Disposition: 01 HOME, SELF-CARE Condition: Stable Admissions Decision to Admit Reason: Admit from ER (General) Decision to Admit/Date: Mar 22, 2020 Time/Decision to Admit Time: 13:45 Departure-Patient Inst. Referrals: BEAU SHARPE DO (PCP/Family) Primary Care Physician Patient Instructions: Costochondritis (DC) Add. Discharge Instructions: Tylenol 1000 mg every 8 hours as necessary for pain. Topical creams such as icy hot, Biofreeze, capsaicin ointment can be helpful for pain. Heating pads can be helpful for your discomfort. Tessalon Perles 1 capsule every 6 hours as necessary for cough to help with your chest wall pain. If you have unrelenting chest pain, shortness of air or other worrisome symptoms then you should return to the nearest ER for further evaluation. Plan to follow-up with your area director of home health sales and primary care doctor as necessary. Scripts Benzonatate (Tessalon Perle) 100 Mg Capsule 100 MG PO Q6H PRN for COUGH, #20 CAP 0 Refills Prov: NICOLA PERZE 03/22/20 NICOLA PEREZ Mar 22, 2020 10:39
[2020-03-22] MEDS ORDERED: BENZONATATE 100 MG (TESSALON) CAPSULE PO ONE (10:45)
[2020-03-22 10:49] LABS: BASOPHILS # (AUTO) 0.1 10^3/uL (0.0-0.1); BASOPHILS % (AUTO) 1 % (0-10); EOSINOPHILS # (AUTO) 0.2 10^3/uL (0.0-0.3); EOSINOPHILS % (AUTO) 3 % (0-10); HEMATOCRIT 52 % (40-54); HEMOGLOBIN 17.7 g/dL (13.3-17.7); LYMPHOCYTES # (AUTO) 1.6 10^3/uL (1.0-4.0); LYMPHOCYTES % (AUTO) 28 % (12-44); MEAN CORPUSCULAR HEMOGLOBIN 29 pg (25-34); MEAN CORPUSCULAR HGB CONC 34 g/dL (32-36); MEAN CORPUSCULAR VOLUME 86 fL (80-99); MONOCYTES # (AUTO) 0.7 10^3/uL (0.0-1.0); MONOCYTES % (AUTO) 12 % (0-12); NEUTROPHILS # (AUTO) 3.2 10^3/uL (1.8-7.8); NEUTROPHILS % (AUTO) 56 % (42-75); PLATELET COUNT 179 10^3/uL (130-400); WHITE BLOOD COUNT 5.7 10^3/uL (4.3-11.0)
[2020-03-22 10:54] LABS: PROTHROMBIN TIME PATIENT 13.8 SEC (12.2-14.7)
[2020-03-22 10:55] LABS: ALBUMIN 3.9 GM/DL (3.2-4.5); CHLORIDE 92 MMOL/L (98-107); POTASSIUM 2.8 MMOL/L (3.6-5.0); SODIUM 134 MMOL/L (135-145)
[2020-03-22 10:56] LABS: CALCIUM 8.5 MG/DL (8.5-10.1)
[2020-03-22 10:57] LABS: GLUCOSE 95 MG/DL (70-105); TOTAL PROTEIN 6.9 GM/DL (6.4-8.2)
[2020-03-22 10:58] LABS: CARBON DIOXIDE 30 MMOL/L (21-32)
[2020-03-22 10:59] LABS: BILIRUBIN,TOTAL 0.7 MG/DL (0.1-1.0)
[2020-03-22 11:00] LABS: ALKALINE PHOSPHATASE 64 U/L (40-136)
[2020-03-22 11:01] LABS: CREATININE SERUM 0.92 MG/DL (0.60-1.30); GFR ESTIMATED > 60
[2020-03-22 11:02] LABS: BUN/CREATININE RATIO 3
[2020-03-22 11:04] LABS: ALANINE AMINOTRANSFERASE 14 U/L (0-55); MAGNESIUM 1.4 MG/DL (1.6-2.4)
[2020-03-22 11:05] LABS: LIPASE 34 U/L (8-78)
[2020-03-22] MEDS ORDERED: RT-ALBUTEROL/IPRATROPIUM 3 ML (DUONEB) VIAL ONE (11:10)
[2020-03-22] MEDS ORDERED: RT-ALBUTEROL/IPRATROPIUM 3 ML (DUONEB) VIAL INH ONE (11:15)
--- NOTE | 2020-03-22 11:19 | Diagnostic Imaging Report ---
INDICATION: Chest pain Portable chest 11:09 AM There is a dual-chamber pacemaker. Heart size and pulmonary vascularity are normal. Lungs are clear. There are no effusions or pneumothoraces. IMPRESSION: Negative chest Dictated by: Dictated on workstation # [id number]
[2020-03-22] MEDS ORDERED: BENZ-13 PO (12:22)
[2020-03-22] MEDS ORDERED: ENOXAPARIN 60 MG/0.6 ML (LOVENOX) SYR SC ONE ×2 (14:15)
[2020-03-22] MEDS ORDERED: ACETAMINOPHEN 500 MG TAB (TYLENOL) PO PRN (15:00)
[2020-03-22] MEDS ORDERED: METHYL SALICYLATE/MENTHOL (BENGAY, MUSCLE RUB) 3 OZ TUBE TP PRN (15:00)
--- NOTE | 2020-03-22 15:05 | NUR ---
SAYRA SANABRIA admitted to room 420-1, with an admitting diagnosis of UNSTABLE ANGINA, on 03/22/20 from AM via , accompanied by STAFF.SAYRA SANABRIA introduced to surroundings, call light, bed controls, phone, TV, temperature control, lights, meal times, smoking policy, visitor policy, side rail policy, bathrooms and showers. Patient Rights given to patient in the handbook. SAYRA SANABRIA verbalizes understanding that [facility] is not responsible for the loss or damage to any personal effects or valuables that are kept in the patients posession during their hospitalization. The following Patient Care Plans were discussed with the PATIENT: Discharge Planning, ALTERED COMFORT,SELF CARE DEFICIT. SAYRA SANABRIA verbalizes understanding of Interdisciplinary Patient Education. Patient and/or family were informed about the Rapid Response Team and its purpose. REPORT FROM [facility].
[2020-03-22 15:09] VITALS: BP 130/82
[2020-03-22 15:15] VITALS: BP 130/82
[2020-03-22] MEDS ORDERED: ONDANSETRON 4 MG/2 ML (SDV) Z0FRAN IVP PRN (15:15)
[2020-03-22] MEDS ORDERED: NITROGLYCERIN 0.4 MG SL TABS BTL 25'S SL PRN (15:15)
[2020-03-22] MEDS ORDERED: RT-ALBUTEROL/IPRATROPIUM 3 ML (DUONEB) VIAL IH PRN (15:15)
[2020-03-22] MEDS ORDERED: morphine INJ 4 MG/ML 1 ML (VIAL/SYRINGE) IV PRN (15:15)
[2020-03-22] MEDS: NS W/KCL 40 MEQ/L 1,000 ML IV SCH ×2 (15:34→23:52)
[2020-03-22] MEDS ORDERED: FLU QUADRIvalent (3YOA+) 60 mcg/0.5 ml 2020-21 (AFLURIA) IM ONE (15:45)
--- NOTE | 2020-03-22 16:06 | NUR ---
Initial Visit: No chapin affiliation. Pt shared he lives in [place] with his mom and has a caregiver, Dedra. Pt described that he was taken to the ER by ambulance after experiencing shooting pain through his chest, back and arm. The patient states he is longer in pain. Phone and call light placed in reach. 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 He demonstrates positive mood and pleasant demeanor. No concerns at this time.
[2020-03-22 16:19] VITALS: BP 130/82
--- NOTE | 2020-03-22 16:25 | NUR ---
DR CORTES NOTIFIED OF PATIENT'S TROPONIN 0.073. NO NEW ORDERS. PATIENT IS ASYMPTOMATIC
[2020-03-22 16:26] VITALS: BP 108/82
[2020-03-22] MEDS ORDERED: RT-ALBUTEROL SULF 2.5 MG/3 ML PRE-MIX VIAL INH PRN (16:30)
[2020-03-22] MEDS: ENOXAPARIN 40 MG/0.4 ML (LOVENOX) SYR SC SCH (16:52)
--- NOTE | 2020-03-22 16:52 | NUR ---
DR SHARPE NOTIFIED OF DVT SCORE, NEW ORDERS. LOVENOX 40MG/DAILY NON ADMINISTERED DUE TO LOVENOX 110MG ADMINISTRATION IN THE ED.
[2020-03-22] MEDS: MAGNESIUM OXIDE (MAG-OX)400 MG TAB PO SCH (17:30)
[2020-03-22 19:10] VITALS: BP 118/77
[2020-03-22] MEDS: DIVALPROEX 250 MG DELAYED RELEASE (DEPAKOTE) TAB PO SCH (20:07)
[2020-03-22] MEDS ORDERED: DIVALPROEX 250 MG DELAYED RELEASE (DEPAKOTE) TAB PO SCH (21:00)
[2020-03-22 23:48] VITALS: BP 127/71
[2020-03-23 04:00] VITALS: BP 114/57
[2020-03-23 06:55] LABS: BASOPHILS % (AUTO) 1 % (0-10); EOSINOPHILS # (AUTO) 0.2 10^3/uL (0.0-0.3); EOSINOPHILS % (AUTO) 3 % (0-10); HEMATOCRIT 46 % (40-54); HEMOGLOBIN 15.4 g/dL (13.3-17.7); LYMPHOCYTES # (AUTO) 1.5 10^3/uL (1.0-4.0); LYMPHOCYTES % (AUTO) 32 % (12-44); MEAN CORPUSCULAR HEMOGLOBIN 29 pg (25-34); MEAN CORPUSCULAR HGB CONC 33 g/dL (32-36); MEAN CORPUSCULAR VOLUME 86 fL (80-99); MEAN PLATELET VOLUME 9.5 fL (9.0-12.2); MONOCYTES # (AUTO) 0.7 10^3/uL (0.0-1.0); MONOCYTES % (AUTO) 14 % (0-12); NEUTROPHILS # (AUTO) 2.4 10^3/uL (1.8-7.8); NEUTROPHILS % (AUTO) 49 % (42-75); PLATELET COUNT 150 10^3/uL (130-400); WHITE BLOOD COUNT 4.8 10^3/uL (4.3-11.0)
[2020-03-23 07:05] LABS: ALBUMIN 3.4 GM/DL (3.2-4.5); CHLORIDE 99 MMOL/L (98-107); POTASSIUM 3.5 MMOL/L (3.6-5.0); SODIUM 134 MMOL/L (135-145)
[2020-03-23 07:06] LABS: CALCIUM 8.4 MG/DL (8.5-10.1)
[2020-03-23 07:07] LABS: TOTAL PROTEIN 5.8 GM/DL (6.4-8.2); TRIGLYCERIDES 117 MG/DL (<150); VLDL CHOLESTEROL 23 MG/DL (5-40)
[2020-03-23 07:08] LABS: CARBON DIOXIDE 27 MMOL/L (21-32); GLUCOSE 103 MG/DL (70-105)
[2020-03-23 07:09] LABS: BILIRUBIN,TOTAL 0.6 MG/DL (0.1-1.0)
[2020-03-23 07:11] LABS: ALKALINE PHOSPHATASE 54 U/L (40-136); CREATININE SERUM 0.77 MG/DL (0.60-1.30); GFR ESTIMATED > 60
[2020-03-23 07:12] LABS: BUN/CREATININE RATIO 6; CHOLESTEROL 109 MG/DL (< 200)
[2020-03-23 07:13] LABS: HDL CHOLESTEROL 35 MG/DL (40-60)
[2020-03-23 07:14] LABS: ALANINE AMINOTRANSFERASE 11 U/L (0-55); MAGNESIUM 1.6 MG/DL (1.6-2.4)
[2020-03-23 08:20] VITALS: BP 125/70
[2020-03-23] MEDS: ASPIRIN E.C. 81 MG (ECOTRIN) TAB PO SCH (08:28)
[2020-03-23] MEDS: DIVALPROEX 250 MG DELAYED RELEASE (DEPAKOTE) TAB PO SCH ×3 (08:28→20:12)
[2020-03-23] MEDS: MAGNESIUM OXIDE (MAG-OX)400 MG TAB PO SCH ×2 (08:28→17:22)
[2020-03-23] MEDS: NS W/KCL 40 MEQ/L 1,000 ML IV SCH ×2 (08:29→17:19)
--- NOTE | 2020-03-23 08:48 | Diagnostic Imaging Report ---
EXAMINATION: Portable erect AP chest at 6:34 AM INDICATION: Chest pain The heart is stable in size when compared to the prior exam of 03/22/2020. The left-sided pacemaker seen previously is again evident and no different. The central pulmonary vascularity is not quite as striking as on the prior study. The lungs seem generally clear. There is persistent elevation of the right hemidiaphragm. The mediastinum is not widened. The osseous structures are intact. IMPRESSION: Both perihilar regions do seem better aerated than on the prior exam. There is no evidence for active disease at this time. Dictated by: Dictated on workstation # [id number]
[2020-03-23 11:42] VITALS: BP 127/67
[2020-03-23] MEDS ORDERED: DIVALPROEX 250 MG DELAYED RELEASE (DEPAKOTE) TAB PO SCH (12:00)
[2020-03-23] MEDS ORDERED: PANTOPRAZOLE 40 MG (PROTONIX) TAB PO ONE (12:45)
[2020-03-23] MEDS ORDERED: KCL 20 MEQ TAB (K-DUR) PO ONE (12:45)
--- NOTE | 2020-03-23 13:11 | History & Physical ---
History of Present Illness History of Present Illness Reason for visit/HPI This is a 55 year old male with a history of CAD and numerous admissions for chest pain with minimally elevated Troponin. He reportedly was having cough for a few days and then developed chest pain yesterday. His EKG showed no acute changes but his troponin-I was once again elevated at 0.048 on admission then elevated to 0.062 on the second set. It was decided he should be admitted to 4t h floor on telemetry with cardiology consult. His rapid COVID was negative but we found out this morning that his niece who had visited earlier in the week tested positive 2 days ago. Date of Admission Mar 22, 2020 at 14:05 Date Seen by a Provider: Mar 23, 2020 Time Seen by a Provider: 13:03 I consulted on this patient on 03/23/20 13:03 Attending Physician Beau Agustin DO Admitting Physician Beau Agustin DO Consult TON SALDANA MD Allergies and Home Medications Allergies Coded Allergies: vancomycin (Verified Allergy, Unknown, 11/11/05) Home Medications Albuterol Sulfate 18 Gm Hfa.aer.ad, 0 GM IH RTQ4HR Prescribed by: BEAU AGUSTIN on 03/11/20 1238 Allopurinol 300 Mg Tablet, 300 MG PO DAILY, (Reported) Aspirin 81 Mg Tab.chew, 81 MG PO DAILY@0900 Prescribed by: BEAU AGUSTIN on 03/11/20 1238 Benzonatate 100 Mg Capsule, 100 MG PO Q6H PRN for COUGH Prescribed by: NICOLA PEREZ on 03/22/20 1222 Bismuth Subsalicylate 262 Mg Tab.chew, 262 MG PO PRN PRN for INDIGESTION, (Reported) Cetirizine HCl 10 Mg Tab.chew, 10 MG PO DAILY, (Reported) Clopidogrel Bisulfate 75 Mg Tablet, 75 MG PO DAILY Prescribed by: BEAU AGUSTIN on 03/11/20 1238 Colestipol HCl 1 Gm Tab, 1 GM PO Q48H, (Reported) Divalproex Sodium 250 Mg Tablet.dr, 750 MG PO BID, (Reported) TAKES 3 (250MG) TABLETS Divalproex Sodium 250 Mg Tablet.dr, 500 MG PO 1200, (Reported) TAKES 2 (250MG) TABLETS Furosemide 40 Mg Tablet, 40 MG PO DAILY, (Reported) Metoprolol Succinate 100 Mg Tab.er.24h, 100 MG PO HS, (Reported) Pantoprazole Sodium 40 Mg Tablet.dr, 40 MG PO DAILY, (Reported) Potassium Chloride 20 Meq Tab.er.prt, 40 MEQ PO DAILY Prescribed by: BEAU AGUSTIN on 03/11/20 1238 Rosuvastatin Calcium 10 Mg Tablet, 10 MG PO DAILY, (Reported) [Bethanechol Chloride] , 50 MG PO QID, (Reported) Patient Home Medication List Home Medication List Reviewed: Yes Past Zsynsnn-Nwbste-Gesjhc Hx Past Med/Social Hx: Reviewed Nursing Past Med/Soc Hx Patient Social History Alcohol Use: Denies Use Recreational Drug Use: No Smoking Status: Never a Smoker 2nd Hand Smoke Exposure: No Physical Abuse Screen: No Sexual Abuse: No Recent Foreign Travel: No Contact w/other who traveled: No Recent Hopitalizations: No Recent Infectious Disease Expo: No Immunizations Up To Date Tetanus Booster (TDap): Unknown Date of Pneumonia Vaccine: Nov 28, 2011 Seasonal Allergies Seasonal Allergies: No Past Medical History Surgeries: Cardiac, Orthopedic, Pacemaker Currently Using CPAP: No Currently Using BIPAP: No Cardiac: Cardiomyopathy, Coronary Artery Disease, High Cholesterol, Hypertension Neurological: Developmental Disorder, Paralysis Reproductive: No Gastrointestinal: Gastroesophageal Reflux, Hemorrhoids, Chronic Diarrhea Musculoskeletal: Arthritis, Contracture, Gout Loss of Vision: Denies Hearing Impairment: Denies History of Blood Disorders: No Adverse Reaction to Blood Cabrales: No Family History Alzheimer's disease Arthritis Colon cancer Diabetes mellitus Myocardial infarction Visual disorder Review of Systems Constitutional: No no symptoms reported, No see HPI, No chills, No diaphoresis, No dizziness, No fever, No malaise, No weakness, No weight gain, No weight loss, No other EENTM: No see HPI, No no symptoms reported, No ear discharge, No hearing loss, No ear pain, No blurred vision, No double vision, No eye pain, No tearing, No vision loss, No dental problems, No hoarseness, No mouth pain, No mouth swelling, No epistaxis, No nose congestion, No nose pain, No throat pain, No throat swelling, No other Respiratory: cough Cardiovascular: chest pain Gastrointestinal: No RUQ, No LUQ, No RLQ, No LLQ, No no symptoms reported, No see HPI, No abdominal pain, No constipation, No diarrhea, No dysphagia, No hematemesis, No heartburn, No jaundice, No loss of appetite, No melena, No nausea, No vomiting, No other Genitourinary: No no symptoms reported, No see HPI, No decreased output, No discharge, No dysuria, No frequency, No hematuria, No hesitancy, No incontinence, No nocturia, No pain, No other Musculoskeletal: No no symptoms reported, No see HPI, No back pain, No gout, No joint pain, No joint swelling, No muscle pain, No muscle stiffness, No muscle cramps, No muscle twitching, No muscle weakness, No neck pain, No other Skin: No no symptoms reported, No see HPI, No change in color, No change in hair/nails, No dryness, No hx of skin cancer, No lesions, No lumps, No pruritus, No rash, No other Psychiatric/Neurological: Seizure Physical Exam Vital Signs Vital Signs - First Documented 03/22/20 16:26 FiO2 21 Capillary Refill : Less Than 3 Seconds Height, Weight, BMI Height: 6'0.00" Weight: 218lbs. 0.0oz. 98.076806bt; 34.64 BMI Method:Stated General Appearance: No Apparent Distress HEENT: Normal ENT Inspection Neck: Supple Respiratory: Lungs Clear Cardiovascular: Regular Rate, Rhythm, Systolic Murmur Gastrointestinal: Non Tender, Soft Extremity: Non Tender, No Calf Tenderness, No Pedal Edema Neurologic/Psychiatric: Alert, Oriented x3 Skin: Warm/Dry Comments Laboratory Tests 03/22/20 13:12: Troponin I 0.062H 03/22/20 15:50: Troponin I 0.073H 03/22/20 21:50: Troponin I 0.050H 03/23/20 06:35: White Blood Count 4.8, Red Blood Count 5.38, Hemoglobin 15.4, Hematocrit 46, Mean Corpuscular Volume 86, Mean Corpuscular Hemoglobin 29, Mean Corpuscular Hemoglobin Concent 33, Red Cell Distribution Width 14.5, Platelet Count 150, Mean Platelet Volume 9.5, Immature Granulocyte % (Auto) 0, Neutrophils (%) (Auto) 49, Lymphocytes (%) (Auto) 32, Monocytes (%) (Auto) 14H, Eosinophils (%) (Auto) 3, Basophils (%) (Auto) 1, Neutrophils # (Auto) 2.4, Lymphocytes # (Auto) 1.5, Monocytes # (Auto) 0.7, Eosinophils # (Auto) 0.2, Basophils # (Auto) 0.0, Immature Granulocyte # (Auto) 0.0, Sodium Level 134L, Potassium Level 3.5L, Chloride Level 99, Carbon Dioxide Level 27, Anion Gap 8, Blood Urea Nitrogen 5L, Creatinine 0.77, Estimat Glomerular Filtration Rate > 60, BUN/Creatinine Ratio 6, Glucose Level 103, Calcium Level 8.4L, Corrected Calcium 8.9, Magnesium Level 1.6, Total Bilirubin 0.6, Aspartate Amino Transf (AST/SGOT) 16, Alanine Aminotransferase (ALT/SGPT) 11, Alkaline Phosphatase 54, Total Protein 5.8L, Albumin 3.4, Triglycerides Level 117, Cholesterol Level 109, LDL Cholesterol Direct 61, VLDL Cholesterol 23, HDL Cholesterol 35L 03/23/20 11:30: Coronavirus (COVID-19)(PCR) [Pending] Microbiology 03/22/20 Influenza Types A,B Antigen (SAVI) - Final, Complete Assessment/Plan Assessment and Plan 1. Chest Pain with elevated Troponin-I--cardiology consulted, resume plavix/aspirin and metoprolol, crestor 2. Cough/PUI--on albuterol, repeat COVID testing 3. GERD--start pantoprazole 4. Hypokalemia--replace potassium 5. Hypomagnesemia--replace magnesium 6. Hypetension--resume low dose metoprolol 7. Cerebral palsy with seizure disorder--depakot restarted Admission Diagnosis Admission Status: Observation Clinical Quality Measures AMI/AHF: ASA po Prior to arrival: Yes DVT/VTE Risk/Contraindication: Risk Factor Score Per Nursin RFS Level Per Nursing on Admit: 4+=Very High BEAU AGUSTIN DO Mar 23, 2020 13:11
[2020-03-23 16:00] VITALS: BP 113/59
[2020-03-23] MEDS: BETHANECHOL 25 MG (URECHOLINE) TAB PO SCH ×2 (17:14→20:09)
[2020-03-23] MEDS: ENOXAPARIN 40 MG/0.4 ML (LOVENOX) SYR SC SCH (17:14)
[2020-03-23] MEDS ORDERED: RT-ALBUTEROL INHALER HFA (VENTOLIN HFA) 18 GM IH ONE (17:20)
[2020-03-23] MEDS: RT-ALBUTEROL INHALER HFA (VENTOLIN HFA) 18 GM IH PRN (17:46)
--- NOTE | 2020-03-23 18:27 | Consultation-Cardiology ---
HPI-Cardiology Cardiology Consultation: Date of Consultation 03/23/20 Date of Admission Attending Physician Beau Agustin DO Admitting Physician Beau Agustin DO Consulting Physician Sheridan STEPHEN MD HPI: Time Seen by a Provider: 15:00 Chief Complaint: chest pain this is a 55 year old male with covid 19 exposure. who presents with chest pain. borderline positive troponin. Dr Lau did heart cath in September 2019 which did not reveal any obstructive coronary disease. substernal. moderate intensity. no radiation. no exacerbating or relieving factors. associated with shortness of breath. non smoker. pertinent family history is negative. Review of Systems-Cardiology Review of Systems Constitutional: As described under HPI; No As described under HPI, No no symptoms reported, No chills, No fever, No lightheadedness Eyes: No As described under HPI, No no symptoms reported, No blindness, No blurred vision, No contact lenses, No drainage, No decreased acuity, No foreign body sensation, No pain, No vision change Ears/Nose/Throat: No As described under HPI, No no symptoms reported, No chronic hearing loss, No ear discharge, No ear pain, No nasal drainage, No ulcerations Respiratory: No no symptoms reported; As described under HPI; No As described under HPI, No cough, No orthopnea, No shortness of breath, No SOB with excertion Cardiovascular: No no symptoms reported; As described under HPI; No As described under HPI; chest pain; No edema, No irregular heart rate, No lightheadedness, No palpitations Gastrointestinal: No no symptoms reported, No As described under HPI, No abdomen distended, No abdominal pain, No blood streaked bowels, No constipation, No diarrhea, No nausea, No vomiting, No stool coloration changes Genitourinary: No As described under HPI, No burning, No dysuria, No discharge, No frequency, No flank pain, No hematuria, No urgency Skin: No rash, No skin related problems, No ulcerations Psychiatric/Neurological: No anxiety, No depression, No seizure, No focal weakness, No syncope Hematologic: No bleeding abnormalities All Other Systems Reviewed Negative Unless Noted: Yes LEO-Xwufrz-Exwymh Hx Patient Social History Alcohol Use: Denies Use Recreational Drug Use: No Smoking Status: Never a Smoker 2nd Hand Smoke Exposure: No Recent Foreign Travel: No Recent Infectious Disease Expo: No Hospitalization with Isolation: Denies Physical Abuse Screen: No Sexual Abuse: No Immunizations Up To Date Tetanus Booster (TDap): Unknown Date of Pneumonia Vaccine: Nov 28, 2011 Past Medical History PMH As described under Assessment. Family Medical History Family Medical History: He reports a family h/o ND. Family History: Alzheimer's disease Arthritis Colon cancer Diabetes mellitus Myocardial infarction Visual disorder Allergies and Home Medications Allergies Coded Allergies: vancomycin (Verified Allergy, Unknown, 11/11/05) Home Medications Albuterol Sulfate 18 Gm Hfa.aer.ad, 0 GM IH RTQ4HR Prescribed by: BEAU AGUSTIN on 03/11/20 1238 Allopurinol 300 Mg Tablet, 300 MG PO , Prescribed by: BEAU AGUSTIN on 03/24/20 1020 Aspirin 81 Mg Tab.chew, 81 MG PO DAILY@0900 Prescribed by: BEAU AGUSTIN on 03/11/20 1238 Budesonide/Formoterol Fumarate 10.2 Gm Hfa.aer.ad, 2 PUFF IH BID Prescribed by: BEAU AGUSTIN on 03/24/20 1019 Cetirizine HCl 10 Mg Tab.chew, 10 MG PO DAILY, (Reported) Clopidogrel Bisulfate 75 Mg Tablet, 75 MG PO DAILY Prescribed by: BEAU AGUSTIN on 03/11/20 1238 Colestipol HCl 1 Gm Tab, 1 GM PO Q48H, (Reported) Divalproex Sodium 250 Mg Tablet.dr, 750 MG PO BID, (Reported) TAKES 3 (250MG) TABLETS Divalproex Sodium 250 Mg Tablet.dr, 500 MG PO 1200, (Reported) TAKES 2 (250MG) TABLETS Furosemide 40 Mg Tablet, 40 MG PO Only take Wednesday, Wednesday and Wednesday Prescribed by: BEAU AGUSTIN on 03/24/20 1019 Magnesium Oxide 400 Mg Capsule, 400 MG PO , Prescribed by: BEAU AGUSTIN on 03/24/20 1033 Metoprolol Succinate 50 Mg Tab.er.24h, 50 MG PO DAILY Prescribed by: BEAU AGUSTIN on 03/24/20 1019 Pantoprazole Sodium 40 Mg Tablet.dr, 40 MG PO DAILY, (Reported) Potassium Chloride 20 Meq Tab.er.prt, 40 MEQ PO DAILY Wednesday, Wednesday, and Wednesday when takes lasix and only 20meq all other days Prescribed by: BEAU AGUSTIN on 03/24/20 1019 Rosuvastatin Calcium 10 Mg Tablet, 10 MG PO DAILY, (Reported) [Bethanechol Chloride] , 50 MG PO QID, (Reported) Patient Home Medication List Home Medication List Reviewed: Yes Physical Exam-Cardiology Physical Exam Vital Signs/I&O 03/24/20 03/24/20 03/24/20 03/24/20 09:47 12:00 12:40 13:40 Temp 35.6 35.6 Pulse 67 79 79 Resp 24 24 B/P (MAP) 115/56 (75) 115/56 Pulse Ox 98 98 98 O2 Delivery Room Air Room Air Room Air 03/24/20 00:00 Intake Total 1210 ml Output Total 1230 ml Balance -20 ml Capillary Refill : Less Than 3 Seconds Constitutional: appears stated age; No apparent distress; well-developed, well- nourished HEENT: PERRL; No discharge; hearing is well preserved, oral hygience is good; No ulceration, No xanthelasmas are seen Neck: No carotid bruit; carotid pulses are 2 + bilaterally Respiratory: chest is bilaterally symmetric, lungs clear to auscultation Cardiovascular: regular rate-rhythm, S1 and S2 Gastrointestinal: soft, audible bowel sounds; No spleenomegaly Rectal: deferred Extremities: normal range of motion, non-tender, normal inspection; No clubbing, No cyanosis; no lower extremity edema bilateral; No significant edema Neurologic/Psychiatric: no motor/sensory deficits, alert, normal mood/affect, oriented x 3, power is 5/5 both on sides Skin: normal color; No rash, No ulcerations Data Review Labs Laboratory Tests 03/24/20 07:56: White Blood Count 5.5, Red Blood Count 5.54H, Hemoglobin 15.9, Hematocrit 47, Mean Corpuscular Volume 86, Mean Corpuscular Hemoglobin 29, Mean Corpuscular Hemoglobin Concent 34, Red Cell Distribution Width 14.6H, Platelet Count 151, Mean Platelet Volume 9.9, Sodium Level 135, Potassium Level 3.9, Chloride Level 100, Carbon Dioxide Level 24, Anion Gap 11, Blood Urea Nitrogen 5L, Creatinine 0.76, Estimat Glomerular Filtration Rate > 60, BUN/Creatinine Ratio 7, Glucose Level 98, Calcium Level 8.5 Microbiology 03/22/20 Influenza Types A,B Antigen (SAVI) - Final, Complete ECG Impression ECG Initial ECG Rhythm: Normal Sinus Initial ECG Impression: Nonspecific Changes A/P-Cardiology Assessment/Admission Diagnosis chest pain, shortness of breath, covid 19 exposure, borderline troponin Plan serial troponin show borderline elevation with downward trend. on appropriate therapy. cath in september 2019 did not reveal obstructive coronary disease. shortness of breath - respiratory treatment covid 19 exposure - continue quarantine. borderline troponin Thank you for your consultation. Please call me if you have any questions. Sagar Stephen MD, FACP, FACC, FSCAI, FHRS, CCDS Interventional Cardiology Cardiac Electrophysiology Vascular Medicine and Endovascular Interventions Clinical Quality Measures AMI/AHF: ASA po Prior to arrival: Yes DVT/VTE Risk/Contraindication: Risk Factor Score Per Nursin RFS Level Per Nursing on Admit: 4+=Very High Sheridan STEPHEN MD Mar 23, 2020 18:27
[2020-03-23 19:42] VITALS: BP 117/67
[2020-03-23] MEDS ORDERED: ROSUVASTATIN 10 MG (CRESTOR) TABLET PO SCH (21:00)
[2020-03-23 23:55] VITALS: BP 109/54
[2020-03-24 04:00] VITALS: BP 121/56
[2020-03-24] MEDS: NS W/KCL 40 MEQ/L 1,000 ML IV SCH (06:24)
[2020-03-24] MEDS: BETHANECHOL 25 MG (URECHOLINE) TAB PO SCH ×2 (06:25→11:59)
--- NOTE | 2020-03-24 06:58 | NUR ---
Dr Agustin contacted regarding send out covid negative, ok to take out of isolation.
[2020-03-24] MEDS ORDERED: KCL 20 MEQ TAB (K-DUR) PO SCH (07:00)
[2020-03-24 08:00] VITALS: BP 117/71
[2020-03-24 08:12] LABS: HEMOGLOBIN 15.9 g/dL (13.3-17.7); MEAN PLATELET VOLUME 9.9 fL (9.0-12.2); WHITE BLOOD COUNT 5.5 10^3/uL (4.3-11.0)
[2020-03-24] MEDS: MAGNESIUM OXIDE (MAG-OX)400 MG TAB PO SCH (08:13)
[2020-03-24] MEDS: ASPIRIN E.C. 81 MG (ECOTRIN) TAB PO SCH (08:13)
[2020-03-24] MEDS: DIVALPROEX 250 MG DELAYED RELEASE (DEPAKOTE) TAB PO SCH ×2 (08:14→11:59)
[2020-03-24] MEDS: RT-ALBUTEROL INHALER HFA (VENTOLIN HFA) 18 GM IH PRN (08:18)
[2020-03-24 08:29] LABS: BUN/CREATININE RATIO 7; CALCIUM 8.5 MG/DL (8.5-10.1); CARBON DIOXIDE 24 MMOL/L (21-32); CHLORIDE 100 MMOL/L (98-107); CREATININE SERUM 0.76 MG/DL (0.60-1.30); GFR ESTIMATED > 60; GLUCOSE 98 MG/DL (70-105); POTASSIUM 3.9 MMOL/L (3.6-5.0); SODIUM 135 MMOL/L (135-145)
[2020-03-24] MEDS ORDERED: CLOPIDOGREL 75 MG (PLAVIX) TABLET PO SCH (09:00)
[2020-03-24] MEDS ORDERED: PANTOPRAZOLE 40 MG (PROTONIX) TAB PO SCH (09:00)
[2020-03-24] MEDS ORDERED: METO50TA7 PO (10:19)
[2020-03-24] MEDS ORDERED: FURO40TA4 PO (10:19)
[2020-03-24] MEDS ORDERED: POTA20TA15 PO (10:19)
[2020-03-24] MEDS ORDERED: BUDE10.2 IH (10:19)
[2020-03-24] MEDS ORDERED: ALLO300T2 PO (10:20)
--- NOTE | 2020-03-24 10:32 | Discharge Summary ---
Discharge Summary Hospital Course Was the Problem List Reviewed?: Yes Hospital Course Date of Admission: Mar 22, 2020 at 14:05 Admission Diagnosis : Family Physician/Provider: Demi Agustin DO Date of Discharge: 03/24/20 Discharge Diagnosis: 1. Chest Pain with elevated Troponin-I--cardiology consulted, resume plavix/aspirin and metoprolol, crestor 2. Cough/PUI--on albuterol, repeat COVID testing 3. GERD--stable 4. Hypokalemia--improved 5. Hypomagnesemia--improved 6. Hypetension--stable 7. Cerebral palsy with seizure disorder--depakot restarted Hospital Course: This is a 55 year old male with a history of CAD and numerous admissions for chest pain with minimally elevated Troponin. He reportedly was having cough for a few days and then developed chest pain yesterday. His EKG showed no acute changes but his troponin-I was once again elevated at 0.048 on admission then elevated to 0.062 on the second set. It was decided he should be admitted to 4th floor on telemetry with cardiology consult. His rapid COVID was negative but we found out that his niece who had visited earlier in the week tested posit harris so a PCR was done and it was also negative. He continued to have cough and this was when he complained of his chest pain. His troponin-I trended back down to 0.05. Cardiology decided to continue medical management and have him follow up as outpatient. His blood pressure was stable during his hospital stay. His potassium and magnesium were replaced during his stay and back to normal. He did have some wheezing during his hospital stay so he will be sent home on symbicort. 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 I told her I would send his changes to the pharmacy so they could change his pill pack but also told her she needed to check the discharge changes in the meantime. Labs and Pending Lab Test: Laboratory Tests 03/23/20 11:30: Coronavirus (COVID-19)(PCR) Negative 03/24/20 07:56: White Blood Count 5.5, Red Blood Count 5.54H, Hemoglobin 15.9, Hematocrit 47, Mean Corpuscular Volume 86, Mean Corpuscular Hemoglobin 29, Mean Corpuscular Hemoglobin Concent 34, Red Cell Distribution Width 14.6H, Platelet Count 151, Mean Platelet Volume 9.9, Sodium Level 135, Potassium Level 3.9, Chloride Level 100, Carbon Dioxide Level 24, Anion Gap 11, Blood Urea Nitrogen 5L, Creatinine 0.76, Estimat Glomerular Filtration Rate > 60, BUN/Creatinine Ratio 7, Glucose Level 98, Calcium Level 8.5 Microbiology 03/22/20 Influenza Types A,B Antigen (SAVI) - Final, Complete Home Meds Active Symbicort 160-4.5 Mcg Inhaler (Budesonide/Formoterol Fumarate) 10.2 Gm Hfa.aer.ad 2 Puff IH BID Metoprolol Succinate 50 Mg Tab.er.24h 50 Mg PO DAILY Potassium Chloride 20 Meq Tab.er.prt 40 Meq PO DAILY Wednesday, Wednesday, and Wednesday when takes lasix and only 20meq all other days Furosemide 40 Mg Tablet 40 Mg PO M, W, F Only take Wednesday, Wednesday and Wednesday Tessalon Perle (Benzonatate) 100 Mg Capsule 100 Mg PO Q6H PRN Ventolin Hfa (Albuterol Sulfate) 18 Gm Hfa.aer.ad 0 Gm IH RTQ4HR Clopidogrel (Clopidogrel Bisulfate) 75 Mg Tablet 75 Mg PO DAILY Aspirin 81 Mg Tab.chew 81 Mg PO DAILY@0900 Reported [Bethanechol Chloride] 50 Mg PO QID Pantoprazole Sodium 40 Mg Tablet.dr 40 Mg PO DAILY Pepto-Bismol (Bismuth Subsalicylate) 262 Mg Tab.chew 262 Mg PO PRN PRN Allopurinol 300 Mg Tablet 300 Mg PO DAILY Children's Cetirizine HCl (Cetirizine HCl) 10 Mg Tab.chew 10 Mg PO DAILY Metoprolol Succinate 100 Mg Tab.er.24h 100 Mg PO HS Colestid (Colestipol HCl) 1 Gm Tab 1 Gm PO Q48H Divalproex Sodium 250 Mg Tablet.dr 500 Mg PO 1200 TAKES 2 (250MG) TABLETS Divalproex Sodium 250 Mg Tablet.dr 750 Mg PO BID TAKES 3 (250MG) TABLETS Rosuvastatin Calcium 10 Mg Tablet 10 Mg PO DAILY Assessment/Pt Instructions 1. Chest Pain with elevated Troponin-I--cardiology consulted, resume plavix/aspirin and metoprolol, crestor, likely small vessel disease so medical management 2. Cough/PUI--on albuterol, repeat COVID testing negative, is still on quarantine for 14 days from exposure, add symbicort and continue albuterol on DC 3. GERD--stable 4. Hypokalemia--improved 5. Hypomagnesemia--improved 6. Hypetension--stable 7. Cerebral palsy with seizure disorder--depakot restarted Discharge Physical Examination Vital Signs Vital Signs Date Time Temp Pulse Resp B/P (MAP) Pulse Ox O2 Delivery O2 Flow Rate FiO2 03/24/20 09:47 98 Room Air 03/24/20 08:00 35.5 86 24 117/71 (86) 03/22/20 16:26 21 General Appearance: No Apparent Distress Respiratory: Lungs Clear Cardiovascular: Regular Rate, Rhythm Gastrointestinal: Normal Bowel Sounds, Non Tender, Soft Extremity: Non Tender, No Calf Tenderness, No Pedal Edema Skin: Warm/Dry Neurologic/Psychiatric: Alert, Oriented x3 Allergies: Coded Allergies: vancomycin (Verified Allergy, Unknown, 11/11/05) Discharge Summary Date of Admission Mar 22, 2020 at 14:05 Date of Discharge Clinical Quality Measures AMI/AHF: ASA po Prior to arrival: Yes DVT/VTE Risk/Contraindication: Risk Factor Score Per Nursin RFS Level Per Nursing on Admit: 4+=Very High DEMI AGUSTIN DO Mar 24, 2020 10:26
[2020-03-24] MEDS ORDERED: MAGN400C PO (10:33)
[2020-03-24 12:00] VITALS: BP 115/56
[2020-03-24 13:40] VITALS: BP 115/56
--- NOTE | 2020-03-24 20:31 | Cardiology Progress Note ---
Cardiology SOAP Progress Note Subjective: improved shortness of breath. no chest pain Objective: I&O/Vital Signs 03/24/20 03/24/20 03/24/20 03/24/20 09:47 12:00 12:40 13:40 Temp 35.6 35.6 Pulse 67 79 79 Resp 24 24 B/P (MAP) 115/56 (75) 115/56 Pulse Ox 98 98 98 O2 Delivery Room Air Room Air Room Air 03/24/20 00:00 Intake Total 1210 ml Output Total 1230 ml Balance -20 ml Weight (Pounds): 218 Weight (Ounces): 0.0 Weight (Calculated Kilograms): 98.527879 Constitutional: appears stated age; No apparent distress; well-developed, well- nourished Respiratory: chest is bilaterally symmetric, lungs clear to auscultation Cardiovascular: regular rate-rhythm, S1 and S2 Gastrointestional: soft, audible bowel sounds; No spleenomegaly Extremities: normal range of motion, non-tender, normal inspection; No clubbing, No cyanosis; no lower extremity edema bilateral; No significant edema Neurologic/Psychiatric: no motor/sensory deficits, alert, normal mood/affect, oriented x 3, power is 5/5 both on sides Skin: normal color; No rash, No ulcerations Results/Procedures: Labs Laboratory Tests 03/24/20 07:56: White Blood Count 5.5, Red Blood Count 5.54H, Hemoglobin 15.9, Hematocrit 47, Mean Corpuscular Volume 86, Mean Corpuscular Hemoglobin 29, Mean Corpuscular Hemoglobin Concent 34, Red Cell Distribution Width 14.6H, Platelet Count 151, Mean Platelet Volume 9.9, Sodium Level 135, Potassium Level 3.9, Chloride Level 100, Carbon Dioxide Level 24, Anion Gap 11, Blood Urea Nitrogen 5L, Creatinine 0.76, Estimat Glomerular Filtration Rate > 60, BUN/Creatinine Ratio 7, Glucose Level 98, Calcium Level 8.5 Microbiology 03/22/20 Influenza Types A,B Antigen (SAVI) - Final, Complete A/P: Assessment/Dx: chest pain, shortness of breath, covid 19 exposure, borderline troponin Plan: serial troponin show borderline elevation with downward trend. on appropriate therapy. cath in september 2019 did not reveal obstructive coronary disease. shortness of breath - respiratory treatment covid 19 exposure - continue quarantine. borderline troponin- continue aspirin plavix and statin follow up with dr merida this week. Thank you for your consultation. Please call me if you have any questions. Sagar Stephen MD, FACP, FACC, FSCAI, FHRS, CCDS Interventional Cardiology Cardiac Electrophysiology Vascular Medicine and Endovascular Interventions Clinical Quality Measures AMI/AHF: ASA po Prior to arrival: Yes Sheridan STEPHEN MD Mar 24, 2020 20:31
== END 2020-03-24 13:40 | disposition home or self-care (01) ==
LOC: EDUNIT# 10:21 → ER 10:22 → 4TH 14:05
PROVIDERS: ADMIT Family Medicine; ATTEND Family Medicine
DX: R07.9 Chest pain, unspecified (principal); K21.9 Gastro-esophageal reflux disease without esophagitis; E87.6 Hypokalemia; E83.42 Hypomagnesemia; R05 Cough; I10 Essential (primary) hypertension; G80.9 Cerebral palsy, unspecified; I25.10 Atherosclerotic heart disease of native coronary artery without angina pectoris; E78.00 Pure hypercholesterolemia, unspecified; M19.90 Unspecified osteoarthritis, unspecified site; M06.9 Rheumatoid arthritis, unspecified; K52.9 Noninfective gastroenteritis and colitis, unspecified; I24.9 Acute ischemic heart disease, unspecified; I25.110 Atherosclerotic heart disease of native coronary artery with unstable angina pectoris; Z20.828 Contact with and (suspected) exposure to other viral communicable diseases; Z79.51 Long term (current) use of inhaled steroids; Z79.82 Long term (current) use of aspirin; Z79.899 Other long term (current) drug therapy; Z88.1 Allergy status to other antibiotic agents; Z83.3 Family history of diabetes mellitus; Z80.0 Family history of malignant neoplasm of digestive organs
CPT/HCPCS: 71045 ×2; 80048; 80053 ×2; 80061; 83690; 83735 ×2; 83874; 84484; 85025 ×2; 85027; 85610; 85730; 87804; 93005 ×2; 93041; 94760; 96372; 99284; U0002 ×2; 36415; 87635; 90686; G0378

== ENCOUNTER 2020-04-07 15:38 | Observation (INO) | payer MEDICARE, MEDICAID ==
[~2020-04-07] VITALS: Ht 182 cm; Wt 118.3 kg
[~2020-04-07 15:38] MED LIST changes: +BENZ-13 PO; +BUDE10.2 IH; +MAGN400C PO
[2020-04-07] MEDS ORDERED: ANTACID SUSP 30 ML UDC (MYLANTA) ONE (15:44)
[2020-04-07] MEDS ORDERED: LIDOCAINE 2% VISCOUS 15 ML UDC ONE (15:44)
[2020-04-07] MEDS ORDERED: FAMOTIDINE 20MG/2ML IV (PEPCID) IV STA (15:46)
--- NOTE | 2020-04-07 15:53 | ED Chest Pain ---
General Stated Complaint: CHEST PAIN Source: patient, EMS Exam Limitations: no limitations History of Present Illness Date Seen by Provider: Apr 07, 2020 Time Seen by Provider: 15:36 Initial Comments Patient presents ER by EMS from home with chief complaint that around noon he started having chest pain approximately 3 to 4 hours ago while eating. He did not take anything and it did not get any better. He called EMS and they gave him 324 mg aspirin on route. They did not give nitroglycerin because his blood pressure was in the 1 teens. He rates his pain as a 9 out of 10, squeezing gripping pain in his left chest radiating down his left shoulder and arm. He does not smoke. He does not have hypertension. He is on Plavix, aspirin, metoprolol Lasix and pantoprazole as well as statin. He is not diabetic. He denies a history of pulmonary problems. Patient states his pain is reproducible if he has a cough. Patient was recently in the hospital 2 weeks ago for the similar problem with a marginally elevated troponin and chest pain. He had a heart catheterization in September 2019 not revealing obstructive coronary disease. He had a COVID-19 exposure 2 to 4 weeks ago. Negative COVID-19 test on March 09. He does have a history of reactive airway disease and did receive some relief in the past from albuterol. History of dual-chamber permanent pacemaker [address] Lau. In the past nitroglycerin has not significantly helped his pain. Patient is laughing and joking with staff during his exam. Continues to rate pain at 9 out of 10. Allergies and Home Medications Allergies Coded Allergies: vancomycin (Verified Allergy, Unknown, 11/11/05) Home Medications Albuterol Sulfate 18 Gm Hfa.aer.ad, 0 GM IH RTQ4HR Prescribed by: BEAU SHARPE on 03/11/20 1238 Allopurinol 300 Mg Tablet, 300 MG PO M, W, F M, W, F Prescribed by: BEAU SHARPE on 03/24/20 1020 Aspirin 81 Mg Tab.chew, 81 MG PO DAILY@0900 Prescribed by: BEAU SHARPE on 03/11/20 1238 Budesonide/Formoterol Fumarate 10.2 Gm Hfa.aer.ad, 2 PUFF IH BID Prescribed by: BEAU SHARPE on 03/24/20 1019 Cetirizine HCl 10 Mg Tab.chew, 10 MG PO DAILY, (Reported) Clopidogrel Bisulfate 75 Mg Tablet, 75 MG PO DAILY Prescribed by: BEAU SHARPE on 03/11/20 1238 Colestipol HCl 1 Gm Tab, 1 GM PO Q48H, (Reported) Divalproex Sodium 250 Mg Tablet.dr, 750 MG PO BID, (Reported) TAKES 3 (250MG) TABLETS Divalproex Sodium 250 Mg Tablet.dr, 500 MG PO 1200, (Reported) TAKES 2 (250MG) TABLETS Furosemide 40 Mg Tablet, 40 MG PO , Only take Wednesday, Wednesday and Wednesday Prescribed by: BEAU SHARPE on 03/24/20 1019 Magnesium Oxide 400 Mg Capsule, 400 MG PO , Prescribed by: BEAU SHARPE on 03/24/20 1033 Metoprolol Succinate 50 Mg Tab.er.24h, 50 MG PO DAILY Prescribed by: BEAU SHARPE on 03/24/20 1019 Pantoprazole Sodium 40 Mg Tablet.dr, 40 MG PO DAILY, (Reported) Potassium Chloride 20 Meq Tab.er.prt, 40 MEQ PO DAILY Wednesday, Wednesday, and Wednesday when takes lasix and only 20meq all other days Prescribed by: BEAU SHARPE on 03/24/20 1019 Rosuvastatin Calcium 10 Mg Tablet, 10 MG PO DAILY, (Reported) [Bethanechol Chloride] , 50 MG PO QID, (Reported) Patient Home Medication List Home Medication List Reviewed: Yes Review of Systems Review of Systems Constitutional: No chills, No fever, No malaise EENTM: No Blurred Vision, No Double Vision Respiratory: Denies Cough, Denies Shortness of Air Cardiovascular: See HPI, Chest Pain; Denies Edema, Denies Palpitations, Denies Syncope Gastrointestinal: Denies Abdominal Pain, Denies Constipated, Denies Diarrhea, Denies Nausea Genitourinary: Denies Burning, Denies Discharge Musculoskeletal: No back pain, No joint pain Skin: No no symptoms reported All Other Systems Reviewed Negative Unless Noted: Yes Past Spvekyo-Zerfbp-Tyxusf Hx Patient Social History Alcohol Use: Denies Use Recreational Drug Use: No Smoking Status: Never a Smoker 2nd Hand Smoke Exposure: No Recent Hopitalizations: No Immunizations Up To Date Tetanus Booster (TDap): Unknown Date of Pneumonia Vaccine: Nov 28, 2011 Seasonal Allergies Seasonal Allergies: No Past Medical History Surgeries: Yes (pacer/AICD placement, left hand tendon repair) Cardiac, Orthopedic, Pacemaker Respiratory: No Currently Using CPAP: No Currently Using BIPAP: No Cardiac: Yes (HEART FAILURE, CONGENITAL heart block status post pacemaker;NON- OBSTR CAD) Cardiomyopathy, Coronary Artery Disease, High Cholesterol, Hypertension Neurological: Yes (hx meningitis 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, has left-sided neurologic deficits) Developmental Disorder, Paralysis Reproductive Disorders: No Genitourinary: No Gastrointestinal: Yes (GASTRITIS) Gastroesophageal Reflux, Hemorrhoids, Chronic Diarrhea Musculoskeletal: 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) Arthritis, Contracture, Gout Endocrine: No HEENT: No Loss of Vision: Denies Hearing Impairment: Denies Cancer: No Psychosocial: No Integumentary: Yes (bed bugs) Blood Disorders: No Adverse Reaction/Blood Tranf: No Family Medical History Alzheimer's disease Arthritis Colon cancer Diabetes mellitus Myocardial infarction Visual disorder Physical Exam Vital Signs Vital Signs - First Documented 04/07/20 15:58 Temp 36.2 Pulse 82 Resp 20 B/P (MAP) 114/91 (99) Pulse Ox 98 Capillary Refill : Height, Weight, BMI Height: 6'0.00" Weight: 218lbs. 0.0oz. 98.505575ub; 34.64 BMI Method:Stated General Appearance: No Apparent Distress, WD/WN HEENT: PERRL/EOMI, Pharynx Normal, Moist Mucous Membranes Neck: Normal Inspection, Non Tender Respiratory: Chest Non Tender, Lungs Clear, Normal Breath Sounds, No Accessory Muscle Use, No Respiratory Distress, Other (Pain reproduced by deep inspiration.) Cardiovascular: Regular Rate, Rhythm, No Edema, Normal Peripheral Pulses Gastrointestinal: Normal Bowel Sounds, Non Tender, Soft Extremity: Normal Capillary Refill, Normal Inspection, Normal Range of Motion, Non Tender Neurologic/Psychiatric: Alert, Oriented x3, No Motor/Sensory Deficits Skin: Normal Color, Warm/Dry Progress/Results/Core Measures Results/Orders Lab Results Laboratory Tests Test 04/07/20 15:42 Range/Units White Blood Count 6.7 4.3-11.0 10^3/uL Red Blood Count 5.55 H 4.30-5.52 10^6/uL Hemoglobin 15.7 13.3-17.7 g/dL Hematocrit 47 40-54 % Mean Corpuscular Volume 85 80-99 fL Mean Corpuscular Hemoglobin 28 25-34 pg Mean Corpuscular Hemoglobin Concent 34 32-36 g/dL Red Cell Distribution Width 13.8 10.0-14.5 % Platelet Count 147 130-400 10^3/uL Mean Platelet Volume 9.5 9.0-12.2 fL Immature Granulocyte % (Auto) 1 % Neutrophils (%) (Auto) 50 42-75 % Lymphocytes (%) (Auto) 34 12-44 % Monocytes (%) (Auto) 14 H 0-12 % Eosinophils (%) (Auto) 1 0-10 % Basophils (%) (Auto) 1 0-10 % Neutrophils # (Auto) 3.3 1.8-7.8 10^3/uL Lymphocytes # (Auto) 2.3 1.0-4.0 10^3/uL Monocytes # (Auto) 1.0 0.0-1.0 10^3/uL Eosinophils # (Auto) 0.1 0.0-0.3 10^3/uL Basophils # (Auto) 0.1 0.0-0.1 10^3/uL Immature Granulocyte # (Auto) 0.1 0.0-0.1 10^3/uL Prothrombin Time 15.1 H 12.2-14.7 SEC INR Comment 1.1 0.8-1.4 Activated Partial Thromboplast Time 32 24-35 SEC Sodium Level 132 L 135-145 MMOL/L Potassium Level 3.3 L 3.6-5.0 MMOL/L Chloride Level 94 L 98-107 MMOL/L Carbon Dioxide Level 31 21-32 MMOL/L Anion Gap 7 5-14 MMOL/L Blood Urea Nitrogen 4 L 7-18 MG/DL Creatinine 0.86 0.60-1.30 MG/DL Estimat Glomerular Filtration Rate > 60 BUN/Creatinine Ratio 5 Glucose Level 95 70-105 MG/DL Calcium Level 8.5 8.5-10.1 MG/DL Corrected Calcium 8.8 8.5-10.1 MG/DL Magnesium Level 1.6 1.6-2.4 MG/DL Total Bilirubin 0.4 0.1-1.0 MG/DL Aspartate Amino Transf (AST/SGOT) 15 5-34 U/L Alanine Aminotransferase (ALT/SGPT) 12 0-55 U/L Alkaline Phosphatase 47 40-136 U/L Myoglobin 66.5 10.0-92.0 NG/ML Troponin I 0.039 H <0.028 NG/ML B-Type Natriuretic Peptide 23.2 <100.0 PG/ML Total Protein 6.3 L 6.4-8.2 GM/DL Albumin 3.6 3.2-4.5 GM/DL Lipase 37 8-78 U/L My Orders Orders - NICOLA PEREZ Cbc With Automated Diff (04/07/20 15:46) Magnesium (04/07/20 15:46) Chest 1 View, Ap/Pa Only (04/07/20 15:46) Ekg Tracing (04/07/20 15:46) Comprehensive Metabolic Panel (04/07/20 15:46) Myoglobin Serum (04/07/20 15:46) Protime With Inr (04/07/20 15:46) Partial Thromboplastin Time (04/07/20 15:46) O2 (04/07/20 15:46) Monitor-Rhythm Ecg Trace Only (04/07/20 15:46) Lipid Panel (04/08/20 06:00) Ed Iv/Invasive Line Start (04/07/20 15:46) Lipase (04/07/20 15:46) BNP (04/07/20 15:46) Troponin I (04/07/20 15:46) Lidocaine 2% Viscous 15 Ml (Xylocaine Vi (04/07/20 16:00) Antacid Suspension (Mylanta Suspension (04/07/20 16:00) Famotidine Injection (Pepcid Injection) (04/07/20 15:46) Antacid Suspension (Mylanta Suspension (04/07/20 15:44) Lidocaine 2% Viscous 15 Ml (Xylocaine Vi (04/07/20 15:44) Medications Given in ED Current Medications Medications Dose Ordered Sig/Kinsey Route Start Time Stop Time Status Last Admin Dose Admin Al Hydrox/Mg Hydrox/Simethicone 30 ml ONCE ONCE PO 04/07/20 16:00 04/07/20 16:01 DC 04/07/20 15:50 30 ML Lidocaine HCl 15 ml ONCE ONCE PO 04/07/20 16:00 04/07/20 16:01 DC 04/07/20 15:50 15 ML Vital Signs/I&O 04/07/20 15:58 Temp 36.2 Pulse 82 Resp 20 B/P (MAP) 114/91 (99) Pulse Ox 98 Progress Progress Note : Time: 15:54 Progress Note The patient already received aspirin. His blood pressure is too low to trial nitroglycerin. Were going to trial a GI cocktail which has helped some in the past. Pepcid IV 20 mg. Initial ECG Impression Date: Apr 07, 2020 Initial ECG Impression Time: 15:39 Initial ECG Rate: 84 Initial ECG Rhythm: Normal Sinus Initial ECG Intervals: Normal Initial ECG Impression: Normal Initial ECG Comparisson: Unchanged Comment Paced rhythm without significant ST change. Diagnostic Imaging Diagonstic Imaging: Xray Plain Films/CT/US/NM/MRI: chest Comments [facility], [place] NAME: SAYRA SANABRIA [facility] REC#: [id number] PT STATUS: REG ER : 1965 PHYSICIAN: NICOLA PEREZ MD ADMIT DATE: 04/07/20/ER Signed Date of Exam:04/07/20 CHEST 1 VIEW, AP/PA ONLY INDICATION: Chest pain. COMPARISON: 03/23/2020. TECHNIQUE: Single frontal radiograph of the chest dated April 07, 2020. FINDINGS: Pacer device is again noted with battery pack overlying the left chest. The cardiac silhouette is stable from prior examination. No significant pulmonary vascular congestion. The lungs are clear of focal pulmonary opacity. Stable elevation of the right hemidiaphragm. No pleural effusion. No pneumothorax. No acute osseous abnormality. IMPRESSION: Stable appearing examination without acute cardiopulmonary abnormality. Dictated by: Dictated on workstation # [id number] Dict: 04/07/20 1608 Trans: 04/07/20 1618 [facility] [id number] Interpreted by: RUSSELL GUTIERRES MD Electronically signed by: RUSSELL GUTIERRES MD 04/07/20 1618 Reviewed: Reviewed by Me Departure Communication (Admissions) Time/Spoke to Admitting Phy: 16:45 Discussed the case with Dr. Plaza and she agrees to observe the patient for serial troponins and consultation with cardiology Time/Spoke to Consulting Phy: 16:35 Discussed the case with Dr. Asencio and he agrees to consult on the patient. Continue home medications. Morphine 1 to 2 mg every 1 hour as necessary for discomfort. Impression Primary Impression: Unstable angina Additional Impression: Elevated troponin Disposition: ADMITTED INPATIENT Condition: Stable Admissions Decision to Admit Reason: Admit from ER (General) Decision to Admit/Date: Apr 07, 2020 Time/Decision to Admit Time: 16:15 Departure-Patient Inst. Referrals: BEAU SHARPE DO (PCP/Family) Primary Care Physician NICOLA PEREZ Apr 07, 2020 15:53
[2020-04-07 15:58] LABS: BASOPHILS # (AUTO) 0.1 10^3/uL (0.0-0.1); BASOPHILS % (AUTO) 1 % (0-10); EOSINOPHILS # (AUTO) 0.1 10^3/uL (0.0-0.3); EOSINOPHILS % (AUTO) 1 % (0-10); HEMATOCRIT 47 % (40-54); HEMOGLOBIN 15.7 g/dL (13.3-17.7); LYMPHOCYTES # (AUTO) 2.3 10^3/uL (1.0-4.0); LYMPHOCYTES % (AUTO) 34 % (12-44); MEAN CORPUSCULAR HEMOGLOBIN 28 pg (25-34); MEAN CORPUSCULAR HGB CONC 34 g/dL (32-36); MEAN CORPUSCULAR VOLUME 85 fL (80-99); MEAN PLATELET VOLUME 9.5 fL (9.0-12.2); MONOCYTES % (AUTO) 14 % (0-12); NEUTROPHILS # (AUTO) 3.3 10^3/uL (1.8-7.8); NEUTROPHILS % (AUTO) 50 % (42-75); PLATELET COUNT 147 10^3/uL (130-400); WHITE BLOOD COUNT 6.7 10^3/uL (4.3-11.0)
[2020-04-07] MEDS ORDERED: ANTACID SUSP 30 ML UDC (MYLANTA) PO ONE (16:00)
[2020-04-07] MEDS ORDERED: LIDOCAINE 2% VISCOUS 15 ML UDC PO ONE (16:00)
[2020-04-07 16:09] LABS: ALBUMIN 3.6 GM/DL (3.2-4.5); CHLORIDE 94 MMOL/L (98-107); INR 1.1 (0.8-1.4); POTASSIUM 3.3 MMOL/L (3.6-5.0); PROTHROMBIN TIME PATIENT 15.1 SEC (12.2-14.7); SODIUM 132 MMOL/L (135-145)
[2020-04-07 16:10] LABS: CALCIUM 8.5 MG/DL (8.5-10.1)
[2020-04-07 16:11] LABS: GLUCOSE 95 MG/DL (70-105)
[2020-04-07 16:12] LABS: TOTAL PROTEIN 6.3 GM/DL (6.4-8.2)
[2020-04-07 16:13] LABS: BILIRUBIN,TOTAL 0.4 MG/DL (0.1-1.0); CARBON DIOXIDE 31 MMOL/L (21-32)
[2020-04-07 16:15] LABS: ALKALINE PHOSPHATASE 47 U/L (40-136); CREATININE SERUM 0.86 MG/DL (0.60-1.30); GFR ESTIMATED > 60
--- NOTE | 2020-04-07 16:15 | Diagnostic Imaging Report ---
INDICATION: Chest pain. COMPARISON: 03/23/2020. TECHNIQUE: Single frontal radiograph of the chest dated April 07, 2020. FINDINGS: Pacer device is again noted with battery pack overlying the left chest. The cardiac silhouette is stable from prior examination. No significant pulmonary vascular congestion. The lungs are clear of focal pulmonary opacity. Stable elevation of the right hemidiaphragm. No pleural effusion. No pneumothorax. No acute osseous abnormality. IMPRESSION: Stable appearing examination without acute cardiopulmonary abnormality. Dictated by: Dictated on workstation # [id number]
[2020-04-07 16:16] LABS: BUN/CREATININE RATIO 5
[2020-04-07 16:18] LABS: ALANINE AMINOTRANSFERASE 12 U/L (0-55); MAGNESIUM 1.6 MG/DL (1.6-2.4)
[2020-04-07 16:19] LABS: LIPASE 37 U/L (8-78)
[2020-04-07 18:28] VITALS: BP 120/84
[2020-04-07 20:00] VITALS: BP 117/77
[2020-04-07] MEDS ORDERED: ONDANSETRON 4 MG/2 ML (SDV) Z0FRAN IVP PRN (20:45)
[2020-04-07] MEDS ORDERED: NITROGLYCERIN 0.4 MG SL TABS BTL 25'S SL PRN (20:45)
[2020-04-07] MEDS ORDERED: ROSUVASTATIN 20 MG (CRESTOR) TABLET PO SCH (21:00)
[2020-04-07] MEDS ORDERED: morphine INJ 4 MG/ML 1 ML (VIAL/SYRINGE) IVP PRN ×2 (21:00)
[2020-04-07] MEDS ORDERED: ACETAMINOPHEN 500 MG TAB (TYLENOL) PO PRN (21:00)
[2020-04-07] MEDS ORDERED: ANTACID SUSP 30 ML UDC (MYLANTA) PO PRN (21:00)
[2020-04-07] MEDS: DIVALPROEX 250 MG DELAYED RELEASE (DEPAKOTE) TAB PO SCH (22:17)
[2020-04-07 23:44] VITALS: BP 151/90
[2020-04-08 01:40] VITALS: BP 114/91
[2020-04-08] MEDS ORDERED: RT-ALBUTEROL SULF 2.5 MG/3 ML PRE-MIX VIAL INH PRN (02:00)
[2020-04-08 03:19] VITALS: BP 128/88
[2020-04-08 03:38] LABS: BASOPHILS % (AUTO) 1 % (0-10); EOSINOPHILS # (AUTO) 0.1 10^3/uL (0.0-0.3); EOSINOPHILS % (AUTO) 1 % (0-10); HEMATOCRIT 45 % (40-54); HEMOGLOBIN 15.6 g/dL (13.3-17.7); LYMPHOCYTES # (AUTO) 2.5 10^3/uL (1.0-4.0); LYMPHOCYTES % (AUTO) 34 % (12-44); MEAN CORPUSCULAR HEMOGLOBIN 29 pg (25-34); MEAN CORPUSCULAR HGB CONC 34 g/dL (32-36); MEAN CORPUSCULAR VOLUME 83 fL (80-99); MEAN PLATELET VOLUME 10.2 fL (9.0-12.2); MONOCYTES # (AUTO) 1.1 10^3/uL (0.0-1.0); MONOCYTES % (AUTO) 15 % (0-12); NEUTROPHILS # (AUTO) 3.5 10^3/uL (1.8-7.8); NEUTROPHILS % (AUTO) 49 % (42-75); PLATELET COUNT 199 10^3/uL (130-400); WHITE BLOOD COUNT 7.2 10^3/uL (4.3-11.0)
[2020-04-08 03:53] LABS: ALBUMIN 3.6 GM/DL (3.2-4.5); CHLORIDE 96 MMOL/L (98-107); POTASSIUM 3.6 MMOL/L (3.6-5.0); SODIUM 132 MMOL/L (135-145)
[2020-04-08 03:54] LABS: CALCIUM 8.6 MG/DL (8.5-10.1)
[2020-04-08 03:55] LABS: TRIGLYCERIDES 120 MG/DL (<150); VLDL CHOLESTEROL 24 MG/DL (5-40)
[2020-04-08 03:56] LABS: GLUCOSE 89 MG/DL (70-105); TOTAL PROTEIN 6.1 GM/DL (6.4-8.2)
[2020-04-08 03:57] LABS: CARBON DIOXIDE 26 MMOL/L (21-32)
[2020-04-08 03:58] LABS: BILIRUBIN,TOTAL 0.4 MG/DL (0.1-1.0)
[2020-04-08 03:59] LABS: ALKALINE PHOSPHATASE 46 U/L (40-136); CREATININE SERUM 0.81 MG/DL (0.60-1.30); GFR ESTIMATED > 60
[2020-04-08 04:00] LABS: CHOLESTEROL 113 MG/DL (< 200)
[2020-04-08 04:01] LABS: BUN/CREATININE RATIO 7
[2020-04-08 04:02] LABS: ALANINE AMINOTRANSFERASE 12 U/L (0-55); HDL CHOLESTEROL 42 MG/DL (40-60)
--- NOTE | 2020-04-08 07:35 | Diagnostic Imaging Report ---
INDICATION: Chest pain, unstable angina. TECHNIQUE: Single view chest 2:08 AM. CORRELATION STUDY: 04/07/2020 FINDINGS: Left-sided pacemaker stable. Heart size and mediastinum are unchanged. Unchanged elevated right diaphragm. No infiltrate. IMPRESSION: 1. Generally stable single view chest demonstrates no acute abnormality. Dictated by: Dictated on workstation # [id number]
[2020-04-08 08:10] VITALS: BP 123/83
--- NOTE | 2020-04-08 08:18 | Consultation-Cardiology ---
HPI-Cardiology Cardiology Consultation: Date of Consultation 04/08/20 Time Seen by a Provider: 08:15 Date of Admission 04-07-20 Attending Physician Mi Boswell MD Admitting Physician Beau Agustin DO Consulting Physician Nitin Asencio MD Primary Newsroom Intern: Dr. Lau HPI: Chief Complaint: Chest pain Mr. Sanabria is a 55 yr old male admitted to [facility] from the ED with c/o CP. He states yesterday while eating he developed left sided chest pressure which he describes as a squeezing sensation which was constant for several hours. He reports the pain was worse with coughing or deep breathing. He reports discomfort with palpation of ACW. No radiation. He has chronic mild to mod dyspnea which was unchanged. No c/o palpitations, syncope or near syncope. He reports chronic mild to mod LE swelliing, L>R. He reports he has continued to have "twinges" of chest discomfort since admission occurring with coughing. He denies any fever or chills. Review of Systems-Cardiology Review of Systems Constitutional: No chills, No fever Eyes: No vision change Ears/Nose/Throat: No epistaxis, No recent hearing loss Respiratory: As described under HPI Cardiovascular: As described under HPI Gastrointestinal: No constipation, No diarrhea, No nausea, No vomiting Genitourinary: No dysuria Musculoskeletal: joint pain Skin: No rash on exposed areas, No ulcerations on exposed areas Psychiatric/Neurological: No anxiety, No depression, No seizure, No focal weakness, No syncope Hematologic: No bleeding abnormalities All Other Systems Reviewed Negative Unless Noted: Yes [id number]-[id number] Hx Patient Social History Alcohol Use: Denies Use Recreational Drug Use: No Smoking Status: Never a Smoker 2nd Hand Smoke Exposure: No Recent Foreign Travel: No Recent Infectious Disease Expo: No Hospitalization with Isolation: Denies Immunizations Up To Date Tetanus Booster (TDap): Unknown Date of Pneumonia Vaccine: Nov 28, 2011 Date of Influenza Vaccine: Mar 13, 2020 Past Medical History PMH As described under Assessment. Family Medical History Family Medical History: He reports a family h/o [place]. Family History: Alzheimer's disease Arthritis Colon cancer Diabetes mellitus Myocardial infarction Visual disorder Allergies and Home Medications Allergies Coded Allergies: vancomycin (Verified Allergy, Unknown, 11/11/05) Home Medications Albuterol Sulfate 18 Gm Hfa.aer.ad, 0 GM IH RTQ4HR Use BID in between symbicort Prescribed by: BEAU AGUSTIN on 04/08/20 1304 Allopurinol 300 Mg Tablet, 300 MG PO , , , , Prescribed by: BEAU AGUSTIN on 03/24/20 1020 Aspirin 81 Mg Tab.chew, 81 MG PO DAILY@0900 Prescribed by: BEAU AGUSTIN on 03/11/20 1238 Budesonide/Formoterol Fumarate 10.2 Gm Hfa.aer.ad, 2 PUFF IH BID Prescribed by: BEAU AGUSTIN on 03/24/20 1019 Cetirizine HCl 10 Mg Tab.chew, 10 MG PO DAILY, (Reported) Clopidogrel Bisulfate 75 Mg Tablet, 75 MG PO DAILY Prescribed by: BEAU AGUSTIN on 03/11/20 1238 Colestipol HCl 1 Gm Tab, 1 GM PO Q48H, (Reported) Divalproex Sodium 250 Mg Tablet.dr, 750 MG PO BID, (Reported) TAKES 3 (250MG) TABLETS Divalproex Sodium 250 Mg Tablet.dr, 500 MG PO 1200, (Reported) TAKES 2 (250MG) TABLETS Furosemide 40 Mg Tablet, 40 MG PO , , Only take Wednesday, Wednesday and Wednesday Prescribed by: BEAU AGUSTIN on 03/24/20 1019 Magnesium Oxide 400 Mg Capsule, 400 MG PO ,, Prescribed by: BEAU AGUSTIN on 03/24/20 1033 Metoprolol Succinate 50 Mg Tab.er.24h, 50 MG PO DAILY Prescribed by: BEAU AGUSTIN on 03/24/20 1019 Pantoprazole Sodium 40 Mg Tablet.dr, 40 MG PO DAILY, (Reported) Potassium Chloride 20 Meq Tab.er.prt, 40 MEQ PO DAILY Wednesday, Wednesday, and Wednesday when takes lasix and only 20meq all other days Prescribed by: BEAU AGUSTIN on 03/24/20 1019 Rosuvastatin Calcium 10 Mg Tablet, 10 MG PO DAILY, (Reported) [Bethanechol Chloride] , 50 MG PO QID, (Reported) Physical Exam-Cardiology Physical Exam Vital Signs/I&O Capillary Refill : Less Than 3 Seconds Constitutional: AAO x 3, well-developed, well-nourished HEENT: PERRL, hearing is well preserved, oral hygience is good Neck: No carotid bruit; carotid pulses are 2 + bilaterally Respiratory: No accessory muscle use, No respiratory distress; chest expansion is symmetric, chest is bilaterally symmetric, lungs clear to auscultation Cardiovascular: regular rate-rhythm; No JVD; S1 and S2 Gastrointestinal: No tender; soft, round, audible bowel sounds Extremities: other (mild, chronic RLE swelling) Neurologic/Psychiatric: grossly intact (moves all extremities) Skin: No rash on exposed areas, No ulcerations on exposed areas Data Review Labs Radiology NAME: SAYRA SANABRIA [facility] REC#: [id number] PT STATUS: ADM Abner : 1965 PHYSICIAN: MI BOSWELL MD ADMIT DATE: 04/07/20/[facility] Draft Date of Exam:04/08/20 CHEST 1 VIEW, AP/PA ONLY INDICATION: Chest pain, unstable angina. TECHNIQUE: Single view chest 2:08 AM. CORRELATION STUDY: 04/07/2020 FINDINGS: Left-sided pacemaker stable. Heart size and mediastinum are unchanged. Unchanged elevated right diaphragm. No infiltrate. IMPRESSION: 1. Generally stable single view chest demonstrates no acute abnormality. Dictated on workstation # [id number] Dict: 04/08/20 0713 Trans: 04/08/20 0734 [facility] [id number] Interpreted by: KAITY CASTILLO DO Electronically signed by: ECG Impression ECG Initial ECG Rhythm: Normal Sinus A/P-Cardiology Assessment/Admission Diagnosis Chronic minimal troponin elevation since February 2019 Most recent cardiac catheterization was carried out on September 20, [address] Lau showing small coronary system with mild disease nonobstructive disease Echocardiogram of Mar 10, [address] Stephen showed LVEF 55-65%. Grade 1 diastolic dysfunction. Trivial AoR. PASP 31-41mmHg Coronary artery disease, nonobstructive coronary artery disease per cardiac catheterization August 2012, and September 2019. No significant obstructive disease was noted Congestive heart failure, improved, last echocardiogram done in January 2018 showing ejection fraction 55-65 percent Sick sinus syndrome status post permanent pacemaker placement, pacemaker interrogated in Feb 2020, had one episode of atrial fibrillation lasted for 16 hours. No further episodes were documented. Followed by Dr. Lau History of brief episode of A. 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 Lau Arthritis Discussion and Recomendations Chronic minimal troponin elevation since 2019 of undetermined etiology Chest discomfort reproducible with cough and palpation of the anterior chest wall, does not appear to be cardiac in origin Continue current cardiac regimen Add PPI Discussed with Dr. Agustin this morning Hyponatremia likely secondary to chronic diuretic use OK to discharge home with out pt f/u with Dr. Lau Clinical Quality Measures AMI/AHF: ASA po Prior to arrival: Yes ( 324MG PO BY EMS) DVT/VTE Risk/Contraindication: Risk Factor Score Per Nursin RFS Level Per Nursing on Admit: 2=Moderate SASHA [id number] Apr 08, 2020 08:18
[2020-04-08] MEDS ORDERED: ASPIRIN E.C. 81 MG (ECOTRIN) TAB PO SCH (09:00)
[2020-04-08] MEDS ORDERED: PANTOPRAZOLE 40 MG (PROTONIX) TAB PO SCH (09:00)
[2020-04-08] MEDS ORDERED: meTOproloL SUCCINATE 50 MG (TOPROL XL) TAB PO SCH (09:00)
[2020-04-08] MEDS: DIVALPROEX 250 MG DELAYED RELEASE (DEPAKOTE) TAB PO SCH (09:39)
[2020-04-08] MEDS ORDERED: DIVALPROEX 500 MG DELAYED RELEASE (DEPAKOTE) TAB PO SCH (12:00)
[2020-04-08 12:16] VITALS: BP 123/87
--- NOTE | 2020-04-08 13:02 | History & Physical ---
History of Present Illness History of Present Illness Reason for visit/HPI This is a 55 year old male with a chronically and minimally elevated troponin-I for at least the past year who presented with left upper chest pain that started after eating. The pain was worse with coughing. He has had a normal cardiac catheterization just 7mos ago and a recent normal ECHO. He was started on symbicort during his recent admission for cough however he has not started that medication yet. Date of Admission Apr 07, 2020 at 16:50 Date Seen by a Provider: Apr 08, 2020 Time Seen by a Provider: 08:45 I consulted on this patient on 04/08/20 12:44 Attending Physician Ila Plaza MD Admitting Physician Demi Agustin DO Consult Allergies and Home Medications Allergies Coded Allergies: vancomycin (Verified Allergy, Unknown, 11/11/05) Home Medications Albuterol Sulfate 18 Gm Hfa.aer.ad, 0 GM IH RTQ4HR Prescribed by: DEMI AGUSTIN on 03/11/20 1238 Allopurinol 300 Mg Tablet, 300 MG PO , , , , Prescribed by: DEMI AGUSTIN on 03/24/20 1020 Aspirin 81 Mg Tab.chew, 81 MG PO DAILY@0900 Prescribed by: DEMI AGUSTIN on 03/11/20 1238 Budesonide/Formoterol Fumarate 10.2 Gm Hfa.aer.ad, 2 PUFF IH BID Prescribed by: DEMI AGUSTIN on 03/24/20 1019 Cetirizine HCl 10 Mg Tab.chew, 10 MG PO DAILY, (Reported) Clopidogrel Bisulfate 75 Mg Tablet, 75 MG PO DAILY Prescribed by: DEMI AGUSTIN on 03/11/20 1238 Colestipol HCl 1 Gm Tab, 1 GM PO Q48H, (Reported) Divalproex Sodium 250 Mg Tablet.dr, 750 MG PO BID, (Reported) TAKES 3 (250MG) TABLETS Divalproex Sodium 250 Mg Tablet.dr, 500 MG PO 1200, (Reported) TAKES 2 (250MG) TABLETS Furosemide 40 Mg Tablet, 40 MG PO , , Only take Wednesday, Wednesday and Wednesday Prescribed by: DEMI AGUSTIN on 03/24/20 1019 Magnesium Oxide 400 Mg Capsule, 400 MG PO M,W, F Prescribed by: DEMI AGUSTIN on 03/24/20 1033 Metoprolol Succinate 50 Mg Tab.er.24h, 50 MG PO DAILY Prescribed by: DEMI AGUSTIN on 03/24/20 1019 Pantoprazole Sodium 40 Mg Tablet.dr, 40 MG PO DAILY, (Reported) Potassium Chloride 20 Meq Tab.er.prt, 40 MEQ PO DAILY Wednesday, Wednesday, and Wednesday when takes lasix and only 20meq all other days Prescribed by: DEMI AGUSTIN on 03/24/20 1019 Rosuvastatin Calcium 10 Mg Tablet, 10 MG PO DAILY, (Reported) [Bethanechol Chloride] , 50 MG PO QID, (Reported) Patient Home Medication List Home Medication List Reviewed: Yes Past Kidkxms-Sjiwxb-Kmrypk Hx Past Med/Social Hx: Reviewed Nursing Past Med/Soc Hx Patient Social History Alcohol Use: Denies Use Recreational Drug Use: No Smoking Status: Never a Smoker 2nd Hand Smoke Exposure: No Recent Foreign Travel: No Contact w/other who traveled: No Recent Hopitalizations: No Recent Infectious Disease Expo: No Immunizations Up To Date Tetanus Booster (TDap): Unknown Date of Pneumonia Vaccine: Nov 28, 2011 Date of Influenza Vaccine: Mar 13, 2020 Seasonal Allergies Seasonal Allergies: No Past Medical History Surgeries: Cardiac, Orthopedic, Pacemaker Currently Using CPAP: No Currently Using BIPAP: No Cardiac: Cardiomyopathy, Coronary Artery Disease, High Cholesterol, Hypertension Neurological: Developmental Disorder, Paralysis Reproductive: No Gastrointestinal: Gastroesophageal Reflux, Hemorrhoids, Chronic Diarrhea Musculoskeletal: Arthritis, Contracture, Gout Loss of Vision: Denies Hearing Impairment: Denies History of Blood Disorders: No Adverse Reaction to Blood Cabrales: No Family History Alzheimer's disease Arthritis Colon cancer Diabetes mellitus Myocardial infarction Visual disorder Review of Systems Constitutional: No no symptoms reported, No see HPI, No chills, No diaphoresis, No dizziness, No fever, No malaise, No weakness, No weight gain, No weight loss, No other EENTM: No see HPI, No no symptoms reported, No ear discharge, No hearing loss, No ear pain, No blurred vision, No double vision, No eye pain, No tearing, No vision loss, No dental problems, No hoarseness, No mouth pain, No mouth swelling, No epistaxis, No nose congestion, No nose pain, No throat pain, No throat swelling, No other Respiratory: cough Cardiovascular: chest pain Gastrointestinal: No RUQ, No LUQ, No RLQ, No LLQ, No no symptoms reported, No see HPI, No abdominal pain, No constipation, No diarrhea, No dysphagia, No hem atemesis, No heartburn, No jaundice, No loss of appetite, No melena, No nausea, No vomiting, No other Genitourinary: No no symptoms reported, No see HPI, No decreased output, No discharge, No dysuria, No frequency, No hematuria, No hesitancy, No incontinence, No nocturia, No pain, No other Musculoskeletal: No no symptoms reported, No see HPI, No back pain, No gout, No joint pain, No joint swelling, No muscle pain, No muscle stiffness, No muscle cramps, No muscle twitching, No muscle weakness, No neck pain, No other Skin: No no symptoms reported, No see HPI, No change in color, No change in hair/nails, No dryness, No hx of skin cancer, No lesions, No lumps, No pruritus, No rash, No other Psychiatric/Neurological: Pre-Existing Deficit Physical Exam Vital Signs Vital Signs - First Documented 04/07/20 04/07/20 04/08/20 15:40 15:58 01:40 Temp 36.2 Pulse 82 Resp 20 B/P (MAP) 114/91 (99) Pulse Ox 98 O2 Delivery Room Air FiO2 21 Capillary Refill : Less Than 3 Seconds Height, Weight, BMI Height: 6'0.00" Weight: 218lbs. 0.0oz. [id number]; 35.74 BMI Method:Stated General Appearance: No Apparent Distress Neck: Supple Respiratory: Lungs Clear Cardiovascular: Regular Rate, Rhythm, Systolic Murmur Gastrointestinal: Normal Bowel Sounds, Non Tender, Soft Rectal: Deferred Back: No CVA Tenderness Extremity: Non Tender, No Calf Tenderness, Pedal Edema (non pitting) Neurologic/Psychiatric: Alert, Oriented x3 Skin: Warm/Dry Comments Laboratory Tests 04/07/20 15:42: White Blood Count 6.7, Red Blood Count 5.55H, Hemoglobin 15.7, Hematocrit 47, Mean Corpuscular Volume 85, Mean Corpuscular Hemoglobin 28, Mean Corpuscular Hemoglobin Concent 34, Red Cell Distribution Width 13.8, Platelet Count 147, Mean Platelet Volume 9.5, Immature Granulocyte % (Auto) 1, Neutrophils (%) (Auto) 50, Lymphocytes (%) (Auto) 34, Monocytes (%) (Auto) 14H, Eosinophils (%) (Auto) 1, Basophils (%) (Auto) 1, Neutrophils # (Auto) 3.3, Lymphocytes # (Auto) 2.3, Monocytes # (Auto) 1.0, Eosinophils # (Auto) 0.1, Basophils # (Auto) 0.1, Immature Granulocyte # (Auto) 0.1, Prothrombin Time 15.1H, INR Comment 1.1, Activated Partial Thromboplast Time 32, Sodium Level 132L, Potassium Level 3.3L, Chloride Level 94L, Carbon Dioxide Level 31, Anion Gap 7, Blood Urea Nitrogen 4L , Creatinine 0.86, Estimat Glomerular Filtration Rate > 60, BUN/Creatinine Ratio 5, Glucose Level 95, Calcium Level 8.5, Corrected Calcium 8.8, Magnesium Level 1.6, Total Bilirubin 0.4, Aspartate Amino Transf (AST/SGOT) 15, Alanine Aminotransferase (ALT/SGPT) 12, Alkaline Phosphatase 47, Myoglobin 66.5, Troponin I 0.039H, B-Type Natriuretic Peptide 23.2, Total Protein 6.3L, Albumin 3.6, Lipase 37 04/08/20 03:20: White Blood Count 7.2, Red Blood Count 5.45, Hemoglobin 15.6, Hematocrit 45, Mean Corpuscular Volume 83, Mean Corpuscular Hemoglobin 29, Mean Corpuscular Hemoglobin Concent 34, Red Cell Distribution Width 13.7, Platelet Count 199, Mean Platelet Volume 10.2, Immature Granulocyte % (Auto) 1, Neutrophils (%) (Auto) 49, Lymphocytes (%) (Auto) 34, Monocytes (%) (Auto) 15H, Eosinophils (%) (Auto) 1, Basophils (%) (Auto) 1, Neutrophils # (Auto) 3.5, Lymphocytes # (Auto) 2.5, Monocytes # (Auto) 1.1H, Eosinophils # (Auto) 0.1, Basophils # (Auto) 0.0, Immature Granulocyte # (Auto) 0.1, Sodium Level 132L, Potassium Level 3.6, Chloride Level 96L, Carbon Dioxide Level 26, Anion Gap 10, Blood Urea Nitrogen 6L, Creatinine 0.81, Estimat Glomerular Filtration Rate > 60, BUN/Creatinine Ratio 7, Glucose Level 89, Calcium Level 8.6, Corrected Calcium 8.9, Total Bilirubin 0.4, Aspartate Amino Transf (AST/SGOT) 14, Alanine Aminotransferase (ALT/SGPT) 12, Alkaline Phosphatase 46, Total Protein 6.1L, Albumin 3.6, Triglycerides Level 120, Cholesterol Level 113, LDL Cholesterol Direct 60, VLDL Cholesterol 24, HDL Cholesterol 42 Assessment/Plan Assessment and Plan 1. Chronic minimal troponin elevation since 2019 of undetermined etiology 2. Chest discomfort reproducible with cough and palpation of the anterior chest wall, does not appear to be cardiac in origin 3. Cough/COPD--did not start symbicort after last DC so will start this 4. Hypertension--resume home meds 5. Hyponatremia--likely due to lasix--did decrease these after last hospital stay Admission Diagnosis Admission Status: Observation Clinical Quality Measures AMI/AHF: ASA po Prior to arrival: Yes ( 324MG PO BY EMS) DVT/VTE Risk/Contraindication: Risk Factor Score Per Nursin RFS Level Per Nursing on Admit: 2=Moderate DEMI AGUSTIN DO Apr 08, 2020 13:02
[2020-04-08] MEDS ORDERED: ALBU18HF2 IH (13:04)
[2020-04-08] MEDS ORDERED: ACETAMINOPHEN 325 MG TABLET PO ONE (13:45)
--- NOTE | 2020-04-08 18:08 | Consultation-Cardiology ---
HPI-Cardiology Cardiology Consultation: Date of Consultation 04/08/20 Time Seen by a Provider: 13:40 Date of Admission Attending Physician Ila Plaza MD Admitting Physician Demi Agustin DO Consulting Physician ALLEN SWANSON MD, MA, FACP, FACC, FSCAI, CCDS HPI: Chief Complaint: CC: Chest pain HPI Mr. Alcala is a 55 yr old male admitted to [facility] from the ED with c/o CP. He states yesterday while eating he developed left sided chest pressure which he describes as a squeezing sensation which was constant for several hours. He reports the pain was worse with coughing or deep breathing. He reports dis comfort with palpation of ACW. No radiation. He has chronic mild to mod dyspnea which was unchanged. No c/o palpitations, syncope or near syncope. He reports chronic mild to mod LE swelliing, L>R. He reports he has continued to have "twinges" of chest discomfort since admission occurring with coughing. He denies any fever or chills. Review of Systems-Cardiology Review of Systems Constitutional: No chills, No fever Eyes: No vision change Ears/Nose/Throat: No epistaxis, No recent hearing loss Respiratory: As described under HPI Cardiovascular: As described under HPI Gastrointestinal: No constipation, No diarrhea, No nausea, No vomiting Genitourinary: No dysuria Musculoskeletal: joint pain Skin: No rash on exposed areas, No ulcerations on exposed areas Psychiatric/Neurological: No anxiety, No depression, No seizure, No focal weakness, No syncope Hematologic: No bleeding abnormalities All Other Systems Reviewed Negative Unless Noted: Yes [id number] Hx Patient Social History Alcohol Use: Denies Use Recreational Drug Use: No Smoking Status: Never a Smoker 2nd Hand Smoke Exposure: No Recent Foreign Travel: No Recent Infectious Disease Expo: No Hospitalization with Isolation: Denies Immunizations Up To Date Tetanus Booster (TDap): Unknown Date of Pneumonia Vaccine: Nov 28, 2011 Date of Influenza Vaccine: Mar 13, 2020 Past Medical History PMH As described under Assessment. Family Medical History Family Medical History: He reports a family h/o AR. Family History: Alzheimer's disease Arthritis Colon cancer Diabetes mellitus Myocardial infarction Visual disorder Allergies and Home Medications Allergies Coded Allergies: vancomycin (Verified Allergy, Unknown, 11/11/05) Home Medications Albuterol Sulfate 18 Gm Hfa.aer.ad, 0 GM IH RTQ4HR Use BID in between symbicort Prescribed by: DEMI AGUSTIN on 04/08/20 1304 Allopurinol 300 Mg Tablet, 300 MG PO , , , , Prescribed by: DEMI AGUSTIN on 03/24/20 1020 Aspirin 81 Mg Tab.chew, 81 MG PO DAILY@0900 Prescribed by: DEIM AGUSTIN on 03/11/20 1238 Budesonide/Formoterol Fumarate 10.2 Gm Hfa.aer.ad, 2 PUFF IH BID Prescribed by: DEMI AGUSTIN on 03/24/20 1019 Cetirizine HCl 10 Mg Tab.chew, 10 MG PO DAILY, (Reported) Clopidogrel Bisulfate 75 Mg Tablet, 75 MG PO DAILY Prescribed by: DEMI AGUSTIN on 03/11/20 1238 Colestipol HCl 1 Gm Tab, 1 GM PO Q48H, (Reported) Divalproex Sodium 250 Mg Tablet.dr, 750 MG PO BID, (Reported) TAKES 3 (250MG) TABLETS Divalproex Sodium 250 Mg Tablet.dr, 500 MG PO 1200, (Reported) TAKES 2 (250MG) TABLETS Furosemide 40 Mg Tablet, 40 MG PO , , Only take Wednesday, Wednesday and Wednesday Prescribed by: DEMI AGUSTIN on 03/24/20 1019 Magnesium Oxide 400 Mg Capsule, 400 MG PO ,, Prescribed by: DEMI AGUSTIN on 03/24/20 1033 Metoprolol Succinate 50 Mg Tab.er.24h, 50 MG PO DAILY Prescribed by: DEMI AGUSTIN on 03/24/20 1019 Pantoprazole Sodium 40 Mg Tablet.dr, 40 MG PO DAILY, (Reported) Potassium Chloride 20 Meq Tab.er.prt, 40 MEQ PO DAILY Wednesday, Wednesday, and Wednesday when takes lasix and only 20meq all other days Prescribed by: DEMI AGUSTIN on 03/24/20 1019 Rosuvastatin Calcium 10 Mg Tablet, 10 MG PO DAILY, (Reported) [Bethanechol Chloride] , 50 MG PO QID, (Reported) Patient Home Medication List Home Medication List Reviewed: Yes Physical Exam-Cardiology Physical Exam Vital Signs/I&O 04/08/20 04/08/20 04/08/20 04/08/20 06:46 08:00 08:00 08:10 Temp 36.7 Pulse 64 Resp 18 B/P (MAP) 123/83 (96) Pulse Ox 97 97 O2 Delivery Room Air Room Air Room Air Room Air 04/08/20 04/08/20 04/08/20 12:00 12:16 14:36 Temp 35.7 Pulse 71 Resp 18 B/P (MAP) 123/87 (99) Pulse Ox 98 O2 Delivery Room Air Room Air 04/07/20 23:59 Intake Total 610 ml Output Total 100 ml Balance 510 ml Capillary Refill : Less Than 3 Seconds Constitutional: AAO x 3, well-developed, well-nourished HEENT: PERRL, hearing is well preserved, oral hygience is good Neck: No carotid bruit; carotid pulses are 2 + bilaterally Respiratory: No accessory muscle use, No respiratory distress; chest expansion is symmetric, chest is bilaterally symmetric, lungs clear to auscultation Cardiovascular: regular rate-rhythm; No JVD; S1 and S2 Gastrointestinal: No tender; soft, round, audible bowel sounds Extremities: other (mild, chronic RLE swelling) Neurologic/Psychiatric: grossly intact (moves all extremities) Skin: No rash on exposed areas, No ulcerations on exposed areas Data Review Labs Laboratory Tests 04/08/20 03:20: White Blood Count 7.2, Red Blood Count 5.45, Hemoglobin 15.6, Hematocrit 45, Mean Corpuscular Volume 83, Mean Corpuscular Hemoglobin 29, Mean Corpuscular Hemoglobin Concent 34, Red Cell Distribution Width 13.7, Platelet Count 199, Mean Platelet Volume 10.2, Immature Granulocyte % (Auto) 1, Neutrophils (%) (Auto) 49, Lymphocytes (%) (Auto) 34, Monocytes (%) (Auto) 15H, Eosinophils (%) (Auto) 1, Basophils (%) (Auto) 1, Neutrophils # (Auto) 3.5, Lymphocytes # (Auto) 2.5, Monocytes # (Auto) 1.1H, Eosinophils # (Auto) 0.1, Basophils # (Auto) 0.0, Immature Granulocyte # (Auto) 0.1, Sodium Level 132L, Potassium Level 3.6, Chloride Level 96L, Carbon Dioxide Level 26, Anion Gap 10, Blood Urea Nitrogen 6L, Creatinine 0.81, Estimat Glomerular Filtration Rate > 60, BUN/Creatinine Ratio 7, Glucose Level 89, Calcium Level 8.6, Corrected Calcium 8.9, Total Bilirubin 0.4, Aspartate Amino Transf (AST/SGOT) 14, Alanine Aminotransferase (ALT/SGPT) 12, Alkaline Phosphatase 46, Total Protein 6.1L, Albumin 3.6, Triglycerides Level 120, Cholesterol Level 113, LDL Cholesterol Direct 60, VLDL Cholesterol 24, HDL Cholesterol 42 Laboratory Tests 04/07/20 15:42 04/08/20 03:20 A/P-Cardiology Assessment/Admission Diagnosis Chronic minimal troponin elevation since February 2019 Most recent cardiac catheterization was carried out on September 20, [address] Lau showing small coronary system with mild disease nonobstructive disease Echocardiogram of Mar 10, [address] Stephen showed LVEF 55-65%. Grade 1 diastolic dysfunction. Trivial AoR. PASP 31-41mmHg Coronary artery disease, nonobstructive coronary artery disease per cardiac catheterization August 2012, and September 2019. No significant obstructive disease was noted Congestive heart failure, improved, last echocardiogram done in January 2018 showing ejection fraction 55-65 percent Sick sinus syndrome status post permanent pacemaker placement, pacemaker interrogated in Feb 2020, had one episode of atrial fibrillation lasted for 16 hours. No further episodes were documented. Followed by Dr. Lau History of brief episode of A. 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 Lau Arthritis Discussion and Recomendations No evidence of ACS. Chest discomfort reproducible with cough and palpation of the anterior chest wall, does not appear to be cardiac in origin Continue current cardiac regimen Add PPI Hyponatremia likely secondary to chronic diuretic use OK to discharge home with out pt f/u with Dr. Lau Clinical Quality Measures AMI/AHF: ASA po Prior to arrival: Yes ( 324MG PO BY EMS) DVT/VTE Risk/Contraindication: Risk Factor Score Per Nursin RFS Level Per Nursing on Admit: 2=Moderate ALLEN SWANSON MD FACP FAC CCDS Apr 08, 2020 18:08
--- NOTE | 2020-04-19 12:40 | Physician Query-Final Dx ---
ELLIS FELIZ 04/19/20 1240: Final Diagnosis Give Final Diagnosis Please give Final Diagnosis BEAU SHARPE DO 04/19/20 1359: Final Diagnosis Give Final Diagnosis 1. Chest Wall pain 2. Hyponatremia due to Diuretics--improved 3. GERD--stable 4. Hypertension--stable 5. Cough/Asthma--home on Symbicort ELLIS FELIZ Apr 19, 2020 12:40 BEAU SHARPE DO Apr 19, 2020 13:59
== END 2020-04-08 14:36 | disposition home or self-care (01) ==
LOC: EDUNIT# 15:38 → ER 15:39 → CSD 16:50 → UNDOADMOB 16:50 → CSD 18:20 → UNDODISOB 04-08 14:35
PROVIDERS: ADMIT Family Medicine; ATTEND Family Medicine
DX: R07.89 Other chest pain (principal); E87.1 Hypo-osmolality and hyponatremia; K21.9 Gastro-esophageal reflux disease without esophagitis; I10 Essential (primary) hypertension; E78.00 Pure hypercholesterolemia, unspecified; K52.9 Noninfective gastroenteritis and colitis, unspecified; M10.9 Gout, unspecified; I25.110 Atherosclerotic heart disease of native coronary artery with unstable angina pectoris; J44.9 Chronic obstructive pulmonary disease, unspecified; Z79.51 Long term (current) use of inhaled steroids; Z79.82 Long term (current) use of aspirin; Z79.899 Other long term (current) drug therapy; Z88.1 Allergy status to other antibiotic agents; Z80.0 Family history of malignant neoplasm of digestive organs; Z83.3 Family history of diabetes mellitus
CPT/HCPCS: 71045 ×2; 80053 ×2; 80061; 83690; 83735; 83874; 83880; 84484; 85025 ×2; 85610; 85730; 93005 ×2; 93041; 94664; 96374; 99284; G0378; 36415

== ENCOUNTER 2020-05-08 13:28 | Emergency (ER) | payer MEDICARE, MEDICAID ==
[~2020-05-08] VITALS: Ht 182 cm; Wt 117.0 kg
[2020-05-08 13:51] LABS: BASOPHILS # (AUTO) 0.1 10^3/uL (0.0-0.1); BASOPHILS % (AUTO) 1 % (0-10); EOSINOPHILS # (AUTO) 0.1 10^3/uL (0.0-0.3); EOSINOPHILS % (AUTO) 1 % (0-10); HEMATOCRIT 51 % (40-54); HEMOGLOBIN 17.6 g/dL (13.3-17.7); LYMPHOCYTES # (AUTO) 2.1 10^3/uL (1.0-4.0); LYMPHOCYTES % (AUTO) 27 % (12-44); MEAN CORPUSCULAR HEMOGLOBIN 28 pg (25-34); MEAN CORPUSCULAR HGB CONC 35 g/dL (32-36); MEAN CORPUSCULAR VOLUME 82 fL (80-99); MEAN PLATELET VOLUME 10.9 fL (9.0-12.2); MONOCYTES # (AUTO) 1.1 10^3/uL (0.0-1.0); MONOCYTES % (AUTO) 14 % (0-12); NEUTROPHILS # (AUTO) 4.3 10^3/uL (1.8-7.8); NEUTROPHILS % (AUTO) 56 % (42-75); PLATELET COUNT 197 10^3/uL (130-400); WHITE BLOOD COUNT 7.8 10^3/uL (4.3-11.0)
[2020-05-08] MEDS ORDERED: KETOROLAC 30 MG/ML VIAL IVP ONE (14:00)
--- NOTE | 2020-05-08 14:04 | ED Chest Pain ---
General Chief Complaint: Chest Pain Stated Complaint: CHEST PAIN Nursing Triage Note: PT ARRIVED PER EMS PT CO OF CHEST PAIN THAT STARTED APPROX 30MIN AGO WHILE RESTING IN A CHAIR. NO SOA NOTED RATES PAIN 8/10. PT HAS SL IN R AC BY EMS Nursing Sepsis Screen: No Definite Risk Source: patient Exam Limitations: no limitations History of Present Illness Date Seen by Provider: May 08, 2020 Time Seen by Provider: 13:50 Initial Comments Patient is a 55-year-old gentleman who presents to the emergency department today with a chief complaint of substernal chest pressure radiating into his left shoulder. Patient states he had onset of discomfort approximately 30 minutes prior to arrival. Patient states that he had gotten in the shower and subsequently gotten out and was sitting in a chair when he had onset of symptoms. Patient states that the symptoms of chest pain made him a little bit short of breath. He states he was a little bit sweaty. He denies any nausea. Patient states that he has had similar complaints of chest pain in the past. Patient denies any history of heart attack. He does have a pacemaker placed for "heart block". Patient states that he rates his pain currently a "9". Nothing makes his pain any better and nothing is made it any worse. Patient states he took all of his daily medications this morning as instructed. Patient has a history of mild mental impairment. Per review of the medical record the patient had coronary angiography in September 2019 which showed a "small coronary system with no significant obstructive cardiac disease". Patient denies any recent illnesses such as fevers, chills, congestion. No nausea, vomiting or diarrhea. No symptoms. Patient complains of pain in his feet related to gout but is not currently having an exacerbation. All other review of systems reviewed and negative except as stated. Timing/Duration: 1/2 hour Severity/Quality: moderate Location: substernal Radiation: shoulders (Left shoulder) Activities at Onset: activity (Showering) Prior CP/Workup: cardiac cath ASA po BUTTON MAKER: No NTG SL BUTTON MAKER: No Associated Symptoms: denies symptoms Allergies and Home Medications Allergies Coded Allergies: vancomycin (Verified Allergy, Unknown, 11/11/05) Home Medications Albuterol Sulfate 18 Gm Hfa.aer.ad, 0 GM IH RTQ4HR Use BID in between symbicort Prescribed by: BEAU AGUSTIN on 04/08/20 1304 Allopurinol 300 Mg Tablet, 300 MG PO , , , , Prescribed by: BEAU AGUSTIN on 03/24/20 1020 Aspirin 81 Mg Tab.chew, 81 MG PO DAILY@0900 Prescribed by: BEAU AGUSTIN on 03/11/20 1238 Budesonide/Formoterol Fumarate 10.2 Gm Hfa.aer.ad, 2 PUFF IH BID Prescribed by: BEAU AGUSTIN on 03/24/20 1019 Cetirizine HCl 10 Mg Tab.chew, 10 MG PO DAILY, (Reported) Clopidogrel Bisulfate 75 Mg Tablet, 75 MG PO DAILY Prescribed by: BEAU AGUSTIN on 03/11/20 1238 Colestipol HCl 1 Gm Tab, 1 GM PO Q48H, (Reported) Divalproex Sodium 250 Mg Tablet.dr, 750 MG PO BID, (Reported) TAKES 3 (250MG) TABLETS Divalproex Sodium 250 Mg Tablet.dr, 500 MG PO 1200, (Reported) TAKES 2 (250MG) TABLETS Furosemide 40 Mg Tablet, 40 MG PO , , Only take Wednesday, Wednesday and Wednesday Prescribed by: BEAU AGUSTIN on 03/24/20 1019 Magnesium Oxide 400 Mg Capsule, 400 MG PO ,, Prescribed by: BEAU AGUSTIN on 03/24/20 1033 Metoprolol Succinate 50 Mg Tab.er.24h, 50 MG PO DAILY Prescribed by: BEAU AGUSTIN on 03/24/20 1019 Pantoprazole Sodium 40 Mg Tablet.dr, 40 MG PO DAILY, (Reported) Potassium Chloride 20 Meq Tab.er.prt, 40 MEQ PO DAILY Wednesday, Wednesday, and Wednesday when takes lasix and only 20meq all other days Prescribed by: BEAU AGUSTIN on 03/24/20 1019 Rosuvastatin Calcium 10 Mg Tablet, 10 MG PO DAILY, (Reported) [Bethanechol Chloride] , 50 MG PO QID, (Reported) Patient Home Medication List Home Medication List Reviewed: Yes Review of Systems Review of Systems Constitutional: see HPI EENTM: No Symptoms Reported Respiratory: SOA at Rest (Mild) Cardiovascular: Chest Pain (Moderate) Gastrointestinal: No Symptoms Reported Musculoskeletal: no symptoms reported Skin: no symptoms reported Psychiatric/Neurological: No Symptoms Reported All Other Systems Reviewed Negative Unless Noted: Yes Past Tuhfgrg-Hvwhfr-Tarotr Hx Patient Social History Alcohol Use: Denies Use Smoking Status: Never a Smoker 2nd Hand Smoke Exposure: No Recent Infectious Disease Expo: No Recent Hopitalizations: No Immunizations Up To Date Tetanus Booster (TDap): Unknown Date of Pneumonia Vaccine: Nov 28, 2011 Date of Influenza Vaccine: Mar 13, 2020 Seasonal Allergies Seasonal Allergies: No Past Medical History Surgeries: Yes (pacer/AICD placement, left hand tendon repair) Cardiac, Orthopedic, Pacemaker Respiratory: No Currently Using CPAP: No Currently Using BIPAP: No Cardiac: Yes (HEART FAILURE, CONGENITAL heart block status post pacemaker;NON-OBSTR CAD) Cardiomyopathy, Coronary Artery Disease, High Cholesterol, Hypertension Neurological: Yes (hx meningitis 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, has left-sided neurologic deficits) Developmental Disorder, Paralysis Reproductive Disorders: No Genitourinary: No Gastrointestinal: Yes (GASTRITIS) Gastroesophageal Reflux, Hemorrhoids, Chronic Diarrhea Musculoskeletal: 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 0.0oz. [id number]; 35.00 BMI Method:Stated General Appearance: No Apparent Distress, WD/WN HEENT: Other (Patient has disconjugate gaze, pre-existing) Neck: Normal Inspection Respiratory: Lungs Clear, Normal Breath Sounds, Other (tenderness to chest wall with palpation) Cardiovascular: Regular Rate, Rhythm, No Murmur (Trace systolic murmur heard at the left upper sternal border) Gastrointestinal: Normal Bowel Sounds, Non Tender, Soft Extremity: Normal Capillary Refill, Normal Inspection, Non Tender, Pedal Edema Neurologic/Psychiatric: Alert, Oriented x3, No Motor/Sensory Deficits, Normal Mood/Affect Skin: Normal Color, Warm/Dry Progress/Results/Core Measures Results/Orders Lab Results Laboratory Tests Test 05/08/20 13:33 05/08/20 14:12 05/08/20 16:45 Range/Units White Blood Count 7.8 4.3-11.0 10^3/uL Red Blood Count 6.23 H 4.30-5.52 10^6/uL Hemoglobin 17.6 13.3-17.7 g/dL Hematocrit 51 40-54 % Mean Corpuscular Volume 82 80-99 fL Mean Corpuscular Hemoglobin 28 25-34 pg Mean Corpuscular Hemoglobin Concent 35 32-36 g/dL Red Cell Distribution Width 13.7 10.0-14.5 % Platelet Count 197 130-400 10^3/uL Mean Platelet Volume 10.9 9.0-12.2 fL Immature Granulocyte % (Auto) 2 % Neutrophils (%) (Auto) 56 42-75 % Lymphocytes (%) (Auto) 27 12-44 % Monocytes (%) (Auto) 14 H 0-12 % Eosinophils (%) (Auto) 1 0-10 % Basophils (%) (Auto) 1 0-10 % Neutrophils # (Auto) 4.3 1.8-7.8 10^3/uL Lymphocytes # (Auto) 2.1 1.0-4.0 10^3/uL Monocytes # (Auto) 1.1 H 0.0-1.0 10^3/uL Eosinophils # (Auto) 0.1 0.0-0.3 10^3/uL Basophils # (Auto) 0.1 0.0-0.1 10^3/uL Immature Granulocyte # (Auto) 0.1 0.0-0.1 10^3/uL Sodium Level 129 L 135-145 MMOL/L Potassium Level 3.9 3.6-5.0 MMOL/L Chloride Level 93 L 98-107 MMOL/L Carbon Dioxide Level 28 21-32 MMOL/L Anion Gap 8 5-14 MMOL/L Blood Urea Nitrogen 4 L 7-18 MG/DL Creatinine 0.80 0.60-1.30 MG/DL Estimat Glomerular Filtration Rate > 60 BUN/Creatinine Ratio 5 Glucose Level 87 70-105 MG/DL Calcium Level 8.6 8.5-10.1 MG/DL Total Creatine Kinase 308 H 30-200 U/L Creatine Kinase MB 5.0 <6.6 NG/ML Troponin I 0.039 H 0.041 H <0.028 NG/ML My Orders Orders - SUSAN PADRON MD Ed Iv/Invasive Line Start (05/08/20 13:45) Cbc With Automated Diff (05/08/20 13:45) Basic Metabolic Panel (05/08/20 13:45) Creatine Kinase (05/08/20 13:45) Creatine Kinase Mb (05/08/20 13:45) Troponin I (05/08/20 13:45) Chest 1 View, Ap/Pa Only (05/08/20 13:45) Ekg Tracing (05/08/20 13:45) Ketorolac Injection (Toradol Injection) (05/08/20 14:00) Troponin I (05/08/20 16:10) Orphenadrine Inj (Ed Only) (Norflex Inje (05/08/20 16:15) Medications Given in ED Current Medications Medications Dose Ordered Sig/Kinsey Route Start Time Stop Time Status Last Admin Dose Admin Ketorolac Tromethamine 15 mg ONCE ONCE IVP 05/08/20 14:00 05/08/20 14:01 DC 05/08/20 14:00 15 MG Orphenadrine Citrate 30 mg ONCE ONCE IV 05/08/20 16:15 05/08/20 16:16 DC 05/08/20 16:45 30 MG Vital Signs/I&O 05/08/20 05/08/20 13:29 13:29 Temp 36.1 Pulse 80 Resp 21 B/P (MAP) 133/81 (98) Pulse Ox 97 O2 Delivery Room Air Blood Pressure Mean: 98 Progress Progress Note : Time: 17:29 Progress Note Patient is a 55-year-old male who presents to the emergency room with a chief complaint of chest pressure. Evaluation today includes a physical exam, CBC, chemistry, cardiac enzyme profile, chest x-ray and EKG. Patient's EKG is reviewed and is unremarkable, paced. Patient's chest x-ray is also unremarkable. Patient CBC is within normal limits his chemistry is within normal limits his cardiac enzyme profile shows a slightly increased total CK as well as an elevated troponin at 0.039. Extensive review of the medical record reveals that the patient has had chronically elevated troponin over the course of the last 2 years at least. He has had multiple admissions for evaluation of this elevated troponin. He has had a cardiac catheterization in September 2019 which showed a small coronary system with clean coronary arteries, no obstructive disease is noted. Patient discomfort is reproducible with palpation of the chest wall. He is treated in the emergency department with Toradol and Norflex. His pain has gone from a "9" down to a "5". On multiple reevaluations the patient is comfortable in the bed showing no evidence of any acute distress. At this point I am going to discharge the patient home with his mildly elevated troponin. It did go from 0.039 to 0.041. Patient tells me that he has follow- up scheduled with his family resource coordinator, Dr. Lau this month. I have advised him to call Dr. Lau's office to possibly get a sooner appointment. The patient verbalizes understanding of the plan of care. All questions are sought and answered. Patient is stable for discharge. Initial ECG Impression Date: May 08, 2020 Initial ECG Impression Time: 13:35 Initial ECG Rate: 80 Initial ECG Rhythm: Normal Sinus Comment paced rhythm Diagnostic Imaging Diagonstic Imaging: Xray Plain Films/CT/US/NM/MRI: chest Comments [facility] [place] NAME: SAYRA [facility]NABRIA [facility] REC#: [id number] PT STATUS: REG ER : 1965 PHYSICIAN: SUSAN PADRON MD ADMIT DATE: 05/08/20/ER Signed Date of Exam:05/08/20 CHEST 1 VIEW, AP/PA ONLY INDICATION: Chest pain. Frontal chest obtained at 1:57 p.m. and compared to 04/08/2020. Heart is borderline in size. There is no change in the pacemaker device. There is no focal infiltrate or pneumothorax or pleural fluid. IMPRESSION: Stable pacemaker device with borderline cardiomegaly. No focal infiltrate or acute process. Dictated by: Dictated on workstation # [id number] Dict: 05/08/20 1419 Trans: 05/08/20 1606 CV [id number] Interpreted by: KIRAN FLOREZ MD Electronically signed by: KIRAN FLOREZ MD 05/08/20 1606 Departure Impression Primary Impression: Atypical chest pain Additional Impression: Elevated troponin level not due to acute coronary syndrome Disposition: 01 HOME, SELF-CARE Condition: Stable Departure-Patient Inst. Decision time for Depature: 17:36 Referrals: BEAU AGUSTIN DO (PCP/Family) Primary Care Physician Patient Instructions: Chest Pain That Is Not Caused by the Heart (DC) Add. Discharge Instructions: Continue to take your daily medications as prescribed. Please call and follow-up with your family resource coordinator, Dr. Lau tomorrow. Call him for a follow-up appointment early next week. Return to the emergency room if you have any worsening symptoms especially associated with shortness of breath, nausea, sweating or any other emergent co ncerns. Take your ibuprofen this evening for your chest pain. Make sure you eat when you take ibuprofen. Follow-up with Dr. Agustin as well. Copy Copies To 1: BEAU AGUSTIN KATHRYN M MD May 08, 2020 14:04
--- NOTE | 2020-05-08 14:23 | Diagnostic Imaging Report ---
INDICATION: Chest pain. Frontal chest obtained at 1:57 p.m. and compared to 04/08/2020. Heart is borderline in size. There is no change in the pacemaker device. There is no focal infiltrate or pneumothorax or pleural fluid. IMPRESSION: Stable pacemaker device with borderline cardiomegaly. No focal infiltrate or acute process. Dictated by: Dictated on workstation # [id number]
[2020-05-08 14:29] LABS: CHLORIDE 93 MMOL/L (98-107); POTASSIUM 3.9 MMOL/L (3.6-5.0); SODIUM 129 MMOL/L (135-145)
[2020-05-08 14:30] LABS: CALCIUM 8.6 MG/DL (8.5-10.1)
[2020-05-08 14:31] LABS: GLUCOSE 87 MG/DL (70-105)
[2020-05-08 14:32] LABS: CARBON DIOXIDE 28 MMOL/L (21-32)
[2020-05-08 14:35] LABS: GFR ESTIMATED > 60
[2020-05-08 14:36] LABS: BUN/CREATININE RATIO 5
[2020-05-08 14:37] LABS: CREATINE KINASE 308 U/L (30-200)
[2020-05-08] MEDS ORDERED: ORPHENADRINE 60 MG/2 ML (NORFLEX) AMP (ED ONLY) IV ONE (16:15)
[2020-05-08 17:51] VITALS: BP 116/64
== END 2020-05-08 17:51 | disposition home or self-care (01) ==
LOC: EDUNIT# 13:28 → ER 13:30
DX: R07.2 Precordial pain (principal); R77.8 Other specified abnormalities of plasma proteins; I10 Essential (primary) hypertension; I25.10 Atherosclerotic heart disease of native coronary artery without angina pectoris; I25.2 Old myocardial infarction; E78.00 Pure hypercholesterolemia, unspecified; K21.9 Gastro-esophageal reflux disease without esophagitis; K52.9 Noninfective gastroenteritis and colitis, unspecified; Q24.6 Congenital heart block; Z86.69 Personal history of other diseases of the nervous system and sense organs; Z88.1 Allergy status to other antibiotic agents; Z79.02 Long term (current) use of antithrombotics/antiplatelets; Z79.82 Long term (current) use of aspirin; Z79.51 Long term (current) use of inhaled steroids; Z95.810 Presence of automatic (implantable) cardiac defibrillator; Z95.9 Presence of cardiac and vascular implant and graft, unspecified; Z83.3 Family history of diabetes mellitus; Z80.0 Family history of malignant neoplasm of digestive organs
CPT/HCPCS: 36415; 71045; 80048; 82550; 82553; 84484; 85025; 93005

== ENCOUNTER → 2020-06-05 | Outpatient (CLI) | payer MEDICARE, MEDICAID ==
[2020-06-05 15:52] LABS: BASOPHILS % (AUTO) 1 % (0-10); EOSINOPHILS # (AUTO) 0.1 10^3/uL (0.0-0.3); EOSINOPHILS % (AUTO) 1 % (0-10); HEMATOCRIT 47 % (40-54); HEMOGLOBIN 16.1 g/dL (13.3-17.7); LYMPHOCYTES # (AUTO) 2.2 10^3/uL (1.0-4.0); LYMPHOCYTES % (AUTO) 34 % (12-44); MEAN CORPUSCULAR HEMOGLOBIN 28 pg (25-34); MEAN CORPUSCULAR HGB CONC 34 g/dL (32-36); MEAN CORPUSCULAR VOLUME 81 fL (80-99); MEAN PLATELET VOLUME 9.1 fL (9.0-12.2); MONOCYTES # (AUTO) 0.8 10^3/uL (0.0-1.0); MONOCYTES % (AUTO) 12 % (0-12); NEUTROPHILS # (AUTO) 3.2 10^3/uL (1.8-7.8); NEUTROPHILS % (AUTO) 51 % (42-75); PLATELET COUNT 155 10^3/uL (130-400); WHITE BLOOD COUNT 6.3 10^3/uL (4.3-11.0)
[2020-06-05 15:59] LABS: ALBUMIN 3.8 GM/DL (3.2-4.5)
[2020-06-05 16:00] LABS: CHLORIDE 95 MMOL/L (98-107); POTASSIUM 4.2 MMOL/L (3.6-5.0); SODIUM 127 MMOL/L (135-145)
[2020-06-05 16:01] LABS: CALCIUM 8.3 MG/DL (8.5-10.1)
[2020-06-05 16:02] LABS: GLUCOSE 106 MG/DL (70-105); TOTAL PROTEIN 6.7 GM/DL (6.4-8.2)
[2020-06-05 16:03] LABS: CARBON DIOXIDE 26 MMOL/L (21-32)
[2020-06-05 16:04] LABS: BILIRUBIN,TOTAL 0.5 MG/DL (0.1-1.0)
[2020-06-05 16:05] LABS: ALKALINE PHOSPHATASE 48 U/L (40-136)
[2020-06-05 16:06] LABS: CREATININE SERUM 0.82 MG/DL (0.60-1.30); GFR ESTIMATED > 60
[2020-06-05 16:07] LABS: BUN/CREATININE RATIO 4
[2020-06-05 16:09] LABS: ALANINE AMINOTRANSFERASE 16 U/L (0-55)
== END ==
LOC: LAB 15:26
PROVIDERS: ATTEND Family Medicine
DX: E87.6 Hypokalemia (principal); R06.00 Dyspnea, unspecified; R53.83 Other fatigue; R50.9 Fever, unspecified
CPT/HCPCS: 36415; 80053; 83880; 85025

== ENCOUNTER 2020-06-18 09:34 | Emergency (ER) | payer MEDICARE, MEDICAID ==
[~2020-06-18] VITALS: Ht 185 cm; Wt 95.0 kg
--- NOTE | 2020-06-18 09:53 | ED Chest Pain ---
General Chief Complaint: Chest Pain Stated Complaint: CP History of Present Illness Date Seen by Provider: Jun 18, 2020 Time Seen by Provider: 09:45 Initial Comments Patient is a 55-year-old male who presents to the emergency department today with a chief complaint of left-sided chest pain and pain in his left shoulder and arm off and on for about the last week. Patient has a history of some mild cognitive impairment. 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 Patient denies any nausea, diaphoresis but does feel little bit short of breath when the pain happens. Patient tells me that he has a history of "heart block" as a child and required placement of a pacemaker. Patient is on his third pacemaker. Patient reports that he has had scar tissue around the pacemaker in the past and had to have it removed secondary to the pacemaker itself causing pain. Patient has had multiple visits to the emergency department with chest pain related complaints. Per review of the medical record he has a history of chronically elevated troponin for the last 3 years. Patient had a cardiac catheterization done late last summer which showed small coronary system with no obstructive disease pattern noted. Patient has had some cough and states that his chest pain is much worsened by his cough. Patient also has reproducible pain with certain movements of his left arm. No recent fevers or chills. As stated he has had some coughing. No nausea, vomiting, problems with bowel or bladder. All other review of systems reviewed and negative except as stated. Timing/Duration: 1 week Severity/Quality: moderate, aching, pressure Location: central (Left-sided) Radiation: shoulders (Left) Activities at Onset: none Prior CP/Workup: cardiac cath ASA po SCRIPT ARTIST: Yes NTG SL SCRIPT ARTIST: No Allergies and Home Medications Allergies Coded Allergies: vancomycin (Verified Allergy, Unknown, 11/11/05) Home Medications Albuterol Sulfate 18 Gm Hfa.aer.ad, 0 GM IH RTQ4HR Use BID in between symbicort Prescribed by: BEAU SHARPE on 04/08/20 1304 Allopurinol 300 Mg Tablet, 300 MG PO M, W, F M, W, F Prescribed by: BEAU SHARPE on 03/24/20 1020 Aspirin 81 Mg Tab.chew, 81 MG PO DAILY@0900 Prescribed by: BEAU SHARPE on 03/11/20 1238 Budesonide/Formoterol Fumarate 10.2 Gm Hfa.aer.ad, 2 PUFF IH BID Prescribed by: BEAU SHARPE on 03/24/20 1019 Cetirizine HCl 10 Mg Tab.chew, 10 MG PO DAILY, (Reported) Clopidogrel Bisulfate 75 Mg Tablet, 75 MG PO DAILY Prescribed by: BEAU SHARPE on 03/11/20 1238 Colestipol HCl 1 Gm Tab, 1 GM PO Q48H, (Reported) Divalproex Sodium 250 Mg Tablet.dr, 750 MG PO BID, (Reported) TAKES 3 (250MG) TABLETS Divalproex Sodium 250 Mg Tablet.dr, 500 MG PO 1200, (Reported) TAKES 2 (250MG) TABLETS Furosemide 40 Mg Tablet, 40 MG PO , , Only take Wednesday, Wednesday and Wednesday Prescribed by: BEAU SHARPE on 03/24/20 1019 Magnesium Oxide 400 Mg Capsule, 400 MG PO ,, Prescribed by: BEAU SHARPE on 03/24/20 1033 Metoprolol Succinate 50 Mg Tab.er.24h, 50 MG PO DAILY Prescribed by: BEAU SHARPE on 03/24/20 1019 Pantoprazole Sodium 40 Mg Tablet.dr, 40 MG PO DAILY, (Reported) Potassium Chloride 20 Meq Tab.er.prt, 40 MEQ PO DAILY Wednesday, Wednesday, and Wednesday when takes lasix and only 20meq all other days Prescribed by: BEAU SHARPE on 03/24/20 1019 Rosuvastatin Calcium 10 Mg Tablet, 10 MG PO DAILY, (Reported) [Bethanechol Chloride] , 50 MG PO QID, (Reported) Patient Home Medication List Home Medication List Reviewed: Yes Review of Systems Review of Systems Constitutional: see HPI EENTM: No Symptoms Reported Respiratory: No Symptoms Reported Cardiovascular: Chest Pain Gastrointestinal: No Symptoms Reported Musculoskeletal: joint pain Skin: no symptoms reported Psychiatric/Neurological: Other (Cognitive impairment) All Other Systems Reviewed Negative Unless Noted: Yes Past Xmudbwo-Ixujvh-Zrdruk Hx Patient Social History Alcohol Use: Denies Use Smoking Status: Never a Smoker 2nd Hand Smoke Exposure: No Recent Hopitalizations: No Immunizations Up To Date Tetanus Booster (TDap): Unknown Date of Pneumonia Vaccine: Nov 28, 2011 Date of Influenza Vaccine: Mar 13, 2020 Seasonal Allergies Seasonal Allergies: No Past Medical History Surgeries: Yes (pacer/AICD placement, left hand tendon repair) Cardiac, Orthopedic, Pacemaker Respiratory: No Currently Using CPAP: No Currently Using BIPAP: No Cardiac: Yes (HEART FAILURE, CONGENITAL heart block status post pacemaker;NON- OBSTR CAD) Cardiomyopathy, Coronary Artery Disease, High Cholesterol, Hypertension Neurological: Yes (hx meningitis 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, has left-sided neurologic deficits) Developmental Disorder, Paralysis Reproductive Disorders: No Genitourinary: No Gastrointestinal: Yes (GASTRITIS) Gastroesophageal Reflux, Hemorrhoids, Chronic Diarrhea Musculoskeletal: 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 0.0oz. 98.110566ib; 35.00 BMI Method:Stated General Appearance: No Apparent Distress, WD/WN Neck: Normal Inspection Respiratory: Lungs Clear, Normal Breath Sounds, No Accessory Muscle Use, No Respiratory Distress, Other (Tenderness to palpation left anterior chest wall into the shoulder) Cardiovascular: Regular Rate, Rhythm Gastrointestinal: Normal Bowel Sounds, Non Tender, Soft Extremity: Normal Capillary Refill, Normal Inspection, Normal Range of Motion, Non Tender Neurologic/Psychiatric: Alert, Oriented x3, No Motor/Sensory Deficits, Normal Mood/Affect Skin: Normal Color, Warm/Dry Progress/Results/Core Measures Results/Orders My Orders Orders - SUSAN PADRON MD Chest 1 View, Ap/Pa Only (06/18/20 10:18) Ekg Tracing (06/18/20 10:18) Ketorolac Injection (Toradol Injection) (06/18/20 10:30) Medications Given in ED Current Medications Medications Dose Ordered Sig/Kinsey Route Start Time Stop Time Status Last Admin Dose Admin Ketorolac Tromethamine 60 mg ONCE ONCE IM 06/18/20 10:30 06/18/20 10:31 DC 06/18/20 10:50 60 MG Vital Signs/I&O 06/18/20 06/18/20 09:35 09:35 Temp 35.2 Pulse 80 Resp 20 B/P (MAP) 126/83 (97) Pulse Ox 99 O2 Delivery Room Air Room Air Progress Progress Note : Time: 11:14 Progress Note Patient reassessed after Toradol and states that he has mild improvement of symptoms. Chest x-ray was reviewed no obvious focal infiltrates, effusions. Cardiomegaly is noted with mild increased pulmonary vascular structures. Patient felt to have musculoskeletal chest wall pain. He tells me that he has follow-up with Dr. Lau, his structural iron worker, on 25 June. Patient is strongly encouraged to keep this follow-up appointment. He is advised to take gmdj-qot-htzqavv Tylenol and/or ibuprofen as needed for pain. He verbalizes understanding. All questions are sought and answered. Patient is stable for discharge. Pacemaker interrogation did show a short run, 3-4 beats of SVT on June 10. Otherwise unremarkable and noncontributory to this visit. Initial ECG Impression Date: Jun 18, 2020 Initial ECG Impression Time: 09:40 Initial ECG Rate: 75 Initial ECG Rhythm: Normal Sinus Initial ECG Intervals: Normal Comment paced rhythm Diagnostic Imaging Diagonstic Imaging: Xray Plain Films/CT/US/NM/MRI: chest Comments [facility], [place] NAME: SAYRA SANABRIA [facility] REC#: [id number] PT STATUS: REG ER : 1965 PHYSICIAN: SUSAN PADRON MD ADMIT DATE: 06/18/20/ER Draft Date of Exam:06/18/20 CHEST 1 VIEW, AP/PA ONLY INDICATION: chest pain. TECHNIQUE: Single-view chest at 10:51 a.m. CORRELATION STUDY: 05/08/2020. FINDINGS: Left-sided AICD is stable. Stable cardiac enlargement. Vasculature is overall slightly prominent. No consolidating infiltrate. IMPRESSION: 1. Stable cardiac enlargement with borderline vasculature. Dictated on workstation # [id number] Dict: 06/18/20 1057 Trans: 06/18/20 1101 [id number] [id number] Interpreted by: KAITY CASTILLO DO Electronically signed by: Departure Impression Primary Impression: Chest wall pain, chronic Disposition: 01 HOME, SELF-CARE Condition: Stable Departure-Patient Inst. Decision time for Depature: 11:15 Referrals: BEAU SHARPE DO (PCP/Family) Primary Care Physician Patient Instructions: Chest Pain That Is Not Caused by the Heart (DC) Add. Discharge Instructions: Continue your home daily medications as prescribed. Take pawj-vxp-xdildck Tylenol and or ibuprofen alternating every 4-6 hours as needed for chest wall pain. Please keep your follow-up appointment with your structural iron worker on 25 June as scheduled. Come back to the emergency department to be reassessed if you have worsening pain especially if it is associated with shortness of breath, nausea, sweating or any other emergent, concerning symptoms. SUSAN PADRON MD Jun 18, 2020 09:53
[2020-06-18] MEDS ORDERED: KETOROLAC 60 MG/2 ML VIAL IM ONE (10:30)
--- NOTE | 2020-06-18 11:01 | Diagnostic Imaging Report ---
INDICATION: chest pain. TECHNIQUE: Single-view chest at 10:51 a.m. CORRELATION STUDY: 05/08/2020. FINDINGS: Left-sided AICD is stable. Stable cardiac enlargement. Vasculature is overall slightly prominent. No consolidating infiltrate. IMPRESSION: 1. Stable cardiac enlargement with borderline vasculature. Dictated by: Dictated on workstation # [id number]
[2020-06-18 11:25] VITALS: BP 139/82
== END 2020-06-18 11:25 | disposition home or self-care (01) ==
LOC: EDUNIT# 09:34 → ER 09:35
DX: G89.29 Other chronic pain (principal); R07.89 Other chest pain; I11.0 Hypertensive heart disease with heart failure; I50.9 Heart failure, unspecified; I25.10 Atherosclerotic heart disease of native coronary artery without angina pectoris; E78.00 Pure hypercholesterolemia, unspecified; K21.9 Gastro-esophageal reflux disease without esophagitis; K52.9 Noninfective gastroenteritis and colitis, unspecified; F89 Unspecified disorder of psychological development; Q24.6 Congenital heart block; Z86.69 Personal history of other diseases of the nervous system and sense organs; Z86.61 Personal history of infections of the central nervous system; Z95.810 Presence of automatic (implantable) cardiac defibrillator; Z79.82 Long term (current) use of aspirin; Z79.51 Long term (current) use of inhaled steroids; Z79.02 Long term (current) use of antithrombotics/antiplatelets; Z80.0 Family history of malignant neoplasm of digestive organs
CPT/HCPCS: 71045; 93005

== ENCOUNTER 2020-06-24 13:55 | Emergency (ER) | payer MEDICARE, MEDICAID ==
[~2020-06-24] VITALS: Ht 182 cm; Wt 92.9 kg
[2020-06-24] MEDS ORDERED: KETOROLAC 30 MG/ML VIAL IVP ONE (14:30)
[2020-06-24 14:57] LABS: BASOPHILS % (AUTO) 1 % (0-10); EOSINOPHILS # (AUTO) 0.1 10^3/uL (0.0-0.3); EOSINOPHILS % (AUTO) 1 % (0-10); HEMATOCRIT 47 % (40-54); HEMOGLOBIN 15.8 g/dL (13.3-17.7); LYMPHOCYTES # (AUTO) 1.9 X 10^3 (1.0-4.0); LYMPHOCYTES % (AUTO) 29 % (12-44); MEAN CORPUSCULAR HEMOGLOBIN 27 pg (25-34); MEAN CORPUSCULAR HGB CONC 34 g/dL (32-36); MEAN CORPUSCULAR VOLUME 81 fL (80-99); MEAN PLATELET VOLUME 9.5 fL (9.0-12.2); MONOCYTES # (AUTO) 0.8 X 10^3 (0.0-1.0); MONOCYTES % (AUTO) 12 % (0-12); NEUTROPHILS # (AUTO) 3.8 X 10^3 (1.8-7.8); NEUTROPHILS % (AUTO) 57 % (42-75); PLATELET COUNT 158 10^3/uL (130-400); WHITE BLOOD COUNT 6.6 10^3/uL (4.3-11.0)
[2020-06-24 15:09] LABS: ALANINE AMINOTRANSFERASE 15 U/L (0-55); ALBUMIN 3.7 GM/DL (3.2-4.5); ALKALINE PHOSPHATASE 56 U/L (40-136); BILIRUBIN,TOTAL 0.4 MG/DL (0.1-1.0); BUN/CREATININE RATIO 3; CALCIUM 8.5 MG/DL (8.5-10.1); CARBON DIOXIDE 26 MMOL/L (21-32); CHLORIDE 94 MMOL/L (98-107); CREATININE SERUM 0.87 MG/DL (0.60-1.30); GFR ESTIMATED > 60; GLUCOSE 119 MG/DL (70-105); MAGNESIUM 1.7 MG/DL (1.6-2.4); POTASSIUM 3.8 MMOL/L (3.6-5.0); SODIUM 130 MMOL/L (135-145); TOTAL PROTEIN 6.4 GM/DL (6.4-8.2)
[2020-06-24 15:10] LABS: PROTHROMBIN TIME PATIENT 13.9 SEC (12.2-14.7)
--- NOTE | 2020-06-24 15:15 | Diagnostic Imaging Report ---
INDICATION: Chest pain. Frontal chest obtained at 02:56 p.m. and compared to 06/18/2020. Heart and mediastinal silhouette are normal in appearance. Pacemaker is unchanged. There is no focal infiltrate or pneumothorax or pleural fluid. IMPRESSION: No acute process in the chest. Dictated by: Dictated on workstation # [id number]
[2020-06-24] MEDS ORDERED: NS IV 1000 ML 1,000 ML IV SCH (15:45)
--- NOTE | 2020-06-24 16:07 | ED Chest Pain ---
General Chief Complaint: Chest Pain Stated Complaint: CP Nursing Triage Note: PT PRESENTS TO ED VIA EMS FROM [facility] WITH COMPLAINTS OF CP X 2 WEEKS. Nursing Sepsis Screen: No Definite Risk Source: patient Exam Limitations: no limitations History of Present Illness Date Seen by Provider: Jun 24, 2020 Time Seen by Provider: 14:00 Initial Comments Intermittent chest pain for 2 weeks. He states that moving his left arm makes it worse. Is also worse when he coughs. Timing/Duration: changing over time Severity/Quality: moderate Location: other (Lateral anterior chest) Activities at Onset: none Prior CP/Workup: other ASA po EXTRACORPOREAL CIRCULATION SPECIALIST: No NTG SL EXTRACORPOREAL CIRCULATION SPECIALIST: No Associated Symptoms: denies symptoms Allergies and Home Medications Allergies Coded Allergies: vancomycin (Verified Allergy, Unknown, 11/11/05) Home Medications Albuterol Sulfate 18 Gm Hfa.aer.ad, 0 GM IH RTQ4HR Use BID in between symbicort Prescribed by: BEAU SHARPE on 04/08/20 1304 Allopurinol 300 Mg Tablet, 300 MG PO , , Prescribed by: BEAU SHARPE on 03/24/20 1020 Aspirin 81 Mg Tab.chew, 81 MG PO DAILY@0900 Prescribed by: BEAU SHARPE on 03/11/20 1238 Budesonide/Formoterol Fumarate 10.2 Gm Hfa.aer.ad, 2 PUFF IH BID Prescribed by: BEAU SHARPE on 03/24/20 1019 Cetirizine HCl 10 Mg Tab.chew, 10 MG PO DAILY, (Reported) Clopidogrel Bisulfate 75 Mg Tablet, 75 MG PO DAILY Prescribed by: BEAU SHARPE on 03/11/20 1238 Colestipol HCl 1 Gm Tab, 1 GM PO Q48H, (Reported) Divalproex Sodium 250 Mg Tablet.dr, 750 MG PO BID, (Reported) TAKES 3 (250MG) TABLETS Divalproex Sodium 250 Mg Tablet.dr, 500 MG PO 1200, (Reported) TAKES 2 (250MG) TABLETS Furosemide 40 Mg Tablet, 40 MG PO , Only take Wednesday, Wednesday and Wednesday Prescribed by: BEAU SHARPE on 03/24/20 1019 Magnesium Oxide 400 Mg Capsule, 400 MG PO ,, Prescribed by: BEAU SHARPE on 03/24/20 1033 Metoprolol Succinate 50 Mg Tab.er.24h, 50 MG PO DAILY Prescribed by: BEAU SHARPE on 03/24/20 1019 Pantoprazole Sodium 40 Mg Tablet.dr, 40 MG PO DAILY, (Reported) Potassium Chloride 20 Meq Tab.er.prt, 40 MEQ PO DAILY Wednesday, Wednesday, and Wednesday when takes lasix and only 20meq all other days Prescribed by: BEAU SHARPE on 03/24/20 1019 Rosuvastatin Calcium 10 Mg Tablet, 10 MG PO DAILY, (Reported) [Bethanechol Chloride] , 50 MG PO QID, (Reported) Patient Home Medication List Home Medication List Reviewed: Yes Review of Systems Review of Systems Constitutional: see HPI EENTM: No Symptoms Reported Respiratory: No Symptoms Reported Cardiovascular: See HPI, Chest Pain Genitourinary: No Symptoms Reported Musculoskeletal: no symptoms reported Skin: no symptoms reported Psychiatric/Neurological: No Symptoms Reported Endocrine: No Symptoms Reported Past Vbpuryx-Snaefw-Sidcqy Hx Patient Social History Alcohol Use: Denies Use Smoking Status: Never a Smoker 2nd Hand Smoke Exposure: No Recent Infectious Disease Expo: No Recent Hopitalizations: No Immunizations Up To Date Tetanus Booster (TDap): Unknown Date of Pneumonia Vaccine: Nov 28, 2011 Date of Influenza Vaccine: Mar 13, 2020 Seasonal Allergies Seasonal Allergies: No Past Medical History Surgeries: Yes (pacer/AICD placement, left hand tendon repair) Cardiac, Orthopedic, Pacemaker Respiratory: No Currently Using CPAP: No Currently Using BIPAP: No Cardiac: Yes (HEART FAILURE, CONGENITAL heart block status post pacemaker;NON- OBSTR CAD) Cardiomyopathy, Coronary Artery Disease, High Cholesterol, Hypertension Neurological: Yes (hx meningitis 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, has left-sided neurologic deficits) Developmental Disorder, Paralysis Reproductive Disorders: No Genitourinary: No Gastrointestinal: Yes (GASTRITIS) Gastroesophageal Reflux, Hemorrhoids, Chronic Diarrhea Musculoskeletal: 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 0.0oz. [id number]; 28.00 BMI Method:Stated General Appearance: No Apparent Distress, WD/WN Respiratory: No Accessory Muscle Use, No Respiratory Distress Cardiovascular: Regular Rate, Rhythm, Normal Peripheral Pulses Gastrointestinal: Normal Bowel Sounds, Non Tender, Soft Neurologic/Psychiatric: Alert, Oriented x3 Skin: Normal Color, Warm/Dry Other comments Tenderness over the pectoralis tendon insertion site. Did an injection of 2 mL of lidocaine mixed with 20 mg of Kenalog into this area. His caregiver states that all of this pain started when he had his last pacemaker removed and replaced Images 1 - Tender to palpation Progress/Results/Core Measures Results/Orders Lab Results Laboratory Tests Test 06/24/20 14:35 06/24/20 17:28 Range/Units White Blood Count 6.6 4.3-11.0 10^3/uL Red Blood Count 5.82 H 4.30-5.52 10^6/uL Hemoglobin 15.8 13.3-17.7 g/dL Hematocrit 47 40-54 % Mean Corpuscular Volume 81 80-99 fL Mean Corpuscular Hemoglobin 27 25-34 pg Mean Corpuscular Hemoglobin Concent 34 32-36 g/dL Red Cell Distribution Width 14.0 10.0-14.5 % Platelet Count 158 130-400 10^3/uL Mean Platelet Volume 9.5 9.0-12.2 fL Immature Granulocyte % (Auto) 1 % Neutrophils (%) (Auto) 57 42-75 % Lymphocytes (%) (Auto) 29 12-44 % Monocytes (%) (Auto) 12 0-12 % Eosinophils (%) (Auto) 1 0-10 % Basophils (%) (Auto) 1 0-10 % Neutrophils # (Auto) 3.8 1.8-7.8 X 10^3 Lymphocytes # (Auto) 1.9 1.0-4.0 X 10^3 Monocytes # (Auto) 0.8 0.0-1.0 X 10^3 Eosinophils # (Auto) 0.1 0.0-0.3 10^3/uL Basophils # (Auto) 0.0 0.0-0.1 10^3/uL Immature Granulocyte # (Auto) 0.1 0.0-0.1 10^3/uL Prothrombin Time 13.9 12.2-14.7 SEC INR Comment 1.0 0.8-1.4 Activated Partial Thromboplast Time 32 24-35 SEC D-Dimer 0.30 0.00-0.49 UG/ML Sodium Level 130 L 135-145 MMOL/L Potassium Level 3.8 3.6-5.0 MMOL/L Chloride Level 94 L 98-107 MMOL/L Carbon Dioxide Level 26 21-32 MMOL/L Anion Gap 10 5-14 MMOL/L Blood Urea Nitrogen 3 L 7-18 MG/DL Creatinine 0.87 0.60-1.30 MG/DL Estimat Glomerular Filtration Rate > 60 BUN/Creatinine Ratio 3 Glucose Level 119 H 70-105 MG/DL Calcium Level 8.5 8.5-10.1 MG/DL Corrected Calcium 8.7 8.5-10.1 MG/DL Magnesium Level 1.7 1.6-2.4 MG/DL Total Bilirubin 0.4 0.1-1.0 MG/DL Aspartate Amino Transf (AST/SGOT) 20 5-34 U/L Alanine Aminotransferase (ALT/SGPT) 15 0-55 U/L Alkaline Phosphatase 56 40-136 U/L Myoglobin 85.9 10.0-92.0 NG/ML Troponin I 0.048 H 0.044 H <0.028 NG/ML B-Type Natriuretic Peptide 18.9 <100.0 PG/ML Total Protein 6.4 6.4-8.2 GM/DL Albumin 3.7 3.2-4.5 GM/DL My Orders Orders - LORENA GRIGSBY ANIMAL ANATOMY TEACHER Cbc With Automated Diff (06/24/20 14:12) Magnesium (06/24/20 14:12) Chest 1 View, Ap/Pa Only (06/24/20 14:12) Ekg Tracing (06/24/20 14:12) Comprehensive Metabolic Panel (06/24/20 14:12) Myoglobin Serum (06/24/20 14:12) Protime With Inr (06/24/20 14:12) Partial Thromboplastin Time (06/24/20 14:12) O2 (06/24/20 14:12) Monitor-Rhythm Ecg Trace Only (06/24/20 14:12) Lipid Panel (06/25/20 06:00) Ed Iv/Invasive Line Start (06/24/20 14:12) BNP (06/24/20 14:12) Fibrin Degradation Products (06/24/20 14:12) Troponin I (06/24/20 14:12) Ketorolac Injection (Toradol Injection) (06/24/20 14:30) Ns Iv 1000 Ml (Sodium Chloride 0.9%) (06/24/20 15:45) Troponin I (06/24/20 16:09) Triamcinolone Acetonide Im (Kenalog-40) (06/24/20 17:00) Lidocaine 1% Inj 20 Ml (Xylocaine 1% Inj (06/24/20 17:00) Medications Given in ED Current Medications Medications Dose Ordered Sig/Kinsey Route Start Time Stop Time Status Last Admin Dose Admin Ketorolac Tromethamine 15 mg ONCE ONCE IVP 06/24/20 14:30 06/24/20 14:31 DC 06/24/20 14:45 15 MG Lidocaine HCl 20 ml ONCE ONCE INJ 06/24/20 17:00 06/24/20 17:01 DC 06/24/20 16:00 20 ML Triamcinolone Acetonide 20 mg ONCE ONCE IM 06/24/20 17:00 06/24/20 17:01 DC 06/24/20 16:00 20 MG Vital Signs/I&O 06/24/20 06/24/20 14:00 14:00 Temp 36.3 Pulse 87 Resp 20 B/P (MAP) 120/81 (94) Pulse Ox 96 O2 Delivery Room Air Blood Pressure Mean: 94 Departure Impression Primary Impression: Pectoralis major tendinitis Disposition: 01 HOME, SELF-CARE Condition: Stable Departure-Patient Inst. Decision time for Depature: 18:11 Referrals: BEAU SHARPE DO (PCP/Family) Primary Care Physician Patient Instructions: Tendinopathy Add. Discharge Instructions: 1. Follow-up with your doctor as scheduled. Return to ER for any recurrent or worsening pain. All discharge instructions reviewed with patient and/or family. Voiced understanding. LORENA GRIGSBY APRN Jun 24, 2020 16:07
[2020-06-24] MEDS ORDERED: TRIAMCINOLONE ACET (KENALOG-40) 40 MG/ML 1 ML VIAL IM ONE (17:00)
[2020-06-24] MEDS ORDERED: LIDOCAINE 1% INJ 20 ML 20 ML VIAL INJ ONE (17:00)
[2020-06-24 18:33] VITALS: BP 115/85
== END 2020-06-24 18:32 | disposition home or self-care (01) ==
LOC: EDUNIT# 13:55 → ER 13:56
DX: S29.021A Laceration of muscle and tendon of front wall of thorax, initial encounter (principal); M10.9 Gout, unspecified; I10 Essential (primary) hypertension; E78.00 Pure hypercholesterolemia, unspecified; K21.9 Gastro-esophageal reflux disease without esophagitis; Z88.1 Allergy status to other antibiotic agents; Z80.0 Family history of malignant neoplasm of digestive organs; Z82.61 Family history of arthritis; Z83.3 Family history of diabetes mellitus; Z95.0 Presence of cardiac pacemaker; Z79.82 Long term (current) use of aspirin; X58.XXXA Exposure to other specified factors, initial encounter
CPT/HCPCS: 36415; 71045; 80053; 83735; 83874; 83880; 84484; 85025; 85379; 85610; 85730; 93005; 93041

== ENCOUNTER → 2020-07-02 | Outpatient (CLI) | payer MEDICARE, MEDICAID ==
[2020-07-02 09:51] LABS: ALANINE AMINOTRANSFERASE 13 U/L (0-55); ALBUMIN 4.1 GM/DL (3.2-4.5); ALKALINE PHOSPHATASE 67 U/L (40-136); BILIRUBIN,TOTAL 0.6 MG/DL (0.1-1.0); BUN/CREATININE RATIO 9; CALCIUM 9.3 MG/DL (8.5-10.1); CARBON DIOXIDE 29 MMOL/L (21-32); CHLORIDE 87 MMOL/L (98-107); CHOLESTEROL 114 MG/DL (< 200); CREATININE SERUM 0.89 MG/DL (0.60-1.30); GFR ESTIMATED > 60; GLUCOSE 98 MG/DL (70-105); HDL CHOLESTEROL 44 MG/DL (40-60); POTASSIUM 4.1 MMOL/L (3.6-5.0); TOTAL PROTEIN 7.2 GM/DL (6.4-8.2); TRIGLYCERIDES 96 MG/DL (<150); VLDL CHOLESTEROL 19 MG/DL (5-40)
[2020-07-02 09:56] LABS: SODIUM 125 MMOL/L (135-145)
== END ==
LOC: LAB 09:08
PROVIDERS: ATTEND Physician Assistant
DX: E78.2 Mixed hyperlipidemia (principal)
CPT/HCPCS: 36415; 80053; 80061

== ENCOUNTER → 2020-08-19 | Outpatient (CLI) | payer MEDICARE, MEDICAID ==
[2020-08-19 10:01] LABS: CHOLESTEROL 112 MG/DL (< 200); HDL CHOLESTEROL 47 MG/DL (40-60); TRIGLYCERIDES 87 MG/DL (<150); VLDL CHOLESTEROL 17 MG/DL (5-40)
== END ==
LOC: LAB 09:30
PROVIDERS: ATTEND Internal Medicine Cardiovascular Disease
DX: E78.2 Mixed hyperlipidemia (principal)
CPT/HCPCS: 36415; 80061

== ENCOUNTER → 2020-08-27 | Outpatient (CLI) | payer MEDICARE, MEDICAID | LOC: CARD 11:13 | PROVIDERS: ATTEND Internal Medicine Cardiovascular Disease | DX: I25.10 Atherosclerotic heart disease of native coronary artery without angina pectoris (principal); I11.9 Hypertensive heart disease without heart failure; I35.1 Nonrheumatic aortic (valve) insufficiency | CPT/HCPCS: 93306 ==

== ENCOUNTER → 2020-11-06 | Outpatient (CLI) | payer MEDICARE, MEDICAID ==
[2020-11-06 10:56] LABS: CREATININE SERUM 0.81 MG/DL (0.60-1.30); POTASSIUM 3.8 MMOL/L (3.6-5.0)
== END ==
LOC: LAB 10:18
PROVIDERS: ATTEND Family Medicine
DX: E87.6 Hypokalemia (principal)
CPT/HCPCS: 36415; 80048

== ENCOUNTER 2020-12-12 11:10 | Emergency (ER) | payer MEDICARE, MEDICAID ==
[~2020-12-12] VITALS: Ht 182 cm; Wt 108.0 kg
--- NOTE | 2020-12-12 11:26 | ED General ---
General Stated Complaint: CP Source of Information: Patient Exam Limitations: No Limitations History of Present Illness Date Seen by Provider: Dec 12, 2020 Time Seen by Provider: 11:23 Initial Comments To ER with left-sided chest pain around his pacemaker. He has exertional dyspnea. No fevers or chills. Timing/Duration: Other (Ongoing, unclear when this started as he states he does not recall.) Severity: Moderate Associated Systoms: Denies Symptoms Allergies and Home Medications Allergies Coded Allergies: vancomycin (Verified Allergy, Unknown, 11/11/05) Patient Home Medication List Home Medication List Reviewed: Yes Albuterol Sulfate (Ventolin Hfa) 18 Gm Hfa.aer.ad, 0 GM IH RTQ4HR Prescribed by: BEAU SHARPE on 04/08/20 1304 Allopurinol (Allopurinol) 300 Mg Tablet, 300 MG PO M, W, F Prescribed by: BEAU SHARPE on 03/24/20 1020 Aspirin (Aspirin) 81 Mg Tab.chew, 81 MG PO DAILY@0900 Prescribed by: BEAU SHARPE on 03/11/20 1238 Budesonide/Formoterol Fumarate (Symbicort 160-4.5 Mcg Inhaler) 10.2 Gm Hfa.aer.ad, 2 PUFF IH BID Prescribed by: BEAU SHARPE on 03/24/20 1019 Cetirizine HCl (Children's Cetirizine HCl) 10 Mg Tab.chew, 10 MG PO DAILY, (R eported) Entered as Reported by: GUERITA HOUSTON on 08/29/19 1022 Clopidogrel Bisulfate (Clopidogrel) 75 Mg Tablet, 75 MG PO DAILY Prescribed by: BEAU SHARPE on 03/11/20 1238 Colestipol HCl (Colestid) 1 Gm Tab, 1 GM PO Q48H, (Reported) Entered as Reported by: GUERITA HOUSTON on 02/08/19 1147 Divalproex Sodium (Divalproex Sodium) 250 Mg Tablet.dr, 750 MG PO BID, (Reported) Entered as Reported by: GAY ZAMBRANO on 09/12/18 1503 Divalproex Sodium (Divalproex Sodium) 250 Mg Tablet.dr, 500 MG PO 1200, (Reported) Entered as Reported by: GAY ZAMBRANO on 09/12/18 1503 Furosemide (Furosemide) 40 Mg Tablet, 40 MG PO M, , Prescribed by: BEAU SHARPE on 03/24/20 1019 Magnesium Oxide (Magnesium) 400 Mg Capsule, 400 MG PO M,W, Prescribed by: BEAU SHARPE on 03/24/20 1033 Metoprolol Succinate (Metoprolol Succinate) 50 Mg Tab.er.24h, 50 MG PO DAILY Prescribed by: BEAU SHARPE on 03/24/20 1019 Pantoprazole Sodium (Pantoprazole Sodium) 40 Mg Tablet.dr, 40 MG PO DAILY, ( Reported) Entered as Reported by: SANJAY MENDEZ on 11/27/19 1405 Potassium Chloride (Potassium Chloride) 20 Meq Tab.er.prt, 40 MEQ PO DAILY Prescribed by: BEAU SHARPE on 03/24/20 1019 Rosuvastatin Calcium (Rosuvastatin Calcium) 10 Mg Tablet, 10 MG PO DAILY, (Reported) Entered as Reported by: GAY ZAMBRANO on 09/12/18 1503 [Bethanechol Chloride] , 50 MG PO QID, (Reported) Entered as Reported by: GUERITA HOUSTON on 03/11/20 1004 Review of Systems Review of Systems Constitutional: see HPI EENTM: see HPI Respiratory: see HPI, cough Cardiovascular: see HPI, chest pain Genitourinary: no symptoms reported Musculoskeletal: no symptoms reported Skin: no symptoms reported Psychiatric/Neurological: No Symptoms Reported Hematologic/Lymphatic: No Symptoms Reported Immunological/Allergic: no symptoms reported Past Bjeruhq-Yhwktm-Heqjzv Hx Immunizations Up To Date Tetanus Booster (TDap): Unknown Seasonal Allergies Seasonal Allergies: No Past Medical History Surgeries: Yes (pacer/AICD placement, left hand tendon repair) Cardiac, Orthopedic, Pacemaker Respiratory: No Currently Using CPAP: No Currently Using BIPAP: No Cardiac: Yes (HEART FAILURE, CONGENITAL heart block status post pacemaker;NON- OBSTR CAD) Cardiomyopathy, Coronary Artery Disease, High Cholesterol, Hypertension Neurological: Yes (hx meningitis 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, has left-sided neurologic deficits) Developmental Disorder, Paralysis Reproductive Disorders: No Genitourinary: No Gastrointestinal: Yes (GASTRITIS) Gastroesophageal Reflux, Hemorrhoids, Chronic Diarrhea Musculoskeletal: 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 0.0oz. 98.717723ij; 28.00 BMI Method:Stated General Appearance: No Apparent Distress, WD/WN HEENT: PERRL/EOMI, TMs Normal Neck: Full Range of Motion, Normal Inspection Respiratory: No Accessory Muscle Use, No Respiratory Distress Cardiovascular: Regular Rate, Rhythm, Normal Peripheral Pulses Gastrointestinal: Normal Bowel Sounds, Non Tender, Soft Extremity: Normal Capillary Refill, Normal Inspection Neurologic/Psychiatric: Alert, Oriented x3 Skin: Normal Color, Warm/Dry Progress/Results/Core Measures Suspected Sepsis SIRS Temperature: Pulse: Respiratory Rate: Laboratory Tests 12/12/20 11:22: White Blood Count 7.8 Blood Pressure / Mean: Laboratory Tests 12/12/20 11:22: Creatinine 0.80, INR Comment 1.1, Platelet Count 163, Total Bilirubin 0.4 Results/Orders Lab Results Laboratory Tests Test 12/12/20 11:22 12/12/20 13:35 Range/Units White Blood Count 7.8 4.3-11.0 10^3/uL Red Blood Count 5.79 H 4.30-5.52 10^6/uL Hemoglobin 15.8 13.3-17.7 g/dL Hematocrit 49 40-54 % Mean Corpuscular Volume 84 80-99 fL Mean Corpuscular Hemoglobin 27 25-34 pg Mean Corpuscular Hemoglobin Concent 33 32-36 g/dL Red Cell Distribution Width 14.2 10.0-14.5 % Platelet Count 163 130-400 10^3/uL Mean Platelet Volume 9.2 9.0-12.2 fL Immature Granulocyte % (Auto) 1 % Neutrophils (%) (Auto) 58 42-75 % Lymphocytes (%) (Auto) 26 12-44 % Monocytes (%) (Auto) 12 0-12 % Eosinophils (%) (Auto) 2 0-10 % Basophils (%) (Auto) 1 0-10 % Neutrophils # (Auto) 4.5 1.8-7.8 10^3/uL Lymphocytes # (Auto) 2.1 1.0-4.0 10^3/uL Monocytes # (Auto) 1.0 0.0-1.0 10^3/uL Eosinophils # (Auto) 0.1 0.0-0.3 10^3/uL Basophils # (Auto) 0.1 0.0-0.1 10^3/uL Immature Granulocyte # (Auto) 0.1 0.0-0.1 10^3/uL Prothrombin Time 14.4 12.2-14.7 SEC INR Comment 1.1 0.8-1.4 Activated Partial Thromboplast Time 31 24-35 SEC Sodium Level 132 L 135-145 MMOL/L Potassium Level 3.8 3.6-5.0 MMOL/L Chloride Level 96 L 98-107 MMOL/L Carbon Dioxide Level 28 21-32 MMOL/L Anion Gap 8 5-14 MMOL/L Blood Urea Nitrogen 2 L 7-18 MG/DL Creatinine 0.80 0.60-1.30 MG/DL Estimat Glomerular Filtration Rate 100 BUN/Creatinine Ratio 3 Glucose Level 114 H 70-105 MG/DL Calcium Level 9.7 8.5-10.1 MG/DL Corrected Calcium 9.8 8.5-10.1 MG/DL Magnesium Level 1.5 L 1.6-2.4 MG/DL Total Bilirubin 0.4 0.1-1.0 MG/DL Aspartate Amino Transf (AST/SGOT) 19 5-34 U/L Alanine Aminotransferase (ALT/SGPT) 13 0-55 U/L Alkaline Phosphatase 56 40-136 U/L Myoglobin 64.9 10.0-92.0 NG/ML Troponin I 0.047 H 0.041 H <0.028 NG/ML B-Type Natriuretic Peptide 68.5 <100.0 PG/ML Total Protein 6.8 6.4-8.2 GM/DL Albumin 3.9 3.2-4.5 GM/DL SARS-CoV-2 RNA (RT-PCR) Not Detected Not Detecte My Orders Orders - LORENA GRIGSBY SHERIFF OFFICER Cbc With Automated Diff (12/12/20 11:19) Magnesium (12/12/20 11:19) Chest 1 View, Ap/Pa Only (12/12/20 11:19) Ekg Tracing (12/12/20 11:19) Comprehensive Metabolic Panel (12/12/20 11:19) Myoglobin Serum (12/12/20 11:19) Protime With Inr (12/12/20 11:19) Partial Thromboplastin Time (12/12/20 11:19) O2 (12/12/20 11:19) Monitor-Rhythm Ecg Trace Only (12/12/20 11:19) Lipid Panel (12/13/20 06:00) Ed Iv/Invasive Line Start (12/12/20 11:19) BNP (12/12/20 11:19) Troponin I (12/12/20 11:19) Aspirin Chewable Tablet (Baby Aspirin Ch (12/12/20 11:30) Covid 19 Inhouse Test (12/12/20 11:19) Lorazepam Injection (Ativan Injection) (12/12/20 13:45) Troponin I (12/12/20 13:55) Medications Given in ED Current Medications Medications Dose Ordered Sig/Kinsey Route Start Time Stop Time Status Last Admin Dose Admin Aspirin 324 mg ONCE ONCE PO 12/12/20 11:30 12/12/20 11:31 DC 12/12/20 11:39 324 MG Vital Signs/I&O 12/12/20 11:10 Temp 37.0 Pulse 88 Resp 20 B/P (MAP) 114/74 (87) Pulse Ox 97 Capillary Refill : Diagnostic Imaging Diagonstic Imaging: Xray Plain Films/CT/US/NM/MRI: chest Comments NAME: SAYRA SANABRIA [facility] REC#: [id number] PT STATUS: REG ER : 1965 PHYSICIAN: LORENA GRIGSBY APRN ADMIT DATE: 12/12/20/ER Draft Date of Exam:12/12/20 CHEST 1 VIEW, AP/PA ONLY INDICATION: Chest pain, cardiac pacemaker. COMPARISON: 06/24/2020. FINDINGS: Single view of the chest demonstrates cardiac enlargement with central vascular congestion. There is no pneumothorax or effusion. Pacemaker stable. Osseous structures are age-appropriate. IMPRESSION: Cardiac enlargement with new central vascular congestion. Dictated on workstation # [id number] Dict: 12/12/20 1206 Trans: 12/12/20 1210 [id number] Interpreted by: RENETTA YU Electronically signed by: Departure Communication (Admissions) Cardiac cath from September 2019: ANATOMY: Left Main is free of obstructive disease Left Anterior Descending is free of obstructive disease Left Circumflex is free of obstructive disease Right Coronory Artery is free of obstructive disease CONCLUSION: 1. Small coronary system with no significant obstructive disease 1446-with Dr. Lau from cardiology will discharge to home. Impression Primary Impression: Chest pain Disposition: HOME, SELF-CARE Condition: Stable Departure-Patient Inst. Decision time for Depature: 14:47 Referrals: BEAU SHARPE DO (PCP/Family) Primary Care Physician Patient Instructions: Chest Pain LORENA GRIGSBY SHERIFF OFFICER Dec 12, 2020 11:26
[2020-12-12] MEDS ORDERED: ASPIRIN 81 MG CHEW (CHILDREN'S ASA) PO ONE (11:30)
[2020-12-12 11:35] LABS: BASOPHILS # (AUTO) 0.1 10^3/uL (0.0-0.1); BASOPHILS % (AUTO) 1 % (0-10); EOSINOPHILS # (AUTO) 0.1 10^3/uL (0.0-0.3); EOSINOPHILS % (AUTO) 2 % (0-10); HEMATOCRIT 49 % (40-54); HEMOGLOBIN 15.8 g/dL (13.3-17.7); LYMPHOCYTES # (AUTO) 2.1 10^3/uL (1.0-4.0); LYMPHOCYTES % (AUTO) 26 % (12-44); MEAN CORPUSCULAR HEMOGLOBIN 27 pg (25-34); MEAN CORPUSCULAR HGB CONC 33 g/dL (32-36); MEAN CORPUSCULAR VOLUME 84 fL (80-99); MEAN PLATELET VOLUME 9.2 fL (9.0-12.2); MONOCYTES % (AUTO) 12 % (0-12); NEUTROPHILS # (AUTO) 4.5 10^3/uL (1.8-7.8); NEUTROPHILS % (AUTO) 58 % (42-75); PLATELET COUNT 163 10^3/uL (130-400); WHITE BLOOD COUNT 7.8 10^3/uL (4.3-11.0)
[2020-12-12 11:45] LABS: ALBUMIN 3.9 GM/DL (3.2-4.5); POTASSIUM 3.8 MMOL/L (3.6-5.0)
[2020-12-12 11:46] LABS: CALCIUM 9.7 MG/DL (8.5-10.1)
[2020-12-12 11:47] LABS: INR 1.1 (0.8-1.4); PROTHROMBIN TIME PATIENT 14.4 SEC (12.2-14.7)
[2020-12-12 11:48] LABS: TOTAL PROTEIN 6.8 GM/DL (6.4-8.2)
[2020-12-12 11:50] LABS: BILIRUBIN,TOTAL 0.4 MG/DL (0.1-1.0)
[2020-12-12 11:51] LABS: CREATININE SERUM 0.8 MG/DL (0.60-1.30)
[2020-12-12 11:54] LABS: MAGNESIUM 1.5 MG/DL (1.6-2.4)
--- NOTE | 2020-12-12 12:10 | Diagnostic Imaging Report ---
INDICATION: Chest pain, cardiac pacemaker. COMPARISON: 06/24/2020. FINDINGS: Single view of the chest demonstrates cardiac enlargement with central vascular congestion. There is no pneumothorax or effusion. Pacemaker stable. Osseous structures are age-appropriate. IMPRESSION: Cardiac enlargement with new central vascular congestion. Dictated by: Dictated on workstation # [id number]
[2020-12-12] MEDS ORDERED: LORazepam INJ 2 MG/ML (ATIVAN) VIAL IVP PRN (13:45)
[2020-12-12 14:58] VITALS: BP 114/74
== END 2020-12-12 14:57 | disposition home or self-care (01) ==
LOC: EDUNIT# 11:11 → ER 11:12
DX: R07.9 Chest pain, unspecified (principal); I11.0 Hypertensive heart disease with heart failure; I50.9 Heart failure, unspecified; E78.00 Pure hypercholesterolemia, unspecified; K21.9 Gastro-esophageal reflux disease without esophagitis; I25.10 Atherosclerotic heart disease of native coronary artery without angina pectoris; M10.9 Gout, unspecified; Z95.0 Presence of cardiac pacemaker; Z20.822 Contact with and (suspected) exposure to COVID-19; Z79.82 Long term (current) use of aspirin; Z79.899 Other long term (current) drug therapy; Z79.01 Long term (current) use of anticoagulants
CPT/HCPCS: 36415; 71045; 80053; 83735; 83874; 83880; 84484; 85025; 85610; 85730; 87636; 93005; 93041

== ENCOUNTER 2021-01-05 16:01 | Emergency (ER) | payer MEDICARE, MEDICAID ==
[~2021-01-05] VITALS: Ht 183 cm; Wt 109.0 kg
--- NOTE | 2021-01-05 16:05 | ED General ---
General Stated Complaint: CHEST PAIN Source of Information: Patient Exam Limitations: No Limitations History of Present Illness Date Seen by Provider: Jan 05, 2021 Time Seen by Provider: 16:05 Initial Comments To ER with reports of central chest pain constant since yesterday. Nothing makes it better and nothing makes it worse. No fevers chills cough or shortness of breath. He was given aspirin and out of the hospital and 1 sublingual nitroglycerin which reduced the pain from 10 out of 10 to 9 out of 10. Timing/Duration: 1-2 Days Severity: Moderate Associated Systoms: Chest Pain Allergies and Home Medications Allergies Coded Allergies: vancomycin (Verified Allergy, Unknown, 11/11/05) Patient Home Medication List Home Medication List Reviewed: Yes Albuterol Sulfate (Ventolin Hfa) 18 Gm Hfa.aer.ad, 0 GM IH RTQ4HR Prescribed by: BEAU SHARPE on 04/08/20 1304 Allopurinol (Allopurinol) 300 Mg Tablet, 300 MG PO M, W, F Prescribed by: BEAU SHARPE on 03/24/20 1020 Aspirin (Aspirin) 81 Mg Tab.chew, 81 MG PO DAILY@0900 Prescribed by: BEAU SHARPE on 03/11/20 1238 Budesonide/Formoterol Fumarate (Symbicort 160-4.5 Mcg Inhaler) 10.2 Gm Hfa.aer.ad, 2 PUFF IH BID Prescribed by: BEAU SHARPE on 03/24/20 1019 Cetirizine HCl (Children's Cetirizine HCl) 10 Mg Tab.chew, 10 MG PO DAILY, (Reported) Entered as Reported by: GUERITA HOUSTON on 08/29/19 1022 Clopidogrel Bisulfate (Clopidogrel) 75 Mg Tablet, 75 MG PO DAILY Prescribed by: BEAU SHARPE on 03/11/20 1238 Colestipol HCl (Colestid) 1 Gm Tab, 1 GM PO Q48H, (Reported) Entered as Reported by: GUERITA HOUSTON on 02/08/19 1147 Divalproex Sodium (Divalproex Sodium) 250 Mg Tablet.dr 750 MG PO BID, (Reported) Entered as Reported by: GAY ZAMBRANO on 09/12/18 1503 Divalproex Sodium (Divalproex Sodium) 250 Mg Tablet.dr, 500 MG PO 1200, (Reported) Entered as Reported by: GAY ZAMBRANO on 09/12/18 1503 Furosemide (Furosemide) 40 Mg Tablet, 40 MG PO , , Prescribed by: BEAU SHARPE on 03/24/20 1019 Magnesium Oxide (Magnesium) 400 Mg Capsule, 400 MG PO ,W, Prescribed by: BEAU SHARPE on 03/24/20 1033 Metoprolol Succinate (Metoprolol Succinate) 50 Mg Tab.er.24h, 50 MG PO DAILY Prescribed by: BEAU SHARPE on 03/24/20 1019 Pantoprazole Sodium (Pantoprazole Sodium) 40 Mg Tablet.dr, 40 MG PO DAILY, (Reported) Entered as Reported by: SANJAY MENDEZ on 11/27/19 1405 Potassium Chloride (Potassium Chloride) 20 Meq Tab.er.prt, 40 MEQ PO DAILY Prescribed by: BEAU SHARPE on 03/24/20 1019 Rosuvastatin Calcium (Rosuvastatin Calcium) 10 Mg Tablet, 10 MG PO DAILY, (Reported) Entered as Reported by: GAY ZAMBRANO on 09/12/18 1503 [Bethanechol Chloride] , 50 MG PO QID, (Reported) Entered as Reported by: GUERITA HOUSTON on 03/11/20 1004 Review of Systems Review of Systems Constitutional: see HPI EENTM: see HPI Respiratory: no symptoms reported Cardiovascular: see HPI, chest pain Genitourinary: no symptoms reported Musculoskeletal: no symptoms reported Skin: no symptoms reported Psychiatric/Neurological: No Symptoms Reported Hematologic/Lymphatic: No Symptoms Reported Immunological/Allergic: no symptoms reported Past Gjclser-Ccrzch-Vqedox Hx Immunizations Up To Date Tetanus Booster (TDap): Unknown Seasonal Allergies Seasonal Allergies: No Past Medical History Surgeries: Yes (pacer/AICD placement, left hand tendon repair) Cardiac, Orthopedic, Pacemaker Respiratory: No Currently Using CPAP: No Currently Using BIPAP: No Cardiac: Yes (HEART FAILURE, CONGENITAL heart block status post pacemaker;NON- OBSTR CAD) Cardiomyopathy, Coronary Artery Disease, High Cholesterol, Hypertension Neurological: Yes (hx meningitis 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, has left-sided neurologic deficits) Developmental Disorder, Paralysis Reproductive Disorders: No Genitourinary: No Gastrointestinal: Yes (GASTRITIS) Gastroesophageal Reflux, Hemorrhoids, Chronic Diarrhea Musculoskeletal: 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 0.0oz. 98.236122fz; 32.00 BMI Method:Stated General Appearance: No Apparent Distress, WD/WN Eyes: Bilateral Eye Normal Inspection, Bilateral Eye PERRL Neck: Full Range of Motion, Normal Inspection Respiratory: No Accessory Muscle Use, No Respiratory Distress Cardiovascular: Regular Rate, Rhythm, Normal Peripheral Pulses Gastrointestinal: Normal Bowel Sounds, Non Tender, Soft Extremity: Normal Capillary Refill, Normal Inspection Neurologic/Psychiatric: Alert, Oriented x3 Skin: Normal Color, Warm/Dry Progress/Results/Core Measures Suspected Sepsis SIRS Temperature: Pulse: Respiratory Rate: Laboratory Tests 01/05/21 16:04: White Blood Count 7.3 Blood Pressure / Mean: Laboratory Tests 01/05/21 16:04: Creatinine 0.80, INR Comment 1.1, Platelet Count 155, Total Bilirubin 0.6 Results/Orders Lab Results Laboratory Tests Test 01/05/21 16:04 01/05/21 18:07 Range/Units White Blood Count 7.3 4.3-11.0 10^3/uL Red Blood Count 5.78 H 4.30-5.52 10^6/uL Hemoglobin 15.8 13.3-17.7 g/dL Hematocrit 48 40-54 % Mean Corpuscular Volume 83 80-99 fL Mean Corpuscular Hemoglobin 27 25-34 pg Mean Corpuscular Hemoglobin Concent 33 32-36 g/dL Red Cell Distribution Width 14.2 10.0-14.5 % Platelet Count 155 130-400 10^3/uL Mean Platelet Volume 9.4 9.0-12.2 fL Immature Granulocyte % (Auto) 1 % Neutrophils (%) (Auto) 63 42-75 % Lymphocytes (%) (Auto) 25 12-44 % Monocytes (%) (Auto) 10 0-12 % Eosinophils (%) (Auto) 1 0-10 % Basophils (%) (Auto) 0 0-10 % Neutrophils # (Auto) 4.6 1.8-7.8 10^3/uL Lymphocytes # (Auto) 1.8 1.0-4.0 10^3/uL Monocytes # (Auto) 0.7 0.0-1.0 10^3/uL Eosinophils # (Auto) 0.1 0.0-0.3 10^3/uL Basophils # (Auto) 0.0 0.0-0.1 10^3/uL Immature Granulocyte # (Auto) 0.1 0.0-0.1 10^3/uL Prothrombin Time 14.6 12.2-14.7 SEC INR Comment 1.1 0.8-1.4 Activated Partial Thromboplast Time 32 24-35 SEC Sodium Level 126 L 135-145 MMOL/L Potassium Level 4.0 3.6-5.0 MMOL/L Chloride Level 88 L 98-107 MMOL/L Carbon Dioxide Level 28 21-32 MMOL/L Anion Gap 10 5-14 MMOL/L Blood Urea Nitrogen 3 L 7-18 MG/DL Creatinine 0.80 0.60-1.30 MG/DL Estimat Glomerular Filtration Rate 100 BUN/Creatinine Ratio 4 Glucose Level 105 70-105 MG/DL Calcium Level 9.2 8.5-10.1 MG/DL Corrected Calcium 9.4 8.5-10.1 MG/DL Magnesium Level 1.4 L 1.6-2.4 MG/DL Total Bilirubin 0.6 0.1-1.0 MG/DL Aspartate Amino Transf (AST/SGOT) 22 5-34 U/L Alanine Aminotransferase (ALT/SGPT) 19 0-55 U/L Alkaline Phosphatase 63 40-136 U/L Myoglobin 113.5 H 10.0-92.0 NG/ML Troponin I 0.038 H 0.044 H <0.028 NG/ML B-Type Natriuretic Peptide 23.7 <100.0 PG/ML Total Protein 6.3 L 6.4-8.2 GM/DL Albumin 3.7 3.2-4.5 GM/DL My Orders Orders - LORENA GRIGSBY APRN Cbc With Automated Diff (01/05/21 16:03) Magnesium (01/05/21 16:03) Chest 1 View, Ap/Pa Only (01/05/21 16:03) Ekg Tracing (01/05/21 16:03) Comprehensive Metabolic Panel (01/05/21 16:03) Myoglobin Serum (01/05/21 16:03) Protime With Inr (01/05/21 16:03) Partial Thromboplastin Time (01/05/21 16:03) O2 (01/05/21 16:03) Monitor-Rhythm Ecg Trace Only (01/05/21 16:03) Ed Iv/Invasive Line Start (01/05/21 16:03) BNP (01/05/21 16:03) Troponin I (01/05/21 16:03) Antacid Suspension (Mylanta Suspension (01/05/21 16:15) Lidocaine 2% Viscous 15 Ml (Xylocaine Vi (01/05/21 16:15) Ct Chest W (01/05/21 17:02) Iohexol Injection (Omnipaque 350 Mg/Ml 1 (01/05/21 17:15) Received Contrast (Hold Metformin- Contr (01/05/21 17:15) Ns (Ivpb) (Sodium Chloride 0.9% Ivpb Bag (01/05/21 17:15) Troponin I (01/05/21 18:00) Medications Given in ED Current Medications Medications Dose Ordered Sig/Kinsey Route Start Time Stop Time Status Last Admin Dose Admin Al Hydrox/Mg Hydrox/Simethicone 30 ml ONCE ONCE PO 01/05/21 16:15 01/05/21 16:16 DC 01/05/21 16:19 30 ML Iohexol 100 ml ONCE ONCE IV 01/05/21 17:15 01/05/21 17:16 DC 01/05/21 17:29 80 ML Lidocaine HCl 15 ml ONCE ONCE PO 01/05/21 16:15 01/05/21 16:16 DC 01/05/21 16:20 15 ML Sodium Chloride 100 ml ONCE ONCE IV 01/05/21 17:15 01/05/21 17:16 DC 01/05/21 17:29 80 ML Vital Signs/I&O 01/05/21 16:01 Temp 36.8 Pulse 79 Resp 22 B/P (MAP) 124/104 (111) Pulse Ox 98 O2 Delivery Room Air Capillary Refill : Departure Communication (Admissions) Family Conversation NAME: SAYRA SANABRIA [facility] REC#: [id number] PT STATUS: REG ER : 1965 PHYSICIAN: LORENA GRIGSBY APRN ADMIT DATE: 01/05/21/ER Signed Date of Exam:01/05/21 CHEST 1 VIEW, AP/PA ONLY Indication: Chest pain. Comparison: 12/12/2020. Discussion: Single portable upright view of the chest was obtained. Infiltrates again noted within the left lung base, atelectasis versus pneumonia. Mild cardiomegaly is stable. The right lung is well-aerated. No pleural fluid or pneumothorax. Left-sided pacemaker is stable. No osseous abnormality. Impression: Persistent opacity within the left lung base. Dictated by: Dictated on workstation # [id number] Dict: 01/05/21 1641 Trans: 01/05/21 [address] [facility] [id number] Interpreted by: JAG HANCOCK MD Electronically signed by: JAG HANCOCK MD 01/05/211658 EKG shows paced rhythm rate of 74 1701-at this time patient is noted to be looking at "erotic classifies" on [employer] on his phone. This would suggest that chest pain is not severe. 1737-back from CT. Had a heart catheterization in 2019 here which showed a small coronary system with no obstructive disease. 1849-chest pain-free now he has back pain and would like to go home. He has a chronic troponin elevation that is slight and insignificant. His levels today x2 are consistent with all of his previous troponin levels over the course of the past several years. Impression Primary Impression: Chest pain Qualified Codes: R07.9 - Chest pain, unspecified Disposition: 01 HOME, SELF-CARE Condition: Stable Departure-Patient Inst. Decision time for Depature: 18:50 Referrals: BEAU SHARPE DO (PCP/Family) Primary Care Physician Patient Instructions: Chest Pain (DC) Add. Discharge Instructions: 1. REturn to ER for any concerns. Call Dr Lau tomorrow morning for follow up. LORENA GRIGSBY APRN Jan 05, 2021 16:05
[2021-01-05 16:12] LABS: BASOPHILS % (AUTO) 0 % (0-10); EOSINOPHILS # (AUTO) 0.1 10^3/uL (0.0-0.3); EOSINOPHILS % (AUTO) 1 % (0-10); HEMATOCRIT 48 % (40-54); HEMOGLOBIN 15.8 g/dL (13.3-17.7); LYMPHOCYTES # (AUTO) 1.8 10^3/uL (1.0-4.0); LYMPHOCYTES % (AUTO) 25 % (12-44); MEAN CORPUSCULAR HEMOGLOBIN 27 pg (25-34); MEAN CORPUSCULAR HGB CONC 33 g/dL (32-36); MEAN CORPUSCULAR VOLUME 83 fL (80-99); MEAN PLATELET VOLUME 9.4 fL (9.0-12.2); MONOCYTES # (AUTO) 0.7 10^3/uL (0.0-1.0); MONOCYTES % (AUTO) 10 % (0-12); NEUTROPHILS # (AUTO) 4.6 10^3/uL (1.8-7.8); NEUTROPHILS % (AUTO) 63 % (42-75); PLATELET COUNT 155 10^3/uL (130-400); WHITE BLOOD COUNT 7.3 10^3/uL (4.3-11.0)
[2021-01-05] MEDS ORDERED: LIDOCAINE 2% VISCOUS 15 ML UDC PO ONE (16:15)
[2021-01-05] MEDS ORDERED: ANTACID SUSP 30 ML UDC (MYLANTA) PO ONE (16:15)
[2021-01-05 16:22] LABS: ALBUMIN 3.7 GM/DL (3.2-4.5)
[2021-01-05 16:24] LABS: CALCIUM 9.2 MG/DL (8.5-10.1); INR 1.1 (0.8-1.4); PROTHROMBIN TIME PATIENT 14.6 SEC (12.2-14.7)
[2021-01-05 16:25] LABS: TOTAL PROTEIN 6.3 GM/DL (6.4-8.2)
[2021-01-05 16:27] LABS: BILIRUBIN,TOTAL 0.6 MG/DL (0.1-1.0)
[2021-01-05 16:29] LABS: CREATININE SERUM 0.8 MG/DL (0.60-1.30)
[2021-01-05 16:31] LABS: MAGNESIUM 1.4 MG/DL (1.6-2.4)
--- NOTE | 2021-01-05 16:48 | Diagnostic Imaging Report ---
Indication: Chest pain. Comparison: 12/12/2020. Discussion: Single portable upright view of the chest was obtained. Infiltrates again noted within the left lung base, atelectasis versus pneumonia. Mild cardiomegaly is stable. The right lung is well-aerated. No pleural fluid or pneumothorax. Left-sided pacemaker is stable. No osseous abnormality. Impression: Persistent opacity within the left lung base. Dictated by: Dictated on workstation # [id number]
[2021-01-05] MEDS ORDERED: HOLD METFORMIN - RECEIVED CONTRAST 20 ML VIAL IV SCH (17:15)
[2021-01-05] MEDS ORDERED: NS 100 ML (IVPB) BAG IV ONE (17:15)
[2021-01-05] MEDS ORDERED: IOHEXOL 350 MG/ML 100 ML (OMNIPAQUE 350) VIAL IV ONE (17:15)
--- NOTE | 2021-01-05 17:45 | Diagnostic Imaging Report ---
PROCEDURE: CT chest with contrast only. TECHNIQUE: Multiple contiguous axial images were obtained through the chest after administration of intravenous contrast. Auto Exposure Controls were utilized during the CT exam to meet ALARA standards for radiation dose reduction. INDICATION: Left lung density at radiograph. FINDINGS: The lungs are clear. No lung mass or suspicious pulmonary nodule. No substantial atelectasis. In particular, the left base at CT appeared normal. No axillary, hilar or mediastinal adenopathy. The aorta is patent. No pleural or pericardial effusion. No pneumothorax. The visualized upper abdomen nonacute. IMPRESSION: Unremarkable CT chest. Dictated by: Dictated on workstation # [id number]
[2021-01-05 19:15] VITALS: BP 122/92
== END 2021-01-05 19:15 | disposition home or self-care (01) ==
LOC: EDUNIT# 16:01 → ER 16:02
DX: R07.9 Chest pain, unspecified (principal); I10 Essential (primary) hypertension; I25.10 Atherosclerotic heart disease of native coronary artery without angina pectoris; E78.00 Pure hypercholesterolemia, unspecified; K21.9 Gastro-esophageal reflux disease without esophagitis; M10.9 Gout, unspecified; Z79.82 Long term (current) use of aspirin; Z79.01 Long term (current) use of anticoagulants; Z79.899 Other long term (current) drug therapy
CPT/HCPCS: 36415; 71045; 71260; 80053; 83735; 83874; 83880; 84484; 85025; 85610; 85730; 93005; 93041

== ENCOUNTER 2021-01-29 14:34 | Emergency (ER) | payer MEDICARE, MEDICAID ==
[~2021-01-29] VITALS: Ht 177.8 cm; Wt 109.0 kg
[2021-01-29] MEDS ORDERED: LACTATED RINGERS 1,000 ML IV SCH (14:45)
--- NOTE | 2021-01-29 14:45 | ED GU-Female ---
General Chief Complaint: - Reproductive Stated Complaint: UTI;WEAKNESS Nursing Triage Note: reported uti, daughter thinks may be dehydrated Source: patient Exam Limitations: no limitations (LORENA GRIGSBY APRN) History of Present Illness Date Seen by Provider: Jan 29, 2021 Time Seen by Provider: 14:44 Initial Comments to ER by EMS from home with reports of possible dehydration due to reduced intake as he does not like the flavor of water. He was diagnosed with a urinary tract infection by an urgent care on Wednesday and is currently on Cipro for that. His only complaint is of suprapubic abdominal pain. No fever chills dysuria bowel changes cough shortness of breath and today he does not have chest pain Timing/Duration: constant Severity/Quality: moderate Location: suprapubic Radiation: suprapubic Activities at Onset: none (LORENA GRIGSBY APRN) Allergies and Home Medications Allergies Coded Allergies: vancomycin (Verified Allergy, Unknown, 11/11/05) Patient Home Medication List Home Medication List Reviewed: Yes (LORENA GRIGSBY APRN) Albuterol Sulfate (Ventolin Hfa) 18 Gm Hfa.aer.ad, 0 GM IH RTQ4HR Prescribed by: BEAU AGUSTIN on 04/08/20 1304 Allopurinol (Allopurinol) 300 Mg Tablet, 300 MG PO M, W, F Prescribed by: BEAU AGUSTIN on 03/24/20 1020 Aspirin (Aspirin) 81 Mg Tab.chew, 81 MG PO DAILY@0900 Prescribed by: BEAU AGUSTIN on 03/11/20 1238 Budesonide/Formoterol Fumarate (Symbicort 160-4.5 Mcg Inhaler) 10.2 Gm Hfa.aer.ad, 2 PUFF IH BID Prescribed by: BEAU AGUSTIN on 03/24/20 1019 Cetirizine HCl (Children's Cetirizine HCl) 10 Mg Tab.chew, 10 MG PO DAILY, (Reported) Entered as Reported by: GUERITA HOUSTON on 08/29/19 1022 Clopidogrel Bisulfate (Clopidogrel) 75 Mg Tablet, 75 MG PO DAILY Prescribed by: BEAU AGUSTIN on 03/11/20 1238 Colestipol HCl (Colestid) 1 Gm Tab, 1 GM PO Q48H, (Reported) Entered as Reported by: GUERITA HOUSTON on 02/08/19 1147 Divalproex Sodium (Divalproex Sodium) 250 Mg Tablet.dr, 750 MG PO BID, (Repor jayne) Entered as Reported by: GAY ZAMBRANO on 09/12/18 1503 Divalproex Sodium (Divalproex Sodium) 250 Mg Tablet.dr, 500 MG PO 1200, (Reported) Entered as Reported by: GAY ZAMBRANO on 09/12/18 1503 Furosemide (Furosemide) 40 Mg Tablet, 40 MG PO , W, F Prescribed by: BEAU AGUSTIN on 03/24/20 1019 Magnesium Oxide (Magnesium) 400 Mg Capsule, 400 MG PO ,, Prescribed by: BEAU AGUSTIN on 03/24/20 1033 Metoprolol Succinate (Metoprolol Succinate) 50 Mg Tab.er.24h, 50 MG PO DAILY Prescribed by: BEAU AGUSTIN on 03/24/20 1019 Pantoprazole Sodium (Pantoprazole Sodium) 40 Mg Tablet.dr, 40 MG PO DAILY, (Reported) Entered as Reported by: SANJAY MENDEZ on 11/27/19 1405 Potassium Chloride (Potassium Chloride) 20 Meq Tab.er.prt, 40 MEQ PO DAILY Prescribed by: BEAU AGUSTIN on 03/24/20 1019 Rosuvastatin Calcium (Rosuvastatin Calcium) 10 Mg Tablet, 10 MG PO DAILY, (Reported) Entered as Reported by: GAY ZAMBRANO on 09/12/18 1503 [Bethanechol Chloride] , 50 MG PO QID, (Reported) Entered as Reported by: GUERITA HOUSTON on 03/11/20 1004 Review of Systems Review of Systems Constitutional: see HPI EENTM: see HPI Respiratory: no symptoms reported Cardiovascular: no symptoms reported Genitourinary: see HPI Musculoskeletal: no symptoms reported Skin: no symptoms reported Psychiatric/Neurological: No Symptoms Reported Endocrine: No Symptoms Reported Hematologic/Lymphatic: No Symptoms Reported (LORENA GRIGSBY APRN) Past Vomukwl-Kyhvei-Bqqxwi Hx Immunizations Up To Date Tetanus Booster (TDap): Unknown (LORENA GRIGSBY APRN) Seasonal Allergies Seasonal Allergies: No (LORENA GRIGSBY APRN) Past Medical History Surgeries: Yes (pacer/AICD placement, left hand tendon repair) Cardiac, Orthopedic, Pacemaker Respiratory: No Currently Using CPAP: No Currently Using BIPAP: No Cardiac: Yes (HEART FAILURE, CONGENITAL heart block status post pacemaker;NON- OBSTR CAD) Cardiomyopathy, Coronary Artery Disease, High Cholesterol, Hypertension Neurological: Yes (hx meningitis 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, has left-sided neurologic deficits) Developmental Disorder, Paralysis Reproductive Disorders: No Genitourinary: No Gastrointestinal: Yes (GASTRITIS) Gastroesophageal Reflux, Hemorrhoids, Chronic Diarrhea Musculoskeletal: 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) Arthritis, Contracture, Gout Endocrine: No HEENT: No Loss of Vision: Denies Hearing Impairment: Denies Cancer: No Psychosocial: No Integumentary: Yes (bed bugs) Blood Disorders: No Adverse Reaction/Blood Tranf: No (LORENA GRIGSBY APRN) Family Medical History Alzheimer's disease Arthritis Colon cancer Diabetes mellitus Myocardial infarction Visual disorder Physical Exam Vital Signs Vital Signs - First Documented 01/29/21 14:40 Temp 36.1 Pulse 94 Resp 20 B/P (MAP) 115/74 (88) Pulse Ox 96 O2 Delivery Room Air (YANG,JUNIOR K DO) Vital Signs Capillary Refill : Less Than 3 Seconds (LORENA GRIGSBY APRN) Height, Weight, BMI Height: 6'0.00" Weight: 218lbs. 0.0oz. 98.089679rz; 34.00 BMI Method:Stated General Appearance: WD/WN, no apparent distress, obese, other (Alert and or iented, jovial pleasant no distress not tachycardic not hypoxic) HEENT: PERRL/EOMI, normal ENT inspection Neck: non-tender, full range of motion Cardiovascular: regular rate, rhythm, no murmur Respiratory: normal breath sounds, no respiratory distress, no accessory muscle use Gastrointestinal: normal bowel sounds, non tender, soft Neurologic/Psychiatric: alert, normal mood/affect, oriented x 3 Skin: normal color, warm/dry (LORENA GRIGSBY APRN) Progress/Results/Core Measures Suspected Sepsis SIRS Temperature: Pulse: 94 Respiratory Rate: 20 Laboratory Tests 01/29/21 14:50: White Blood Count 6.2 Blood Pressure 115 /74 Mean: 88 Laboratory Tests 01/29/21 14:50: Creatinine 0.93, Platelet Count 137, Total Bilirubin 0.7 (LORENA GRIGSBY APRN) Results/Orders Vital Signs/I&O Capillary Refill : Less Than 3 Seconds (LORENA GRIGSBY APRN) Blood Pressure Mean: 88 Departure Communication (Admissions) NAME: SAYRA SANABRIA REC#: [id number] PT STATUS: REG ER : 1965 PHYSICIAN: LORENA GRIGSBY APRN ADMIT DATE: 01/29/21/ER Draft Date of Exam:01/29/21 CT ABD/PELVIS WO(KIDNEY STONE) EXAMINATION: CT abdomen and pelvis without contrast. TECHNIQUE: Multiple contiguous axial images were obtained through the abdomen and pelvis without the use of intravenous contrast. All CT scans use one or more of the following dose optimizing techniques: automated exposure control, MA and/or KvP adjustment based on patient size and exam type or iterative reconstruction. HISTORY: Suprapubic pain. COMPARISON: 10/14/2018. FINDINGS: Lung bases: Bibasilar dependent atelectasis. Solid organs: The liver is normal. The gallbladder is surgically absent. There is no biliary ductal dilation. Pancreas is normal. Spleen is normal. Adrenal glands are normal. The kidneys are normal without visualized calculus or hydronephrosis. Bowel: The stomach and small bowel are normal without obstruction. The colon and appendix are normal. Peritoneum: There is no intraperitoneal free fluid or free air. No suspicious lymphadenopathy. Vasculature: Calcification of the aorta without aneurysm. Musculoskeletal: Degenerative changes of the spine without suspicious osseous lesion or compression fracture. Bilateral L5 pars defects. Grade 1 anterolisthesis of L5 on S1. Pelvis: The prostate gland is normal. Diffuse bladder wall thickening. IMPRESSION: 1. No acute abnormality is seen within the abdomen or pelvis. 2. Mild bladder wall thickening. Recommend correlation with urinalysis. Dictated on workstation # [id number] Dict: 01/29/21 1518 Trans: 01/29/21 1525 [id number] Interpreted by: RA CRENSHAW DO Electronically signed by: (LORENA GRIGSBY APRN) Impression Primary Impression: Suprapubic abdominal pain Disposition: 01 HOME, SELF-CARE Condition: Stable Departure-Patient Inst. Decision time for Depature: 16:25 (LORENA GRIGSBY APRN) Referrals: EBAU AGUSTIN DO (PCP/Family) Primary Care Physician Patient Instructions: Abdominal Pain, Adult ED Add. Discharge Instructions: 1. Continue the antibiotics take Tylenol and ibuprofen for pain control follow- up with Dr. Agustin. All discharge instructions reviewed with patient and/or family. Voiced understanding. ATTENDING PHYSICIAN NOTE: I WAS PHYSICALLY PRESENT ER PHYSICIAN WHILE THIS PT WAS IN ER, BUT I WAS NOT INVOLVED IN ANY DECISION MAKING OR ANY CARE OF THIS PATIENT. (JUNIOR SORIA DO) LORENA GRIGSBY APRN Jan 29, 2021 14:45 JUINOR SORIA DO Jan 31, 2021 21:40
[2021-01-29 14:59] LABS: BASOPHILS % (AUTO) 1 % (0-10); EOSINOPHILS # (AUTO) 0.1 10^3/uL (0.0-0.3); EOSINOPHILS % (AUTO) 2 % (0-10); HEMATOCRIT 45 % (40-54); HEMOGLOBIN 15.2 g/dL (13.3-17.7); LYMPHOCYTES % (AUTO) 32 % (12-44); MEAN CORPUSCULAR HEMOGLOBIN 28 pg (25-34); MEAN CORPUSCULAR HGB CONC 34 g/dL (32-36); MEAN CORPUSCULAR VOLUME 83 fL (80-99); MEAN PLATELET VOLUME 9.3 fL (9.0-12.2); MONOCYTES % (AUTO) 16 % (0-12); NEUTROPHILS % (AUTO) 48 % (42-75); PLATELET COUNT 137 10^3/uL (130-400); WHITE BLOOD COUNT 6.2 10^3/uL (4.3-11.0)
[2021-01-29 15:07] LABS: BILIRUBIN,URINE NEGATIVE (NEGATIVE); CLARITY,URINE CLEAR; COLOR,URINE YELLOW; GLUCOSE, URINE (UA) TRACE (NEGATIVE); KETONES,URINE TRACE (NEGATIVE); LEUKOCYTE ESTERASE ,URINE NEGATIVE (NEGATIVE); NITRITE,URINE NEGATIVE (NEGATIVE); PH,URINE 7.5 (5-9); PROTEIN,URINE NEGATIVE (NEGATIVE)
[2021-01-29 15:10] LABS: ALBUMIN 3.6 GM/DL (3.2-4.5); POTASSIUM 3.9 MMOL/L (3.6-5.0)
[2021-01-29 15:11] LABS: CALCIUM 8.9 MG/DL (8.5-10.1)
[2021-01-29 15:12] LABS: TOTAL PROTEIN 6.2 GM/DL (6.4-8.2)
[2021-01-29 15:14] LABS: BILIRUBIN,TOTAL 0.7 MG/DL (0.1-1.0)
[2021-01-29 15:15] LABS: BACTERIA,URINE NEGATIVE /HPF; RBC,URINE 0-2 /HPF; SQUAMOUS EPITHELIAL CELL,UR 0-2 /HPF; WBC,URINE 0-2 /HPF
[2021-01-29 15:16] LABS: CREATININE SERUM 0.93 MG/DL (0.60-1.30)
--- NOTE | 2021-01-29 15:25 | Diagnostic Imaging Report ---
EXAMINATION: CT abdomen and pelvis without contrast. TECHNIQUE: Multiple contiguous axial images were obtained through the abdomen and pelvis without the use of intravenous contrast. All CT scans use one or more of the following dose optimizing techniques: automated exposure control, MA and/or KvP adjustment based on patient size and exam type or iterative reconstruction. HISTORY: Suprapubic pain. COMPARISON: 10/14/2018. FINDINGS: Lung bases: Bibasilar dependent atelectasis. Solid organs: The liver is normal. The gallbladder is surgically absent. There is no biliary ductal dilation. Pancreas is normal. Spleen is normal. Adrenal glands are normal. The kidneys are normal without visualized calculus or hydronephrosis. Bowel: The stomach and small bowel are normal without obstruction. The colon and appendix are normal. Peritoneum: There is no intraperitoneal free fluid or free air. No suspicious lymphadenopathy. Vasculature: Calcification of the aorta without aneurysm. Musculoskeletal: Degenerative changes of the spine without suspicious osseous lesion or compression fracture. Bilateral L5 pars defects. Grade 1 anterolisthesis of L5 on S1. Pelvis: The prostate gland is normal. Diffuse bladder wall thickening. IMPRESSION: 1. No acute abnormality is seen within the abdomen or pelvis. 2. Mild bladder wall thickening. Recommend correlation with urinalysis. Dictated by: Dictated on workstation # [id number]
[2021-01-29] MEDS ORDERED: KETOROLAC 30 MG/ML VIAL IVP ONE (15:30)
--- NOTE | 2021-01-29 15:54 | Diagnostic Imaging Report ---
EXAMINATION: Chest, 1 view. HISTORY: Suprapubic pain. COMPARISON: 01/05/2021. FINDINGS: Stable enlargement of the cardiac silhouette. Left sided cardiac device is unchanged. Low lung volumes without consolidation, pleural effusion, or pneumothorax. The osseous structures are intact. IMPRESSION: No acute radiographic abnormality in the chest. Dictated by: Dictated on workstation # [id number]
[2021-01-29 16:40] VITALS: BP 102/69
== END 2021-01-29 16:41 | disposition home or self-care (01) ==
LOC: EDUNIT# 14:34 → ER 14:35
DX: R10.30 Lower abdominal pain, unspecified (principal); I10 Essential (primary) hypertension; E78.00 Pure hypercholesterolemia, unspecified; I25.10 Atherosclerotic heart disease of native coronary artery without angina pectoris; E66.9 Obesity, unspecified; K21.9 Gastro-esophageal reflux disease without esophagitis; M10.9 Gout, unspecified; Z68.34 Body mass index [BMI] 34.0-34.9, adult; Z79.82 Long term (current) use of aspirin; Z79.899 Other long term (current) drug therapy; Z79.01 Long term (current) use of anticoagulants
CPT/HCPCS: 36415; 71045; 74176; 80053; 81000; 85025

== ENCOUNTER → 2021-06-27 | Outpatient (CLI) | payer MEDICARE, MEDICAID ==
[~2021-06-27] MED LIST changes: +CATHETER FLUSH 10 ML SYR IV PRN; +HOLD METFORMIN - RECEIVED CONTRAST 20 ML VIAL IV SCH; +IOHEXOL 350 MG/ML 100 ML (OMNIPAQUE 350) VIAL IV ONE; +NS 100 ML (IVPB) BAG IV ONE; +POTA-179 PO; -POTA20TA15 PO
[2021-06-27 12:48] LABS: ALBUMIN 3.9 GM/DL (3.2-4.5); POTASSIUM 3.8 MMOL/L (3.6-5.0)
[2021-06-27 12:50] LABS: CALCIUM 9.1 MG/DL (8.5-10.1)
[2021-06-27 12:53] LABS: BILIRUBIN,TOTAL 0.6 MG/DL (0.1-1.0)
[2021-06-27 12:54] LABS: CREATININE SERUM 0.83 MG/DL (0.60-1.30)
[2021-06-27 13:16] LABS: TOTAL PROTEIN 6.9 GM/DL (6.4-8.2)
--- NOTE | 2021-06-27 13:30 | Diagnostic Imaging Report ---
PROCEDURE: CT head with and without contrast. TECHNIQUE: Multiple contiguous axial images were obtained through the brain before and after the administration of intravenous contrast. Auto Exposure Controls were utilized during the CT exam to meet ALARA standards for radiation dose reduction. INDICATION: Headache. Patient has a COMMER[employer] shunt. Correlation is made with prior head CT from 04/16/2016. FINDINGS: Right-sided [employer] shunt remains in place with its tip near the midline. Overall ventricular size is stable. Ventricular size and sulcal pattern similar to prior study. There is no sulcal effacement or midline shift. No acute intra-axial or extra-axial hemorrhage is detected. Cisterns are patent. No abnormal enhancement is identified following contrast administration. IMPRESSION: Stable pre and postcontrast CT of the brain when compared exam from 04/16/2016. No acute feature is detected. Dictated by: Dictated on workstation # [id number]
== END ==
LOC: RAD 13:45
PROVIDERS: ATTEND Family Medicine
DX: R51.9 Headache, unspecified (principal); Z98.2 Presence of cerebrospinal fluid drainage device
CPT/HCPCS: 36415; 70470; 80053

== ENCOUNTER → 2021-09-17 | Outpatient (CLI) | payer MEDICARE, MEDICAID ==
[~2021-09-17] MED LIST changes: -ASPI-789 PO; +ASPI1TAB23 PO; -CATHETER FLUSH 10 ML SYR IV PRN; -HOLD METFORMIN - RECEIVED CONTRAST 20 ML VIAL IV SCH; -IOHEXOL 350 MG/ML 100 ML (OMNIPAQUE 350) VIAL IV ONE; -NS 100 ML (IVPB) BAG IV ONE
--- NOTE | 2021-09-17 16:13 | Diagnostic Imaging Report ---
INDICATION: Headache. Previously noted PRINT COLOR MATCHER shunt on CT study from June 2021 is no longer visualized. There is a small radiopacity in the midline which may represent a remnant of the tip of the shunt. Skull is unremarkable. IMPRESSION: There is a small metallic density in the midline of the head which could represent the tip of the previously noted indwelling PRINT COLOR MATCHER shunt. The remainder of the shunt is not well visualized on this study. No shunt tubing is seen. CT of the brain could be performed for better characterization. Dictated by: Dictated on workstation # [id number]
--- NOTE | 2021-09-17 16:13 | Diagnostic Imaging Report ---
INDICATION: FINE GRADE OPERATOR shunt. TIME OF EXAM: 3:17 PM. There are surgical clips in the gallbladder fossa. Bowel gas pattern is unremarkable. No FINE GRADE OPERATOR shunt tubing is identified. No pathologic calcifications are seen. IMPRESSION: No acute feature identified. Dictated by: Dictated on workstation # [id number]
--- NOTE | 2021-09-17 16:13 | Diagnostic Imaging Report ---
Indication: Headache. Time of Exam: 3:08 PM 2 views of the cervical spine were obtained. Reportedly patient has had a AIRCRAFT MAINTENANCE MANAGER shunt. However, no AIRCRAFT MAINTENANCE MANAGER shunt tubing is identified on the study. There is straightening of the cervical lordotic curvature. There is severe multilevel degenerative disc disease with significant disc space narrowing and marginal spurring. Impression: 1. No definite AIRCRAFT MAINTENANCE MANAGER shunt tubing is identified. 2. Cervical spine spondylosis. Dictated by: Dictated on workstation # [id number]
--- NOTE | 2021-09-17 16:14 | Diagnostic Imaging Report ---
INDICATION: Headache. TIME OF EXAM: 3:12 PM. COMPARISON: Correlation is made with prior chest of 01/29/2021. Heart size is normal. Cardiac pacer is in place. Lungs are clear. No infiltrates are seen. There is no effusion or pneumothorax. IMPRESSION: No acute cardiopulmonary process is detected. Dictated by: Dictated on workstation # [id number]
== END ==
LOC: RAD 14:48
PROVIDERS: ATTEND Nurse Practitioner Family
DX: M47.812 Spondylosis without myelopathy or radiculopathy, cervical region (principal); Z98.2 Presence of cerebrospinal fluid drainage device
CPT/HCPCS: 70250; 71045; 72020; 74018

== ENCOUNTER 2021-09-26 05:30 | Outpatient (CLI) | payer MEDICARE, MEDICAID ==
[~2021-09-26] VITALS: Ht 182.9 cm; Wt 113.6 kg
[2021-09-26] MEDS ORDERED: GBPN600T PO (14:59)
[2021-09-26] MEDS ORDERED: CALC-250 PO (14:59)
[2021-09-26] MEDS ORDERED: LOSA25TA41 PO (14:59)
[2021-09-26] MEDS ORDERED: DIVA250T12 PO (14:59)
== END 2021-09-26 15:05 | disposition home or self-care (01) ==
LOC: PREOP 05:30
PROVIDERS: ATTEND Surgery
DX: Z01.818 Encounter for other preprocedural examination (principal)

== ENCOUNTER 2021-10-01 08:42 | Day surgery (SDC) | payer MEDICARE, MEDICAID ==
[2021-10-01] VITALS (7 sets, daily range): BP systolic 105–126; BP diastolic 69–103
[~2021-10-01] VITALS: Ht 182.9 cm; Wt 113.6 kg
[~2021-10-01 08:42] MED LIST changes: +CALC-250 PO; +DIVA250T12 PO; +GBPN600T PO
[2021-10-01] MEDS ORDERED: LACTATED RINGERS 1,000 ML IV PRN (09:15)
[2021-10-01] MEDS ORDERED: ceFAZolin 2 GM IV Premixed 50 ML IV ONE (09:15)
--- NOTE | 2021-10-01 09:26 | Progress Note-Pre Operative ---
Pre-Operative Progress Note H&P Reviewed The H&P was reviewed, patient examined and no changes noted. Time Seen by Provider: 09:24 Date H&P Reviewed: Oct 01, 2021 Time H&P Reviewed: 09:24 Pre-Operative Diagnosis: Left leg mass TEZ COPELAND DO Oct 01, 2021 09:26
[2021-10-01] MEDS ORDERED: LIDOCAINE/EPI 2% 1:200,00 (XYLOCAINE) 20 ML VIAL ONE (10:00)
[2021-10-01] MEDS ORDERED: PROPOFOL INJECTION 50 ML IV ONE (10:02)
[2021-10-01] MEDS ORDERED: MIDAZOLAM 2 MG/2 ML (VERSED) VIAL ONE (10:04)
[2021-10-01] MEDS ORDERED: ONDANSETRON 4 MG/2 ML (SDV) Z0FRAN IVP PRN (11:00)
[2021-10-01] MEDS ORDERED: morphine INJ 10 MG/ML 1ML (SYR OR VIAL) IVP ONE (11:00)
[2021-10-01] MEDS ORDERED: PROMETHAZINE INJ 25 MG/ML (PHENERGAN) AMP IVP ONE (11:00)
--- NOTE | 2021-10-01 11:00 | Anesthesia-General Post-Op ---
MAC Patient Condition Mental Status/LOC: Same as Preop Cardiovascular: Satisfactory Nausea/Vomiting: Absent Respiratory: Satisfactory Pain: Controlled Complications: Absent Post Op Complications Complications None Follow Up Care/Instructions Patient Instructions None needed. Anesthesiology Discharge Order Discharge Order Patient is doing well, no complaints, stable vital signs, no apparent adverse anesthesia problems. No complications reported per nursing. SANDY TOWNSEND CRNA Oct 01, 2021 11:00
[2021-10-01] MEDS ORDERED: ACHD5005 PO (12:19)
--- NOTE | 2021-10-01 12:21 | Discharge Inst-Surgical ---
Discharge Inst-Surgical Depart Medication/Instructions New, Converted or Re-Newed RX: Transmitted to Pharmacy Patient Instructions Follow up Appt: Make appointment for 1 week. [phone] Instructions: No lifting greater than 20 pounds. No strenuous activity. May shower in 24 hours, no tub bath or soaking. Use incentive spirometer at home as directed. No Smoking Skin/Wound Care: May remove bandages in am. You need to leave the Dermabond on incision it will fall off on it's own. Symptoms to Report: Appetite Changes, Extremity Discoloration, Numbness/Tingling, Swelling Increased, Bleeding Excessive, Eyesight Changes, Pain Increased, Urine Color Change, Constipation(Persistent), Fever over 101 degree F, Pain/Pressure in chest, Urinating Difficulty, Cough Up/Vomit Blood, Heart Beat Irreg/Pounding, Pain/Pressure in jaw, Cramps in feet or legs, Lightheadedness, Pain/Pressure in shoulder, Diarrhea(Persistent), Memory Changes Suddenly, Questions/Concerns, Weight gain consecutive days, Dizziness/Fainting, Nausea/Vomiting, Shortness of Breath, Weight gain over 2 pounds If questions or concerns contact your physician Or seek help at emergency department. Activity Activity as Tolerated: Yes Activity Instructions: Avoid Stress to Incision Driving Instructions: No Driving/Refer to Dr. Noriega Discharge Diet: No Restrictions Diet After 24 Hours: Clear Liquid if Nauseous If Any Problems/Questions/Issu: Contact Your Physician, Go to Emergency Room Skin/Wound Care Infection Signs and Symptoms: Increased Redness, Foul Odor of Wound, Increased Drainage, Skin Itchy or Has a Rash, Increased Swelling, Temperature Above 101 F Bathing Instructions: Shower Stitches/[place]/Dermabond Dis: TEZ Liu DO Oct 01, 2021 12:21
--- NOTE | 2021-10-02 03:57 | OPERATIVE REPORT ---
DATE OF SERVICE: 10/01/2021 PREOPERATIVE DIAGNOSIS: Left leg mass just above the knee. POSTOPERATIVE DIAGNOSIS: Left leg mass just above the knee, pending pathology. PROCEDURE: Excision of left leg mass, excision measuring 4.7 cm x about 1 cm. SURGEON: Jose Juan Connor DO SEWING TEACHER: None. ANESTHESIA: LMA. SPECIMEN: Left leg mass. BLOOD LOSS: Scant. FLUIDS: Per anesthesia. POSTOPERATIVE CONDITION: Stable. INDICATION FOR PROCEDURE: The patient is a 56-year-old male who is developmentally delayed and had a mass on his leg that has been getting bigger, causing pain, bleeding, and he wanted to get this removed and did not think they could do this in the office. FINDINGS: The patient had a left leg mass removed; it was on the skin, measured about 4.7 cm long x about a centimeter wide, sent to pathology marked at the 3 o'clock position. PROCEDURE NOTE: After informed consent was obtained, the patient was brought to the operating room, placed on the operating table in supine position, sterilely prepped and draped in normal fashion. Local lidocaine was used to infiltrate the skin around this lesion. I then made an incision with #15 blade, carried down through the skin into subcutaneous tissue, then deepened down to subcutaneous tissue with Bovie electrocautery, removed this portion of skin and mass en bloc, sutured once at the 3 o'clock position with silk, sent to pathology. Hemostasis obtained using Bovie electrocautery, created some flaps superiorly and inferiorly just about 0.5 cm to be able to bring this together, then closed the deep tissue, the subcutaneous tissue with 3-0 Vicryl interrupted sutures, then closed the skin with 4-0 undyed Monocryl in a running subcuticular fashion. Area was cleaned and dried. Skin Affix was placed as well as dressing. The patient transferred to recovery room in stable condition. Sponge and needle count correct at the end of the case. Job ID: [id number] DocumentID: [id number] Dictated Date: 10/01/2021 21:18:48 Avionics Engineer Date: 10/02/2021 03:57:09 Dictated By: JOSE JUAN CONNOR DO
== END 2021-10-01 13:15 | disposition home or self-care (01) ==
LOC: SDC 08:42
PROVIDERS: ATTEND Surgery
DX: D18.01 Hemangioma of skin and subcutaneous tissue (principal)
CPT/HCPCS: 87081

== ENCOUNTER → 2021-10-20 | Outpatient (CLI) | payer MEDICARE, MEDICAID ==
--- NOTE | 2021-10-20 16:55 | Diagnostic Imaging Report ---
EXAMINATION: CT neck, chest, abdomen and pelvis without intravenous contrast. TECHNIQUE: Multiple contiguous axial images were obtained through the neck, chest, abdomen and pelvis without intravenous contrast. All CT scans use one or more of the following dose optimizing techniques: automated exposure control, MA and/or KvP adjustment based on patient size and exam type or iterative reconstruction. HISTORY: Ventriculoperitoneal shunt evaluation. COMPARISON: None available. FINDINGS: Neck CT: A right-sided shunt catheter is seen extending posterior to the right ear. There is an area of discontinuity in the right neck. It extends into the right internal jugular vein. A pacemaker is present and there is a catheter fragment immediately adjacent to the pacemaker that does not appear to be contiguous with the shunt. No embolized fragments are seen in the lungs. Scattered subcentimeter lymph nodes are seen in the neck. None are pathologically enlarged. The muscles of the neck are normal. Vessels of the neck demonstrate normal course and caliber. Fascial planes are preserved and the deep spaces of the neck are normal. The visualized airway is widely patent. The base of the skull and the temporal bones are normal. Limited views of the brain including the cerebellum and brainstem are normal. The limited view of the [place] is unremarkable. The visualized portions of the orbits are normal. Chest CT: There is no edema or pneumonia. No pleural effusion. No pneumothorax. No suspicious nodules. There is no axillary or supraclavicular lymphadenopathy. There is no mediastinal lymphadenopathy. Left ventricle is dilated. There are mild coronary artery calcifications. No pericardial effusion. Aorta is mildly dilated measuring 4.5 x 4.[address]: The liver is normal without focal lesion. There is no biliary ductal dilation. Gallbladder is surgically absent. Pancreas is normal. Spleen is normal. Adrenal glands are normal. The kidneys are normal. There is no hydronephrosis. Urinary bladder is normal. There appear to have been prior bilateral inguinal hernia repairs. Bowel is normal in caliber without obstruction or inflammation. There is no shunt tubing in the abdomen. No free fluid or air. No abdominal or pelvic lymphadenopathy. Aorta is normal in caliber without aneurysm. There are no suspicious osseous lesions. 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 IMPRESSION: 1. There is a fragmented shunt catheter in the right neck extending into the right internal jugular vein. There is a small catheter fragment adjacent to a pacemaker lead within the innominate vein that is not contiguous with the upstream catheter fragments. No embolized catheter fragments are seen and there is no catheter extending into the abdomen. Dictated by: Dictated on workstation # [id number]
== END ==
LOC: RAD 13:15
PROVIDERS: ATTEND Neurological Surgery
DX: Z98.2 Presence of cerebrospinal fluid drainage device (principal); Z90.2 Acquired absence of lung [part of]; Z95.0 Presence of cardiac pacemaker
CPT/HCPCS: 70490; 71250; 74176

== ENCOUNTER 2021-11-21 13:02 | Emergency (ER) | payer MEDICARE, MEDICAID ==
[~2021-11-21] VITALS: Ht 182 cm; Wt 106.5 kg
[2021-11-21 13:57] LABS: BASOPHILS % (AUTO) 0 % (0-10); EOSINOPHILS # (AUTO) 0.1 10^3/uL (0.0-0.3); EOSINOPHILS % (AUTO) 1 % (0-10); HEMATOCRIT 44 % (40-54); LYMPHOCYTES # (AUTO) 1.7 10^3/uL (1.0-4.0); LYMPHOCYTES % (AUTO) 18 % (12-44); MEAN CORPUSCULAR HEMOGLOBIN 28 pg (25-34); MEAN CORPUSCULAR HGB CONC 34 g/dL (32-36); MEAN CORPUSCULAR VOLUME 82 fL (80-99); MEAN PLATELET VOLUME 9.1 fL (9.0-12.2); MONOCYTES # (AUTO) 1.5 10^3/uL (0.0-1.0); MONOCYTES % (AUTO) 17 % (0-12); NEUTROPHILS # (AUTO) 5.7 10^3/uL (1.8-7.8); NEUTROPHILS % (AUTO) 64 % (42-75); PLATELET COUNT 169 10^3/uL (130-400)
[2021-11-21] MEDS ORDERED: CATHETER FLUSH 10 ML SYR IV PRN (14:00)
[2021-11-21] MEDS ORDERED: HOLD METFORMIN - RECEIVED CONTRAST 20 ML VIAL IV SCH (14:00)
[2021-11-21] MEDS ORDERED: IOHEXOL 350 MG/ML 100 ML (OMNIPAQUE 350) VIAL IV ONE (14:00)
[2021-11-21] MEDS ORDERED: NS 100 ML (IVPB) BAG IV ONE (14:00)
[2021-11-21 14:04] LABS: ALBUMIN 3.6 GM/DL (3.2-4.5); POTASSIUM 3.7 MMOL/L (3.6-5.0)
[2021-11-21 14:05] LABS: CALCIUM 8.8 MG/DL (8.5-10.1)
[2021-11-21 14:06] LABS: BILIRUBIN,URINE NEGATIVE (NEGATIVE); CLARITY,URINE CLEAR; COLOR,URINE ORANGE; GLUCOSE, URINE (UA) NEGATIVE (NEGATIVE); KETONES,URINE NEGATIVE (NEGATIVE); LEUKOCYTE ESTERASE ,URINE NEGATIVE (NEGATIVE); NITRITE,URINE NEGATIVE (NEGATIVE); PH,URINE 6.5 (5-9); PROTEIN,URINE NEGATIVE (NEGATIVE)
[2021-11-21 14:06] LABS: TOTAL PROTEIN 6.5 GM/DL (6.4-8.2)
[2021-11-21 14:08] LABS: BILIRUBIN,TOTAL 0.9 MG/DL (0.1-1.0)
--- NOTE | 2021-11-21 14:09 | ED Fall/Injury ---
General Chief Complaint: Chest Pain Stated Complaint: MULTIPLE FALLS/BACK PAIN FROM FALL/CHEST PAIN Nursing Triage Note: PT PRESENTS TO ED VIA POV FROM HOME WITH COMPLAINTS OF CP AND INCREASE IN FALLS THE PAST 9 DAYS. Source: patient (PT IS FAIR HISTORIAN, IS MENTALLY CHALLENGED. 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 SHARPE Allergies and Home Medications Allergies Coded Allergies: vancomycin (Verified Allergy, Unknown, 11/11/05) Patient Home Medication List Home Medication List Reviewed: Yes Albuterol Sulfate (Ventolin Hfa) 18 Gm Hfa.aer.ad, 0 GM IH RTQ4HR Prescribed by: BEAU SHARPE on 04/08/20 1304 Allopurinol (Allopurinol) 300 Mg Tablet, 300 MG PO M, W, F Prescribed by: BEAU SHARPE on 03/24/20 1020 Budesonide/Formoterol Fumarate (Symbicort 160-4.5 Mcg Inhaler) 10.2 Gm Hfa.aer.ad, 2 PUFF IH BID Prescribed by: BEAU SHARPE on 03/24/20 1019 Cetirizine HCl (Children's Cetirizine HCl) 10 Mg Tab.chew, 10 MG PO DAILY, (Reported) Entered as Reported by: GUERITA HOUSTON on 08/29/19 1022 Cholecalciferol (Vitamin D3) (Vitamin D3) 125 Mcg (5000 Unit) Tablet, 125 MCG PO DAILY, (Reported) Entered as Reported by: NANCIE HENSLEY on 09/26/21 1459 Colestipol HCl (Colestid) 1 Gm Tab, 1 GM PO Q48H, (Reported) Entered as Reported by: GUERITA HOUSTON on 02/08/19 1147 Divalproex Sodium (Divalproex Sodium) 250 Mg Tablet.dr, 750 MG PO BID, (Reported) Entered as Reported by: GAY ZAMBRANO on 09/12/18 1503 Divalproex Sodium (Divalproex Sodium) 250 Mg Tablet.dr, 500 MG PO 1200, (Reported) Entered as Reported by: GAY ZAMBRANO on 09/12/18 1503 Divalproex Sodium (Divalproex Sodium ER) 250 Mg Tab.er.24h, 250 MG PO TID, (Reported) Entered as Reported by: NANCIE HENSLEY on 09/26/21 1459 Furosemide (Furosemide) 40 Mg Tablet, 40 MG PO M, W, F Prescribed by: BEAU SHARPE on 03/24/20 1019 Gabapentin (Gabapentin) 600 Mg Tablet, 600 MG PO HS, (Reported) Entered as Reported by: NANCIE HENSLEY on 09/26/21 1459 Hydrocodone Bit/Acetaminophen (HYDROcodone/APAP 5 MG/325 MG TAB) 1 Tab Tab, 1 TAB PO Q8H PRN for PAIN-MODERATE (5-7) Prescribed by: TEZ COPELAND on 10/01/21 1220 Losartan Potassium (Losartan Potassium) 25 Mg Tablet, 25 MG PO DAILY, (Reported) Entered as Reported by: NANCIE HENSLEY on 09/26/21 1459 Magnesium Oxide (Magnesium) 400 Mg Capsule, 400 MG PO M,W, F Prescribed by: BEAU SHARPE on 03/24/20 1033 Pantoprazole Sodium (Pantoprazole Sodium) 40 Mg Tablet.dr, 40 MG PO DAILY, (Reported) Entered as Reported by: SANJAY MENDEZ on 11/27/19 1405 Potassium Chloride (Potassium Chloride) 20 Meq Tab.er.prt, 40 MEQ PO DAILY Prescribed by: BEAU SHARPE on 03/24/20 1019 Rosuvastatin Calcium (Rosuvastatin Calcium) 10 Mg Tablet, 10 MG PO DAILY, (Reported) Entered as Reported by: GAY ZAMBRANO on 09/12/18 1503 [Bethanechol Chloride] , 50 MG PO QID, (Reported) Entered as Reported by: GUERITA HOUSTON on 03/11/20 1004 Review of Systems Review of Systems Constitutional: no symptoms reported Respiratory: no symptoms reported Cardiovascular: see HPI Gastrointestinal: no symptoms reported Genitourinary: no symptoms reported Musculoskeletal: see HPI Skin: no symptoms reported Psychiatric/Neurological: No Symptoms Reported Past Fosfivk-Amxsiv-Zamvbp Hx Patient Social History Tobacco Use?: No Substance use?: No Alcohol Use?: No Pt feels they are or have been: No Immunizations Up To Date Tetanus Booster (TDap): Unknown First/Initial COVID19 Vaccinat: no Second COVID19 Vaccination Román: no Third COVID19 Vaccination Date: no Seasonal Allergies Seasonal Allergies: Yes Past Medical History Surgery/Hospitalization HX: PACEMAKER, HTN, HIGH CHOL, SEIZURES Surgeries: Yes (pacer placement, left hand tendon repair;vp business development shunt) Cardiac, Neurological, Orthopedic, Pacemaker Respiratory: Yes (USES INHALER SEASONAL ALLLERGIES) Currently Using CPAP: No Currently Using BIPAP: No Cardiac: Yes (HEART FAILURE, CONGENITAL heart block status post pacemaker;NON- OBSTR CAD) Atrial Fibrillation, Cardiomyopathy, Coronary Artery Disease, High Cholesterol, Hypertension Neurological: Yes (hx meningitis 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, has left-sided neurologic deficits) Developmental Disorder, Paralysis Reproductive Disorders: No Genitourinary: No Gastrointestinal: Yes (GASTRITIS) Gastroesophageal Reflux, Hemorrhoids, Chronic Diarrhea Musculoskeletal: 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 LAST CATH 09/20/[address] 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 COPELAND. 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 0.0oz. [id number]; 32.00 BMI Method:Stated General Appearance: WD/WN, no apparent distress, other (PT IS VERY PLEASANT AND COOPERATIVE AND TALKATIVE. DOES NOT APPEAR TO BE IN ANY DISCOMFORT OR DISTRESS) HEENT: PERRL/EOMI Neck: non-tender, full range of motion, normal inspection Cardiovascular: normal peripheral pulses, regular rate, rhythm, no murmur Respiratory: normal breath sounds, no respiratory distress, no accessory muscle use, other (MID CHEST TENDERNESS) Gastrointestinal: non tender, soft Back: no CVA tenderness, other (DIFFUSE MID AND LOWER BACK TENDERNESS) Extremities: no pedal edema, no calf tenderness, normal capillary refill, other (MILD CONTRACTURE OF LEFT HAND/WRIST) Neurologic/Psychiatric: paving block cutter II-XII nml as tested, alert, normal mood/affect, oriented x 3, other (APPEARS TO BE MILDLY MENTALLY CHALLENGED. CONTRACTURE OF LEFT HAND/WRIST/ARM) Skin: normal color, warm/dry; No ecchymosis; other (NO EXTERNAL EVIDENCE OF TRAUMA ANYWHERE) [place] Coma Score Best Eye Response: (4) Open Spontaneously Best Verbal Response: (5) Oriented Best Motor Response: (6) Obeys Commands Zoran Total: 15 Progress/Results/Core Measures Results/Orders Lab Results Laboratory Tests Test 11/21/21 13:48 11/21/21 13:56 11/21/21 14:00 Range/Units White Blood Count 9.0 4.3-11.0 10^3/uL Red Blood Count 5.41 4.30-5.52 10^6/uL Hemoglobin 15.0 13.3-17.7 g/dL Hematocrit 44 40-54 % Mean Corpuscular Volume 82 80-99 fL Mean Corpuscular Hemoglobin 28 25-34 pg Mean Corpuscular Hemoglobin Concent 34 32-36 g/dL Red Cell Distribution Width 15.3 H 10.0-14.5 % Platelet Count 169 130-400 10^3/uL Mean Platelet Volume 9.1 9.0-12.2 fL Immature Granulocyte % (Auto) 1 % Neutrophils (%) (Auto) 64 42-75 % Lymphocytes (%) (Auto) 18 12-44 % Monocytes (%) (Auto) 17 H 0-12 % Eosinophils (%) (Auto) 1 0-10 % Basophils (%) (Auto) 0 0-10 % Neutrophils # (Auto) 5.7 1.8-7.8 10^3/uL Lymphocytes # (Auto) 1.7 1.0-4.0 10^3/uL Monocytes # (Auto) 1.5 H 0.0-1.0 10^3/uL Eosinophils # (Auto) 0.1 0.0-0.3 10^3/uL Basophils # (Auto) 0.0 0.0-0.1 10^3/uL Immature Granulocyte # (Auto) 0.1 0.0-0.1 10^3/uL Prothrombin Time 14.6 12.2-14.7 SEC INR Comment 1.1 0.8-1.4 Activated Partial Thromboplast Time 40 H 24-35 SEC Sodium Level 124 *L 135-145 MMOL/L Potassium Level 3.7 3.6-5.0 MMOL/L Chloride Level 91 L 98-107 MMOL/L Carbon Dioxide Level 27 21-32 MMOL/L Anion Gap 6 5-14 MMOL/L Blood Urea Nitrogen 3 L 7-18 MG/DL Creatinine 0.80 0.60-1.30 MG/DL Estimat Glomerular Filtration Rate 103 BUN/Creatinine Ratio 4 Glucose Level 79 70-105 MG/DL Calcium Level 8.8 8.5-10.1 MG/DL Corrected Calcium 9.1 8.5-10.1 MG/DL Magnesium Level 1.7 1.6-2.4 MG/DL Total Bilirubin 0.9 0.1-1.0 MG/DL Aspartate Amino Transf (AST/SGOT) 19 5-34 U/L Alanine Aminotransferase (ALT/SGPT) 12 0-55 U/L Alkaline Phosphatase 62 40-136 U/L Total Creatine Kinase 287 H 30-200 U/L Creatine Kinase MB 6.5 <6.6 NG/ML Myoglobin 148.1 H 10.0-92.0 NG/ML Troponin I 0.033 H <0.028 NG/ML B-Type Natriuretic Peptide 19.0 <100.0 PG/ML Total Protein 6.5 6.4-8.2 GM/DL Albumin 3.6 3.2-4.5 GM/DL Valproic Acid (Depakene) Level 90.0 50.0-100.0 UG/ML SARS-CoV-2 RNA (RT-PCR) Not Detected Not Detecte Urine Color ORANGE Urine Clarity CLEAR Urine pH 6.5 5-9 Urine Specific [place] <=1.005 1.016-1.022 Urine Protein NEGATIVE NEGATIVE Urine Glucose (UA) NEGATIVE NEGATIVE Urine Ketones NEGATIVE NEGATIVE Urine Nitrite NEGATIVE NEGATIVE Urine Bilirubin NEGATIVE NEGATIVE Urine Urobilinogen 0.2 < = 1.0 MG/DL Urine Leukocyte Esterase NEGATIVE NEGATIVE Urine RBC (Auto) NEGATIVE NEGATIVE Urine RBC NONE /HPF Urine WBC RARE /HPF Urine Squamous Epithelial Cells RARE /HPF Urine Crystals NONE /LPF Urine Bacteria NEGATIVE /HPF Urine Casts NONE /LPF Urine Mucus NEGATIVE /LPF Urine Culture Indicated NO My Orders Orders - JUNIOR SORIA DO Ekg Tracing (11/21/21 13:39) Ed Iv/Invasive Line Start (11/21/21 13:45) Monitor-Rhythm Ecg Trace Only (11/21/21 13:45) Bnp [place] (11/21/21 13:45) Cbc With Automated Diff (11/21/21 13:45) Comprehensive Metabolic Panel (11/21/21 13:45) Creatine Kinase (11/21/21 13:45) Creatine Kinase Mb (11/21/21 13:45) Magnesium (11/21/21 13:45) Protime With Inr (11/21/21 13:45) Partial Thromboplastin Time (11/21/21 13:45) Ua Culture If Indicated (11/21/21 13:45) Myoglobin Serum (11/21/21 13:45) Troponin I Prem (11/21/21 13:45) Chest 1 View, Ap/Pa Only (11/21/21 13:45) Ct Head/Cervical Spine Wo (11/21/21 13:45) Ct Thoracic/Lumbar Spine Wo (11/21/21 13:45) Ct Chest/Abdomen/Pelvis W (11/21/21 13:45) Covid 19 Inhouse Test (11/21/21 13:45) Isolation Central Supply Req (11/21/21 13:45) Iohexol Injection (Omnipaque 350 Mg/Ml 1 (11/21/21 14:00) Received Contrast (Hold Metformin- Contr (11/21/21 14:00) Ns (Ivpb) (Sodium Chloride 0.9% Ivpb Bag (11/21/21 14:00) Sodium Chloride Flush (Catheter Flush Sy (11/21/21 14:00) Valproic Acid (11/21/21 14:09) Medications Given in ED Current Medications Medications Dose Ordered Sig/Kinsey Route Start Time Stop Time Status Last Admin Dose Admin Iohexol 100 ml ONCE ONCE IV 11/21/21 14:00 11/21/21 14:01 DC 11/21/21 14:35 100 ML Sodium Chloride 10 ml NEEDED PRN IV 11/21/21 14:00 11/21/21 15:30 DC 11/21/21 14:35 10 ML Sodium Chloride 100 ml ONCE ONCE IV 11/21/21 14:00 11/21/21 14:01 DC 11/21/21 14:35 80 ML Vital Signs/I&O 11/21/21 11/21/21 13:49 15:30 Temp 36.8 Pulse 89 85 Resp 16 20 B/P (MAP) 116/86 (96) 121/71 Pulse Ox 100 98 Blood Pressure Mean: 96 Progress Progress Note : Progress Note UNEVENTFUL ER STAY PT HAD NO COMPLAINTS FOR ENTIRE ER STAY CAREGIVER IS HERE PRIOR TO DISMISSAL, AND REVIEWED ALL TEST RESULTS AND PLAN OF CARE WITH HER AND PATIENT. Initial ECG Impression Date: Nov 21, 2021 Initial ECG Impression Time: 13:42 Initial ECG Rate: 85 Comment 100% VENTRICULAR PACED Diagnostic Imaging Comments CXR---PER RADIOLOGIST REPORT AT 1424 There is cardiomegaly. Pacemaker is unchanged. There is no pneumothorax or pleural fluid. IMPRESSION: Cardiomegaly with pacemaker device in place. No pneumothorax or pleural fluid. CT SCANS--ALL PER RADIOLOGIST REPORTS AT 1510 CT HEAD/CERVICAL SPINE--FINDINGS: HEAD: No intracranial hyperdense hemorrhage or space-occupying mass. The ventricles are stable in size and configuration with the right parietal-approach ventriculostomy catheter terminating in stable position. No transependymal flow is appreciated. Basilar cisterns are widely patent. There is no midline shift. No acute calvarial abnormality. Paranasal sinuses and mastoid air cells are clear. CERVICAL SPINE: No acute fracture or traumatic malalignment. Degenerative straightening of the cervical spine is present. No sites of high-grade spinal canal stenosis. No retropharyngeal fluid collection. Lung apices are clear. Thyroid is normal. IMPRESSION: 1. No acute intracranial hemorrhage. 2. Stable ventricle size when compared to CT head of 06/27/2021. 3. No acute fracture or malalignment in the cervical spine. CT THORACIC/LUMBAR SPINE-- FINDINGS: There is no acute thoracic or lumbar fracture or dislocation. There is chronic bilateral L5 spondylolysis with roughly 7 mm of grade 1 anterolisthesis of L5 on S1. There is severe loss of disc space height and vacuum disc changes. There is endplate sclerosis and subchondral bony irregularity. There is an L5-S1 diffuse disc bulge. There is severe bilateral neural foramen narrowing and no significant bony central canal narrowing. There are hypertrophic spurs involving the thoracic and lumbar spine. There is facet arthropathy. The thoracic and lumbar spine have normal alignment. The visualized extrathoracic, and lumbar soft tissue structures are unremarkable. IMPRESSION: 1: There is no acute thoracic spine and lumbar spine fracture. 2: There is chronic bilateral L5 spondylolysis with grade 1 anterolisthesis of L5 on S1. CT CHEST/ABDOMEN/PELVIS--FINDINGS: CT CHEST: The heart size is within normal limits. No pericardial effusion is present. Left pectoral pacemaker is in place. There is no mediastinal, hilar, or axillary lymphadenopathy. The lungs demonstrate no pulmonary nodules or masses. There are no focal areas of consolidation. No central endobronchial obstructing lesions are identified. There are no pleural effusions or pneumothorax. The osseous structures demonstrate no acute abnormalities. CT ABDOMEN AND PELVIS: Mild nonspecific perinephric fat stranding is seen. No solid renal mass. No evidence of hydronephrosis or obstructing calculi. The urinary bladder is nondistended. The liver, spleen, pancreas, and adrenal glands have a normal appearance. There is no pathologically enlarged mesenteric or retroperitoneal adenopathy. The bowel loops are nondilated. The appendix is visualized and has a normal appearance. There is no free fluid or free air. The osseous structures demonstrate no acute abnormalities. There is grade 1 anterolisthesis of L5 on S1 with bilateral pars defects at L5. Endplate sclerotic changes are seen at the L5-S1 level. There is no free air, loculated collection, or adenopathy in the pelvis. IMPRESSION: 1. No acute abnormalities are seen in the chest, abdomen and pelvis. 2. Nonspecific perinephric fat stranding. No solid renal mass. No hydronephrosis or renal calculi. 3. Grade 1 anterolisthesis of L5 on S1 with bilateral pars defects at L5. Reviewed: Reviewed by Me Departure Communication (Admissions) 1050--SPOKE WITH DR. SHARPE, SHE REPORTS THAT PT'S SODIUM ALWAYS RUNS LOW AND DOES NOT HAVE SIADH. HAS FREQUENTLY BEEN IN THE 120'S. SHE ADVISES TO HAVE PT DRINK GATORADE DAILY. SHE ALSO STATES THAT PT HAS BEEN TO SEE DR. 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 HE ADDED AN ADDITIONAL 100 MG TID ( ADDITIONAL TOTAL OF 300 MG DAILY ) OF GABAPENTIN TO PT'S CURRENT DOSE OF 600 MG AT HS, ADDITIONALLY HE ADDED LYRICA 50 MG BID. SHE ADVISES TO HAVE PT STOP TAKING THE LYRICA AND THE ADDITIONAL 300 MG OF GABAPENTIN, AND RESUME ALL PREVIOUS MEDICATIONS AND DOSES, AND SHE WILL SEE HIM IN THE OFFICE NEXT WEEK. IT IS ALSO NOTED THAT PT HAS CHRONICALLY MILDLY ELEVATED TROPONIN. Impression Primary Impression: Multiple falls Additional Impressions: Low back strain Anterior chest wall pain Chronic hyponatremia Disposition: HOME, SELF-CARE Condition: Stable Departure-Patient Inst. Decision time for Depature: 15:14 Referrals: BEAU SHARPE DO (PCP) Primary Care Physician Patient Instructions: CHEST CONTUSION, Contusion (DC), Preventing Falls in Older Adults, Low Back Pain ED, Hyponatremia (DC) Add. Discharge Instructions: HOLD YOUR LYRICA ( PREGABALIN) HOLD YOUR EXTRA 300 MG OF GABAPENTIN--CONTINUE YOUR REGULAR DOSE OF 600 MG AT BEDTIME DRINK AT LEAST 1 LARGE BOTTLE OF GATORADE DAILY TAKE TYLENOL NEEDED FOR PAIN FOLLOW UP WITH DR. SHARPE NEXT WEEK--CALL ON WEDNESDAY TO SCHEDULE APPOINTMENT RETURN TO ER IF WORSE All discharge instructions reviewed with patient and/or family. Voiced understanding. JUNIOR SORIA DO Nov 21, 2021 14:09
[2021-11-21 14:10] LABS: CREATININE SERUM 0.8 MG/DL (0.60-1.30)
[2021-11-21 14:13] LABS: MAGNESIUM 1.7 MG/DL (1.6-2.4)
[2021-11-21 14:21] LABS: CREATINE KINASE MB 6.5 NG/ML (<6.6)
[2021-11-21 14:21] LABS: BACTERIA,URINE NEGATIVE /HPF; SQUAMOUS EPITHELIAL CELL,UR RARE /HPF; WBC,URINE RARE /HPF
--- NOTE | 2021-11-21 14:21 | Diagnostic Imaging Report ---
INDICATION: Chest pain Frontal chest obtained at 2:08 hours p.m. and compared to 09/17/2021 There is cardiomegaly. Pacemaker is unchanged. There is no pneumothorax or pleural fluid. IMPRESSION: Cardiomegaly with pacemaker device in place. No pneumothorax or pleural fluid. Dictated by: Dictated on workstation # [id number]
[2021-11-21 14:26] LABS: INR 1.1 (0.8-1.4); PROTHROMBIN TIME PATIENT 14.6 SEC (12.2-14.7)
--- NOTE | 2021-11-21 14:58 | Diagnostic Imaging Report ---
PROCEDURE: CT head and CT cervical spine without contrast. TECHNIQUE: Multiple contiguous axial images were obtained through the brain and cervical spine without the use of intravenous contrast. Sagittal and coronal reformations through the cervical spine were then performed. Auto Exposure Controls were utilized during the CT exam to meet ALARA standards for radiation dose reduction. 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 Increasing falls. Trauma. COMPARISON: CT head of 06/27/2021. FINDINGS: HEAD: No intracranial hyperdense hemorrhage or space-occupying mass. The ventricles are stable in size and configuration with the right parietal-approach ventriculostomy catheter terminating in stable position. No transependymal flow is appreciated. Basilar cisterns are widely patent. There is no midline shift. No acute calvarial abnormality. Paranasal sinuses and mastoid air cells are clear. CERVICAL SPINE: No acute fracture or traumatic malalignment. Degenerative straightening of the cervical spine is present. No sites of high-grade spinal canal stenosis. No retropharyngeal fluid collection. Lung apices are clear. Thyroid is normal. IMPRESSION: 1. No acute intracranial hemorrhage. 2. Stable ventricle size when compared to CT head of 06/27/2021. 3. No acute fracture or malalignment in the cervical spine. Dictated by: Dictated on workstation # [id number]
--- NOTE | 2021-11-21 15:01 | Diagnostic Imaging Report ---
CLINICAL INDICATION: Patient with complaints of chest pain, increase in falls past nine days. EXAM: Axial CT scan of the thoracic and lumbar spine performed without IV contrast. Sagittal and coronal reformations were performed. Bone and soft tissue windows were created. Auto Exposure Controls were utilized during the CT exam to meet ALARA standards for radiation dose reduction. COMPARISON: None. FINDINGS: There is no acute thoracic or lumbar fracture or dislocation. There is chronic bilateral L5 spondylolysis with roughly 7 mm of grade 1 anterolisthesis of L5 on S1. There is severe loss of disc space height and vacuum disc changes. There is endplate sclerosis and subchondral bony irregularity. There is an L5-S1 diffuse disc bulge. There is severe bilateral neural foramen narrowing and no significant bony central canal narrowing. There are hypertrophic spurs involving the thoracic and lumbar spine. There is facet arthropathy. The thoracic and lumbar spine have normal alignment. The visualized extrathoracic, and lumbar soft tissue structures are unremarkable. IMPRESSION: 1: There is no acute thoracic spine and lumbar spine fracture. 2: There is chronic bilateral L5 spondylolysis with grade 1 anterolisthesis of L5 on S1. Dictated by: Dictated on workstation # [id number]
--- NOTE | 2021-11-21 15:08 | Diagnostic Imaging Report ---
EXAMINATION: CT chest, abdomen and pelvis with intravenous contrast. TECHNIQUE: Multiple contiguous axial images were obtained through the chest, abdomen and pelvis after the uneventful administration of intravenous contrast. All CT scans use one or more of the following dose optimizing techniques: automated exposure control, MA and/or KvP adjustment based on patient size and exam type or iterative reconstruction. HISTORY: Fall. Chest pain. Abdominal bruising. COMPARISON: 10/20/2021. FINDINGS: CT CHEST: The heart size is within normal limits. No pericardial effusion is present. Left pectoral pacemaker is in place. There is no mediastinal, hilar, or axillary lymphadenopathy. The lungs demonstrate no pulmonary nodules or masses. There are no focal areas of consolidation. No central endobronchial obstructing lesions are identified. There are no pleural effusions or pneumothorax. The osseous structures demonstrate no acute abnormalities. CT ABDOMEN AND PELVIS: Mild nonspecific perinephric fat stranding is seen. No solid renal mass. No evidence of hydronephrosis or obstructing calculi. The urinary bladder is nondistended. The liver, spleen, pancreas, and adrenal glands have a normal appearance. There is no pathologically enlarged mesenteric or retroperitoneal adenopathy. The bowel loops are nondilated. The appendix is visualized and has a normal appearance. There is no free fluid or free air. The osseous structures demonstrate no acute abnormalities. There is grade 1 anterolisthesis of L5 on S1 with bilateral pars defects at L5. Endplate sclerotic changes are seen at the L5-S1 level. There is no free air, loculated collection, or adenopathy in the pelvis. IMPRESSION: 1. No acute abnormalities are seen in the chest, abdomen and pelvis. 2. Nonspecific perinephric fat stranding. No solid renal mass. No hydronephrosis or renal calculi. 3. Grade 1 anterolisthesis of L5 on S1 with bilateral pars defects at L5. Dictated by: Dictated on workstation # [id number]
[2021-11-21 15:30] VITALS: BP 121/71
== END 2021-11-21 15:29 | disposition home or self-care (01) ==
LOC: EDUNIT# 13:02 → ER 13:06
DX: S39.012A Strain of muscle, fascia and tendon of lower back, initial encounter (principal); E87.1 Hypo-osmolality and hyponatremia; R07.89 Other chest pain; R29.6 Repeated falls; R77.8 Other specified abnormalities of plasma proteins; I11.0 Hypertensive heart disease with heart failure; I50.9 Heart failure, unspecified; I25.10 Atherosclerotic heart disease of native coronary artery without angina pectoris; Z95.0 Presence of cardiac pacemaker; Z20.822 Contact with and (suspected) exposure to COVID-19; Z28.310 Unvaccinated for COVID-19; Z79.02 Long term (current) use of antithrombotics/antiplatelets; W18.12XA Fall from or off toilet with subsequent striking against object, initial encounter
CPT/HCPCS: 36415; 70450; 71045; 71260; 72125; 72128; 72131; 74177; 80053; 80164; 81000; 82550; 82553; 83735; 83874; 83880; 84484; 85025; 85610; 85730; 87636; 93041

== ENCOUNTER 2021-12-12 13:35 | Emergency (ER) | payer MEDICARE, MEDICAID ==
[~2021-12-12] VITALS: Ht 182.9 cm; Wt 108.9 kg
--- NOTE | 2021-12-12 13:50 | ED Chest Pain ---
General Chief Complaint: Chest Pain Stated Complaint: CHEST PAIN Source: patient Exam Limitations: no limitations History of Present Illness Date Seen by Provider: Dec 12, 2021 Time Seen by Provider: 13:37 Initial Comments 56-year-old female chief complaint midsternal chest pain while sitting at home around 8:00 this morning. He was watching TV, not exerting himself had an onset of pain that radiated into his left shoulder and left axilla. He states it has been constant since that time. He denies shortness of breath, nausea, diaphoresis. He does see Dr. Lau as his demurrage agent. He has a history of coronary artery angiography in 2019 that revealed clean coronary arteries. He denies any recent illnesses such as fevers, chills, cough or congestion. No other GI or symptoms. No significant swelling in his legs. 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 He does have a pacemaker. On exam it is notable that he is quite tachycardic in the 110 range. Normal blood pressure, normal oxygen saturations. All other review of systems reviewed and negative except as stated. 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: No Associated Symptoms: shortness of breath Allergies and Home Medications Allergies Coded Allergies: vancomycin (Verified Allergy, Unknown, 12/12/21) Patient Home Medication List Home Medication List Reviewed: Yes Albuterol Sulfate (Ventolin Hfa) 18 Gm Hfa.aer.ad, 0 GM IH RTQ4HR Prescribed by: BEAU SHARPE on 04/08/20 1304 Allopurinol (Allopurinol) 300 Mg Tablet, 300 MG PO M, W, F Prescribed by: BEAU SHRAPE on 03/24/20 1020 Budesonide/Formoterol Fumarate (Symbicort 160-4.5 Mcg Inhaler) 10.2 Gm Hfa.aer.ad, 2 PUFF IH BID Prescribed by: BEAU SHARPE on 03/24/20 1019 Cetirizine HCl (Children's Cetirizine HCl) 10 Mg Tab.chew, 10 MG PO DAILY, (Reported) Entered as Reported by: GUERITA HOUSTON on 08/29/19 1022 Cholecalciferol (Vitamin D3) (Vitamin D3) 125 Mcg (5000 Unit) Tablet, 125 MCG PO DAILY, (Reported) Entered as Reported by: NANCIE HENSLEY on 09/26/21 1459 Colestipol HCl (Colestid) 1 Gm Tab, 1 GM PO Q48H, (Reported) Entered as Reported by: GUERITA HOUSTON on 02/08/19 1147 Divalproex Sodium (Divalproex Sodium) 250 Mg Tablet.dr, 750 MG PO BID, (Reported) Entered as Reported by: GAY ZAMBRANO on 09/12/18 1503 Divalproex Sodium (Divalproex Sodium) 250 Mg Tablet.dr, 500 MG PO 1200, (Rep orted) Entered as Reported by: GAY ZAMBRANO on 09/12/18 1503 Divalproex Sodium (Divalproex Sodium ER) 250 Mg Tab.er.24h, 250 MG PO TID, (Reported) Entered as Reported by: NANCIE HENSLEY on 09/26/21 1459 Furosemide (Furosemide) 40 Mg Tablet, 40 MG PO M, W, F Prescribed by: BEAU SHARPE on 03/24/20 1019 Gabapentin (Gabapentin) 600 Mg Tablet, 600 MG PO HS, (Reported) Entered as Reported by: NANCIE HENSLEY on 09/26/21 1459 Hydrocodone Bit/Acetaminophen (HYDROcodone/APAP 5 MG/325 MG TAB) 1 Tab Tab, 1 TAB PO Q8H PRN for PAIN-MODERATE (5-7) Prescribed by: TEZ COPELAND on 10/01/21 1220 Losartan Potassium (Losartan Potassium) 25 Mg Tablet, 25 MG PO DAILY, (Reported) Entered as Reported by: NANCIE HENSLEY on 09/26/21 1459 Magnesium Oxide (Magnesium) 400 Mg Capsule, 400 MG PO M,W, F Prescribed by: BEAU SHARPE on 03/24/20 1033 Pantoprazole Sodium (Pantoprazole Sodium) 40 Mg Tablet.dr, 40 MG PO DAILY, (Reported) Entered as Reported by: SANJAY MENDEZ on 11/27/19 1405 Potassium Chloride (Potassium Chloride) 20 Meq Tab.er.prt, 40 MEQ PO DAILY Prescribed by: BEAU SHARPE on 03/24/20 1019 Rosuvastatin Calcium (Rosuvastatin Calcium) 10 Mg Tablet, 10 MG PO DAILY, (Reported) Entered as Reported by: GAY ZAMBRANO on 09/12/18 1503 [Bethanechol Chloride] , 50 MG PO QID, (Reported) Entered as Reported by: GUERITA HOUSTON on 03/11/20 1004 Review of Systems Review of Systems Constitutional: see HPI EENTM: No Symptoms Reported Respiratory: No Symptoms Reported Cardiovascular: Chest Pain Gastrointestinal: No Symptoms Reported Genitourinary: No Symptoms Reported Musculoskeletal: joint pain (left shoulder) Skin: no symptoms reported Psychiatric/Neurological: Anxiety All Other Systems Reviewed Negative Unless Noted: Yes Past Xviywcp-Jlcajj-Lzsxvn Hx Immunizations Up To Date Tetanus Booster (TDap): Unknown First/Initial COVID19 Vaccinat: no Second COVID19 Vaccination Román: no Third COVID19 Vaccination Date: no Seasonal Allergies Seasonal Allergies: Yes Past Medical History Surgery/Hospitalization HX: PACEMAKER, HTN, HIGH CHOL, SEIZURES Surgeries: Yes (pacer placement, left hand tendon repair;vp delivery shunt) Cardiac, Neurological, Orthopedic, Pacemaker Respiratory: Yes (USES INHALER SEASONAL ALLLERGIES) Currently Using CPAP: No Currently Using BIPAP: No Cardiac: Yes (HEART FAILURE, CONGENITAL heart block status post pacemaker;NON- OBSTR CAD) Atrial Fibrillation, Cardiomyopathy, Coronary Artery Disease, High Cholesterol, Hypertension Neurological: Yes (hx meningitis 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, has left-sided neurologic deficits) Developmental Disorder, Paralysis Reproductive Disorders: No Genitourinary: No Gastrointestinal: Yes (GASTRITIS) Gastroesophageal Reflux, Hemorrhoids, Chronic Diarrhea Musculoskeletal: 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 LAST CATH 09/20/[address] 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 COPELAND. -LEFT WRIST/FOREARM TENDON REPAIR -DIGITAL ANALYST SHUNT Physical Exam Vital Signs Vital Signs - First Documented 12/12/21 13:35 Temp 36.8 Pulse 113 Resp 18 B/P (MAP) 142/88 (106) O2 Delivery Room Air Capillary Refill : Height, Weight, BMI Height: 6'0.00" Weight: 218lbs. 0.0oz. 98.735656ta; 32.00 BMI Method:Stated General Appearance: WD/WN, Anxious HEENT: PERRL/EOMI Neck: Normal Inspection Respiratory: Lungs Clear, Normal Breath Sounds, No Accessory Muscle Use, No Respiratory Distress, Other (pacemaker left chest) Cardiovascular: Regular Rate, Rhythm, Tachycardia Gastrointestinal: Non Tender, Soft Extremity: Normal Capillary Refill, Normal Inspection, Normal Range of Motion, Non Tender, Pedal Edema (trace/1+) Neurologic/Psychiatric: Alert, Oriented x3, No Motor/Sensory Deficits, Normal Mood/Affect, counter maker II-XII Norm as Tested Skin: Normal Color, Warm/Dry Progress/Results/Core Measures Results/Orders Lab Results Laboratory Tests Test 12/12/21 13:47 Range/Units White Blood Count 7.2 4.3-11.0 10^3/uL Red Blood Count 5.59 H 4.30-5.52 10^6/uL Hemoglobin 15.6 13.3-17.7 g/dL Hematocrit 47 40-54 % Mean Corpuscular Volume 84 80-99 fL Mean Corpuscular Hemoglobin 28 25-34 pg Mean Corpuscular Hemoglobin Concent 33 32-36 g/dL Red Cell Distribution Width 14.8 H 10.0-14.5 % Platelet Count 182 130-400 10^3/uL Mean Platelet Volume 9.1 9.0-12.2 fL Immature Granulocyte % (Auto) 1 % Neutrophils (%) (Auto) 56 42-75 % Lymphocytes (%) (Auto) 30 12-44 % Monocytes (%) (Auto) 12 0-12 % Eosinophils (%) (Auto) 1 0-10 % Basophils (%) (Auto) 1 0-10 % Neutrophils # (Auto) 4.0 1.8-7.8 10^3/uL Lymphocytes # (Auto) 2.2 1.0-4.0 10^3/uL Monocytes # (Auto) 0.9 0.0-1.0 10^3/uL Eosinophils # (Auto) 0.1 0.0-0.3 10^3/uL Basophils # (Auto) 0.1 0.0-0.1 10^3/uL Immature Granulocyte # (Auto) 0.1 0.0-0.1 10^3/uL Prothrombin Time 14.6 12.2-14.7 SEC INR Comment 1.1 0.8-1.4 Activated Partial Thromboplast Time 34 24-35 SEC Sodium Level 132 L 135-145 MMOL/L Potassium Level 3.8 3.6-5.0 MMOL/L Chloride Level 93 L 98-107 MMOL/L Carbon Dioxide Level 29 21-32 MMOL/L Anion Gap 10 5-14 MMOL/L Blood Urea Nitrogen 3 L 7-18 MG/DL Creatinine 0.79 0.60-1.30 MG/DL Estimat Glomerular Filtration Rate 104 BUN/Creatinine Ratio 4 Glucose Level 105 70-105 MG/DL Calcium Level 9.1 8.5-10.1 MG/DL Corrected Calcium 9.2 8.5-10.1 MG/DL Magnesium Level 1.5 L 1.6-2.4 MG/DL Total Bilirubin 0.6 0.1-1.0 MG/DL Aspartate Amino Transf (AST/SGOT) 27 5-34 U/L Alanine Aminotransferase (ALT/SGPT) 22 0-55 U/L Alkaline Phosphatase 71 40-136 U/L Myoglobin 123.5 H 10.0-92.0 NG/ML Troponin I 0.031 H <0.028 NG/ML Total Protein 6.8 6.4-8.2 GM/DL Albumin 3.9 3.2-4.5 GM/DL My Orders Orders - SUSAN PADRON MD Ekg Tracing (12/12/21 13:39) Cbc With Automated Diff (12/12/21 13:47) Magnesium (12/12/21 13:47) Chest 1 View, Ap/Pa Only (12/12/21 13:47) Comprehensive Metabolic Panel (12/12/21 13:47) Myoglobin Serum (12/12/21 13:47) Protime With Inr (12/12/21 13:47) Partial Thromboplastin Time (12/12/21 13:47) O2 (12/12/21 13:47) Monitor-Rhythm Ecg Trace Only (12/12/21 13:47) Lipid Panel (12/13/21 06:00) Ed Iv/Invasive Line Start (12/12/21 13:47) Troponin I Tripp (12/12/21 13:47) Aspirin Chewable Tablet (Baby Aspirin Ch (12/12/21 14:00) Ketorolac Injection (Toradol Injection) (12/12/21 14:45) Medications Given in ED Current Medications Medications Dose Ordered Sig/Kinsey Route Start Time Stop Time Status Last Admin Dose Admin Aspirin 324 mg ONCE ONCE PO 12/12/21 14:00 12/12/21 14:01 DC 12/12/21 14:09 324 MG Ketorolac Tromethamine 15 mg ONCE ONCE IVP 12/12/21 14:45 12/12/21 14:46 DC 12/12/21 15:27 15 MG Vital Signs/I&O 12/12/21 13:35 Temp 36.8 Pulse 113 Resp 18 B/P (MAP) 142/88 (106) O2 Delivery Room Air Progress Progress Note : Time: 15:09 Progress Note Review of the medical record reveals that the patient has a chronically elevated troponin. It is however, lower today than it has been on previous evaluations. He was treated with full-strength aspirin and 15 mg of Toradol. The rest of his laboratory studies, imaging and EKG are all reassuring/normal. He states he still feels about the same, although he appears much more comfortable, playing on his phone laying in the bed. Initial ECG Impression Date: Dec 12, 2021 Initial ECG Impression Time: 13:45 Initial ECG Rate: 111 Initial ECG Rhythm: S.Tach Comment PACED Diagnostic Imaging Diagonstic Imaging: Xray Plain Films/CT/US/NM/MRI: chest Comments [facility]. [place], [place] NAME: SAYRA SANABRIA MED REC#: [id number] PT STATUS: REG ER : 1965 PHYSICIAN: SUSAN PADRON MD ADMIT DATE: 12/12/21/ER Draft Date of Exam:12/12/21 CHEST 1 VIEW, AP/PA ONLY INDICATION: Chest pain COMPARISON: 11/21/2021. FINDINGS: Single frontal view of the chest demonstrates normal heart size and pulmonary vascularity. The lungs are well aerated and clear. No large pleural effusion or pneumothorax is seen. The visualized osseous structures show no acute abnormalities. Left-sided dual-lead pacemaker is noted. IMPRESSION: 1. No acute cardiopulmonary process. Dictated on workstation # [id number] Dict: 12/12/21 1403 Trans: 12/12/21 1405 [id number] Interpreted by: PARIS PINEDA MD Electronically signed by: Departure Impression Primary Impression: Chest pain Qualified Codes: R07.9 - Chest pain, unspecified Disposition: HOME, SELF-CARE Condition: Improved Departure-Patient Inst. Decision time for Depature: 15:57 Referrals: BEAU SHARPE DO (PCP/Family) Primary Care Physician Patient Instructions: Chest Pain That Is Not Caused by the Heart (DC) Add. Discharge Instructions: Continue your daily medications as prescribed. Keep your follow up this month with your primary care doctor. If you have MORE chest pain, especially with sweating, shortness of breath or vomiting, please come back to the Emergency Department for re-check. You can take tylenol or ibuprofen as needed for any mild discomfort. SUSAN PADRON MD Dec 12, 2021 13:50
[2021-12-12 13:53] LABS: BASOPHILS # (AUTO) 0.1 10^3/uL (0.0-0.1); BASOPHILS % (AUTO) 1 % (0-10); EOSINOPHILS # (AUTO) 0.1 10^3/uL (0.0-0.3); EOSINOPHILS % (AUTO) 1 % (0-10); HEMATOCRIT 47 % (40-54); HEMOGLOBIN 15.6 g/dL (13.3-17.7); LYMPHOCYTES # (AUTO) 2.2 10^3/uL (1.0-4.0); LYMPHOCYTES % (AUTO) 30 % (12-44); MEAN CORPUSCULAR HEMOGLOBIN 28 pg (25-34); MEAN CORPUSCULAR HGB CONC 33 g/dL (32-36); MEAN CORPUSCULAR VOLUME 84 fL (80-99); MEAN PLATELET VOLUME 9.1 fL (9.0-12.2); MONOCYTES # (AUTO) 0.9 10^3/uL (0.0-1.0); MONOCYTES % (AUTO) 12 % (0-12); NEUTROPHILS % (AUTO) 56 % (42-75); PLATELET COUNT 182 10^3/uL (130-400); WHITE BLOOD COUNT 7.2 10^3/uL (4.3-11.0)
[2021-12-12] MEDS ORDERED: ASPIRIN 81 MG CHEW (CHILDREN'S ASA) PO ONE (14:00)
--- NOTE | 2021-12-12 14:05 | Diagnostic Imaging Report ---
INDICATION: Chest pain COMPARISON: 11/21/2021. FINDINGS: Single frontal view of the chest demonstrates normal heart size and pulmonary vascularity. The lungs are well aerated and clear. No large pleural effusion or pneumothorax is seen. The visualized osseous structures show no acute abnormalities. Left-sided dual-lead pacemaker is noted. IMPRESSION: 1. No acute cardiopulmonary process. Dictated by: Dictated on workstation # [id number]
[2021-12-12 14:10] LABS: ALBUMIN 3.9 GM/DL (3.2-4.5); POTASSIUM 3.8 MMOL/L (3.6-5.0)
[2021-12-12 14:11] LABS: CALCIUM 9.1 MG/DL (8.5-10.1)
[2021-12-12 14:12] LABS: TOTAL PROTEIN 6.8 GM/DL (6.4-8.2)
[2021-12-12 14:14] LABS: BILIRUBIN,TOTAL 0.6 MG/DL (0.1-1.0); INR 1.1 (0.8-1.4); PROTHROMBIN TIME PATIENT 14.6 SEC (12.2-14.7)
[2021-12-12 14:16] LABS: CREATININE SERUM 0.79 MG/DL (0.60-1.30)
[2021-12-12 14:19] LABS: MAGNESIUM 1.5 MG/DL (1.6-2.4)
[2021-12-12] MEDS ORDERED: KETOROLAC 30 MG/ML VIAL IVP ONE (14:45)
[2021-12-12 16:47] VITALS: BP 114/87
== END 2021-12-12 16:47 | disposition home or self-care (01) ==
LOC: EDUNIT# 13:35 → ER 13:37
DX: R07.89 Other chest pain (principal); R77.8 Other specified abnormalities of plasma proteins; Z95.0 Presence of cardiac pacemaker; Z28.310 Unvaccinated for COVID-19
CPT/HCPCS: 36415; 71045; 80053; 83735; 83874; 84484; 85025; 85610; 85730; 93005

== ENCOUNTER 2021-12-26 12:42 | Emergency (ER) | payer MEDICARE, MEDICAID ==
[~2021-12-26] VITALS: Ht 182.8 cm; Wt 108.9 kg
[2021-12-26 14:04] LABS: BASOPHILS % (AUTO) 0 % (0-10); EOSINOPHILS # (AUTO) 0.1 10^3/uL (0.0-0.3); EOSINOPHILS % (AUTO) 1 % (0-10); HEMATOCRIT 51 % (40-54); HEMOGLOBIN 17.2 g/dL (13.3-17.7); LYMPHOCYTES # (AUTO) 0.7 10^3/uL (1.0-4.0); LYMPHOCYTES % (AUTO) 10 % (12-44); MEAN CORPUSCULAR HEMOGLOBIN 28 pg (25-34); MEAN CORPUSCULAR HGB CONC 34 g/dL (32-36); MEAN CORPUSCULAR VOLUME 83 fL (80-99); MONOCYTES # (AUTO) 0.8 10^3/uL (0.0-1.0); MONOCYTES % (AUTO) 11 % (0-12); NEUTROPHILS # (AUTO) 5.6 10^3/uL (1.8-7.8); NEUTROPHILS % (AUTO) 78 % (42-75); PLATELET COUNT 161 10^3/uL (130-400); WHITE BLOOD COUNT 7.2 10^3/uL (4.3-11.0)
[2021-12-26 14:16] LABS: POTASSIUM 3.6 MMOL/L (3.6-5.0)
[2021-12-26 14:17] LABS: CALCIUM 8.9 MG/DL (8.5-10.1)
[2021-12-26 14:21] LABS: CREATININE SERUM 0.75 MG/DL (0.60-1.30)
[2021-12-26 14:23] LABS: MAGNESIUM 1.5 MG/DL (1.6-2.4)
[2021-12-26 14:30] LABS: VALPROIC ACID 65.6 UG/ML (50.0-100.0)
[2021-12-26] MEDS ORDERED: MAGNESIUM 1 GM/100 ML IVPB 100 ML IV ONE (14:45)
[2021-12-26] MEDS ORDERED: MAGN400T7 PO (14:55)
--- NOTE | 2021-12-26 14:55 | ED General ---
General Chief Complaint: Upper Extremity Stated Complaint: LEFT ARM SHAKING/DRAWING UP Nursing Triage Note: ARRIVES TO THE ED TODAY C/O INCREASED DISABLILITY IN HIS LEFT ARM. PATIENT DEMONSTRATES HOW HIS ARM WILL SNAP BACK TO HIS CHEST WHEN HE STRAIGHTENS IT OUT. 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 His arm is drawing up toward his chest. He states this is unusual for him. He is not in any particular pain. He has no new focal deficits. He is not taking any muscle relaxers for spasms at this time. Allergies and Home Medications Allergies Coded Allergies: vancomycin (Verified Allergy, Unknown, 12/12/21) Patient Home Medication List Home Medication List Reviewed: Yes Albuterol Sulfate (Ventolin Hfa) 18 Gm Hfa.aer.ad, 0 GM IH RTQ4HR Prescribed by: BEAU SHARPE on 04/08/20 1304 Allopurinol (Allopurinol) 300 Mg Tablet, 300 MG PO M, W, F Prescribed by: BEAU SHARPE on 03/24/20 1020 Budesonide/Formoterol Fumarate (Symbicort 160-4.5 Mcg Inhaler) 10.2 Gm Hfa.aer.ad, 2 PUFF IH BID Prescribed by: BEAU SHARPE on 03/24/20 1019 Cetirizine HCl (Children's Cetirizine HCl) 10 Mg Tab.chew, 10 MG PO DAILY, (Reported) Entered as Reported by: GUERITA HOUSTON on 08/29/19 1022 Cholecalciferol (Vitamin D3) (Vitamin D3) 125 Mcg (5000 Unit) Tablet, 125 MCG PO DAILY, (Reported) Entered as Reported by: NANCIE HENSLEY on 09/26/21 1459 Colestipol HCl (Colestid) 1 Gm Tab, 1 GM PO Q48H, (Reported) Entered as Reported by: GUERITA HOUSTON on 02/08/19 1147 Divalproex Sodium (Divalproex Sodium) 250 Mg Tablet.dr, 750 MG PO BID, (Reported) Entered as Reported by: GAY ZAMBRANO on 09/12/18 1503 Divalproex Sodium (Divalproex Sodium) 250 Mg Tablet.dr, 500 MG PO 1200, (Reported) Entered as Reported by: GAY ZAMBRANO on 09/12/18 1503 Divalproex Sodium (Divalproex Sodium ER) 250 Mg Tab.er.24h, 250 MG PO TID, (Reported) Entered as Reported by: NANCIE HENSLEY on 09/26/21 1459 Furosemide (Furosemide) 40 Mg Tablet, 40 MG PO M, W, F Prescribed by: BEAU SHARPE on 03/24/20 1019 Gabapentin (Gabapentin) 600 Mg Tablet, 600 MG PO HS, (Reported) Entered as Reported by: NANCIE HENSLEY on 09/26/21 1459 Hydrocodone Bit/Acetaminophen (HYDROcodone/APAP 5 MG/325 MG TAB) 1 Tab Tab, 1 TAB PO Q8H PRN for PAIN-MODERATE (5-7) Prescribed by: TEZ COPELAND on 10/01/21 1220 Losartan Potassium (Losartan Potassium) 25 Mg Tablet, 25 MG PO DAILY, (Reported) Entered as Reported by: NANCIE HENSLEY on 09/26/21 1459 Magnesium Oxide (Magnesium) 400 Mg Capsule, 400 MG PO M,W, F Prescribed by: BEAU SHARPE on 03/24/20 1033 Magnesium Oxide (Magnesium Oxide) 400 Mg Tablet, 400 MG PO BID Prescribed by: ABRAHAM MELO on 12/26/21 1455 Pantoprazole Sodium (Pantoprazole Sodium) 40 Mg Tablet.dr, 40 MG PO DAILY, (Reported) Entered as Reported by: SANJAY MENDEZ on 11/27/19 1405 Potassium Chloride (Potassium Chloride) 20 Meq Tab.er.prt, 40 MEQ PO DAILY Prescribed by: BEAU SHARPE on 03/24/20 1019 Rosuvastatin Calcium (Rosuvastatin Calcium) 10 Mg Tablet, 10 MG PO DAILY, ( Reported) Entered as Reported by: GAY ZAMBRANO on 09/12/18 1503 [Bethanechol Chloride] , 50 MG PO QID, (Reported) Entered as Reported by: GUERITA HOUSTON on 03/11/20 1004 Review of Systems Review of Systems Constitutional: no symptoms reported EENTM: no symptoms reported Respiratory: no symptoms reported Cardiovascular: no symptoms reported Gastrointestinal: no symptoms reported Genitourinary: no symptoms reported Musculoskeletal: see HPI Skin: no symptoms reported Psychiatric/Neurological: See HPI Hematologic/Lymphatic: No Symptoms Reported Past Yhvxzmw-Gqjxjg-Auinod Hx Patient Social History Tobacco Use?: No Use of E-Cig and/or Vaping dev: No Substance use?: No Alcohol Use?: No Pt feels they are or have been: No Immunizations Up To Date Tetanus Booster (TDap): Unknown First/Initial COVID19 Vaccinat: no Second COVID19 Vaccination Román: no Third COVID19 Vaccination Date: no Seasonal Allergies Seasonal Allergies: Yes Past Medical History Surgery/Hospitalization HX: PACEMAKER, HTN, HIGH CHOL, SEIZURES, DEPENDENT EDEMA Surgeries: Yes (pacer placement, left hand tendon repair;vp product marketing shunt) Cardiac, Neurological, Orthopedic, Pacemaker Respiratory: Yes (USES INHALER SEASONAL ALLLERGIES) Currently Using CPAP: No Currently Using BIPAP: No Cardiac: Yes (HEART FAILURE, CONGENITAL heart block status post pacemaker;NON- OBSTR CAD) Atrial Fibrillation, Cardiomyopathy, Coronary Artery Disease, High Cholesterol, Hypertension Neurological: Yes (hx meningitis 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, has left-sided neurologic deficits) Developmental Disorder, Paralysis Reproductive Disorders: No Genitourinary: No Gastrointestinal: Yes (GASTRITIS) Gastroesophageal Reflux, Hemorrhoids, Chronic Diarrhea Musculoskeletal: 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 LAST CATH 09/20/[address] 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 COPELAND. -LEFT WRIST/FOREARM TENDON REPAIR -BLIND ESCORT SHUNT Physical Exam Vital Signs Vital Signs - First Documented 12/26/21 12:49 Temp 37.1 Pulse 115 Resp 18 B/P (MAP) 144/88 (106) Pulse Ox 98 O2 Delivery Room Air Capillary Refill : Less Than 3 Seconds Height, Weight, BMI Height: 6'0.00" Weight: 218lbs. 0.0oz. 98.790397uh; 32.00 BMI Method:Stated General Appearance: No Apparent Distress, WD/WN HEENT: PERRL/EOMI, Normal ENT Inspection Neck: Normal Inspection Respiratory: No Accessory Muscle Use, No Respiratory Distress Extremity: Other (Left upper extremity contractures at the elbow, wrist, and hand. Decreased range of motion. No particular area of focal tenderness. Passive range of motion is fairly well-preserved.) Neurologic/Psychiatric: Alert, Oriented x3, Other (Spastic paralysis of left upper extremity) Skin: Normal Color, Warm/Dry Progress/Results/Core Measures Suspected Sepsis SIRS Temperature: Pulse: 115 Respiratory Rate: 18 Laboratory Tests 12/26/21 13:57: White Blood Count 7.2 Blood Pressure 144 /88 Mean: 106 Laboratory Tests 12/26/21 13:57: Creatinine 0.75, Platelet Count 161 Results/Orders Lab Results Laboratory Tests Test 12/26/21 13:57 Range/Units White Blood Count 7.2 4.3-11.0 10^3/uL Red Blood Count 6.14 H 4.30-5.52 10^6/uL Hemoglobin 17.2 13.3-17.7 g/dL Hematocrit 51 40-54 % Mean Corpuscular Volume 83 80-99 fL Mean Corpuscular Hemoglobin 28 25-34 pg Mean Corpuscular Hemoglobin Concent 34 32-36 g/dL Red Cell Distribution Width 14.2 10.0-14.5 % Platelet Count 161 130-400 10^3/uL Mean Platelet Volume 9.0 9.0-12.2 fL Immature Granulocyte % (Auto) 1 % Neutrophils (%) (Auto) 78 H 42-75 % Lymphocytes (%) (Auto) 10 L 12-44 % Monocytes (%) (Auto) 11 0-12 % Eosinophils (%) (Auto) 1 0-10 % Basophils (%) (Auto) 0 0-10 % Neutrophils # (Auto) 5.6 1.8-7.8 10^3/uL Lymphocytes # (Auto) 0.7 L 1.0-4.0 10^3/uL Monocytes # (Auto) 0.8 0.0-1.0 10^3/uL Eosinophils # (Auto) 0.1 0.0-0.3 10^3/uL Basophils # (Auto) 0.0 0.0-0.1 10^3/uL Immature Granulocyte # (Auto) 0.1 0.0-0.1 10^3/uL Sodium Level 132 L 135-145 MMOL/L Potassium Level 3.6 3.6-5.0 MMOL/L Chloride Level 93 L 98-107 MMOL/L Carbon Dioxide Level 26 21-32 MMOL/L Anion Gap 13 5-14 MMOL/L Blood Urea Nitrogen 3 L 7-18 MG/DL Creatinine 0.75 0.60-1.30 MG/DL Estimat Glomerular Filtration Rate 105 BUN/Creatinine Ratio 4 Glucose Level 108 H 70-105 MG/DL Calcium Level 8.9 8.5-10.1 MG/DL Magnesium Level 1.5 L 1.6-2.4 MG/DL Valproic Acid (Depakene) Level 65.6 50.0-100.0 UG/ML My Orders Orders - ABRAHAM DEY MD Basic Metabolic Panel (12/26/21 13:48) Cbc With Automated Diff (12/26/21 13:48) Magnesium (12/26/21 13:48) Ed Iv/Invasive Line Start (12/26/21 13:48) Valproic Acid (12/26/21 13:48) Magnesium 1 Gm/100 Ml Ivpb (Magnesium [place] (12/26/21 14:45) Medications Given in ED Current Medications Medications Dose Ordered Sig/Kinsey Route Start Time Stop Time Status Last Admin Dose Admin Magnesium Sulfate/ Dextrose 100 ml @ 100 mls/hr ONCE ONCE IV 12/26/21 14:45 12/26/21 15:44 DC 12/26/21 14:42 100 MLS/HR Vital Signs/I&O 12/26/21 12/26/21 12:49 15:54 Temp 37.1 Pulse 115 122 Resp 18 18 B/P (MAP) 144/88 (106) 140/85 Pulse Ox 98 100 O2 Delivery Room Air Room Air Capillary Refill : Less Than 3 Seconds Blood Pressure Mean: 106 Progress Note : Progress Note Patient is noted to be on diuretics. Electrolytes were checked and he was found to be low on magnesium. Magnesium supplementation was provided. This will hopefully reduce his spasms. 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 Referrals: BEAU SHARPE DO (PCP/Family) Primary Care Physician Patient Instructions: Muscle Spasm ED Add. Discharge Instructions: Your increased spasticity may be due to low magnesium. Take the magnesium supplement as directed. If this does not resolve your problem by next week, contact your primary care provider. There may be other therapies that can help you with your spasticity. Stretch your arm and fingers often to help keep them limber and loose. Return to care if you have notably worsening symptoms despite following these instructions. All discharge instructions reviewed with patient and/or family. Voiced understanding. Scripts Magnesium Oxide (Magnesium Oxide) 400 Mg Tablet 400 MG PO BID, #10 TAB Prov: ABRAHAM DEY MD 12/26/21 Copy Copies To 1: BEAU SHARPE JOSHUA T MD Dec 26, 2021 14:55
[2021-12-26 15:54] VITALS: BP 140/85
== END 2021-12-26 15:54 | disposition home or self-care (01) ==
LOC: EDUNIT# 12:42 → ER 12:44
DX: E83.42 Hypomagnesemia (principal); G83.24 Monoplegia of upper limb affecting left nondominant side; Z28.310 Unvaccinated for COVID-19
CPT/HCPCS: 36415; 80048; 80164; 83735; 85025

== ENCOUNTER 2022-02-09 13:08 | Emergency (ER) | payer MEDICARE, MEDICAID ==
[~2022-02-09] VITALS: Ht 182.9 cm; Wt 113.4 kg
[~2022-02-09 13:08] MED LIST changes: +MAGN400T7 PO
[2022-02-09] MEDS ORDERED: guaiFENesin/DM (ROBITUSSIN DM) 10 ML UDC PO ONE (14:30)
--- NOTE | 2022-02-09 15:04 | Diagnostic Imaging Report ---
Indication: Cough PA and lateral chest There is a dual-chamber pacemaker. Heart size and pulmonary vascularity are normal. Lungs are clear. There are no effusions or pneumothoraces. IMPRESSION: No acute abnormalities in the chest Dictated by: Dictated on workstation # [id number]
--- NOTE | 2022-02-09 15:24 | ED Respiratory ---
General Chief Complaint: Cough/Cold/Flu Symptoms Stated Complaint: UPPER RESPIRATORY Nursing Triage Note: PT TO ED IN WC WITH C/O COUGH. PT REPORTS HE DOESN'T REMEMBER HOW LONG HE HAS HAD THE COUGH. PT SAW PCP FOR THE COUGH, DOESN'T REMEMBER WHAT MEDICATION THEY PRESCRIBED FOR HIM. DENIES FEVER, SOB, CP, OR ANY OTHER SX AT THIS TIME. Source: patient Exam Limitations: no limitations History of Present Illness Date Seen by Provider: Feb 09, 2022 Time Seen by Provider: 13:28 Allergies and Home Medications Allergies Coded Allergies: vancomycin (Verified Allergy, Unknown, 12/12/21) Patient Home Medication List Albuterol Sulfate (Ventolin Hfa) 18 Gm Hfa.aer.ad, 0 GM IH RTQ4HR Prescribed by: BEAU SHARPE on 04/08/20 1304 Allopurinol (Allopurinol) 300 Mg Tablet, 300 MG PO M, W, F Prescribed by: BEAU SHARPE on 03/24/20 1020 Budesonide/Formoterol Fumarate (Symbicort 160-4.5 Mcg Inhaler) 10.2 Gm Hfa.aer.ad, 2 PUFF IH BID Prescribed by: BEAU SHARPE on 03/24/20 1019 Cetirizine HCl (Children's Cetirizine HCl) 10 Mg Tab.chew, 10 MG PO DAILY, (Reported) Entered as Reported by: GUERITA HOUSTON on 08/29/19 1022 Cholecalciferol (Vitamin D3) (Vitamin D3) 125 Mcg (5000 Unit) Tablet, 125 MCG PO DAILY, (Reported) Entered as Reported by: NANCIE HENSLEY on 09/26/21 1459 Colestipol HCl (Colestid) 1 Gm Tab, 1 GM PO Q48H, (Reported) Entered as Reported by: GUERITA HOUSTON on 02/08/19 1147 Divalproex Sodium (Divalproex Sodium) 250 Mg Tablet.dr, 750 MG PO BID, (Reported) Entered as Reported by: GAY ZAMBRANO on 09/12/18 1503 Divalproex Sodium (Divalproex Sodium) 250 Mg Tablet.dr, 500 MG PO 1200, (Reported) Entered as Reported by: GAY ZAMBRANO on 09/12/18 1503 Divalproex Sodium (Divalproex Sodium ER) 250 Mg Tab.er.24h, 250 MG PO TID, (Reported) Entered as Reported by: NANCIE HENSLEY on 09/26/21 1459 Furosemide (Furosemide) 40 Mg Tablet, 40 MG PO M, W, F Prescribed by: BEAU SHARPE on 03/24/20 1019 Gabapentin (Gabapentin) 600 Mg Tablet, 600 MG PO HS, (Reported) Entered as Reported by: NANCIE HENSLEY on 09/26/21 1459 Hydrocodone Bit/Acetaminophen (HYDROcodone/APAP 5 MG/325 MG TAB) 1 Tab Tab, 1 TAB PO Q8H PRN for PAIN-MODERATE (5-7) Prescribed by: TEZ COPELAND on 10/01/21 1220 Losartan Potassium (Losartan Potassium) 25 Mg Tablet, 25 MG PO DAILY, (Reported) Entered as Reported by: NANCIE HENSLEY on 09/26/21 1459 Magnesium Oxide (Magnesium) 400 Mg Capsule, 400 MG PO M,W, F Prescribed by: BEAU SHARPE on 03/24/20 1033 Magnesium Oxide (Magnesium Oxide) 400 Mg Tablet, 400 MG PO BID Prescribed by: ABRAHAM MELO on 12/26/21 1455 Pantoprazole Sodium (Pantoprazole Sodium) 40 Mg Tablet.dr, 40 MG PO DAILY, (Reported) Entered as Reported by: SANJAY MENDEZ on 11/27/19 1405 Potassium Chloride (Potassium Chloride) 20 Meq Tab.er.prt, 40 MEQ PO DAILY Prescribed by: BEAU SHARPE on 03/24/20 1019 Rosuvastatin Calcium (Rosuvastatin Calcium) 10 Mg Tablet, 10 MG PO DAILY, (Reported) Entered as Reported by: GAY ZAMBRANO on 09/12/18 1503 [Bethanechol Chloride] , 50 MG PO QID, (Reported) Entered as Reported by: GUERITA HOUSTON on 03/11/20 1004 Past Tpzdzei-Bxauhw-Exogoz Hx Patient Social History Tobacco Use?: No Use of E-Cig and/or Vaping dev: No Substance use?: No Alcohol Use?: No Pt feels they are or have been: No Immunizations Up To Date Tetanus Booster (TDap): Unknown Influenza Vaccine Up-to-Date: Yes; Up-to-Date First/Initial COVID19 Vaccinat: UNK Second COVID19 Vaccination Román: no Third COVID19 Vaccination Date: no Seasonal Allergies Seasonal Allergies: Yes Past Medical History Surgery/Hospitalization HX: PACEMAKER, HTN, HIGH CHOL, SEIZURES, DEPENDENT EDEMA Surgeries: Yes (pacer placement, left hand tendon repair;vp software shunt) Cardiac, Neurological, Orthopedic, Pacemaker Respiratory: Yes (USES INHALER SEASONAL ALLLERGIES) Currently Using CPAP: No Currently Using BIPAP: No Cardiac: Yes (HEART FAILURE, CONGENITAL heart block status post pacemaker;NON- OBSTR CAD) Atrial Fibrillation, Cardiomyopathy, Coronary Artery Disease, High Cholesterol, Hypertension Neurological: Yes (hx meningitis 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, has left-sided neurologic deficits) Developmental Disorder, Paralysis Reproductive Disorders: No Genitourinary: No Gastrointestinal: Yes (GASTRITIS) Gastroesophageal Reflux, Hemorrhoids, Chronic Diarrhea Musculoskeletal: 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 LAST CATH 09/20/[address] 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 COPELAND. -LEFT WRIST/FOREARM TENDON REPAIR -FLOOR MANAGER SHUNT Physical Exam Vital Signs - First Documented 02/09/22 13:15 Temp 36.0 Pulse 70 Resp 18 B/P (MAP) 122/72 (89) Pulse Ox 97 O2 Delivery Room Air Capillary Refill : Less Than 3 Seconds Height: 6'0.00" Weight: 218lbs. 0.0oz. 98.540518tu; 33.00 BMI Method:Stated Progress/Results/Core Measures Suspected Sepsis SIRS Temperature: Pulse: 70 Respiratory Rate: 18 Blood Pressure 122 /72 Mean: 89 Results/Orders Lab Results Laboratory Tests Test 02/09/22 13:44 Range/Units Influenza Type A (RT-PCR) Not Detected Not Detecte Influenza Type B (RT-PCR) Not Detected Not Detecte SARS-CoV-2 RNA (RT-PCR) Not Detected Not Detecte My Orders Orders - ABRAHAM DEY MD Covid 19 Inhouse Test (02/09/22 13:28) Influenza A And B By Pcr (02/09/22 13:28) Chest Pa/Lat (2 View) (02/09/22 14:15) Guaifenesin/Dm Syrup (Robitussin Dm Syru (02/09/22 14:30) Vital Signs/I&O 02/09/22 13:15 Temp 36.0 Pulse 70 Resp 18 B/P (MAP) 122/72 (89) Pulse Ox 97 O2 Delivery Room Air Capillary Refill : Less Than 3 Seconds Blood Pressure Mean: 89 Diagnostic Imaging Diagonstic Imaging: Xray Plain Films/CT/US/NM/MRI: chest Comments Chest x-rays viewed by me and report reviewed. See report below: NAME: SAYRA SANABRIA [employer] REC#: [id number] PT STATUS: REG ER : 1965 PHYSICIAN: ABRAHAM DEY MD ADMIT DATE: 02/09/22/ER Signed Date of Exam:02/09/22 CHEST PA/LAT (2 VIEW) Indication: Cough PA and lateral chest There is a dual-chamber pacemaker. Heart size and pulmonary vascularity are normal. Lungs are clear. There are no effusions or pneumothoraces. IMPRESSION: No acute abnormalities in the chest Dictated by: Dictated on workstation # [id number] Dict: 02/09/22 1502 Trans: 02/09/22 1502 TCB [id number] Interpreted by: JACQUELYN CRENSHAW MD Electronically signed by: JACQUELYN CRENSHAW MD 02/09/22 1502 Departure Impression Primary Impression: Acute bronchitis Qualified Codes: J20.9 - Acute bronchitis, unspecified Disposition: 01 HOME, SELF-CARE Condition: Stable (ERASED) Departure-Patient Inst. Decision time for Depature: 15:24 Referrals: BEAU SHARPE DO (PCP/Family) Primary Care Physician Patient Instructions: Acute Bronchitis Add. Discharge Instructions: You likely have acute bronchitis from a viral illness. It is important to use your inhalers in the proper way. Symbicort is a maintenance inhaler and should be used 2 puffs twice daily. Albuterol (Ventolin) is a rescue inhaler. You may take 1 to 4 puffs every 4 hours as needed for wheezing or shortness of breath. Start your prednisone prescription today. Take with food or milk to avoid stomach upset. Try to take it early in the day to avoid sleep disturbance. You may continue taking the Tessalon Perles and add an gotz-wqj-jicxmvp dextromethorphan product for cough suppression. If you are not noticing significant improvement by Wednesday afternoon or morning, please contact Dr. SHARPE. Return to the ER if you have notable worsening of symptoms or develop new symptoms such as fever despite following these instructions. All discharge instructions reviewed with patient and/or family. Voiced understanding. Scripts Prednisone (Prednisone) 20 Mg Tab 40 MG PO DAILY, #8 TAB 0 Refills Prov: ABRAHAM DEY MD 02/09/22 Copy Copies To 1: BEAU SHARPE JOSHUA T MD Feb 09, 2022 15:24
[2022-02-09] MEDS ORDERED: PRD20T PO (15:27)
[2022-02-09 15:38] VITALS: BP 115/95
== END 2022-02-09 15:38 | disposition home or self-care (01) ==
LOC: EDUNIT# 13:08 → ER 13:11
DX: J20.9 Acute bronchitis, unspecified (principal); Z28.311 Partially vaccinated for COVID-19; Z20.822 Contact with and (suspected) exposure to COVID-19; Z87.09 Personal history of other diseases of the respiratory system
CPT/HCPCS: 71046; 87636

== ENCOUNTER → 2022-04-08 | Outpatient (CLI) | payer MEDICARE, MEDICAID ==
[~2022-04-08] MED LIST changes: +PRD20T PO
== END ==
LOC: CARD 12:38
PROVIDERS: ATTEND Internal Medicine Cardiovascular Disease
DX: I35.1 Nonrheumatic aortic (valve) insufficiency (principal); I10 Essential (primary) hypertension; I25.10 Atherosclerotic heart disease of native coronary artery without angina pectoris
CPT/HCPCS: 93306

== ENCOUNTER → 2022-04-10 | Outpatient (CLI) | payer MEDICARE, MEDICAID ==
[2022-04-10 08:45] LABS: ALBUMIN 3.7 GM/DL (3.2-4.5); BILIRUBIN,TOTAL 0.7 MG/DL (0.1-1.0); CREATININE SERUM 0.83 MG/DL (0.60-1.30); TOTAL PROTEIN 6.3 GM/DL (6.4-8.2)
== END ==
LOC: LAB 08:05
PROVIDERS: ATTEND Internal Medicine Cardiovascular Disease
DX: I10 Essential (primary) hypertension (principal); I65.29 Occlusion and stenosis of unspecified carotid artery; I50.22 Chronic systolic (congestive) heart failure; E78.2 Mixed hyperlipidemia; I25.10 Atherosclerotic heart disease of native coronary artery without angina pectoris; I65.23 Occlusion and stenosis of bilateral carotid arteries
CPT/HCPCS: 36415; 80053; 80061

== ENCOUNTER 2022-04-20 12:00 | Emergency (ER) | payer MEDICARE, MEDICAID ==
[~2022-04-20] VITALS: Ht 182 cm; Wt 113.0 kg
[2022-04-20] MEDS ORDERED: FAMOTIDINE 20 MG (PEPCID) TABLET PO STA (12:10)
[2022-04-20] MEDS ORDERED: NITROGLYCERIN 2% OINT 1 GM UNIT DOSE PACKET TOP ONE (12:15)
[2022-04-20] MEDS ORDERED: ANTACID SUSP 30 ML UDC (MYLANTA) PO ONE (12:15)
[2022-04-20] MEDS ORDERED: LIDOCAINE 2% VISCOUS 15 ML UDC PO ONE (12:15)
[2022-04-20] MEDS ORDERED: ASPIRIN 81 MG CHEW (CHILDREN'S ASA) PO ONE (12:15)
[2022-04-20 12:20] LABS: BASOPHILS % (AUTO) 1 % (0-10); EOSINOPHILS % (AUTO) 1 % (0-10); HEMATOCRIT 49 % (40-54); HEMOGLOBIN 16.7 g/dL (13.3-17.7); LYMPHOCYTES # (AUTO) 2.5 10^3/uL (1.0-4.0); LYMPHOCYTES % (AUTO) 29 % (12-44); MEAN CORPUSCULAR HEMOGLOBIN 29 pg (25-34); MEAN CORPUSCULAR HGB CONC 34 g/dL (32-36); MEAN CORPUSCULAR VOLUME 85 fL (80-99); MEAN PLATELET VOLUME 9.3 fL (9.0-12.2); MONOCYTES # (AUTO) 0.9 10^3/uL (0.0-1.0); MONOCYTES % (AUTO) 10 % (0-12); NEUTROPHILS % (AUTO) 58 % (42-75); PLATELET COUNT 141 10^3/uL (130-400); WHITE BLOOD COUNT 8.7 10^3/uL (4.3-11.0)
--- NOTE | 2022-04-20 12:22 | ED Cardiac General ---
History of Present Illness General Chief Complaint: Chest Pain Stated Complaint: CHEST PAINS Nursing Triage Note: PT TO [facility] PER W/C PT CO OF CHEST PAIN 12/13, PT WAS SEEN LAST WEEK BY DR SALDANA. PT HAS CONTRACTURE ON L ARM. PT STATES PAIN GOES DOWN L ARM. 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 He states this most recent episode has been going on for least 2 months, its left side of his chest, radiating to his left arm, sharp at times, pressure-like at other times. He states its been unrelenting for these 2 months, and never goes away. Denies any new lower extremity swelling or pain that is asymmetric, denies any recent surgery, no prior DVT or PE, no recent long travel, no hemoptysis, cough, shortness of breath, fever, chills, new weakness or numbness, nausea, vomiting, diaphoresis, diarrhea, rash, or any other concerns. He took 1 baby aspirin this morning. He had a follow-up appoint with his athletic trainer within the past week which was normal. His last cardiac catheterization was in 2019 and there were no interventions needed. He has been to the ER numerous times for similar issues over the past several years, and he does know he has a chronically elevated troponin. ASA po IMPROVEMENT ANALYST: Yes (81MG) Allergies and Home Medications Allergies Coded Allergies: vancomycin (Verified Allergy, Unknown, 12/12/21) Patient Home Medication List Home Medication List Reviewed: Yes Albuterol Sulfate (Ventolin Hfa) 18 Gm Hfa.aer.ad, 0 GM IH RTQ4HR Prescribed by: BEAU SHARPE on 04/08/20 1304 Allopurinol (Allopurinol) 300 Mg Tablet, 300 MG PO M, W, F Prescribed by: BEAU SHARPE on 03/24/20 1020 Budesonide/Formoterol Fumarate (Symbicort 160-4.5 Mcg Inhaler) 10.2 Gm Hfa.aer.ad, 2 PUFF IH BID Prescribed by: BEAU SHARPE on 03/24/20 1019 Cetirizine HCl (Children's Cetirizine HCl) 10 Mg Tab.chew, 10 MG PO DAILY, (Reported) Entered as Reported by: GUERITA HOUSTON on 08/29/19 1022 Cholecalciferol (Vitamin D3) (Vitamin D3) 125 Mcg (5000 Unit) Tablet, 125 MCG PO DAILY, (Reported) Entered as Reported by: NANCIE HENSLEY on 09/26/21 1459 Colestipol HCl (Colestid) 1 Gm Tab, 1 GM PO Q48H, (Reported) Entered as Reported by: GUERITA HOUSTON on 02/08/19 1147 Divalproex Sodium (Divalproex Sodium) 250 Mg Tablet.dr, 750 MG PO BID, (Reported) Entered as Reported by: GAY ZAMBRANO on 09/12/18 1503 Divalproex Sodium (Divalproex Sodium) 250 Mg Tablet.dr, 500 MG PO 1200, (Reported) Entered as Reported by: GAY ZAMBRANO on 09/12/18 1503 Divalproex Sodium (Divalproex Sodium ER) 250 Mg Tab.er.24h, 250 MG PO TID, (Reported) Entered as Reported by: NANCIE HENSLEY on 09/26/21 1459 Furosemide (Furosemide) 40 Mg Tablet, 40 MG PO M, W, F Prescribed by: BEAU SHARPE on 03/24/20 1019 Gabapentin (Gabapentin) 600 Mg Tablet, 600 MG PO HS, (Reported) Entered as Reported by: NANCIE HENSLEY on 09/26/21 1459 Hydrocodone Bit/Acetaminophen (HYDROcodone/APAP 5 MG/325 MG TAB) 1 Tab Tab, 1 TAB PO Q8H PRN for PAIN-MODERATE (5-7) Prescribed by: TEZ COPELAND on 10/01/21 1220 Losartan Potassium (Losartan Potassium) 25 Mg Tablet, 25 MG PO DAILY, (Reported) Entered as Reported by: NANCIE HENSLEY on 09/26/21 1459 Magnesium Oxide (Magnesium) 400 Mg Capsule, 400 MG PO M,W, F Prescribed by: BEAU SHARPE on 03/24/20 1033 Magnesium Oxide (Magnesium Oxide) 400 Mg Tablet, 400 MG PO BID Prescribed by: ABRAHAM MELO on 12/26/21 1455 Pantoprazole Sodium (Pantoprazole Sodium) 40 Mg Tablet.dr, 40 MG PO DAILY, (Reported) Entered as Reported by: SANJAY MENDEZ on 11/27/19 1405 Potassium Chloride (Potassium Chloride) 20 Meq Tab.er.prt, 40 MEQ PO DAILY Prescribed by: BEAU SHARPE on 03/24/20 1019 Prednisone (Prednisone) 20 Mg Tab, 40 MG PO DAILY Prescribed by: ABRAHAM MELO on 02/09/22 1527 Rosuvastatin Calcium (Rosuvastatin Calcium) 10 Mg Tablet, 10 MG PO DAILY, (Reported) Entered as Reported by: GAY ZAMBRANO on 09/12/18 1503 [Bethanechol Chloride] , 50 MG PO QID, (Reported) Entered as Reported by: GUERITA HOUSTON on 03/11/20 1004 Review of Systems Review of Systems Constitutional: No fever EENTM: No Symptoms Reported Respiratory: No Symptoms Reported Cardiovascular: See HPI Gastrointestinal: No Symptoms Reported Genitourinary: No Symptoms Reported Musculoskeletal: no symptoms reported Skin: no symptoms reported Psychiatric/Neurological: No Symptoms Reported Endocrine: No Symptoms Reported Hematologic/Lymphatic: No Symptoms Reported All Other Systems Reviewed Negative Unless Noted: Yes Past Kpglhbn-Zvxvyx-Fwzout Hx Patient Social History Tobacco Use?: No Substance use?: No Alcohol Use?: No Pt feels they are or have been: No Immunizations Up To Date Tetanus Booster (TDap): Unknown Influenza Vaccine Up-to-Date: No; Not Current First/Initial COVID19 Vaccinat: YES Second COVID19 Vaccination Román: YES Third COVID19 Vaccination Date: UNK Seasonal Allergies Seasonal Allergies: Yes Past Medical History Surgery/Hospitalization HX: PACEMAKER, HTN, HIGH CHOL, SEIZURES, DEPENDENT EDEMA SURG, TENDON SURG ON L SIDE, MENIGITIS INFANT, APPY Surgeries: Yes (pacer placement, left hand tendon repair;gm/svp global publisher business shunt) Cardiac, Neurological, Orthopedic, Pacemaker Respiratory: Yes (USES INHALER SEASONAL ALLLERGIES) Currently Using CPAP: No Currently Using BIPAP: No Cardiac: Yes (HEART FAILURE, CONGENITAL heart block status post pacemaker;NON- OBSTR CAD) Atrial Fibrillation, Cardiomyopathy, Coronary Artery Disease, High Cholesterol, Hypertension Neurological: Yes (hx meningitis 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, has left-sided neurologic deficits) Developmental Disorder, Paralysis Reproductive Disorders: No Genitourinary: No Gastrointestinal: Yes (GASTRITIS) Gastroesophageal Reflux, Hemorrhoids, Chronic Diarrhea Musculoskeletal: 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 LAST CATH 09/20/[address] 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 COPELAND. -LEFT WRIST/FOREARM TENDON REPAIR -INSPECTOR FUEL HOSE SHUNT Physical Exam Vital Signs Vital Signs - First Documented 04/20/22 12:04 Temp 36.2 Pulse 93 Resp 18 B/P (MAP) 126/72 (90) Pulse Ox 98 Capillary Refill : Less Than 3 Seconds Height, Weight, BMI Height: 6'0.00" Weight: 218lbs. 0.0oz. 98.967238ny; 34.00 BMI Method:Stated General Appearance: No Apparent Distress, WD/WN HEENT: PERRL/EOMI, Normal ENT Inspection, Pharynx Normal Neck: Full Range of Motion, Normal Inspection, Non Tender, Supple Respiratory: Chest Non Tender, Lungs Clear, Normal Breath Sounds, No Accessory Muscle Use, No Respiratory Distress Cardiovascular: Regular Rate, Rhythm, No Edema, Normal Peripheral Pulses Gastrointestinal: Normal Bowel Sounds, Non Tender, Soft; No Distended, No Gu arding Extremity: Normal Capillary Refill, Normal Inspection, Normal Range of Motion, Non Tender, No Calf Tenderness, No Pedal Edema Neurologic/Psychiatric: Alert, Oriented x3, Normal Mood/Affect Skin: Normal Color, Warm/Dry Lymphatic: No Adenopathy Progress/Results/Core Measures Results/Orders Lab Results Laboratory Tests Test 04/20/22 12:08 04/20/22 13:25 Range/Units White Blood Count 8.7 4.3-11.0 10^3/uL Red Blood Count 5.81 H 4.30-5.52 10^6/uL Hemoglobin 16.7 13.3-17.7 g/dL Hematocrit 49 40-54 % Mean Corpuscular Volume 85 80-99 fL Mean Corpuscular Hemoglobin 29 25-34 pg Mean Corpuscular Hemoglobin Concent 34 32-36 g/dL Red Cell Distribution Width 15.7 H 10.0-14.5 % Platelet Count 141 130-400 10^3/uL Mean Platelet Volume 9.3 9.0-12.2 fL Immature Granulocyte % (Auto) 2 % Neutrophils (%) (Auto) 58 42-75 % Lymphocytes (%) (Auto) 29 12-44 % Monocytes (%) (Auto) 10 0-12 % Eosinophils (%) (Auto) 1 0-10 % Basophils (%) (Auto) 1 0-10 % Neutrophils # (Auto) 5.0 1.8-7.8 10^3/uL Lymphocytes # (Auto) 2.5 1.0-4.0 10^3/uL Monocytes # (Auto) 0.9 0.0-1.0 10^3/uL Eosinophils # (Auto) 0.0 0.0-0.3 10^3/uL Basophils # (Auto) 0.0 0.0-0.1 10^3/uL Immature Granulocyte # (Auto) 0.2 H 0.0-0.1 10^3/uL Prothrombin Time 13.5 12.2-14.7 SEC INR Comment 1.0 0.8-1.4 Activated Partial Thromboplast Time 30 24-35 SEC Sodium Level 132 L 135-145 MMOL/L Potassium Level 3.6 3.6-5.0 MMOL/L Chloride Level 93 L 98-107 MMOL/L Carbon Dioxide Level 28 21-32 MMOL/L Anion Gap 11 5-14 MMOL/L Blood Urea Nitrogen 4 L 7-18 MG/DL Creatinine 0.87 0.60-1.30 MG/DL Estimat Glomerular Filtration Rate 100 BUN/Creatinine Ratio 5 Glucose Level 112 H 70-105 MG/DL Calcium Level 9.4 8.5-10.1 MG/DL Corrected Calcium 9.4 8.5-10.1 MG/DL Magnesium Level 1.5 L 1.6-2.4 MG/DL Total Bilirubin 0.6 0.1-1.0 MG/DL Aspartate Amino Transf (AST/SGOT) 22 5-34 U/L Alanine Aminotransferase (ALT/SGPT) 17 0-55 U/L Alkaline Phosphatase 53 40-136 U/L Myoglobin 136.4 H 10.0-92.0 NG/ML Troponin I 0.028 < 0.028 <0.028 NG/ML B-Type Natriuretic Peptide 30.6 <100.0 PG/ML Total Protein 6.7 6.4-8.2 GM/DL Albumin 4.0 3.2-4.5 GM/DL Lipase 30 8-78 U/L My Orders Orders - ROB HERNADEZ MD Cbc With Automated Diff (04/20/22 12:10) Magnesium (04/20/22 12:10) Chest 1 View, Ap/Pa Only (04/20/22 12:10) Ekg Tracing (04/20/22 12:10) Comprehensive Metabolic Panel (04/20/22 12:10) Myoglobin Serum (04/20/22 12:10) Protime With Inr (04/20/22 12:10) Partial Thromboplastin Time (04/20/22 12:10) O2 (04/20/22 12:10) Monitor-Rhythm Ecg Trace Only (04/20/22 12:10) Ed Iv/Invasive Line Start (04/20/22 12:10) Lipase (04/20/22 12:10) Bnp [place] (04/20/22 12:10) Troponin I Prem (04/20/22 12:10) Aspirin Chewable Tablet (Baby Aspirin Ch (04/20/22 12:15) Lidocaine 2% Viscous 15 Ml (Xylocaine Vi (04/20/22 12:15) Famotidine Tablet (Pepcid Tablet) (04/20/22 12:10) Antacid Suspension (Mylanta Suspension (04/20/22 12:15) Nitroglycerin Ointment (Nitrobid Ointme (04/20/22 12:15) Troponin I [place] (04/20/22 13:20) Medications Given in ED Current Medications Medications Dose Ordered Sig/Kinsey Route Start Time Stop Time Status Last Admin Dose Admin Al Hydrox/Mg Hydrox/Simethicone 30 ml ONCE ONCE PO 04/20/22 12:15 04/20/22 12:16 DC 04/20/22 12:18 30 ML Aspirin 243 mg ONCE ONCE PO 04/20/22 12:15 04/20/22 12:16 DC 04/20/22 12:18 243 MG Lidocaine HCl 15 ml ONCE ONCE PO 04/20/22 12:15 04/20/22 12:16 DC 04/20/22 12:17 15 ML Nitroglycerin 0.5 inch ONCE ONCE TOP 04/20/22 12:15 04/20/22 12:16 DC 04/20/22 12:18 0.5 INCH Vital Signs/I&O 04/20/22 12:04 Temp 36.2 Pulse 93 Resp 18 B/P (MAP) 126/72 (90) Pulse Ox 98 Blood Pressure Mean: 90 Progress Progress Note : Progress Note 57-year-old male presenting due to 2 months of chest pain. ABCs were intact and vitals are stable on presentation. EKG with no acute ischemic changes, appears similar to prior EKG my interpretation. An IV was placed and basic labs were obtained including cardiac biomarkers. Initial troponin negative, repeat troponin also negative. I reviewed the patient's chart including previous admis sions, and he has been seen numerous times for same symptoms. Work-up is typically the same. He has follow-up with cardiology as an outpatient. I think is highly unlikely that this is ACS related. Showing no signs of a DVT, and no new risk factors for 1 either. Oxygen is normal, heart rate consistently in the 90s, and I think it is very unlikely he has a PE at this time. Chest x-ray with no obvious infection on my interpretation. I will refer the patient back to his athletic trainer as well as his PCP. Initial ECG Impression Date: Apr 20, 2022 Initial ECG Impression Time: 12:06 Initial ECG Rate: 94 Comment Ventricularly paced rhythm with a rate of 94, no STEMI Diagnostic Imaging Diagonstic Imaging: Xray Plain Films/CT/US/NM/MRI: chest Comments [facility]. [place], [place] NAME: SANABRIASAYRA REC#: [id number] PT STATUS: REG ER : 1965 PHYSICIAN: ROB HERNADEZ MD ADMIT DATE: 04/20/22/ER Signed Date of Exam:04/20/22 CHEST 1 VIEW, AP/PA ONLY EXAMINATION: Chest, 1 view. HISTORY: Chest pain. COMPARISON: 12/12/2021. FINDINGS: Heart size is normal. There is prominence of the pulmonary vasculature. There are mild perihilar hazy opacities. No pleural effusion or pneumothorax. Left-sided cardiac device is unchanged. The osseous structures are intact. IMPRESSION: 1. Prominence of pulmonary vasculature which can be seen with pulmonary vascular congestion. 2. Mild perihilar hazy opacities which can be seen with pulmonary edema. Dictated by: Dictated on workstation # [id number] Dict: 04/20/22 1228 Trans: 04/20/22 1251 [id number] Interpreted by: RA CRENSHAW DO Electronically signed by: RA CRENSHAW DO 04/20/22 1251 Departure Impression Primary Impression: Chest wall pain Disposition: HOME, SELF-CARE Condition: Stable Departure-Patient Inst. Decision time for Depature: 14:16 Referrals: BEAU SHARPE DO (PCP/Family) Primary Care Physician Patient Instructions: Chest Pain, Adult ED Add. Discharge Instructions: It does not appear like you are having a heart attack today. As always, please follow back up with your athletic trainer as they may want to do more testing. If things change or you have any other concerns you can always come back to the ER. Otherwise continue taking her meds daily including her daily baby aspirin. Take ibuprofen and/or Tylenol as needed for pain. Work/School Note: Work Release Form Date Seen in the Emergency Department: Apr 20, 2022 Return to Work: Apr 21, 2022 Restrictions: No Restrictions ROB HERNADEZ MD Apr 20, 2022 12:22
--- NOTE | 2022-04-20 12:31 | Diagnostic Imaging Report ---
EXAMINATION: Chest, 1 view. HISTORY: Chest pain. COMPARISON: 12/12/2021. FINDINGS: Heart size is normal. There is prominence of the pulmonary vasculature. There are mild perihilar hazy opacities. No pleural effusion or pneumothorax. Left-sided cardiac device is unchanged. The osseous structures are intact. IMPRESSION: 1. Prominence of pulmonary vasculature which can be seen with pulmonary vascular congestion. 2. Mild perihilar hazy opacities which can be seen with pulmonary edema. Dictated by: Dictated on workstation # [id number]
[2022-04-20 12:45] LABS: POTASSIUM 3.6 MMOL/L (3.6-5.0)
[2022-04-20 12:47] LABS: CALCIUM 9.4 MG/DL (8.5-10.1)
[2022-04-20 12:48] LABS: TOTAL PROTEIN 6.7 GM/DL (6.4-8.2)
[2022-04-20 12:50] LABS: BILIRUBIN,TOTAL 0.6 MG/DL (0.1-1.0)
[2022-04-20 12:51] LABS: CREATININE SERUM 0.87 MG/DL (0.60-1.30)
[2022-04-20 12:54] LABS: MAGNESIUM 1.5 MG/DL (1.6-2.4); PROTHROMBIN TIME PATIENT 13.5 SEC (12.2-14.7)
[2022-04-20 14:28] VITALS: BP 105/51
== END 2022-04-20 14:28 | disposition home or self-care (01) ==
LOC: EDUNIT# 12:00 → ER 12:03
DX: R07.89 Other chest pain (principal); Z79.82 Long term (current) use of aspirin
CPT/HCPCS: 36415; 71045; 80053; 83690; 83735; 83874; 83880; 84484; 85025; 85610; 85730; 93005; 93041

== ENCOUNTER → 2022-08-05 | Outpatient (CLI) | payer MEDICARE, MEDICAID ==
[2022-08-05 15:00] LABS: BASOPHILS % (AUTO) 0 % (0-10); EOSINOPHILS % (AUTO) 0 % (0-10); HEMATOCRIT 49 % (40-54); HEMOGLOBIN 17.2 g/dL (13.3-17.7); LYMPHOCYTES # (AUTO) 2.1 X 10^3 (1.0-4.0); LYMPHOCYTES % (AUTO) 37 % (12-44); MEAN CORPUSCULAR HEMOGLOBIN 31 pg (25-34); MEAN CORPUSCULAR HGB CONC 35 g/dL (32-36); MEAN CORPUSCULAR VOLUME 88 fL (80-99); MEAN PLATELET VOLUME 8.8 fL (9.0-12.2); MONOCYTES # (AUTO) 0.6 X 10^3 (0.0-1.0); MONOCYTES % (AUTO) 11 % (0-12); NEUTROPHILS # (AUTO) 2.8 X 10^3 (1.8-7.8); NEUTROPHILS % (AUTO) 50 % (42-75); PLATELET COUNT 105 10^3/uL (130-400); WHITE BLOOD COUNT 5.6 10^3/uL (4.3-11.0)
== END ==
LOC: LAB 14:23
PROVIDERS: ATTEND Family Medicine
DX: K92.1 Melena (principal)
CPT/HCPCS: 36415; 85025

== ENCOUNTER 2022-09-11 20:29 | Observation (INO) | payer MEDICARE, MEDICAID ==
[~2022-09-11] VITALS: Ht 182.2 cm; Wt 100.2 kg
[~2022-09-11 20:29] MED LIST changes: +POTA-330 PO; -POTA-51 PO
--- NOTE | 2022-09-11 20:40 | ED Chest Pain ---
General Chief Complaint: Chest Wall Stated Complaint: CHEST PAIN Nursing Triage Note: PT TO RM 09 WITH C/O PAIN OVER HIS PACEMAKER AFTER A FALL A COUPLE OF DAYS AGO. PT DENIES N/V/D Source: patient (VERY POOR HISTORIAN) Allergies and Home Medications Allergies Coded Allergies: vancomycin (Verified Allergy, Unknown, 12/12/21) Patient Home Medication List Albuterol Sulfate (Ventolin Hfa) 18 Gm Hfa.aer.ad, 0 GM IH RTQ4HR Prescribed by: BEAU SHARPE on 04/08/20 1304 Allopurinol (Allopurinol) 300 Mg Tablet, 300 MG PO , , Prescribed by: BEAU SHARPE on 03/24/20 1020 Budesonide/Formoterol Fumarate (Symbicort 160-4.5 Mcg Inhaler) 10.2 Gm Hfa.aer.ad, 2 PUFF IH BID Prescribed by: BEAU SHARPE on 03/24/20 1019 Cetirizine HCl (Children's Cetirizine HCl) 10 Mg Tab.chew, 10 MG PO DAILY, (Reported) Entered as Reported by: GUERITA HOUSTON on 08/29/19 1022 Cholecalciferol (Vitamin D3) (Vitamin D3) 125 Mcg (5000 Unit) Tablet, 125 MCG PO DAILY, (Reported) Entered as Reported by: NANCIE HENSLEY on 09/26/21 1459 Colestipol HCl (Colestid) 1 Gm Tab, 1 GM PO Q48H, (Reported) Entered as Reported by: GUERITA HOUSTON on 02/08/19 1147 Divalproex Sodium (Divalproex Sodium) 250 Mg Tablet.dr, 750 MG PO BID, (Reported) Entered as Reported by: GAY ZAMBRANO on 09/12/18 1503 Divalproex Sodium (Divalproex Sodium) 250 Mg Tablet.dr, 500 MG PO 1200, (Reported) Entered as Reported by: GAY ZAMBRANO on 09/12/18 1503 Divalproex Sodium (Divalproex Sodium ER) 250 Mg Tab.er.24h, 250 MG PO TID, (Reported) Entered as Reported by: NANCIE HENSLEY on 09/26/21 1459 Furosemide (Furosemide) 40 Mg Tablet, 40 MG PO , , Prescribed by: BEAU SHARPE on 03/24/20 1019 Gabapentin (Gabapentin) 600 Mg Tablet, 600 MG PO HS, (Reported) Entered as Reported by: NANCIE HENSLEY on 09/26/21 1459 Hydrocodone Bit/Acetaminophen (HYDROcodone/APAP 5 MG/325 MG TAB) 1 Tab Tab, 1 TAB PO Q8H PRN for PAIN-MODERATE (5-7) Prescribed by: TEZ COPELAND on 10/01/21 1220 Losartan Potassium (Losartan Potassium) 25 Mg Tablet, 25 MG PO DAILY, (Reported) Entered as Reported by: NANCIE HENSLEY on 09/26/21 1459 Magnesium Oxide (Magnesium) 400 Mg Capsule, 400 MG PO M,W, F Prescribed by: BEAU SHARPE on 03/24/20 1033 Magnesium Oxide (Magnesium Oxide) 400 Mg Tablet, 400 MG PO BID Prescribed by: ABRAHAM MELO on 12/26/21 1455 Pantoprazole Sodium (Pantoprazole Sodium) 40 Mg Tablet.dr, 40 MG PO DAILY, (Reported) Entered as Reported by: SANJAY MENDEZ on 11/27/19 1405 Potassium Chloride (Potassium Chloride) 20 Meq Tab.er.prt, 40 MEQ PO DAILY Prescribed by: BEAU SHARPE on 03/24/20 1019 Prednisone (Prednisone) 20 Mg Tab, 40 MG PO DAILY Prescribed by: ABRAHAM MELO on 02/09/22 1527 Rosuvastatin Calcium (Rosuvastatin Calcium) 10 Mg Tablet, 10 MG PO DAILY, (R eported) Entered as Reported by: GAY ZAMBRANO on 09/12/18 1503 [Bethanechol Chloride] , 50 MG PO QID, (Reported) Entered as Reported by: GUERITA HOUSTON on 03/11/20 1004 Past Shgtafr-Tufcoy-Pvhrbj Hx Patient Social History Tobacco Use?: No Use of E-Cig and/or Vaping dev: No Substance use?: No Alcohol Use?: No Pt feels they are or have been: No Immunizations Up To Date Tetanus Booster (TDap): Unknown First/Initial COVID19 Vaccinat: YES Second COVID19 Vaccination Román: YES Third COVID19 Vaccination Date: UNK Seasonal Allergies Seasonal Allergies: Yes Past Medical History Surgery/Hospitalization HX: PACEMAKER, HTN, HIGH CHOL, SEIZURES, DEPENDENT EDEMA SURG, TENDON SURG ON L SIDE, MENIGITIS , APPY Surgeries: Yes (pacer placement, left hand tendon repair;[employer] shunt) Cardiac, Neurological, Orthopedic, Pacemaker Respiratory: Yes (USES INHALER SEASONAL ALLLERGIES) Currently Using CPAP: No Currently Using BIPAP: No Cardiac: Yes (HEART FAILURE, CONGENITAL heart block status post pacemaker;NON- OBSTR CAD) Atrial Fibrillation, Cardiomyopathy, Coronary Artery Disease, High Cholesterol, Hypertension Neurological: Yes (hx meningitis 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, has left-sided neurologic deficits) Developmental Disorder, Paralysis Reproductive Disorders: No Genitourinary: No Gastrointestinal: Yes (GASTRITIS) Gastroesophageal Reflux, Hemorrhoids, Chronic Diarrhea Musculoskeletal: 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 LAST CATH 09/20/[address] 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 COPELAND. 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 0.0oz. 98.068191be; 34.00 BMI Method:Stated Progress/Results/Core Measures Results/Orders Lab Results Laboratory Tests Test 09/11/22 20:45 09/11/22 21:30 Range/Units Prothrombin Time 15.0 H 12.2-14.7 SEC INR Comment 1.2 0.8-1.4 Activated Partial Thromboplast Time 39 H 24-35 SEC Sodium Level 125 *L 135-145 MMOL/L Potassium Level 3.2 L 3.6-5.0 MMOL/L Chloride Level 90 L 98-107 MMOL/L Carbon Dioxide Level 26 21-32 MMOL/L Anion Gap 9 5-14 MMOL/L Blood Urea Nitrogen 2 L 7-18 MG/DL Creatinine 0.82 0.60-1.30 MG/DL Estimat Glomerular Filtration Rate 102 BUN/Creatinine Ratio 2 Glucose Level 96 70-105 MG/DL Calcium Level 8.8 8.5-10.1 MG/DL Corrected Calcium 9.4 8.5-10.1 MG/DL Magnesium Level 1.5 L 1.6-2.4 MG/DL Total Bilirubin 1.0 0.1-1.0 MG/DL Aspartate Amino Transf (AST/SGOT) 22 5-34 U/L Alanine Aminotransferase (ALT/SGPT) 12 0-55 U/L Alkaline Phosphatase 50 40-136 U/L Total Creatine Kinase 199 30-200 U/L Creatine Kinase MB 5.5 <6.6 NG/ML Myoglobin 83.4 10.0-92.0 NG/ML Troponin I 0.028 <0.028 NG/ML B-Type Natriuretic Peptide 36.8 <100.0 PG/ML Total Protein 5.3 L 6.4-8.2 GM/DL Albumin 3.2 3.2-4.5 GM/DL Amylase Level 18 L 25-125 U/L Lipase 20 8-78 U/L Valproic Acid (Depakene) Level 144.2 H 50.0-100.0 UG/ML White Blood Count 4.6 4.3-11.0 10^3/uL Red Blood Count 4.40 4.30-5.52 10^6/uL Hemoglobin 14.1 13.3-17.7 g/dL Hematocrit 39 L 40-54 % Mean Corpuscular Volume 88 80-99 fL Mean Corpuscular Hemoglobin 32 25-34 pg Mean Corpuscular Hemoglobin Concent 36 32-36 g/dL Red Cell Distribution Width 14.6 H 10.0-14.5 % Platelet Count 88 L 130-400 10^3/uL Mean Platelet Volume 9.3 9.0-12.2 fL Immature Granulocyte % (Auto) 1 % Neutrophils (%) (Auto) 43 42-75 % Lymphocytes (%) (Auto) 42 12-44 % Monocytes (%) (Auto) 13 H 0-12 % Eosinophils (%) (Auto) 1 0-10 % Basophils (%) (Auto) 0 0-10 % Neutrophils # (Auto) 2.0 1.8-7.8 10^3/uL Lymphocytes # (Auto) 2.0 1.0-4.0 10^3/uL Monocytes # (Auto) 0.6 0.0-1.0 10^3/uL Eosinophils # (Auto) 0.0 0.0-0.3 10^3/uL Basophils # (Auto) 0.0 0.0-0.1 10^3/uL Immature Granulocyte # (Auto) 0.0 0.0-0.1 10^3/uL Percent Immature Platelet Fraction 6.1 0.0-7.6 % Smear Scan YES My Orders Orders - JUNIOR SORIA DO Shoulder, Left, 3 Views (09/11/22 20:37) Cbc With Automated Diff (09/11/22 20:37) Magnesium (09/11/22 20:37) Chest 1 View, Ap/Pa Only (09/11/22 20:37) Ekg Tracing (09/11/22 20:37) Comprehensive Metabolic Panel (09/11/22 20:37) Myoglobin Serum (09/11/22 20:37) Protime With Inr (09/11/22 20:37) Partial Thromboplastin Time (09/11/22 20:37) O2 (09/11/22 20:37) Monitor-Rhythm Ecg Trace Only (09/11/22 20:37) Ed Iv/Invasive Line Start (09/11/22 20:37) Creatine Kinase (09/11/22 20:37) Creatine Kinase Mb (09/11/22 20:37) Lipase (09/11/22 20:37) Amylase (09/11/22 20:37) Bnp Prem (09/11/22 20:37) Troponin I Prem (09/11/22 20:37) Magnesium 1 Gm/100 Ml Ivpb (Magnesium [place] (09/11/22 22:15) Ed Iv/Invasive Line Start (09/11/22 22:21) Ns Iv 1000 Ml (Sodium Chloride 0.9%) (09/11/22 22:30) Valproic Acid (09/11/22 22:35) Ed Admission (Communication) (09/11/22 22:43) Medications Given in ED Current Medications Medications Dose Ordered Sig/Kinsey Route Start Time Stop Time Status Last Admin Dose Admin Magnesium Sulfate/ Dextrose 100 ml @ 100 mls/hr ONCE ONCE IV 09/11/22 22:15 09/11/22 23:14 DC 09/11/22 22:33 100 MLS/HR Vital Signs/I&O 09/11/22 20:35 Temp 36.4 Pulse 82 Resp 12 B/P (MAP) 118/88 (98) Pulse Ox 100 O2 Delivery Room Air Blood Pressure Mean: 98 Departure Impression Primary Impression: SEVERE HYPONATREMIA Additional Impressions: Hypomagnesemia Left-sided chest wall pain Disposition: ADMITTED INPATIENT Condition: Stable Admissions Decision to Admit Reason: Admit from ER (General) Decision to Admit/Date: Sep 11, 2022 Departure-Patient Inst. Referrals: BEAU SHARPE DO (PCP/Family) Primary Care Physician JUNIOR SORIA DO Sep 11, 2022 20:40
--- NOTE | 2022-09-11 21:27 | Diagnostic Imaging Report ---
CLINICAL INDICATION: Patient with chest pain. Patient has pain over pacemaker after fall a couple of days ago. EXAM: Portable chest x-ray upright view. COMPARISON: Chest x-ray dated 04/20/2022. FINDINGS: Again seen elevation right hemidiaphragm. There is no lung infiltrate. Pulmonary vasculature and cardiac silhouette within normal limits. Cardiac pacemaker seen overlying left chest with 2 leads projecting over the heart which appears intact. Cardiac pacemaker appears stable. There are degenerative spurs involving the spine. IMPRESSION: 1: Stable chest x-ray exam with no interval radiographic evidence of acute cardiopulmonary process. 2: Cardiac pacemaker is again seen which appears intact. Dictated by: Dictated on workstation # [id number]
--- NOTE | 2022-09-11 21:27 | Diagnostic Imaging Report ---
CLINICAL INDICATION: Patient with pain over his pacemaker after fall a couple days ago. EXAM: X-ray left shoulder, 3 views. COMPARISON: None. FINDINGS: There is no acute fracture or dislocation. There is no significant bone or joint abnormality involving the left shoulder. There are no rib fractures seen on this exam. Cardiac pacemaker seen overlying the chest with 2 leads projecting over the heart which appears intact. IMPRESSION: There is no acute fracture or dislocation. Dictated by: Dictated on workstation # [id number]
[2022-09-11 21:40] LABS: BASOPHILS % (AUTO) 0 % (0-10); HEMOGLOBIN 14.1 g/dL (13.3-17.7)
[2022-09-11 21:42] LABS: EOSINOPHILS % (AUTO) 1 % (0-10); HEMATOCRIT 39 % (40-54); LYMPHOCYTES % (AUTO) 42 % (12-44); MEAN CORPUSCULAR HEMOGLOBIN 32 pg (25-34); MEAN CORPUSCULAR HGB CONC 36 g/dL (32-36); MEAN CORPUSCULAR VOLUME 88 fL (80-99); MEAN PLATELET VOLUME 9.3 fL (9.0-12.2); MONOCYTES # (AUTO) 0.6 10^3/uL (0.0-1.0); MONOCYTES % (AUTO) 13 % (0-12); NEUTROPHILS % (AUTO) 43 % (42-75); PLATELET COUNT 88 10^3/uL (130-400); WHITE BLOOD COUNT 4.6 10^3/uL (4.3-11.0)
[2022-09-11 21:51] LABS: INR 1.2 (0.8-1.4)
[2022-09-11 21:59] LABS: ALBUMIN 3.2 GM/DL (3.2-4.5); CALCIUM 8.8 MG/DL (8.5-10.1); CREATININE SERUM 0.82 MG/DL (0.60-1.30); MAGNESIUM 1.5 MG/DL (1.6-2.4); POTASSIUM 3.2 MMOL/L (3.6-5.0); TOTAL PROTEIN 5.3 GM/DL (6.4-8.2)
[2022-09-11 22:06] LABS: CREATINE KINASE MB 5.5 NG/ML (<6.6)
[2022-09-11 22:07] LABS: SMEAR SCAN COMMENT YES
[2022-09-11] MEDS ORDERED: MAGNESIUM 1 GM/100 ML IVPB 100 ML IV ONE (22:15)
[2022-09-11] MEDS ORDERED: NS IV 1000 ML 1,000 ML IV SCH (22:30)
[2022-09-12 03:04] VITALS: BP 111/72
[2022-09-12 03:23] VITALS: BP 118/88
[2022-09-12] MEDS ORDERED: MILK OF MAGNESIA 400 MG/5 ML 30 ML UDC PO PRN (03:30)
[2022-09-12] MEDS ORDERED: ONDANSETRON 4 MG/2 ML (SDV) Z0FRAN IV PRN (03:30)
[2022-09-12] MEDS ORDERED: ANTACID SUSP 30 ML UDC (MYLANTA) PO PRN (03:30)
[2022-09-12] MEDS ORDERED: HYDROmorphone 2 MG/ML VIAL (DILAUDID) IV PRN (03:30)
[2022-09-12] MEDS ORDERED: RT-ALBUTEROL SULF 2.5 MG/3 ML PRE-MIX VIAL INH PRN ×2 (03:30→13:45)
[2022-09-12] MEDS ORDERED: LACTULOSE SYRUP 10GM/15ML (ENULOSE) 30ML UDC PO PRN (03:30)
[2022-09-12] MEDS ORDERED: diphenhydrAMINE 50 MG/ML INJ (BENADRYL) IVP PRN (03:30)
[2022-09-12] MEDS ORDERED: NS IV 1000 ML 1,000 ML IV SCH (03:30)
[2022-09-12] MEDS ORDERED: polyethylene glycoL POWDER 17 GM (MIRALAX) PACK PO PRN (03:30)
[2022-09-12] MEDS ORDERED: CALCIUM CARBONATE 500 MG (TUMS) TAB.CHEW PO PRN (03:30)
[2022-09-12] MEDS ORDERED: ACETAMINOPHEN 325 MG TABLET PO PRN (03:30)
[2022-09-12] MEDS ORDERED: ONDANSETRON 4 MG (ZOFRAN) ORAL DISSOLVE TAB PO PRN (03:30)
[2022-09-12] MEDS ORDERED: BISACODYL 10 MG SUPP (DULCOLAX) PR PRN (03:30)
[2022-09-12] MEDS ORDERED: diphenhydrAMINE 25 MG TAB (BENADRYL) PO PRN (03:30)
[2022-09-12] MEDS ORDERED: MELATONIN 3 MG TABLET PO PRN (03:30)
--- NOTE | 2022-09-12 07:06 | History & Physical ---
History of Present Illness HPI/Chief Complaint Chief complaint: Chronic chest pain with hyponatremia and multiple falls HPI: This is a 57-year-old male who has a learning disability and per his sister functions at a 10-year-old level who lives at home and has had many falls in the past who presented to the ER with chest pain. Cardiac enzymes are negative. Pacemaker is maintained so Dr. Lau was consulted. Hyponatremia of 125 resulted in fluid restriction and gentle IV fluids overnight which improved the level. We will closely monitor and moved to fourth floor from cardiac stepdown unit. PT and OT were consulted. Source: patient, family, RN/MD, old records Exam Limitations: no limitations Date Seen 09/12/22 Time Seen by a Provider: 11:00 Attending Physician Demi Agustin DO PCP Admitting Physician: Neetu Barry DO Attending Physician: Neetu Barry DO Referring Physician Date of Admission Sep 12, 2022 at 02:57 Home Medications & Allergies Home Medications Reviewed patient Home Medication Reconciliation performed by pharmacy medication reconciliations electrical laboratory technician and/or nursing. Patients Allergies have been reviewed. Allergies Allergies Coded Allergies vancomycin (Verified Allergy, Unknown, 12/12/21) Past Toregyr-Rjfgys-Yfxwve Hx Past Med/Social Hx: Reviewed Nursing Past Med/Soc Hx, Reviewed and Corrections made Patient Social History Marrital Status: single Employed/Student: unemployed Alcohol Use: Denies Use Smoking Status: Never a Smoker 2nd Hand Smoke Exposure: No Recent Hopitalizations: No Immunizations Up To Date Tetanus Booster (TDap): Unknown Date of Pneumonia Vaccine: Nov 28, 2011 Date of Influenza Vaccine: Mar 13, 2020 Seasonal Allergies Seasonal Allergies: Yes Past Medical History Surgeries: Cardiac, Neurological, Orthopedic, Pacemaker Currently Using CPAP: No Currently Using BIPAP: No Cardiac: Atrial Fibrillation, Cardiomyopathy, Coronary Artery Disease, High Cholesterol, Hypertension Neurological: Developmental Disorder, Paralysis Reproductive: No Gastrointestinal: Gastroesophageal Reflux, Hemorrhoids, Chronic Diarrhea Musculoskeletal: Arthritis, Contracture, Gout Loss of Vision: Denies Hearing Impairment: Denies History of Blood Disorders: No Adverse Reaction to Blood Cabrales: No Family History Alzheimer's disease Arthritis Colon cancer Diabetes mellitus Myocardial infarction Visual disorder PAST SURGICAL HISTORY: -CARDIAC CATHS--SMALL VESSELS, NON-OBSTRUCTIVE DISEASE. LAST CATH 09/20/[address] 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 COPELAND. 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 Review of Systems Constitutional: see HPI, malaise, weakness EENTM: no symptoms reported Respiratory: no symptoms reported Cardiovascular: chest pain Gastrointestinal: no symptoms reported Genitourinary: no symptoms reported Musculoskeletal: back pain, joint pain Skin: no symptoms reported Psychiatric/Neurological: No Symptoms Reported All Other Systems Reviewed Negative Unless Noted: Yes Physical Exam Physical Exam Vital Signs Vital Signs - First Documented 09/11/22 09/12/22 09/12/22 20:35 03:23 03:54 Temp 36.4 Pulse 82 Resp 12 B/P (MAP) 118/88 (98) Pulse Ox 100 O2 Delivery Room Air O2 Flow Rate 2.00 FiO2 21 Capillary Refill : Less Than 3 Seconds Height, Weight, BMI Height: 6'0.00" Weight: 218lbs. 0.0oz. 98.021506pj; 29.58 BMI Method:Stated General Appearance: No Apparent Distress, WD/WN, Chronically ill Eyes: Bilateral Eye Normal Inspection, Bilateral Eye PERRL HEENT: PERRL/EOMI, Normal ENT Inspection, Pharynx Normal Neck: Full Range of Motion, Normal Inspection, Non Tender, Supple, Carotid B ruit Respiratory: Chest Non Tender, Lungs Clear, Normal Breath Sounds, No Accessory Muscle Use, No Respiratory Distress Cardiovascular: Regular Rate, Rhythm, No Edema, No Gallop, No JVD, No Murmur, Normal Peripheral Pulses Gastrointestinal: Normal Bowel Sounds, No Organomegaly, No Pulsatile Mass, Non Tender, Soft Back: Normal Inspection, No CVA Tenderness, No Vertebral Tenderness Extremity: Normal Capillary Refill, Normal Inspection, Normal Range of Motion, Non Tender, No Calf Tenderness, No Pedal Edema Neurologic/Psychiatric: Alert, Oriented x3, No Motor/Sensory Deficits, Normal Mood/Affect Skin: Normal Color, Warm/Dry Lymphatic: No Adenopathy Results Results/Procedures Labs Laboratory Tests 09/11/22 20:45 09/11/22 21:30 09/12/22 07:20 Patient resulted labs reviewed. Assessment/Plan Admission Diagnosis Assessment: Fall Chronic chest pain Hyponatremia Weakness Intellectual delay Atrial fibrillation Hypertension Hypokalemia Plan: Supportive care Fluid restriction Moved to fourth floor PT and OT Admission Status: Observation NEETU BARRY DO Sep 12, 2022 07:06
[2022-09-12 07:34] LABS: BASOPHILS % (AUTO) 0 % (0-10); EOSINOPHILS % (AUTO) 0 % (0-10); HEMATOCRIT 40 % (40-54); HEMOGLOBIN 14.7 g/dL (13.3-17.7); LYMPHOCYTES # (AUTO) 1.4 10^3/uL (1.0-4.0); LYMPHOCYTES % (AUTO) 43 % (12-44); MEAN CORPUSCULAR HEMOGLOBIN 32 pg (25-34); MEAN CORPUSCULAR HGB CONC 37 g/dL (32-36); MEAN CORPUSCULAR VOLUME 88 fL (80-99); MEAN PLATELET VOLUME 9.6 fL (9.0-12.2); MONOCYTES # (AUTO) 0.5 10^3/uL (0.0-1.0); MONOCYTES % (AUTO) 15 % (0-12); NEUTROPHILS # (AUTO) 1.3 10^3/uL (1.8-7.8); NEUTROPHILS % (AUTO) 40 % (42-75); PLATELET COUNT 73 10^3/uL (130-400); WHITE BLOOD COUNT 3.2 10^3/uL (4.3-11.0)
[2022-09-12 07:38] LABS: ALBUMIN 3.3 GM/DL (3.2-4.5)
[2022-09-12 07:39] LABS: CHLORIDE 95 MMOL/L (98-107); SODIUM 132 MMOL/L (135-145)
[2022-09-12 07:41] LABS: GLUCOSE 78 MG/DL (70-105); TOTAL PROTEIN 5.6 GM/DL (6.4-8.2)
[2022-09-12 07:42] LABS: CARBON DIOXIDE 28 MMOL/L (21-32)
[2022-09-12 07:43] LABS: BILIRUBIN,TOTAL 0.9 MG/DL (0.1-1.0)
[2022-09-12 07:45] LABS: ALKALINE PHOSPHATASE 54 U/L (40-136); CREATININE SERUM 0.77 MG/DL (0.60-1.30); GFR ESTIMATED 104
[2022-09-12 07:46] LABS: BUN/CREATININE RATIO 3
[2022-09-12 07:48] LABS: ALANINE AMINOTRANSFERASE 15 U/L (0-55)
[2022-09-12 07:53] VITALS: BP 108/51
[2022-09-12] MEDS ORDERED: DIVALPROEX EXT RELEASE 250 MG (DEPAKOTE ER) TAB PO SCH (09:00)
[2022-09-12] MEDS: ENOXAPARIN 40 MG/0.4 ML (LOVENOX) SYR SC SCH (09:02)
[2022-09-12] MEDS: SENNOSIDES 8.6 MG (SENOKOT) TAB PO SCH ×2 (09:02→20:22)
[2022-09-12] MEDS: CLOPIDOGREL 75 MG (PLAVIX) TABLET PO SCH (09:02)
[2022-09-12] MEDS: DOCUSATE SODIUM 100 MG (COLACE) CAP PO SCH ×2 (09:02→20:22)
--- NOTE | 2022-09-12 09:22 | Consultation-Cardiology ---
HPI-Cardiology Cardiology Consultation Date of Consultation 09/12/22 Date of Admission Time Seen by Provider: 09:19 Indication: Chest pain HPI 57-year-old gentleman with a history of chronic recurrent chest pain. Patient reported that he sustained a fall within the last week with injury to his left upper chest. Was starting to have pain at the pacemaker site. Came into the em ergency room. On evaluation he was feeling better still having some discomfort in the left upper chest. No shortness of breath. No palpitation. No syncope or near syncopal episodes. No claudications. Home Medications & Allergies Allergies: Coded Allergies: vancomycin (Verified Allergy, Unknown, 12/12/21) Home Medication List Reviewed: Yes YNY-Vzwnge-Wkfamx Hx Patient Social History Marital Status: single Employed/Student: unemployed Smoking Status: Never a Smoker 2nd Hand Smoke Exposure: No Recent Hopitalizations: No Alcohol Use?: No Immunizations Up To Date Tetanus Booster (TDap): Unknown Date of Pneumonia Vaccine: Nov 28, 2011 Date of Influenza Vaccine: Mar 13, 2020 Past Medical History Discussed below Family Medical History Significant Family History: No Pertinent Family Hx Family History: Alzheimer's disease Arthritis Colon cancer Diabetes mellitus Myocardial infarction Visual disorder Review of Systems-General Review of Systems Constitutional: no symptoms reported, see HPI EENTM: see HPI, no symptoms reported Respiratory: no symptoms reported, see HPI Cardiovascular: see HPI, chest pain; No edema, No Hx of Intervention, No palpitations, No syncope, No vascular heart diseas, No other Gastrointestinal: no symptoms reported, see HPI Genitourinary: no symptoms reported, see HPI Musculoskeletal: no symptoms reported, see HPI Skin: no symptoms reported, see HPI Psychiatric/Neurological: No Symptoms Reported, See HPI Reviewed Test Results Reviewed Test Results Lab Laboratory Tests Test 09/11/22 20:45 09/11/22 21:30 09/12/22 07:20 Range/Units Prothrombin Time 15.0 H 12.2-14.7 SEC INR Comment 1.2 0.8-1.4 Activated Partial Thromboplast Time 39 H 24-35 SEC Sodium Level 125 *L 132 L 135-145 MMOL/L Potassium Level 3.2 L 3.0 L 3.6-5.0 MMOL/L Chloride Level 90 L 95 L 98-107 MMOL/L Carbon Dioxide Level 26 28 21-32 MMOL/L Anion Gap 9 9 5-14 MMOL/L Blood Urea Nitrogen 2 L < 2 L 7-18 MG/DL Creatinine 0.82 0.77 0.60-1.30 MG/DL Estimat Glomerular Filtration Rate 102 104 BUN/Creatinine Ratio 2 3 Glucose Level 96 78 70-105 MG/DL Calcium Level 8.8 9.0 8.5-10.1 MG/DL Corrected Calcium 9.4 9.6 8.5-10.1 MG/DL Magnesium Level 1.5 L 1.6-2.4 MG/DL Total Bilirubin 1.0 0.9 0.1-1.0 MG/DL Aspartate Amino Transf (AST/SGOT) 22 28 5-34 U/L Alanine Aminotransferase (ALT/SGPT) 12 15 0-55 U/L Alkaline Phosphatase 50 54 40-136 U/L Total Creatine Kinase 199 30-200 U/L Creatine Kinase MB 5.5 <6.6 NG/ML Myoglobin 83.4 10.0-92.0 NG/ML Troponin I 0.028 <0.028 NG/ML B-Type Natriuretic Peptide 36.8 <100.0 PG/ML Total Protein 5.3 L 5.6 L 6.4-8.2 GM/DL Albumin 3.2 3.3 3.2-4.5 GM/DL Amylase Level 18 L 25-125 U/L Lipase 20 8-78 U/L Valproic Acid (Depakene) Level 144.2 H 122.0 H 50.0-100.0 UG/ML White Blood Count 4.6 3.2 L 4.3-11.0 10^3/uL Red Blood Count 4.40 4.55 4.30-5.52 10^6/uL Hemoglobin 14.1 14.7 13.3-17.7 g/dL Hematocrit 39 L 40 40-54 % Mean Corpuscular Volume 88 88 80-99 fL Mean Corpuscular Hemoglobin 32 32 25-34 pg Mean Corpuscular Hemoglobin Concent 36 37 H 32-36 g/dL Red Cell Distribution Width 14.6 H 14.6 H 10.0-14.5 % Platelet Count 88 L 73 L 130-400 10^3/uL Mean Platelet Volume 9.3 9.6 9.0-12.2 fL Immature Granulocyte % (Auto) 1 1 % Neutrophils (%) (Auto) 43 40 L 42-75 % Lymphocytes (%) (Auto) 42 43 12-44 % Monocytes (%) (Auto) 13 H 15 H 0-12 % Eosinophils (%) (Auto) 1 0 0-10 % Basophils (%) (Auto) 0 0 0-10 % Neutrophils # (Auto) 2.0 1.3 L 1.8-7.8 10^3/uL Lymphocytes # (Auto) 2.0 1.4 1.0-4.0 10^3/uL Monocytes # (Auto) 0.6 0.5 0.0-1.0 10^3/uL Eosinophils # (Auto) 0.0 0.0 0.0-0.3 10^3/uL Basophils # (Auto) 0.0 0.0 0.0-0.1 10^3/uL Immature Granulocyte # (Auto) 0.0 0.0 0.0-0.1 10^3/uL Percent Immature Platelet Fraction 6.1 0.0-7.6 % Smear Scan YES Physical Exam Physical Exam Vital Signs Vital Signs - First Documented 09/11/22 09/12/22 09/12/22 20:35 03:23 03:54 Temp 36.4 Pulse 82 Resp 12 B/P (MAP) 118/88 (98) Pulse Ox 100 O2 Delivery Room Air O2 Flow Rate 2.00 FiO2 21 Capillary Refill : Less Than 3 Seconds Height, Weight, BMI Height: 6'0.00" Weight: 218lbs. 0.0oz. 98.098439pl; 29.58 BMI Method:Stated General Appearance: No Apparent Distress, WD/WN Eyes: Bilateral Eye Normal Inspection, Bilateral Eye PERRL, Bilateral Eye EOMI HEENT: PERRL/EOMI, TMs Normal, Normal ENT Inspection, Pharynx Normal, Moist Mucous Membranes Neck: Full Range of Motion, Normal Inspection, Non Tender, Supple, Carotid Bruit Respiratory: Chest Non Tender, Normal Breath Sounds, No Accessory Muscle Use, No Respiratory Distress Cardiovascular: Regular Rate, Rhythm, No Edema, No Gallop, No JVD, No Murmur, Normal Peripheral Pulses Gastrointestinal: Normal Bowel Sounds, No Organomegaly, No Pulsatile Mass, Non Tender, Soft Back: Normal Inspection, No CVA Tenderness, No Vertebral Tenderness Extremity: Normal Capillary Refill, Normal Inspection, Normal Range of Motion, Non Tender, No Calf Tenderness, No Pedal Edema Neurologic/Psychiatric: Alert, Oriented x3, No Motor/Sensory Deficits, Normal Mood/Affect Skin: Normal Color, Warm/Dry Lymphatic: No Adenopathy A/P-Cardiology Admission Diagnosis Chest pain Coronary artery disease Hypertension Complete heart block Assessment/Plan Chest pain atypical in presentation, musculoskeletal. EKG and cardiac enzymes did not show any acute abnormality. Reassured at this time. Okay for discharge and follow-up as an outpatient History of chronic recurrent chest pain, Had cardiac catheterization done in September 2019 showing small coronary system with mild disease nonobstructive disease. Hyponatremia, improved, managed by primary care physician Dyspnea on exertion, underlying COPD. No change from baseline 2D echo was done on August 27, 2020 showing normal LV size with EF 55 to 65%, apical hypokinesia, mild aortic regurgitation. Coronary artery disease, nonobstructive coronary artery disease per cardiac catheterization August 2012, and September 2019. No significant obstructive disease was noted. Continue to monitor Congestive heart failure, improved, last echocardiogram done in January 2018 showing ejection fraction 55-65 percent. Sick sinus syndrome, history of congenital complete heart block. History of permanent pacemaker, Continue to monitor History of brief episode of A. fib, resolved, pacemaker interrogation showed one episode of atrial fibrillation lasted for 16 hours, asymptomatic. Continue to monitor [id number] score of 1, yearly risk of stroke without oral anticoagulation is 1.3 percent. On aspirin 325 mg daily Hypertension, restart home medication monitor blood pressure Hyperlipidemia, Monitor lipids History of spinal meningitis at the age of 4 Mild bilateral nonobstructive carotid artery stenosis, most recent carotid duplex July 2018, I will evaluate carotid ultrasound Left shoulder pain, reporting improvement. Continue to monitor Arthritis TON SALDANA MD Sep 12, 2022 09:22
--- NOTE | 2022-09-12 10:42 | Physical Therapy Evaluation ---
PT Evaluation-General Medical Diagnosis Admission Date Sep 12, 2022 at 02:57 Medical Diagnosis: hyponatremia Onset Date: Sep 11, 2022 Therapy Diagnosis Therapy Diagnosis: decreased mobility Height/Weight Height (Feet): 6 Height (Inches): 0.00 Weight (Pounds): 218 Weight (Ounces): 0.0 Precautions Precautions/Isolations: Seizure, Fall Prevention, Standard Precautions Weight Bear Status Right Lower Extremity: Right Full Weight Bearing Left Lower Extremity: Left Full Weight Bearing Referral Physician: Lana Reason for Referral: Evaluation/Treatment Medical History Pertinent Medical History: HTN Additional Medical History pacemaker, high cholesterol, seizures, edema Current History c/o pain over chest/pacemaker following a fall Reviewed History: Yes Social History Home: Single Level Current Living Status: Prior Prior Level of Function SCALE: Activities may be completed with or without assistive devices. 0-Ebptlnqdsz-[id number] completes the activity by him/herself with no assistance from a helper. 5-Set-up or Clean-up Assistance-helper sets up or cleans up; patient completes activity. [place] assists only prior to or following the activity. 4-Supervision or Touching Assistance-helper provides verbal cues and/or touching/steadying and/or contact guard assistance as patient completes activity. Assistance may be provided throughout the activity or intermittently. 3-Partial/Moderate Assistance-helper does LESS THAN HALF the effort. [place] lifts, holds or supports trunk or limbs, but provides less than half the effort. 2-Substantial/Maximal Assistance-helper does MORE THAN HALF the effort. [place] lifts or holds trunk or limbs and provides more than half the effort. 0-Gnhyzdxkm-fjrctx does ALL the effort. Patient does none of the effort to complete the activity. Or, the assistance of 2 or more helpers is required for the patient to complete the activity. If activity was not attempted, code reason: 7-Patient Refused. 9-Not Applicable-not attempted and the patient did not perform the activity before the current illness, exacerbation or injury. 10-Not Attempted due to Environmental Limitations-(lack of equipment, weather restraints, etc.). 88-Not Attempted due to Medical Conditions or Safety Concerns. Bed Mobility: 6 Transfers (B,C,W/C): 6 Gait: 6 Prior Device Use: SBQC PT Evaluation-Current Subjective Pt. in bed, agrees to PT. Nurse states he may be leaving today. Pt. has no c/o pain. Pt/Family Goals home with caregiver Objective Patient Orientation: Person, Place ROM/Strength ROM Upper Extremities WNL ROM Lower Extremities WNL Strength Upper Extremities WFL Strength Lower Extremities Grossly 4/5 Integumentary/Posture Integumentary intact Bowel Incontinence: No Bladder Incontinence: No Posture kyphotic Neuromuscular (Tone, Coordination, Reflexes) diminished Sensory Vision: Wears Glasses Hearing: Functional Sensation Right Upper Extremit: Intact Sensation Left Upper Extremity: Intact Sensation Right Lower Extremit: Intact Sensation Left Lower Extremity: Intact Transfers Lying to Sitting/Side of Bed(Q: 6 Sit to Stand (QC): 4 Gait Does the Patient Walk?: Yes Mode of Locomotion: Walk Anticipated Mode of Locomotion: Walk Walk 10 feet (QC): 4 Walk 50 ft with 2 Turns(QC): 4 Distance: 50 ft Gait Assistive Device: Cane Small Base Quad Comments/Gait Description slow gait speed, also uses handrail along the wall Balance Sitting Static: Good Sitting Dynamic: Good Standing Static: Fair Standing Dynamic: Fair Assessment/Needs Pt. is a 57 y.o. male with decreased mobility. Pt. is currently CGA for all transfers and ambulation. Pt. would benefit from short-term PT to improve safe mobility for return home with caregiver. Rehab Potential: Good PT Short Term Goals Short Term Goals Time Frame: Sep 19, 2022 Sit to lyin Lying to sitting on side of be: 6 Sit to stand: 6 Chair/qzm-hg-sykpv transfer: 6 Walk 10 feet: 6 Walk 50 feet with two turns: 6 PT Plan Problem List Problem List: Activity Tolerance, Functional Strength, Safety, Balance, Gait, Transfer, Bed Mobility, ROM Treatment/Plan Treatment Plan: Continue Plan of Care Treatment Plan: Bed Mobility, Concurrent Therapy, Education, Functional Activity [place], Functional Strength, Gait, Safety, Therapeutic Exercise, Transfers Treatment Duration: Sep 19, 2022 Frequency: 6 times per week Estimated Hrs Per Day: .25 hour per day Patient and/or Family Agrees t: Yes Time Time In: 914 Time Out: 934 DATE: Sep 12, 2022 Total Billed Treatment Time: 20 Total Billed Treatment 1, EVL 10', GT 10' JAIR STEWART PT Sep 12, 2022 10:42
[2022-09-12 11:49] VITALS: BP 91/75
[2022-09-12] MEDS ORDERED: KCL 20 MEQ TAB (K-DUR) PO ONE (12:00)
[2022-09-12] MEDS ORDERED: GABA300S3 PO (12:44)
[2022-09-12] MEDS ORDERED: FLUT16SP22 (12:51)
[2022-09-12] MEDS ORDERED: GABA-486 PO (12:51)
[2022-09-12] MEDS: RT-ALBUTEROL SULF 2.5 MG/3 ML PRE-MIX VIAL IH SCH ×3 (14:23→22:20)
[2022-09-12 16:25] VITALS: BP_SYST 100; BP_SYST 121; BP_DIAS 58; BP_DIAS 62
[2022-09-12] MEDS: BETHANECHOL 25 MG (URECHOLINE) TAB PO SCH ×2 (17:50→20:22)
[2022-09-12 19:53] VITALS: BP 96/68
[2022-09-12] MEDS: GABAPENTIN 300 MG (NEURONTIN) CAP PO SCH (20:22)
[2022-09-12] MEDS: FLUTICASONE NASAL SPRAY (FLONASE) 16 GM BTL NS SCH (20:23)
[2022-09-12] MEDS ORDERED: NON-FORMULARY MEDICATION 1 EA EA (Budesonide/Formoterol Fumarate (Symbicort 160-4.5 Mcg In IH SCH (21:00)
[2022-09-12] MEDS: AIRDUO RESPICLICK IH SCH (22:20)
[2022-09-13] MEDS: RT-ALBUTEROL SULF 2.5 MG/3 ML PRE-MIX VIAL IH SCH ×5 (02:53→18:55)
[2022-09-13 04:00] VITALS: BP 108/65
[2022-09-13] MEDS: KCL 20 MEQ TAB (K-DUR) PO SCH (06:10)
[2022-09-13 06:20] LABS: EOSINOPHILS % (AUTO) 1 % (0-10); MEAN CORPUSCULAR VOLUME 90 fL (80-99)
[2022-09-13 06:22] LABS: BASOPHILS % (AUTO) 1 % (0-10); HEMATOCRIT 41 % (40-54); HEMOGLOBIN 15.1 g/dL (13.3-17.7); LYMPHOCYTES # (AUTO) 1.7 10^3/uL (1.0-4.0); LYMPHOCYTES % (AUTO) 43 % (12-44); MEAN CORPUSCULAR HEMOGLOBIN 33 pg (25-34); MEAN CORPUSCULAR HGB CONC 37 g/dL (32-36); MEAN PLATELET VOLUME 10.5 fL (9.0-12.2); MONOCYTES # (AUTO) 0.6 10^3/uL (0.0-1.0); MONOCYTES % (AUTO) 15 % (0-12); NEUTROPHILS # (AUTO) 1.7 10^3/uL (1.8-7.8); NEUTROPHILS % (AUTO) 41 % (42-75); PLATELET COUNT 93 10^3/uL (130-400); WHITE BLOOD COUNT 4.1 10^3/uL (4.3-11.0)
[2022-09-13] MEDS: AIRDUO RESPICLICK IH SCH (06:35)
[2022-09-13 06:39] LABS: ALANINE AMINOTRANSFERASE 16 U/L (0-55); ALBUMIN 3.5 GM/DL (3.2-4.5); ALKALINE PHOSPHATASE 57 U/L (40-136); BUN/CREATININE RATIO 3; CALCIUM 9.4 MG/DL (8.5-10.1); CARBON DIOXIDE 26 MMOL/L (21-32); CHLORIDE 99 MMOL/L (98-107); GFR ESTIMATED 103; GLUCOSE 98 MG/DL (70-105); SODIUM 134 MMOL/L (135-145); TOTAL PROTEIN 5.9 GM/DL (6.4-8.2)
[2022-09-13 06:45] LABS: VALPROIC ACID 86.4 UG/ML (50.0-100.0)
[2022-09-13 07:49] VITALS: BP 146/62
[2022-09-13] MEDS ORDERED: FLUTICASONE/VILANTEROL 200 MCG 14'S (BREO) IH SCH (08:00)
[2022-09-13] MEDS ORDERED: KCL 20 MEQ TAB (K-DUR) PO SCH ×2 (08:00→09:00)
[2022-09-13] MEDS: PANTOPRAZOLE 40 MG (PROTONIX) TAB PO SCH (08:05)
[2022-09-13] MEDS: LOSARTAN 25 MG (COZAAR) TAB PO SCH (08:05)
[2022-09-13] MEDS: CLOPIDOGREL 75 MG (PLAVIX) TABLET PO SCH (08:05)
[2022-09-13] MEDS: ROSUVASTATIN 10 MG (CRESTOR) TABLET PO SCH (08:05)
[2022-09-13] MEDS: LORATADINE (CLARITIN) 10 MG TAB PO SCH (08:05)
[2022-09-13] MEDS: DOCUSATE SODIUM 100 MG (COLACE) CAP PO SCH ×2 (08:06→19:30)
[2022-09-13] MEDS: ALLOPURINOL 300 MG (ZYLOPRIM) TAB PO SCH (08:06)
[2022-09-13] MEDS: VITAMIN D3 125 MCG (5,000 UNITS) CAPSULE PO SCH (08:06)
[2022-09-13] MEDS: ENOXAPARIN 40 MG/0.4 ML (LOVENOX) SYR SC SCH (08:06)
[2022-09-13] MEDS: BETHANECHOL 25 MG (URECHOLINE) TAB PO SCH ×4 (08:06→19:30)
[2022-09-13] MEDS: SENNOSIDES 8.6 MG (SENOKOT) TAB PO SCH ×2 (08:07→19:30)
[2022-09-13] MEDS ORDERED: CETIRIZINE HCL 10 MG PO SCH (09:00)
[2022-09-13] MEDS ORDERED: COLESTIPOL 1 GM (COLESTID) TAB PO SCH (09:00)
--- NOTE | 2022-09-13 10:46 | Cardiology Progress Note ---
Subjective Date Seen by Provider: Sep 13, 2022 Time Seen by Provider: 10:46 Subjective/Events-last exam Patient was seen at bedside, sitting comfortably, feeling better. No new complaint Objective-Cardiology Exam Last Set of Vital Signs Vital Signs 09/12/22 09/13/22 09/13/22 09/13/22 03:23 06:41 07:49 08:00 Temp 36.0 Pulse 106 Resp 20 B/P (MAP) 146/62 (90) Pulse Ox 96 O2 Delivery Room Air O2 Flow Rate 0.00 FiO2 21 I&O Intake and Output 09/13/22 00:00 Intake Total 450 ml Output Total 1800 ml Balance -1350 ml Intake Oral 450 ml Output Urine Total 1800 ml # Voids 4 Daily Weight Change Unsure General: Alert, Oriented X3, Cooperative HEENT: Atraumatic, PERRLA Neck: Supple, No JVD, No Thyromegaly Lungs: Clear to Auscultation, Normal Air Movement Heart: Regular Rate, Normal S1, Normal S2, No Murmurs Abdomen: Normal Bowel Sounds, Soft, No Tenderness, No Hepatosplenomegaly, No Masses Extremities: No Clubbing, No Cyanosis, No Edema, Normal Pulses, No Tenderness/Swelling Skin: No Rashes, No Breakdown, No Significant Lesion Neuro: Normal Gait, Normal Speech, Strength at 5/5 X4 Ext, Normal Tone, Sensation Intact Psych/Mental Status: Mood NL Results Lab Laboratory Tests 09/13/22 05:56 A/P-Cardiology Admission Diagnosis Chest pain Coronary artery disease Hypertension Complete heart block Assessment/Plan Chest pain atypical in presentation, musculoskeletal. EKG and cardiac enzymes did not show any acute abnormality. Reassured at this time. Okay for discharge and follow-up as an outpatient History of chronic recurrent chest pain, Had cardiac catheterization done in September 2019 showing small coronary system with mild disease nonobstructive disease. Hyponatremia, improved, managed by primary care physician Dyspnea on exertion, underlying COPD. No change from baseline 2D echo was done on August 27, 2020 showing normal LV size with EF 55 to 65%, apical hypokinesia, mild aortic regurgitation. Coronary artery disease, nonobstructive coronary artery disease per cardiac catheterization August 2012, and September 2019. No significant obstructive disease was noted. Continue to monitor Congestive heart failure, improved, last echocardiogram done in January 2018 showing ejection fraction 55-65 percent. Sick sinus syndrome, history of congenital complete heart block. History of permanent pacemaker, Continue to monitor History of brief episode of A. fib, resolved, pacemaker interrogation showed one episode of atrial fibrillation lasted for 16 hours, asymptomatic. Continue to monitor [id number] score of 1, yearly risk of stroke without oral anticoagulation is 1.3 percent. On aspirin 325 mg daily Hypertension, restart home medication monitor blood pressure Hyperlipidemia, Monitor lipids History of spinal meningitis at the age of 4 Mild bilateral nonobstructive carotid artery stenosis, most recent carotid du plex July 2018, I will evaluate carotid ultrasound Left shoulder pain, reporting improvement. Continue to monitor Arthritis TON SALDANA MD Sep 13, 2022 10:46
--- NOTE | 2022-09-13 10:55 | Progress Note ---
Subjective Date Seen by a Provider: Sep 13, 2022 Time Seen by a Provider: 11:00 Subjective/Events-last exam No major issues Valproic acid level 88 Restart Valproic at 500mg PO BID No falls Review of Systems General: Fatigue, Malaise Objective Exam Last Set of Vital Signs Vital Signs Date Time Temp Pulse Resp B/P (MAP) Pulse Ox O2 Delivery O2 Flow Rate FiO2 09/13/22 08:00 96 Room Air 09/13/22 07:49 36.0 106 20 146/62 (90) 09/13/22 06:41 0.00 09/12/22 03:23 21 Capillary Refill : Less Than 3 Seconds I&O Intake and Output 09/13/22 00:00 Intake Total 450 ml Output Total 1800 ml Balance -1350 ml Intake Oral 450 ml Output Urine Total 1800 ml # Voids 4 Daily Weight Change Unsure General: Alert, Oriented X3, Cooperative, No Acute Distress Lungs: Clear to Auscultation, Normal Air Movement Heart: Regular Rate, Normal S1, Normal S2, No Murmurs Psych/Mental Status: Mental Status NL, Mood NL Results Lab Laboratory Tests 09/13/22 05:56: White Blood Count 4.1L, Red Blood Count 4.60, Hemoglobin 15.1, Hematocrit 41, Mean Corpuscular Volume 90, Mean Corpuscular Hemoglobin 33, Mean Corpuscular Hemoglobin Concent 37H, Red Cell Distribution Width 14.7H, Platelet Count 93L, Mean Platelet Volume 10.5, Immature Granulocyte % (Auto) 1, Neutrophils (%) (Auto) 41L, Lymphocytes (%) (Auto) 43, Monocytes (%) (Auto) 15H, Eosinophils (%) (Auto) 1, Basophils (%) (Auto) 1, Neutrophils # (Auto) 1.7L, Lymphocytes # (Auto) 1.7, Monocytes # (Auto) 0.6, Eosinophils # (Auto) 0.0, Basophils # (Auto) 0.0, Immature Granulocyte # (Auto) 0.0, Percent Immature Platelet Fraction 4.7, Sodium Level 134L, Potassium Level 3.0L, Chloride Level 99, Carbon Dioxide Level 26, Anion Gap 9, Blood Urea Nitrogen < 2L, Creatinine 0.80, Estimat Glomerular Filtration Rate 103, BUN/Creatinine Ratio 3, Glucose Level 98, Calcium Level 9.4, Corrected Calcium 9.8, Total Bilirubin 1.0, Aspartate Amino Transf (AST/SGOT) 26, Alanine Aminotransferase (ALT/SGPT) 16, Alkaline Phosphatase 57, Total Protein 5.9L, Albumin 3.5, Valproic Acid (Depakene) Level 86.4 Assessment/Plan Assessment/Plan Assess & Plan/Chief Complaint Assessment: Fall Chronic chest pain Hyponatremia Weakness Intellectual delay Atrial fibrillation Hypertension Hypokalemia Valproic acid toxic level Plan: Supportive care Fluid restriction Restart Valproic acid at 500mg PO BID PT and OT GEORGETTE BARRY DO Sep 13, 2022 10:55
[2022-09-13] MEDS: DIVALPROEX EXT RELEASE 250 MG (DEPAKOTE ER) TAB PO SCH ×2 (11:07→19:30)
[2022-09-13 11:11] VITALS: BP 104/70
[2022-09-13 15:55] VITALS: BP 131/98
[2022-09-13] MEDS: GABAPENTIN 300 MG (NEURONTIN) CAP PO SCH (19:32)
[2022-09-13] MEDS: FLUTICASONE NASAL SPRAY (FLONASE) 16 GM BTL NS SCH (19:32)
[2022-09-13 19:40] VITALS: BP 98/56
[2022-09-13] MEDS ORDERED: RT-ALBUTEROL SULF 2.5 MG/3 ML PRE-MIX VIAL IH PRN (20:00)
[2022-09-13 23:16] VITALS: BP 109/74
[2022-09-14 03:48] VITALS: BP 105/63
[2022-09-14] MEDS: KCL 20 MEQ TAB (K-DUR) PO SCH (06:05)
[2022-09-14 06:08] LABS: BASOPHILS % (AUTO) 1 % (0-10); EOSINOPHILS # (AUTO) 0.1 10^3/uL (0.0-0.3); EOSINOPHILS % (AUTO) 1 % (0-10); HEMATOCRIT 41 % (40-54); HEMOGLOBIN 14.3 g/dL (13.3-17.7); LYMPHOCYTES # (AUTO) 2.9 10^3/uL (1.0-4.0); LYMPHOCYTES % (AUTO) 44 % (12-44); MEAN CORPUSCULAR HEMOGLOBIN 32 pg (25-34); MEAN CORPUSCULAR HGB CONC 35 g/dL (32-36); MEAN CORPUSCULAR VOLUME 91 fL (80-99); MEAN PLATELET VOLUME 10.3 fL (9.0-12.2); MONOCYTES % (AUTO) 15 % (0-12); NEUTROPHILS # (AUTO) 2.6 10^3/uL (1.8-7.8); NEUTROPHILS % (AUTO) 39 % (42-75); PLATELET COUNT 94 10^3/uL (130-400); WHITE BLOOD COUNT 6.7 10^3/uL (4.3-11.0)
[2022-09-14 06:38] LABS: ALANINE AMINOTRANSFERASE 19 U/L (0-55); ALBUMIN 3.3 GM/DL (3.2-4.5); ALKALINE PHOSPHATASE 60 U/L (40-136); BILIRUBIN,TOTAL 1.1 MG/DL (0.1-1.0); BUN/CREATININE RATIO 3; CALCIUM 9.2 MG/DL (8.5-10.1); CARBON DIOXIDE 27 MMOL/L (21-32); CHLORIDE 99 MMOL/L (98-107); CREATININE SERUM 0.78 MG/DL (0.60-1.30); GFR ESTIMATED 103; GLUCOSE 85 MG/DL (70-105); POTASSIUM 3.7 MMOL/L (3.6-5.0); SODIUM 133 MMOL/L (135-145); TOTAL PROTEIN 5.5 GM/DL (6.4-8.2)
[2022-09-14] MEDS ORDERED: FUROSEMIDE 40 MG (LASIX) TAB PO SCH (07:00)
[2022-09-14] MEDS: AIRDUO RESPICLICK IH SCH (07:16)
[2022-09-14] MEDS ORDERED: MAGNESIUM OXIDE (MAG-OX)400 MG TAB PO SCH (08:00)
[2022-09-14] MEDS ORDERED: KCL 20 MEQ TAB (K-DUR) PO SCH (08:00)
[2022-09-14 08:22] VITALS: BP 102/70
[2022-09-14] MEDS: ALLOPURINOL 300 MG (ZYLOPRIM) TAB PO SCH (09:03)
[2022-09-14] MEDS: LORATADINE (CLARITIN) 10 MG TAB PO SCH (09:04)
[2022-09-14] MEDS: CLOPIDOGREL 75 MG (PLAVIX) TABLET PO SCH (09:04)
[2022-09-14] MEDS: ROSUVASTATIN 10 MG (CRESTOR) TABLET PO SCH (09:04)
[2022-09-14] MEDS: DIVALPROEX EXT RELEASE 250 MG (DEPAKOTE ER) TAB PO SCH (09:04)
[2022-09-14] MEDS: VITAMIN D3 125 MCG (5,000 UNITS) CAPSULE PO SCH (09:04)
[2022-09-14] MEDS: SENNOSIDES 8.6 MG (SENOKOT) TAB PO SCH (09:05)
[2022-09-14] MEDS: BETHANECHOL 25 MG (URECHOLINE) TAB PO SCH (09:05)
[2022-09-14] MEDS: DOCUSATE SODIUM 100 MG (COLACE) CAP PO SCH (09:05)
[2022-09-14] MEDS: LOSARTAN 25 MG (COZAAR) TAB PO SCH (09:05)
[2022-09-14] MEDS: ENOXAPARIN 40 MG/0.4 ML (LOVENOX) SYR SC SCH (09:05)
[2022-09-14] MEDS: PANTOPRAZOLE 40 MG (PROTONIX) TAB PO SCH (09:05)
--- NOTE | 2022-09-14 09:37 | Cardiology Progress Note ---
Subjective Date Seen by Provider: Sep 14, 2022 Time Seen by Provider: 08:40 Subjective/Events-last exam Patient is sitting up in chair, denies any further episode of chest pain, denies any dyspnea. Objective-Cardiology Exam Last Set of Vital Signs Vital Signs 09/13/22 09/14/22 09/14/22 19:45 07:16 08:22 Temp 36.0 Pulse 100 Resp 18 B/P (MAP) 102/70 (81) Pulse Ox 100 O2 Delivery Room Air O2 Flow Rate 0.00 FiO2 21 I&O Intake and Output 09/14/22 00:00 Intake Total 922 ml Output Total 1880 ml Balance -958 ml Intake Oral 922 ml Output Urine Total 1880 ml # Voids 7 General: Alert, Oriented X3, Cooperative, No Acute Distress HEENT: Atraumatic, PERRLA Neck: Supple, No JVD, No Thyromegaly Lungs: Clear to Auscultation, Normal Air Movement Heart: Regular Rate, Normal S1, Normal S2, No Murmurs Abdomen: Normal Bowel Sounds, Soft, No Tenderness, No Hepatosplenomegaly, No Masses Extremities: No Clubbing, No Cyanosis, No Edema, Normal Pulses, No Tenderness/Swelling Skin: No Rashes, No Breakdown, No Significant Lesion Neuro: Normal Gait, Normal Speech, Strength at 5/5 X4 Ext, Normal Tone, Sensation Intact Psych/Mental Status: Mental Status NL, Mood NL Results Lab Laboratory Tests 09/14/22 05:00 A/P-Cardiology Admission Diagnosis Chest pain Coronary artery disease Hypertension Complete heart block Assessment/Plan Chest pain atypical in presentation, musculoskeletal. EKG and cardiac enzymes did not show any acute abnormality. Reassured at this time. Okay for discharge and follow-up as an outpatient History of chronic recurrent chest pain, Had cardiac catheterization done in September 2019 showing small coronary system with mild disease nonobstructive disease. Hyponatremia, improved, managed by primary care physician Dyspnea on exertion, underlying COPD. No change from baseline Coronary artery disease, nonobstructive coronary artery disease per cardiac catheterization August 2012, and September 2019. No significant obstructive disease was noted. Continue to monitor Congestive heart failure, improved,2D echo was done on April 2022 showing normal LV size with EF 65-70%, mild aortic regurgitation. Sick sinus syndrome, history of congenital complete heart block. History of permanent pacemaker, Continue to monitor History of brief episode of A. fib, resolved, pacemaker interrogation showed one episode of atrial fibrillation lasted for 16 hours, asymptomatic. Continue to monitor [id number] score of 1, yearly risk of stroke without oral anticoagulation is 1.3 percent. On aspirin 325 mg daily Hypertension, controlled, continue to monitor. Hyperlipidemia, Monitor lipids History of spinal meningitis at the age of 4 Mild bilateral nonobstructive carotid artery stenosis, most recent carotid duplex April 2022 Left shoulder pain, reporting improvement. Continue to monitor Arthritis Supervisory-Addendum Brief Supervisory Addendum Participated in pt care: history, MDM, physical Personally performed: exam, history, MDM Care discussed with: NATE Results interpretation: Verified all documentation Notes: Patient was seen and evaluated with Conner, examination performed, management plan was discussed, agree with the current scribed note, I made few changes to the note using Italic font Patient was seen at bedside, sitting comfortably Still having generalized body ache No chest pain. No palpitation Okay for discharge, Initiate physical therapy and gait training CONNER KIM Sep 14, 2022 09:37 TON SALDANA MD Sep 14, 2022 09:39
[2022-09-14] MEDS ORDERED: DIVA250T12 PO (10:42)
[2022-09-14] MEDS ORDERED: CLOP75TA28 PO (10:42)
--- NOTE | 2022-09-14 10:42 | Discharge Summary ---
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 Cardiology consulted for cardiac dysfunction.. PT OT ordered for falls acute on chronic and found to be back to baseline. Adjusted Valproic acid dosing at time of DC once level became within normal range. Labs (last 24 hrs) Laboratory Tests 09/11/22 20:45: Prothrombin Time 15.0H, INR Comment 1.2, Activated Partial Thromboplast Time 39H , Sodium Level 125*L, Potassium Level 3.2L, Chloride Level 90L, Carbon Dioxide Level 26, Anion Gap 9, Blood Urea Nitrogen 2L, Creatinine 0.82, Estimat Glomerular Filtration Rate 102, BUN/Creatinine Ratio 2, Glucose Level 96, Adolfo cium Level 8.8, Corrected Calcium 9.4, Magnesium Level 1.5L, Total Bilirubin 1.0, Aspartate Amino Transf (AST/SGOT) 22, Alanine Aminotransferase (ALT/SGPT) 12, Alkaline Phosphatase 50, Total Creatine Kinase 199, Creatine Kinase MB 5.5, Myoglobin 83.4, Troponin I 0.028, B-Type Natriuretic Peptide 36.8, Total Protein 5.3L, Albumin 3.2, Amylase Level 18L, Lipase 20, Valproic Acid (Depakene) Level 144.2H 09/11/22 21:30: White Blood Count 4.6, Red Blood Count 4.40, Hemoglobin 14.1, Hematocrit 39L, Mean Corpuscular Volume 88, Mean Corpuscular Hemoglobin 32, Mean Corpuscular Hemoglobin Concent 36, Red Cell Distribution Width 14.6H, Platelet Count 88L, Mean Platelet Volume 9.3, Immature Granulocyte % (Auto) 1, Neutrophils (%) (Auto) 43, Lymphocytes (%) (Auto) 42, Monocytes (%) (Auto) 13H, Eosinophils (%) (Auto) 1, Basophils (%) (Auto) 0, Neutrophils # (Auto) 2.0, Lymphocytes # (Auto) 2.0, Monocytes # (Auto) 0.6, Eosinophils # (Auto) 0.0, Basophils # (Auto) 0.0, Immature Granulocyte # (Auto) 0.0, Percent Immature Platelet Fraction 6.1, Smear Scan YES 09/12/22 07:20: Sodium Level 132L, Potassium Level 3.0L, Chloride Level 95L, Carbon Dioxide Level 28, Anion Gap 9, Blood Urea Nitrogen < 2L, Creatinine 0.77, Estimat Glomerular Filtration Rate 104, BUN/Creatinine Ratio 3, Glucose Level 78, Calcium Level 9.0, Corrected Calcium 9.6, Total Bilirubin 0.9, Aspartate Amino Transf (AST/SGOT) 28, Alanine Aminotransferase (ALT/SGPT) 15, Alkaline Phosphatase 54, Total Protein 5.6L, Albumin 3.3, Valproic Acid (Depakene) Level 122.0H, White Blood Count 3.2L, Red Blood Count 4.55, Hemoglobin 14.7, Hematoc rit 40, Mean Corpuscular Volume 88, Mean Corpuscular Hemoglobin 32, Mean Corpuscular Hemoglobin Concent 37H, Red Cell Distribution Width 14.6H, Platelet Count 73L, Mean Platelet Volume 9.6, Immature Granulocyte % (Auto) 1, Neutrophils (%) (Auto) 40L, Lymphocytes (%) (Auto) 43, Monocytes (%) (Auto) 15H, Eosinophils (%) (Auto) 0, Basophils (%) (Auto) 0, Neutrophils # (Auto) 1.3L, Lymphocytes # (Auto) 1.4, Monocytes # (Auto) 0.5, Eosinophils # (Auto) 0.0, Basophils # (Auto) 0.0, Immature Granulocyte # (Auto) 0.0 09/13/22 05:56: Sodium Level 134L, Potassium Level 3.0L, Chloride Level 99, Carbon Dioxide Level 26, Anion Gap 9, Blood Urea Nitrogen < 2L, Creatinine 0.80, Estimat Glomerular Filtration Rate 103, BUN/Creatinine Ratio 3, Glucose Level 98, Calcium Level 9.4, Corrected Calcium 9.8, Total Bilirubin 1.0, Aspartate Amino Transf (AST/SGOT) 26, Alanine Aminotransferase (ALT/SGPT) 16, Alkaline Phosphatase 57, Total Protein 5.9L, Albumin 3.5, Valproic Acid (Depakene) Level 86.4, White Blood Count 4.1L, Red Blood Count 4.60, Hemoglobin 15.1, Hematocrit 41, Mean Corpuscular Volume 90, Mean Corpuscular Hemoglobin 33, Mean Corpuscular Hemoglobin Concent 37H, Red Cell Distribution Width 14.7H, Platelet Count 93L, Mean Platelet Volume 10.5, Immature Granulocyte % (Auto) 1, Neutrophils (%) (Auto) 41L, Lymphocytes (%) (Auto) 43, Monocytes (%) (Auto) 15H, Eosinophils (%) (Auto) 1, Basophils (%) (Auto) 1, Neutrophils # (Auto) 1.7L, Lymphocytes # (Auto) 1.7, Monocytes # (Auto) 0.6, Eosinophils # (Auto) 0.0, Basophils # (Auto) 0.0, Immature Granulocyte # (Auto) 0.0, Percent Immature Platelet Fraction 4.7 09/14/22 05:00: White Blood Count 6.7, Red Blood Count 4.48, Hemoglobin 14.3, Hematocrit 41, Mean Corpuscular Volume 91, Mean Corpuscular Hemoglobin 32, Mean Corpuscular Hemoglobin Concent 35, Red Cell Distribution Width 15.1H, Platelet Count 94L, Mean Platelet Volume 10.3, Immature Granulocyte % (Auto) 1, Neutrophils (%) (Auto) 39L, Lymphocytes (%) (Auto) 44, Monocytes (%) (Auto) 15H, Eosinophils (%) (Auto) 1, Basophils (%) (Auto) 1, Neutrophils # (Auto) 2.6, Lymphocytes # (Auto) 2.9, Monocytes # (Auto) 1.0, Eosinophils # (Auto) 0.1, Basophils # (Auto) 0.0, Immature Granulocyte # (Auto) 0.0, Percent Immature Platelet Fraction 6.0, Sodium Level 133L, Potassium Level 3.7, Chloride Level 99, Carbon Dioxide Level 27, Anion Gap 7, Blood Urea Nitrogen < 2L, Creatinine 0.78, Estimat Glomerular Filtration Rate 103, BUN/Creatinine Ratio 3, Glucose Level 85, Calcium Level 9.2, Corrected Calcium 9.8, Total Bilirubin 1.1H, Aspartate Amino Transf (AST/SGOT) 41H, Alanine Aminotransferase (ALT/SGPT) 19, Alkaline Phosphatase 60, Total Protein 5.5L, Albumin 3.3 Pending Labs Laboratory Tests 09/11/22 20:45: Prothrombin Time 15.0, INR Comment 1.2, Activated Partial Thromboplast Time 39, Sodium Level 125, Potassium Level 3.2, Chloride Level 90, Carbon Dioxide Level 26, Anion Gap 9, Blood Urea Nitrogen 2, Creatinine 0.82, Estimat Glomerular Filtration Rate 102, BUN/Creatinine Ratio 2, Glucose Level 96, Calcium Level 8.8, Corrected Calcium 9.4, Magnesium Level 1.5, Total Bilirubin 1.0, Aspartate Amino Transf (AST/SGOT) 22, Alanine Aminotransferase (ALT/SGPT) 12, Alkaline Phosphatase 50, Total Creatine Kinase 199, Creatine Kinase MB 5.5, Myoglobin 83.4, Troponin I 0.028, B-Type Natriuretic Peptide 36.8, Total Protein 5.3, Albumin 3.2, Amylase Level 18, Lipase 20, Valproic Acid (Depakene) Level 144.2 09/11/22 21:30: White Blood Count 4.6, Red Blood Count 4.40, Hemoglobin 14.1, Hematocrit 39, Mean Corpuscular Volume 88, Mean Corpuscular Hemoglobin 32, Mean Corpuscular Hemoglobin Concent 36, Red Cell Distribution Width 14.6, Platelet Count 88, Mean Platelet Volume 9.3, Immature Granulocyte % (Auto) 1, Neutrophils (%) (Auto) 43, Lymphocytes (%) (Auto) 42, Monocytes (%) (Auto) 13, Eosinophils (%) (Auto) 1, Basophils (%) (Auto) 0, Neutrophils # (Auto) 2.0, Lymphocytes # (Auto) 2.0, Monocytes # (Auto) 0.6, Eosinophils # (Auto) 0.0, Basophils # (Auto) 0.0, Immature Granulocyte # (Auto) 0.0, Percent Immature Platelet Fraction 6.1, Smear Scan YES 09/12/22 07:20: Sodium Level 132, Potassium Level 3.0, Chloride Level 95, Carbon Dioxide Level 28, Anion Gap 9, Blood Urea Nitrogen < 2, Creatinine 0.77, Estimat Glomerular Filtration Rate 104, BUN/Creatinine Ratio 3, Glucose Level 78, Calcium Level 9.0, Corrected Calcium 9.6, Total Bilirubin 0.9, Aspartate Amino Transf (AST/SGOT) 28, Alanine Aminotransferase (ALT/SGPT) 15, Alkaline Phosphatase 54, Total Protein 5.6, Albumin 3.3, Valproic Acid (Depakene) Level 122.0, White Blood Count 3.2, Red Blood Count 4.55, Hemoglobin 14.7, Hematocrit 40, Mean Corpuscular Volume 88, Mean Corpuscular Hemoglobin 32, Mean Corpuscular Hemoglobin Concent 37, Red Cell Distribution Width 14.6, Platelet Count 73, Mean Platelet Volume 9.6, Immature Granulocyte % (Auto) 1, Neutrophils (%) (Auto) 40, Lymphocytes (%) (Auto) 43, Monocytes (%) (Auto) 15, Eosinophils (%) (Auto) 0, Basophils (%) (Auto) 0, Neutrophils # (Auto) 1.3, Lymphocytes # (Auto) 1.4, Monocytes # (Auto) 0.5, Eosinophils # (Auto) 0.0, Basophils # (Auto) 0.0, Immature Granulocyte # (Auto) 0.0 09/13/22 05:56: Sodium Level 134, Potassium Level 3.0, Chloride Level 99, Carbon Dioxide Level 26, Anion Gap 9, Blood Urea Nitrogen < 2, Creatinine 0.80, Estimat Glomerular Filtration Rate 103, BUN/Creatinine Ratio 3, Glucose Level 98, Calcium Level 9.4, Corrected Calcium 9.8, Total Bilirubin 1.0, Aspartate Amino Transf (AST/SGOT) 26, Alanine Aminotransferase (ALT/SGPT) 16, Alkaline Phosphatase 57, Total Protein 5.9, Albumin 3.5, Valproic Acid (Depakene) Level 86.4, White Blood Count 4.1, Red Blood Count 4.60, Hemoglobin 15.1, Hematocrit 41, Mean Corpuscular Volume 90, Mean Corpuscular Hemoglobin 33, Mean Corpuscular Hemoglobin Concent 37, Red Cell Distribution Width 14.7, Platelet Count 93, Mean Platelet Volume 10.5, Immature Granulocyte % (Auto) 1, Neutrophils (%) (Auto) 41, Lymphocytes (%) (Auto) 43, Monocytes (%) (Auto) 15, Eosinophils (%) (Auto) 1, Basophils (%) (Auto) 1, Neutrophils # (Auto) 1.7, Lymphocytes # (Auto) 1.7, Monocytes # (Auto) 0.6, Eosinophils # (Auto) 0.0, Basophils # (Auto) 0.0, Immature Granulocyte # (Auto) 0.0, Percent Immature Platelet Fraction 4.7 09/14/22 05:00: White Blood Count 6.7, Red Blood Count 4.48, Hemoglobin 14.3, Hematocrit 41, Mean Corpuscular Volume 91, Mean Corpuscular Hemoglobin 32, Mean Corpuscular Hemoglobin Concent 35, Red Cell Distribution Width 15.1, Platelet Count 94, Mean Platelet Volume 10.3, Immature Granulocyte % (Auto) 1, Neutrophils (%) (Auto) 39, Lymphocytes (%) (Auto) 44, Monocytes (%) (Auto) 15, Eosinophils (%) (Auto) 1, Basophils (%) (Auto) 1, Neutrophils # (Auto) 2.6, Lymphocytes # (Auto) 2.9, Monocytes # (Auto) 1.0, Eosinophils # (Auto) 0.1, Basophils # (Auto) 0.0, Immature Granulocyte # (Auto) 0.0, Percent Immature Platelet Fraction 6.0, Sodium Level 133, Potassium Level 3.7, Chloride Level 99, Carbon Dioxide Level 27, Anion Gap 7, Blood Urea Nitrogen < 2, Creatinine 0.78, Estimat Glomerular Filtration Rate 103, BUN/Creatinine Ratio 3, Glucose Level 85, Calcium Level 9.2, Corrected Calcium 9.8, Total Bilirubin 1.1, Aspartate Amino Transf (AST/SGOT) 41, Alanine Aminotransferase (ALT/SGPT) 19, Alkaline Phosphatase 60, Total Protein 5.5, Albumin 3.3 Discharge Home Medications: Active Scripts Active Divalproex Sodium ER (Divalproex Sodium) 250 Mg Tab.er.24h 500 Mg PO BID Clopidogrel (Clopidogrel Bisulfate) 75 Mg Tablet 75 Mg PO DAILY Ventolin Hfa (Albuterol Sulfate) 18 Gm Hfa.aer.ad 0 Gm IH RTQ4HR Use BID in between symbicort Magnesium (Magnesium Oxide) 400 Mg Capsule 400 Mg PO ,, Allopurinol 300 Mg Tablet 300 Mg PO M, W, M, W, Symbicort 160-4.5 Mcg Inhaler (Budesonide/Formoterol Fumarate) 10.2 Gm Hfa.aer.ad 2 Puff IH BID Potassium Chloride 20 Meq Tab.er.prt 40 Meq PO DAILY Wednesday, Wednesday, and Wednesday when takes lasix and only 20meq all other days Furosemide 40 Mg Tablet 40 Mg PO M, W, F Only take Wednesday, Wednesday and Wednesday Reported Gabapentin 100 Mg Capsule 300 Mg PO HS Fluticasone Propionate 50 Mcg/Actuation [place].susp 2 Sprays NA HS Losartan Potassium 25 Mg Tablet 25 Mg PO DAILY Vitamin D3 (Cholecalciferol (Vitamin D3)) 125 Mcg (5000 Unit) Tablet 125 Mcg PO DAILY [Bethanechol Chloride] 50 Mg PO QID Pantoprazole Sodium 40 Mg Tablet.dr 40 Mg PO DAILY Children's Cetirizine HCl (Cetirizine HCl) 10 Mg Tab.chew 10 Mg PO DAILY Colestid (Colestipol HCl) 1 Gm Tab 1 Gm PO Q48H Rosuvastatin Calcium 10 Mg Tablet 10 Mg PO DAILY Instructions to patient/family Please see electronic discharge instructions given to patient. GEORGETTE BARRY DO Sep 14, 2022 10:42
--- NOTE | 2022-09-14 11:01 | Physical Therapy Daily Note ---
PT Daily Note-Current Subjective Patient agrees to PT. Pain Section J - Health Conditions 1. Rarely or not at all 2. Occasionally 3. Frequently 4. Almost constantly 8. Unable to answer Pain Effect on Sleep: 1 Pain Interference with Therapy: 1 Pain Interference w/Day-to-Day: 1 Mental Status Patient Orientation: Person, Time, Situation Transfers SCALE: Activities may be completed with or without assistive devices. 8-Hewmngcvut-qhjbeqi completes the activity by him/herself with no assistance from a helper. 5-Set-up or Clean-up Assistance-helper sets up or cleans up; patient completes activity. [place] assists only prior to or following the activity. 4-Supervision or Touching Assistance-helper provides verbal cues and/or touching/steadying and/or contact guard assistance as patient completes activity. Assistance may be provided throughout the activity or intermittently. 3-Partial/Moderate Assistance-helper does LESS THAN HALF the effort. [place] lifts, holds or supports trunk or limbs, but provides less than half the effort. 2-Substantial/Maximal Assistance-helper does MORE THAN HALF the effort. [place] lifts or holds trunk or limbs and provides more than half the effort. 4-Smsrrehrj-jynsfk does ALL the effort. Patient does none of the effort to complete the activity. Or, the assistance of 2 or more helpers is required for the patient to complete the activity. If activity was not attempted, code reason: 7-Patient Refused. 9-Not Applicable-not attempted and the patient did not perform the activity before the current illness, exacerbation or injury. 10-Not Attempted due to Environmental Limitations-(lack of equipment, weather restraints, etc.). 88-Not Attempted due to Medical Conditions or Safety Concerns. Sit to Stand (QC): 5 Weight Bearing Right Lower Extremity: Right Full Weight Bearing Left Lower Extremity: Left Full Weight Bearing Gait Training Distance: 180' Walk 10 feet (QC): 5 Walk 50 ft with 2 Turns(QC): 5 Walk 150 ft (QC): 5 Gait Assistive Device: Cane Small Base Quad safe and functional with no deviation Assessment Patient is currently at PLOF with all gross motor skills . Patient dismiss to home per physician. PT Short Term Goals Short Term Goals Time Frame: Sep 19, 2022 Sit to lyin Lying to sitting on side of be: 6 Sit to stand: 6 Chair/luy-tq-rtdhl transfer: 6 Walk 10 feet: 6 Walk 50 feet with two turns: 6 PT Plan Treatment/Plan Treatment Plan: Discontinue PT Treatment Plan: Bed Mobility, Concurrent Therapy, Education, Functional Activity [place], Functional Strength, Gait, Safety, Therapeutic Exercise, Transfers Treatment Duration: Sep 19, 2022 Frequency: 6 times per week Estimated Hrs Per Day: .25 hour per day Patient and/or Family Agrees t: Yes Time Time In: 1011 Time Out: 1020 DATE: Sep 14, 2022 Total Billed Treatment Time: 9 Total Billed Treatment 1 visit FA 9 min MISHA MURILLO PT Sep 14, 2022 11:01
--- NOTE | 2022-09-14 11:19 | Occupational Therapy Eval ---
OT Evaluation-General/PLF Medical Diagnosis Admission Date Sep 12, 2022 at 02:57 Medical Diagnosis: hyponatremia Onset Date: Sep 11, 2022 Therapy Diagnosis Therapy Diagnosis: weakness Height/Weight Height (Feet): 6 Height (Inches): 0.00 Weight (Pounds): 218 Weight (Ounces): 0.0 Precautions Precautions/Isolations: Seizure, Fall Prevention, Standard Precautions Weight Bear Status Weight Bearing Restriction: Full Weight Bearing Referral Physician: Lana Referral Reason: Evaluation/Treatment Medical History Pertinent Medical History: HTN Additional Medical History 57-year-old male who has a learning disability and per his sister functions at a 10-year-old level who lives at home and has had many falls in the past who presented to the ER with chest pain. Cardiac enzymes are negative. Pacemaker is maintained so Dr. Lau was consulted. Hyponatremia of 125 resulted in fluid restriction and gentle IV fluids overnight which improved the level Social History Home: Single Level Current Living Status: 24 hr care ADL-Prior Level of Function SCALE: Activities may be completed with or without assistive devices. 5-Bgygmvfmrk-hurkdyu completes the activity by him/herself with no assistance from a helper. 5-Set-up or Clean-up Assistance-helper sets up or cleans up; patient completes activity. [place] assists only prior to or following the activity. 4-Supervision or Touching Assistance-helper provides verbal cues and/or touching/steadying and/or contact guard assistance as patient completes activity. Assistance may be provided throughout the activity or intermittently. 3-Partial/Moderate Assistance-helper does LESS THAN HALF the effort. [place] lifts, holds or supports trunk or limbs, but provides less than half the effort. 2-Substantial/Maximal Assistance-helper does MORE THAN HALF the effort. [place] lifts or holds trunk or limbs and provides more than half the effort. 7-Hovzvojmd-sctwtj does ALL the effort. Patient does none of the effort to complete the activity. Or, the assistance of 2 or more helpers is required for the patient to complete the activity. If activity was not attempted, code reason: 7-Patient Refused. 9-Not Applicable-not attempted and the patient did not perform the activity before the current illness, exacerbation or injury. 10-Not Attempted due to Environmental Limitations-(lack of equipment, weather restraints, etc.). 88-Not Attempted due to Medical Conditions or Safety Concerns. Self Care: Needed Some Help Functional Cognition: Needed Some Help Drive Self: No Leisure Interests: Very proud of niece and nephew, opens cell phone to show pictures of kids OT Current Status Subjective Agreeable to Therapy, pleasant and happy Mental Status/Objective Patient Orientation: Person, Place Current Upper Extremity ROM wrist contracture, manipulates utensil and FMC w/ compensation Upper Extremity Coordination IMPAIRED Upper Extremity Strength +3/5 ADL-Treatment Eating (QC): 5 (fluid restrictions) Oral Hygiene (QC): 5 Shower/Bathe Self (QC): 7 Upper Body Dressing (QC): 4 Lower Body Dressing (QC): 4 On/Off Footwear (QC): 4 Toileting Hygiene (QC): 3 Education OT Patient Education: Correct positioning, Modified ADL techniques, Progress toward Goal/Update tx plan, Purpose of tx/functional activities, Reviewed precautions, Rehab process, Safety issues, Transfer techniques, Use of adapted equipment Teaching Recipient: Patient Teaching Methods: Demonstration, Discussion Response to Teaching: Reinforcement Needed OT Bathhouse Attendant Goals [facility] Goals Eating (QC): 6 Oral Hygiene (QC): 5 Toileting Hygiene (QC): 5 Shower/Bathe Self (QC): 5 Upper Body Dressing (QC): 5 Lower Body Dressing (QC): 5 On/Off Footwear (QC): 5 1=Demonstrate adherence to instructed precautions during ADL tasks. 2=Patient will verbalize/demonstrate understanding of assistive devices/modif ications for ADL. 3=Patient will improve strength/tolerance for activity to enable patient to perform ADL's. OT Education/Plan Problem List/Assessment Assessment: Decreased Activ Tolerance, Decreased Safety Aware, Decreased UE Strength, Impaired Self-Care Skills Discharge Recommendations Plan/Recommendations: Continue POC Treatment Plan/Plan of Care Treatment,Training & Education: Yes Patient would benefit from OT for education, treatment and training to promote independence in ADL's, mobility, safety and/or upper extremity function for ADL's. Plan of Care: ADL Retraining, Functional Mobility, Group Exercise/Act as Ind, UE Funct Exercise/Act Treatment Duration: Sep 19, 2022 Frequency: 3 times per week Estimated Hrs Per Day: .25 hour per day Rehab Potential: Good Time Start Time: 10:10 Stop Time: 10:22 DATE: Sep 14, 2022 Total Time Billed (hr/min): 12 Billed Treatment Time EVL 12 RAYMON HERNDON OT Sep 14, 2022 11:19
[2022-09-14 11:50] VITALS: BP 102/70
== END 2022-09-14 11:50 | disposition home or self-care (01) ==
LOC: EDUNIT# 20:29 → ER 20:33 → EDBEDREQ 23:14 → INTOOBSV 09-12 02:57 → CSD 09-12 02:57 → 4TH 09-12 15:13
PROVIDERS: ADMIT Internal Medicine; ATTEND Internal Medicine
DX: E87.1 Hypo-osmolality and hyponatremia (principal); I25.10 Atherosclerotic heart disease of native coronary artery without angina pectoris; R79.89 Other specified abnormal findings of blood chemistry; G89.29 Other chronic pain; R07.89 Other chest pain; R53.1 Weakness; E83.42 Hypomagnesemia; I48.91 Unspecified atrial fibrillation; I11.0 Hypertensive heart disease with heart failure; I50.9 Heart failure, unspecified; I49.5 Sick sinus syndrome; I44.2 Atrioventricular block, complete; E87.6 Hypokalemia; T42.6X1A Poisoning by other antiepileptic and sedative-hypnotic drugs, accidental (unintentional), initial encounter; E78.5 Hyperlipidemia, unspecified; M25.512 Pain in left shoulder; M19.90 Unspecified osteoarthritis, unspecified site; F78.A9 Other genetic related intellectual disability; Z79.82 Long term (current) use of aspirin
CPT/HCPCS: 71045; 73030; 80053 ×4; 80164 ×3; 82150; 82550; 82553; 83690; 83735; 83874; 83880; 84484; 85025 ×4; 85610; 85730; 93005; 93041; 94640 ×4; 94760; 96372 ×3; 96374; 97116; 97161; 97165; 97530; 99284; G0378 ×2; 36415

== ENCOUNTER → 2022-09-21 | Outpatient (CLI) | payer MEDICARE, MEDICAID ==
[~2022-09-21] MED LIST changes: +FLUT16SP22; +GABA-486 PO; +GABA300S3 PO
[2022-09-21 11:06] LABS: CALCIUM 9.2 MG/DL (8.5-10.1); CREATININE SERUM 0.82 MG/DL (0.60-1.30); POTASSIUM 3.3 MMOL/L (3.6-5.0)
== END ==
LOC: LAB 10:29
PROVIDERS: ATTEND Family Medicine
DX: E87.1 Hypo-osmolality and hyponatremia (principal); E87.6 Hypokalemia
CPT/HCPCS: 36415; 80048

== ENCOUNTER 2023-02-04 13:47 | Emergency (ER) | payer MEDICARE, MEDICAID ==
[~2023-02-04] VITALS: Ht 175 cm; Wt 107.0 kg
--- NOTE | 2023-02-04 14:05 | ED General ---
General Chief Complaint: Cardiac/General Problems Stated Complaint: PACEMAKER ISSUES History of Present Illness Date Seen by Provider: Feb 04, 2023 Time Seen by Provider: 14:05 Initial Comments 58-year-old male presents with left arm pain. He reports has been going on since last night. The pain gets worse with any type of movement. Patient has a pacemaker and patient's caregiver was concerned it might be something going on with his pacemaker. Patient does not have any shortness of breath, chest pain or other systemic complaints. Allergies and Home Medications Allergies Coded Allergies: vancomycin (Verified Allergy, Unknown, 12/12/21) Patient Home Medication List Home Medication List Reviewed: Yes Albuterol Sulfate (Ventolin Hfa) 18 Gm Hfa.aer.ad, 0 GM IH RTQ4HR Prescribed by: BEAU SHARPE on 04/08/20 1304 Allopurinol (Allopurinol) 300 Mg Tablet, 300 MG PO M, W, F Prescribed by: BEAU SHARPE on 03/24/20 1020 Budesonide/Formoterol Fumarate (Symbicort 160-4.5 Mcg Inhaler) 10.2 Gm Hfa.aer.ad, 2 PUFF IH BID Prescribed by: BEAU SHARPE on 03/24/20 1019 Cetirizine HCl (Children's Cetirizine HCl) 10 Mg Tab.chew, 10 MG PO DAILY, (Reported) Entered as Reported by: GUERITA HOUSTON on 08/29/19 1022 Cholecalciferol (Vitamin D3) (Vitamin D3) 125 Mcg (5000 Unit) Tablet, 125 MCG PO DAILY, (Reported) Entered as Reported by: NANCIE HENSLEY on 09/26/21 1459 Clopidogrel Bisulfate (Clopidogrel) 75 Mg Tablet, 75 MG PO DAILY Prescribed by: GEORGETTE BARRY on 09/14/22 1042 Colestipol HCl (Colestid) 1 Gm Tab, 1 GM PO Q48H, (Reported) Entered as Reported by: GUERITA HOUSTON on 02/08/19 1147 Divalproex Sodium (Divalproex Sodium ER) 250 Mg Tab.er.24h, 500 MG PO BID Prescribed by: GEORGETTE BARRY on 09/14/22 1042 Fluticasone Propionate (Fluticasone Propionate) 50 Mcg/Actuation [place].susp, 2 SPRAYS NA HS, (Reported) Entered as Reported by: EFRAIN PATRICK on 09/12/22 1251 Furosemide (Furosemide) 40 Mg Tablet, 40 MG PO , W, Prescribed by: BEAU SHARPE on 03/24/20 1019 Gabapentin (Gabapentin) 100 Mg Capsule, 300 MG PO HS, (Reported) Entered as Reported by: EFRAIN PATRICK on 09/12/22 1251 Losartan Potassium (Losartan Potassium) 25 Mg Tablet, 25 MG PO DAILY, (Reported) Entered as Reported by: NANCIE HENSLEY on 09/26/21 1459 Magnesium Oxide (Magnesium) 400 Mg Capsule, 400 MG PO ,, Prescribed by: BEAU SHARPE on 03/24/20 1033 Pantoprazole Sodium (Pantoprazole Sodium) 40 Mg Tablet.dr, 40 MG PO DAILY, (Reported) Entered as Reported by: SANJAY MENDEZ on 11/27/19 1405 Potassium Chloride (Potassium Chloride) 20 Meq Tab.er.prt, 40 MEQ PO DAILY Prescribed by: BEAU SHARPE on 03/24/20 1019 Rosuvastatin Calcium (Rosuvastatin Calcium) 10 Mg Tablet, 10 MG PO DAILY, (Reported) Entered as Reported by: GAY ZAMBRANO on 09/12/18 1503 [Bethanechol Chloride] , 50 MG PO QID, (Reported) Entered as Reported by: GUERITA HOUSTON on 03/11/20 1004 Review of Systems Review of Systems Constitutional: see HPI EENTM: no symptoms reported Respiratory: no symptoms reported Cardiovascular: no symptoms reported Gastrointestinal: no symptoms reported Musculoskeletal: see HPI Skin: no symptoms reported Psychiatric/Neurological: No Symptoms Reported Hematologic/Lymphatic: No Symptoms Reported Past Xuwchdw-Shrwfv-Yqqwor Hx Immunizations Up To Date Tetanus Booster (TDap): Unknown First/Initial COVID19 Vaccinat: YES Second COVID19 Vaccination Román: YES Third COVID19 Vaccination Date: UNK Seasonal Allergies Seasonal Allergies: Yes Past Medical History Surgery/Hospitalization HX: PACEMAKER, HTN, HIGH CHOL, SEIZURES, DEPENDENT EDEMA SURG, TENDON SURG ON L SIDE, MENIGITIS INFANT, APPY Surgeries: Yes (pacer placement, left hand tendon repair;evp and 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 operating officer shunt) Cardiac, Neurological, Orthopedic, Pacemaker Respiratory: Yes (USES INHALER SEASONAL ALLLERGIES) Currently Using CPAP: No Currently Using BIPAP: No Cardiac: Yes (HEART FAILURE, CONGENITAL heart block status post pacemaker;NON- OBSTR CAD) Atrial Fibrillation, Cardiomyopathy, Coronary Artery Disease, High Cholesterol, Hypertension Neurological: Yes (hx meningitis 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, has left-sided neurologic deficits) Developmental Disorder, Paralysis Reproductive Disorders: No Genitourinary: No Gastrointestinal: Yes (GASTRITIS) Gastroesophageal Reflux, Hemorrhoids, Chronic Diarrhea Musculoskeletal: 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 LAST CATH 09/20/[address] 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 COPELAND. -LEFT WRIST/FOREARM TENDON REPAIR -MECHANICAL SPECIALIST SHUNT Physical Exam Vital Signs Vital Signs - First Documented 02/04/23 13:57 Temp 37.4 Pulse 116 Resp 20 B/P (MAP) 111/84 (93) Pulse Ox 97 O2 Delivery Room Air Capillary Refill : Height, Weight, BMI Height: 6'0.00" Weight: 218lbs. 0.0oz. [id number]; 30.18 BMI Method:Stated General Appearance: No Apparent Distress HEENT: PERRL/EOMI Neck: Full Range of Motion Respiratory: Lungs Clear, Normal Breath Sounds Cardiovascular: Regular Rate, Rhythm, No Edema Gastrointestinal: Non Tender Extremity: Normal Capillary Refill, Other (Tenderness left shoulder with reproduction of symptoms with movement.) Neurologic/Psychiatric: Alert, Oriented x3, No Motor/Sensory Deficits, Normal Mood/Affect, urologist II-XII Norm as Tested Skin: Normal Color, Warm/Dry Progress/Results/Core Measures Suspected Sepsis SIRS Temperature: Pulse: Respiratory Rate: Laboratory Tests 02/04/23 14:20: White Blood Count 8.8 Blood Pressure / Mean: Laboratory Tests 02/04/23 14:20: Creatinine 1.04, Platelet Count 237, Total Bilirubin 0.8 Results/Orders Lab Results Laboratory Tests Test 02/04/23 14:20 Range/Units White Blood Count 8.8 4.3-11.0 10^3/uL Red Blood Count 6.63 H 4.30-5.52 10^6/uL Hemoglobin 16.5 13.3-17.7 g/dL Hematocrit 52 40-54 % Mean Corpuscular Volume 79 L 80-99 fL Mean Corpuscular Hemoglobin 25 25-34 pg Mean Corpuscular Hemoglobin Concent 32 32-36 g/dL Red Cell Distribution Width 15.6 H 10.0-14.5 % Platelet Count 237 130-400 10^3/uL Mean Platelet Volume 9.3 9.0-12.2 fL Immature Granulocyte % (Auto) 0 % Neutrophils (%) (Auto) 59 42-75 % Lymphocytes (%) (Auto) 26 12-44 % Monocytes (%) (Auto) 12 0-12 % Eosinophils (%) (Auto) 2 0-10 % Basophils (%) (Auto) 1 0-10 % Neutrophils # (Auto) 5.3 1.8-7.8 10^3/uL Lymphocytes # (Auto) 2.3 1.0-4.0 10^3/uL Monocytes # (Auto) 1.1 H 0.0-1.0 10^3/uL Eosinophils # (Auto) 0.2 0.0-0.3 10^3/uL Basophils # (Auto) 0.1 0.0-0.1 10^3/uL Immature Granulocyte # (Auto) 0.0 0.0-0.1 10^3/uL Sodium Level 133 L 135-145 MMOL/L Potassium Level 3.9 3.6-5.0 MMOL/L Chloride Level 96 L 98-107 MMOL/L Carbon Dioxide Level 27 21-32 MMOL/L Anion Gap 10 5-14 MMOL/L Blood Urea Nitrogen 6 L 7-18 MG/DL Creatinine 1.04 0.60-1.30 MG/DL Estimat Glomerular Filtration Rate 83 BUN/Creatinine Ratio 6 Glucose Level 84 70-105 MG/DL Calcium Level 9.9 8.5-10.1 MG/DL Corrected Calcium 9.7 8.5-10.1 MG/DL Total Bilirubin 0.8 0.1-1.0 MG/DL Aspartate Amino Transf (AST/SGOT) 16 5-34 U/L Alanine Aminotransferase (ALT/SGPT) 12 0-55 U/L Alkaline Phosphatase 72 40-136 U/L Troponin I < 0.028 <0.028 NG/ML Total Protein 7.3 6.4-8.2 GM/DL Albumin 4.3 3.2-4.5 GM/DL My Orders Orders - AMADOR,LAURA L DO Ekg Tracing (02/04/23 14:03) Cbc And Automated Diff (02/04/23 14:05) Comprehensive Metabolic Panel (02/04/23 14:05) Troponin I [place] (02/04/23 14:05) Chest Pa/Lat (2 View) (02/04/23 14:05) Ketorolac Injection (Ketorolac Injection (02/04/23 14:40) Vital Signs/I&O 02/04/23 13:57 Temp 37.4 Pulse 116 Resp 20 B/P (MAP) 111/84 (93) Pulse Ox 97 O2 Delivery Room Air Capillary Refill : Progress Note : Progress Note Patient's diagnostic studies were ordered reviewed and interpreted by me. Patient's labs showed no acute findings with a negative troponin. Patient's EKG shows no abnormalities and his paced rhythm. Patient's pacemaker was evaluated by [employer] and has no acute findings. Patient's chest x-ray was reviewed with initial interpretation negative by me with final interpretation per radiology report. Patient symptoms are consistent with a musculoskeletal pain. He did have some improvement with medication. Recommended he use topical Voltaren or topical lidocaine along with Tylenol and ibuprofen. He was stable and discharged home ECG Initial ECG Impression Date: Feb 04, 2023 Initial ECG Impression Time: 14:09 Initial ECG Rate: 106 Comment Tachycardic, paced rhythm, no acute findings Diagnostic Imaging Diagonstic Imaging: Xray Plain Films/CT/US/NM/MRI: chest Comments Date of Exam:02/04/23 CHEST PA/LAT (2 VIEW) INDICATION: Chest pain, with left arm radiculopathy. PA and lateral chest obtained at 2:42 p.m. and compared with 09/11/2022. FINDINGS: Heart and mediastinal silhouette are normal in appearance. Pacemaker is unchanged. There is no focal infiltrate, pneumothorax, or pleural fluid. IMPRESSION: Unchanged pacemaker device. No focal infiltrate, pneumothorax, or pleural fluid. Reviewed: Reviewed by Me, Reviewed/Discussed Departure Impression Primary Impression: Shoulder pain, left Qualified Codes: M25.512 - Pain in left shoulder Additional Impression: Arthralgia of shoulder region, left Disposition: 01 HOME, SELF-CARE Condition: Stable Departure-Patient Inst. Referrals: BEAU SHARPE DO (PCP/Family) Primary Care Physician Patient Instructions: Shoulder Pain ED Add. Discharge Instructions: 4% topical lidocaine with menthol cream gel or patch use as directed on package. Voltaren/diclofenac cream or gel use as directed on package as needed for pain. Tylenol or ibuprofen every 6-8 hours as needed for pain. Follow-up with your primary care provider in 1 week if symptoms or not improving All discharge instructions reviewed with patient and/or family. Voiced understanding. LAURA AMADOR DO Feb 04, 2023 14:05
[2023-02-04 14:22] LABS: BASOPHILS # (AUTO) 0.1 10^3/uL (0.0-0.1); BASOPHILS % (AUTO) 1 % (0-10); EOSINOPHILS # (AUTO) 0.2 10^3/uL (0.0-0.3); EOSINOPHILS % (AUTO) 2 % (0-10); HEMATOCRIT 52 % (40-54); HEMOGLOBIN 16.5 g/dL (13.3-17.7); LYMPHOCYTES # (AUTO) 2.3 10^3/uL (1.0-4.0); LYMPHOCYTES % (AUTO) 26 % (12-44); MEAN CORPUSCULAR HEMOGLOBIN 25 pg (25-34); MEAN CORPUSCULAR HGB CONC 32 g/dL (32-36); MEAN CORPUSCULAR VOLUME 79 fL (80-99); MEAN PLATELET VOLUME 9.3 fL (9.0-12.2); MONOCYTES # (AUTO) 1.1 10^3/uL (0.0-1.0); MONOCYTES % (AUTO) 12 % (0-12); NEUTROPHILS # (AUTO) 5.3 10^3/uL (1.8-7.8); NEUTROPHILS % (AUTO) 59 % (42-75); PLATELET COUNT 237 10^3/uL (130-400); WHITE BLOOD COUNT 8.8 10^3/uL (4.3-11.0)
[2023-02-04 14:31] LABS: ALBUMIN 4.3 GM/DL (3.2-4.5); CHLORIDE 96 MMOL/L (98-107); POTASSIUM 3.9 MMOL/L (3.6-5.0); SODIUM 133 MMOL/L (135-145)
[2023-02-04 14:33] LABS: CALCIUM 9.9 MG/DL (8.5-10.1)
--- NOTE | 2023-02-04 14:33 | Diagnostic Imaging Report ---
INDICATION: Chest pain, with left arm radiculopathy. PA and lateral chest obtained at 2:42 p.m. and compared with 09/11/2022. FINDINGS: Heart and mediastinal silhouette are normal in appearance. Pacemaker is unchanged. There is no focal infiltrate, pneumothorax, or pleural fluid. IMPRESSION: Unchanged pacemaker device. No focal infiltrate, pneumothorax, or pleural fluid. Dictated by: Dictated on workstation # [id number]
[2023-02-04 14:34] LABS: GLUCOSE 84 MG/DL (70-105); TOTAL PROTEIN 7.3 GM/DL (6.4-8.2)
[2023-02-04 14:35] LABS: BILIRUBIN,TOTAL 0.8 MG/DL (0.1-1.0); CARBON DIOXIDE 27 MMOL/L (21-32)
[2023-02-04 14:37] LABS: ALKALINE PHOSPHATASE 72 U/L (40-136); CREATININE SERUM 1.04 MG/DL (0.60-1.30); GFR ESTIMATED 83
[2023-02-04 14:38] LABS: BUN/CREATININE RATIO 6
[2023-02-04 14:40] LABS: ALANINE AMINOTRANSFERASE 12 U/L (0-55)
[2023-02-04] MEDS: KETOROLAC INJ 30 MG/ML VIAL IVP STA (15:39)
[2023-02-04 15:45] VITALS: BP 107/81
== END 2023-02-04 15:45 | disposition home or self-care (01) ==
LOC: EDUNIT# 13:47 → ER 13:49
DX: M25.512 Pain in left shoulder (principal)
CPT/HCPCS: 36415; 71046; 80053; 84484; 85025; 93005